=== PATIENT | female | born 1975 | race American Indian/Alaskan Native ===

== ENCOUNTER 2017-10-02 16:58 | Inpatient (IN) | payer MEDICAID ==
[2017-10-02] MEDS ORDERED: Albuterol-Ipratrop 3 mg / 0.5 (3 ml) UD IH STA (17:18)
--- NOTE | 2017-10-02 17:22 | ED PDOC ---
Arrival/HPI - General Chief Complaint: Shortness Of Breath Time Seen by Provider: 10/02/17 17:00 Historian: Patient, Family, EMS - History of Present Illness Time/Duration: Prior to Arrival Symptom Onset: Gradual Symptom Course: Unchanged Severity Level: Severe Activities at Onset: Rest Associated Symptoms (Text): 10/02/17 17:20 Morbidly obese woman. Complains of chronic shortness of breath worse over the last several days. Patient is usually seen and admitted at another hospital. Discharged last week. History of multiple pulmonary emboli. Patient does not take hers xarelto as prescribed. 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 She is on home oxygen 4 L and her pulse oximetry is normally 90. Reports she quit smoking approximately 6 months ago. Drinks alcohol daily. Past Medical History - Infectious Disease Hx of Infectious Diseases: None - Pulmonary Hx Chronic Obstructive Pulmonary Disease (COPD): Yes (O2 dependent 4-5LPM) - Gastrointestinal Hx Gastroesophageal Reflux: Yes - Psychiatric Hx Substance Use: No Family/Social History - Physician Review Nursing Documentation Reviewed: Yes Family/Social History: Unknown Family HX Smoking Status: Former Smoker (quit 6 months ago) Hx Alcohol Use: Yes Frequency of alcohol use: Daily Hx Substance Use: No Allergies/Home Meds Allergies/Adverse Reactions: Allergies No Known Allergies Allergy (Verified 10/02/17 17:02) Home Medications: Home Meds Medication Instructions Recorded Confirmed Albuterol/Ipratropium [Duoneb 3 1 vial IH QID PRN 10/02/17 10/02/17 mg/0.5 mg (3 ml) UD] Furosemide [Lasix] 1 tab PO DAILY 10/02/17 10/02/17 Pantoprazole [Protonix EC Tab] 1 tab PO DAILY 10/02/17 10/02/17 Rivaroxaban [Xarelto] 1 tab PO DAILY 10/02/17 10/02/17 Sildenafil [Revatio] 1 tab PO DAILY 10/02/17 10/02/17 predniSONE [predniSONE Tab] 1 tab PO DAILY 10/02/17 10/02/17 Review of Systems - Physician Review All systems were reviewed & negative as marked: Yes - Review of Systems Constitutional: Fatigue. absent: Fevers Respiratory: SOB, Cough, Wheezing. absent: Sputum Cardiovascular: absent: Chest Pain, Palpitations, Syncope Gastrointestinal: absent: Abdominal Pain, Diarrhea, Vomiting Neurological: absent: Headache, Dizziness, Focal Weakness Physical Exam Vital Signs Temp Pulse Resp BP Pulse Ox 10/02/17 19:20 93 H 18 113/81 89 L 10/02/17 18:42 22 88 L 10/02/17 17:06 97.8 F 99 H 18 110/66 88 L Temperature: Afebrile Blood Pressure: Normal Pulse: Regular Respiratory Rate: Tachypneic Appearance: Positive for: Non-Toxic, Uncomfortable, Other (morbidly obese) Pain Distress: None Mental Status: Positive for: Alert and Oriented X 3 - Systems Exam Head: Present: Atraumatic, Normocephalic Pupils: Present: PERRL Extroacular Muscles: Present: EOMI Conjunctiva: Present: Normal Mouth: Present: Moist Mucous Membranes Pharnyx: No: ERYTHEMA, EXUDATE, TONSILS ENLARGED Neck: Present: Normal Range of Motion Respiratory/Chest: Present: Respiratory Distress, Accessory Muscle Use, Wheezes , Decreased Breath Sounds, Rhonchi, Tachypneic. No: Rales Cardiovascular: Present: Regular Rate and Rhythm, Normal S1, S2. No: Murmurs Abdomen: No: Tenderness, Distention, Peritoneal Signs, Rebound, Guarding Back: Present: Normal Inspection Upper Extremity: Present: Normal Inspection. No: Cyanosis, Edema Lower Extremity: Present: Edema (race right lower extremity edema), Other (left BKA) Neurological: Present: GCS=15, CN II-XII Intact, Speech Normal, Motor Func Grossly Intact Skin: Present: Warm, Dry, Normal Color. No: Rashes Psychiatric: Present: Alert, Oriented x 3, Depressed Mood. No: Suicidal Ideation Medical Decision Making ED Course and Treatment: 10/02/17 18:21 CTA ordered on arrival as patient has a history of pulmonary embolus with increasing shortness of breath and not taking her anticoagulation as prescribed. 10/02/17 18:44 EKG shows normal sinus rhythm rate approximately 95 with a right bundle branch block Q waves inferiorly, poor R-wave progression and nonspecific ST and T- wave changes 10/02/17 19:10 CXR reviewed, shows: LUNGS: Prominence of pulmonary vasculature may be secondary to AP technique and/or pulmonary vascular congestion. No focal consolidation. PLEURA: No significant pleural effusion identified, no pneumothorax apparent. CARDIOVASCULAR: Cardiomediastinal silhouette appears prominent ; however, this cannot be accurately assessed on an AP projection. OSSEOUS STRUCTURES: No significant abnormalities. VISUALIZED UPPER ABDOMEN: Normal. OTHER FINDINGS: None. IMPRESSION: Prominence of the pulmonary vasculature and cardiomediastinal silhouette may be secondary to AP technique and/or pulmonary vascular congestion. No focal consolidation or pleural effusion. 10/02/17 19:54 CT Angio reviewed, shows: Pulmonary arteries: There is significant suboptimal opacification of the pulmonary arteries. Nondiagnostic exam. If a clinical concern for PE , further evaluation is recommended. Question of hypodensity noted in the right pulmonary artery , ? artifactual. Extremely Limited examination to evaluate for pulmonary embolism. Aorta: No acute findings. No thoracic aortic aneurysm. Lungs: There is patchy ill-defined density at the lung bases, question related to atelectatic changes. Pleural space: Tiny effusion right greater than left. No pneumothorax. Heart: There is moderate focal pericardial effusion measuring 1.8 cm. Further evaluation with echocardiogram is advised. The pericardial effusion is focal. There is calcification noted in the right ventricle. Bones/joints: See above. Soft tissues: Unremarkable. Lymph nodes: Unremarkable. No enlarged lymph nodes. IMPRESSION: 1. There is significant suboptimal opacification of the pulmonary arteries. Nondiagnostic exam. If a clinical concern for PE , further evaluation is recommended. Question of hypodensity noted in the right pulmonary artery , ? artifactual. Extremely Limited examination to evaluate for pulmonary embolism. 2. There is moderate focal pericardial effusion measuring 1.8 cm. Further evaluation with echocardiogram is advised. The pericardial effusion is focal. There is calcification noted in the right ventricle 10/02/17 20:09 Discussed with the medical aide and Dr. Julio will admit for the hospitalist. - Lab Interpretations Lab Results: 10/02/17 17:40 10/02/17 17:40 Lab Results 10/02/17 19:55: Urine Color Dark yellow, Urine Appearance Clear, Urine pH 6.0, Ur Specific [place] 1.010, Urine Protein 30 H, Urine Glucose (UA) Negative, Urine Ketones Negative, Urine Blood Negative, Urine Nitrate Negative, Urine Bilirubin Small H, Urine Urobilinogen 1.0 H, Ur Leukocyte Esterase Negative, Urine RBC Pending, Urine WBC Pending 10/02/17 18:30: pCO2 31 L, pO2 44.0 L*, HCO3 20.6 L, ABG pH 7.43, ABG Total CO2 21.6 L, ABG O2 Saturation 84.6 L, ABG O2 Content 13.3 L, ABG Base Excess -2.9 L , ABG Hemoglobin 11.6 L, ABG Carboxyhemoglobin 2.3 H, POC ABG HHb (Measured) 14.9 H, ABG Methemoglobin 1.1, ABG O2 Capacity 15.7 L, Hgb O2 Saturation 81.7 L , FiO2 40.0 10/02/17 17:40: Alcohol, Quantitative < 10 10/02/17 17:40: Sodium 140, Potassium 4.1, Chloride 105, Carbon Dioxide 20 L, Anion Gap 19, BUN 9, Creatinine 0.7, Est GFR ( Amer) > 60, Est GFR (Non- Af Amer) > 60, Random Glucose 102, Calcium 10.5, Magnesium 1.8, Total Bilirubin 2.6 H, AST 37 H, ALT 14, Alkaline Phosphatase 139 H, Lactate Dehydrogenase 800 H , Total Creatine Kinase 29 L, Troponin I 0.07, NT-Pro-B Natriuret Pep 1910 H, Total Protein 7.2, Albumin 4.2, Globulin 3.0, Albumin/Globulin Ratio 1.4 10/02/17 17:40: PT 21.8 H, INR 1.89 H, APTT 28.4, D-Dimer, Quantitative 220 10/02/17 17:40: WBC 9.1, RBC 4.85, Hgb 11.9 L, Hct 39.0, MCV 80.4, MCH 24.5 L, MCHC 30.5 L, RDW 17.7 H, Plt Count 614 H, MPV 10.2, Gran % 74.2 H, Lymph % (Auto ) 8.6 L, [place] % (Auto) 14.7 H, Eos % (Auto) 2.2, Baso % (Auto) 0.3, Gran # 6.72 H, Lymph # (Auto) 0.8 L, [place] # (Auto) 1.3 H, Eos # (Auto) 0.2, Baso # (Auto) 0.03 - RAD Interpretation Radiology Orders: 10/02/17 17:18 ANGIO CHEST PE PROTOCOL [CT] Stat CHEST PORTABLE [RAD] Stat Chest one view as read by the radiologist shows no acute findings. Cracking Still Operator: Radiologist - Medication Orders Current Medication Orders: Discontinued Medications Albuterol/Ipratropium (Duoneb 3 Mg/0.5 Mg (3 Ml) Ud) 3 ml IH STAT STA Stop: 10/02/17 17:19 Last Admin: 10/02/17 17:56 Dose: 3 ml Methylprednisolone (Solu-Medrol) 125 mg IVP STAT STA Stop: 10/02/17 17:19 Last Admin: 10/02/17 17:56 Dose: 125 mg IVP Administration Document 10/02/17 17:56 GMD (Rec: 10/02/17 17:56 GMD [id number]) Charges for Administration # of IVP Administrations 1 Disposition/Present on Arrival - Present on Arrival Any Indicators Present on Arrival: No History of DVT/PE: No History of Uncontrolled Diabetes: No Urinary Catheter: No History of Decub. Ulcer: No History Surgical Site Infection Following: None - Disposition Have Diagnosis and Disposition been Completed?: Yes Diagnosis: Hypoxia, Dyspnea, Congestive heart failure, Chronic obstructive pulmonary disease Disposition: HOSPITALIZED Disposition Time: 20:11 Patient Plan: Observation, Telemetry Condition: FAIR Discharge Instructions (ExitCare): Heart Failure (ED) Referrals: Debora Little [Primary Care Provider] - Follow up with primary Forms: DOOMORO (Czech)
[2017-10-02 17:57] LABS: BASO # 0.03 K/mm3 (0.0-2.0); BASO % 0.3 % (0.0-3.0); EOS # 0.2 (0.0-0.7); EOS % 2.2 % (1.5-5.0); GRAN # 6.72 (1.4-6.5); GRAN % 74.2 % (50.0-68.0); HEMOGLOBIN 11.9 g/dL (12.0-16.0); LYMPH # 0.8 (1.2-3.4); LYMPH % 8.6 % (22.0-35.0); MEAN CELL VOLUME 80.4 fl (80.0-105.0); MEAN CORPUSCULAR HEMOGLOBIN 24.5 pg (25.0-35.0); MEAN CORPUSCULAR HGB CONC 30.5 g/dl (31.0-37.0); MEAN PLATELET VOLUME 10.2 fl (7.0-11.0); MONO # 1.3 (0.1-0.6); MONO % 14.7 % (1.0-6.0); RBC 4.85 10^6/uL (3.5-6.1); RED CELL DISTRIBUTION WIDTH 17.7 % (11.5-14.5); WHITE BLOOD COUNT 9.1 10^3/ul (4.5-11.0)
[2017-10-02] MEDS ORDERED: Iohexol 350 MG/100 ML VIAL ONE (18:09)
[2017-10-02 18:13] LABS: ALB/GLOB RATIO 1.4 (1.1-1.8); ALBUMIN 4.2 g/dL (3.0-4.8); ALT/SGPT 14 U/L (7-56); AST/SGOT 37 U/L (14-36); BLOOD UREA NITROGEN 9 mg/dL (7-21); CALCIUM 10.5 mg/dL (8.4-10.5); GFR AFRICAN-AMERICAN > 60; GFR NON-AFRICAN AMERICAN > 60
[2017-10-02 18:18] LABS: PROTHROMBIN TIME 21.8 SECONDS (9.4-12.5)
[2017-10-02 18:19] LABS: INR 1.89 (0.93-1.08); PARTIAL THROMBOPLASTIN TIME 28.4 Seconds (25.1-36.5)
[2017-10-02 18:23] LABS: B-TYPE NATRIURETIC PEPTIDE 1910 pg/mL (0-450)
[2017-10-02 18:36] LABS: ARTERIAL BLOOD GAS HCO3 20.6 mmol/L (21-28); ARTERIAL BLOOD GAS HEMOGLOBIN 11.6 g/dL (11.7-17.4); ARTERIAL BLOOD GAS O2 CAPACITY 15.7 mL/dl (16-24); ARTERIAL BLOOD GAS O2 CONTENT 13.3 ML/dl (15-23); ARTERIAL BLOOD GAS O2 SAT 84.6 % (95-98); ARTERIAL BLOOD GAS PCO2 31 mm/Hg (35-45); ARTERIAL BLOOD GAS PH 7.43 (7.35-7.45); ARTERIAL BLOOD GAS TCO2 21.6 mmol.L (22-28)
--- NOTE | 2017-10-02 18:38 | RAD ---
HISTORY: sob COMPARISON: No prior FINDINGS: LUNGS: Prominence of pulmonary vasculature may be secondary to AP technique and/or pulmonary vascular congestion. No focal consolidation. PLEURA: No significant pleural effusion identified, no pneumothorax apparent. CARDIOVASCULAR: Cardiomediastinal silhouette appears prominent ; however, this cannot be accurately assessed on an AP projection. OSSEOUS STRUCTURES: No significant abnormalities. VISUALIZED UPPER ABDOMEN: Normal. OTHER FINDINGS: None. IMPRESSION: Prominence of the pulmonary vasculature and cardiomediastinal silhouette may be secondary to AP technique and/or pulmonary vascular congestion. No focal consolidation or pleural effusion.
[2017-10-02 18:49] LABS: TROPONIN I 0.07 ng/mL
[2017-10-02 20:06] LABS: URINE BILIRUBIN SMALL (NEGATIVE); URINE BLOOD NEGATIVE (NEGATIVE); URINE GLUCOSE (UA) NEGATIVE (NEGATIVE); URINE LEUKOCYTE ESTERASE NEGATIVE Leu/uL (NEGATIVE); URINE PROTEIN 30 mg/dL (<30 mg/dL)
[2017-10-02 20:07] LABS: URINE APPEARANCE CLEAR (CLEAR); URINE COLOR DARK YELLOW (YELLOW)
[2017-10-02 20:16] LABS: URINE RBC 0 - 2 /hpf (0-2)
[2017-10-02 20:17] LABS: URINE BACTERIA LARGE (NEG)
[2017-10-02 20:18] LABS: URINE COARSE GRANULAR CAST TRACE /hpf (0-2)
[2017-10-02 20:22] LABS: BARBITURATES, UR NEGATIVE (NEGATIVE); BENZODIAZEPINES, UR NEGATIVE (NEGATIVE); OPIATES, UR NEGATIVE (NEGATIVE); PHENCYCLIDINE, UR NEGATIVE (NEGATIVE)
[2017-10-02] MEDS ORDERED: Albuterol-Ipratrop 3 mg / 0.5 (3 ml) UD IH PRN (21:39)
[2017-10-02] MEDS ORDERED: MethylPREDNISolone 40 mg Vial IVP SCH (22:00)
--- NOTE | 2017-10-02 22:07 | CP.PCM.HP ---
<Jose Crespo - Last Filed: 10/03/17 00:39> History of Present Illness - History of Present Illness History of Present Illness: PGY-1 Hospitalist Admission Note for Dr. Kalee Valero Ms. 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 She states that she called EMS earlier today when she couldn't breathe. They measured her SpO2 at 77%. She' s been hospitalized for this multiple times in the past at [facility]. She states that she has been told that she has "fluid in her lungs." When she's hospitalized she typically receives lasix and steroids with some improvement. She states that she has not been taking xarelto or lasix for at least the past week because "I don't want to take them." Patient admits to using CPAP at home. Patient currently admits to shortness of breath, productive cough. She denies wheezing, chest pain, nausea/vomiting, abdominal pain. PMH: CHF, COPD, hx DVT/PE, pulmonary HTN PSH: c/s x2 Allergies: NKDA Meds: as per EMR, RN reviewed with pharmacy to verify Fam Hx: mother has HTN, father had DM2 and a clotting disorder Soc Hx: former smoker of at least 20 years, drinks heavily, denies illicit drug use. She states she moves around very little and stays in her bed all day. Present on Admission - Present on Admission Any Indicators Present on Admission: Yes History of DVT/PE: Yes History of Uncontrolled Diabetes: No Urinary Catheter: No Decubitus Ulcer Present: No Review of Systems - Review of Systems Review of Systems: A 12 point ROS was reviewed with patient and negative except as stated in HPI Past Patient History - Infectious Disease Hx of Infectious Diseases: None - Past Social History Smoking Status: Former Smoker (quit 6 months ago) - PULMONARY Hx Chronic Obstructive Pulmonary Disease (COPD): Yes (O2 dependent 4-5LPM) - HEMATOLOGICAL/ONCOLOGICAL Other/Comment: DVT - MUSCULOSKELETAL/RHEUMATOLOGICAL Other/Comment: L BKA - s/p DVT - GASTROINTESTINAL Hx Gastroesophageal Reflux: Yes - PSYCHIATRIC Hx Substance Use: No - SURGICAL HISTORY Hx Section: Yes (x2) Other/Comment: L BKA - 2016 Meds Home Medications: Home Medication List Medication Instructions Recorded Confirmed Type Gabapentin [Neurontin] 300 mg PO TID #30 cap 10/05/17 Rx predniSONE [predniSONE Tab] See Taper PO DAILY #30 tab 10/07/17 Rx Allergies/Adverse Reactions: Allergies Allergy/AdvReac Type Severity Reaction Status Date / Time No Known Allergies Allergy Verified 10/02/17 17:02 Physical Exam - Constitutional Appears: Chronically Ill Additional comments: obese, chronically ill appearing - Head Exam Head Exam: ATRAUMATIC, NORMAL INSPECTION, NORMOCEPHALIC - Eye Exam Eye Exam: Normal appearance, PERRL - ENT Exam ENT Exam: Mucous Membranes Moist - Neck Exam Additional comments: wide, thick neck, no thyromegaly - Respiratory Exam Respiratory Exam: absent: Accessory Muscle Use, Respiratory Distress, Stridor Additional comments: distant breath sounds with mild crackles at the left lower base, no wheezes - Cardiovascular Exam Cardiovascular Exam: REGULAR RHYTHM, +S1, +S2. absent: Diastolic murmur, Gallop , Rubs, +S4, Systolic Murmur - GI/Abdominal Exam GI & Abdominal Exam: Soft. absent: Guarding, Rebound, Tenderness - Extremities Exam Extremities exam: Negative for: calf tenderness, pedal edema Additional comments: L leg below the knee amputation - Neurological Exam Neurological exam: Alert, Oriented x3 - Psychiatric Exam Psychiatric exam: Anxious - Skin Additional comments: a few ecchymoses on back of right arm, multiple acneiform papules and pustules on the face bilaterally Results - Vital Signs Recent Vital Signs: Last Vital Signs Temp 97.8 F 10/02/17 17:06 Pulse 78 10/02/17 21:42 Resp 20 10/02/17 21:42 BP 118/84 10/02/17 21:42 Pulse Ox 98 10/02/17 21:42 - Labs Result Diagrams: 10/02/17 17:40 10/02/17 17:40 Assessment & Plan - Assessment and Plan (Free Text) Assessment: Ms. Oakes is a 42 year old female with PMH of CHF (unknown EF), COPD (on home O2 2 liters, on home prednisone), hx of DVT/PE (on xarelto) s/p R leg amputation , reported pulmonary HTN, and LAYO presents with SOB and cough for 3 days. 1. SOB -Possibly due to CHF vs. COPD exacerbation vs hx of reported pulmonary HTN -Lasix 40 mg IVP x1, and daily -CXR -Levaquin 750 mg started daily -CT PE protocol suboptimal for PE and moderate pericardial effusion. On xarelto -Solumedrol 125 mg x 1 in ED -Duo neb scheduled and PRN -Septic w/u ordered -Repeat ABG in AM -AM labs 2. Hx of CHF exacerbation -F/u Echo -BNP elevated -Lasix 40 mg daily -Will consider cardiology consult 3. Hx of COPD exacerbation -Continue solumedrol 40 mg BID -Duo neb as needed -Will consider pulm consult 4. Hx of Pulm HTN -Continue home sildenafil -F/u echo 5. GI/DVT prophylaxis continue xarelto and protonix Case and plan discussed with Dr. Kalee Valero attending Jose Crespo DO IM Resident PGY-1 <Brenda Valero - Last Filed: 10/07/17 22:33> Results - Vital Signs Recent Vital Signs: Last Vital Signs Temp 97.4 F L 10/07/17 22:22 Pulse 90 10/07/17 22:22 Resp 18 10/07/17 22:22 BP 102/71 10/07/17 22:22 Pulse Ox 90 L 10/07/17 22:22 - Labs Result Diagrams: 10/07/17 07:00 10/07/17 07:00 Labs: Laboratory Results - last 24 hr 10/05/17 10/07/17 10/07/17 05:30 07:00 07:00 WBC 11.5 H RBC 5.21 Hgb 12.7 Hct 41.7 MCV 80.0 MCH 24.4 L MCHC 30.5 L RDW 17.1 H Plt Count 628 H MPV 9.6 Gran % 76.8 H Lymph % (Auto) 18.0 L [place] % (Auto) 5.1 Eos % (Auto) 0.1 L Baso % (Auto) 0.0 Gran # 8.85 H Lymph # (Auto) 2.1 [place] # (Auto) 0.6 Eos # (Auto) 0.0 Baso # (Auto) 0.00 Sodium 138 Potassium 4.2 Chloride 99 Carbon Dioxide 28 Anion Gap 15 BUN 21 Creatinine 0.8 Est GFR ( Amer) > 60 Est GFR (Non-Af Amer) > 60 Random Glucose 116 H Calcium 9.2 Total Bilirubin 1.3 AST 27 ALT 29 Alkaline Phosphatase 115 Total Protein 6.8 Albumin 4.1 Globulin 2.7 Albumin/Globulin Ratio 1.5 Thyroid Stim Immunoglob 106
[2017-10-02] MEDS: guaiFENesin 200 mg/10 ml Syrup UD PO PRN (23:20)
--- NOTE | 2017-10-03 00:07 | PCM.RRT ---
<Fran Verduzco - Last Filed: 10/02/17 23:47> DENIAL RESOLUTION SPECIALIST Nurse Assessment - Situation Date: 10/02/17 Time DENIAL RESOLUTION SPECIALIST was called: 22:56 DENIAL RESOLUTION SPECIALIST Responder Arrival Time: 22:59 DENIAL RESOLUTION SPECIALIST Location:: [address] [place] [address] Room Number: 264-2 DENIAL RESOLUTION SPECIALIST Reason for Call: Respiratory Distress, O2 Saturation below 90% DENIAL RESOLUTION SPECIALIST Called By: RN - IV IV Inserted during DENIAL RESOLUTION SPECIALIST?: No - Respiratory Oxygen Delivery Method: Nasal Cannula @L/min Oxygen Flow Rate: 6 Received Nebulizer Treatments:: No Was the Patient Ventilated with Bag/Mask 100% O2?: No Secretions Suctioned?: No Was the Patient Intubated?: No Was the Patient Placed on a Ventilator?: No - Medication Medications Administered During DENIAL RESOLUTION SPECIALIST: Solumedrol 60 mg. Lasix 20 mg. Robitussin 200 mg - Diagnostic Test Ordered EKG: No Chest X-Ray: Yes (Portable) CT Scan: No - Stat Labs Ordered DENIAL RESOLUTION SPECIALIST Stat Labs Ordered: ABG CPR started during DENIAL RESOLUTION SPECIALIST?: No - Vital Signs Vital Sign: Rapid Response Vital Sign Blood Pressure 135/80 Pulse Rate 97 Respiratory Rate 32 Oxygen Saturation 76 - Finger Stick Blood Glucose Finger Stick Blood Glucose: 144 - Time DENIAL RESOLUTION SPECIALIST Ended Time DENIAL RESOLUTION SPECIALIST Ended: 23:38 - Vital Signs at end of DENIAL RESOLUTION SPECIALIST Vital Signs at end of DENIAL RESOLUTION SPECIALIST: Rapid Response End Vital Sign Blood Pressure 135/80 Pulse Rate 97 Respiratory Rate 28 O2 Sat by Pulse Oximetry 85 - Recommendations Notifications: Consultations I.Reason for DENIAL RESOLUTION SPECIALIST - A) Acute Change in Patient: (Select all that apply): Acute change in SpO2 less (spo2 76%) - Neurological Status (Select all that apply): Alert, Responsive, Oriented, Verbal - Respiratory Oxygen Delivery Method: Nasal Cannula @L/min Oxygen Flow Rate: 6 - Constitutional Appears: No Acute Distress - Head Head Exam: ATRAUMATIC - Eyes Eye Exam: EOMI, PERRL - Respiratory Exam Respiratory Exam: Decreased Breath Sounds, Clear to Ausculation Bilateral, Rales. absent: Wheezes - Cardiovascular Exam Cardiovascular Exam: REGULAR RHYTHM, +S1, +S2 - GI/Abdominal Exam GI & Abdominal Exam: Soft. absent: Tenderness - Neurological Exam Neurological Exam: Alert, Awake, CN II-XII Intact, Oriented x3 - Extremities Exam Extremities Exam: Pedal Edema (3+). absent: Calf Tenderness Plan - Assessment of Findings&Treatment Plan DENIAL RESOLUTION SPECIALIST: Called at 10:56 PM DENIAL RESOLUTION SPECIALIST called by nursing staff. Patient was short of breath and hypoxic, SPO2 76% , and was coughing. Patient was just recently brought up from the ED. She denied any chest pain or any other complaints. Patient with extensive history of CHF (unknown EF), COPD, LAYO, and pulmonary hypertension. Patient also with a history of PE/DVT on Xarelto at home. CT chest PE protocol in the ED shows sub- optimal exam for PE, and moderate pericardial effusion of 1.8 cm. Patient states that at baseline she is on 4 L of oxygen, and on prednisone at home for her COPD. Vitals: Refer to the chart. Physical exam: Lung: Diminished breath sounds, rales on the bases bilaterally Plan: - Patient is currently hemodynamically stable saturating in the high 80s. - BiPAP ordered - Chest x-ray ordered stat, awaiting official read, but shows some possible infiltrate, pulmonary vascular congestion and cardiomegally - ABG stat, PH 7.41, Pco2 30, PO2 47, - Lasix 20 mg stat, already received 40 mg with in 1 hour prior to DENIAL RESOLUTION SPECIALIST - Solu-Medrol 60 mg stat, already received 125 mg in the ED - Robitussin as needed - ICU consulted for recommendations Patient was seen and examined during this DENIAL RESOLUTION SPECIALIST with Dr. Mcintyre <Marilyn Mcintyre - Last Filed: 10/03/17 01:25> DENIAL RESOLUTION SPECIALIST Nurse Assessment - Vital Signs Vital Sign: Rapid Response Vital Sign Blood Pressure 135/80 Pulse Rate 97 Respiratory Rate 32 Oxygen Saturation 76 - Vital Signs at end of DENIAL RESOLUTION SPECIALIST Vital Signs at end of DENIAL RESOLUTION SPECIALIST: Rapid Response End Vital Sign Blood Pressure 135/80 Pulse Rate 97 Respiratory Rate 28 O2 Sat by Pulse Oximetry 85 Attending/Attestation - Attestation I have personally seen and examined this patient.: Yes I have fully participated in the care of the patient.: Yes I have reviewed all pertinent clinical information, including history, physical exam and plan: Yes Notes (Text): 10/03/17 01:20 Addendum:Pt seen and examined with resident by bedside. On auscultation of lungs,breath sounds are diminished in the lower lung reyes.
[2017-10-03] MEDS ORDERED: levoFLOXacin 750 mg in D5W 150 ML BAG IVPB STA (00:09)
--- NOTE | 2017-10-03 00:37 | CP.PCM.CON ---
History of Present Illness - History of Present Illness History of Present Illness: ICU Consult Note Ms. 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 Patient was brought in by EMS and found to have an SpO2 of 77%. In the ED, patient was given given O2 via NC, and solumedrol and was able to maintain O2 between 88-92%. Patient was admitted to telemetry for shortness of breath 2/2 CHF exacerbation vs. COPD exacerbation. ICU was consulted due to rapid response due to increasing shortness of breath and O2 saturation of 76%. At that time, patient was complaining of dyspnea and dry cough. Patient denies CP, n/v/d, abdominal pain, fever, chills, LAY, or dizziness PMH: CHF, COPD, DVT/PE, pulmonary HTN PSH: x2 Allergies: NKDA Meds: as per EMR Fam Hx: mother has HTN, father had DM2 and a clotting disorder Soc Hx: former smoker of at least 20 years, drinks heavily, denies illicit drug use. Review of Systems - Review of Systems All systems: reviewed and no additional remarkable complaints except (12 point ROS reviewed and is negative other than what is stated in HPI.) Past Patient History - Infectious Disease Hx of Infectious Diseases: None - Past Social History Smoking Status: Former Smoker (quit 6 months ago) - PULMONARY Hx Chronic Obstructive Pulmonary Disease (COPD): Yes (O2 dependent 4-5LPM) - HEMATOLOGICAL/ONCOLOGICAL Other/Comment: DVT - MUSCULOSKELETAL/RHEUMATOLOGICAL Other/Comment: [facility] - s/p DVT - GASTROINTESTINAL Hx Gastroesophageal Reflux: Yes - PSYCHIATRIC Hx Substance Use: No - SURGICAL HISTORY Hx Section: Yes (x2) Other/Comment: Andrew WHEAT - 2016 Meds Allergies/Adverse Reactions: Allergies Allergy/AdvReac Type Severity Reaction Status Date / Time No Known Allergies Allergy Verified 10/02/17 17:02 - Medications Medications: Current Medications Albuterol/Ipratropium (Duoneb 3 Mg/0.5 Mg (3 Ml) Ud) 3 ml IH Q2H PRN PRN Reason: Shortness of Breath Last Admin: 10/02/17 22:29 Dose: 3 ml Albuterol/Ipratropium (Duoneb 3 Mg/0.5 Mg (3 Ml) Ud) 3 ml IH [id number] [facility] Furosemide (Lasix) 40 mg IVP DAILY [facility] Guaifenesin (Robitussin) 200 mg PO Q4H PRN PRN Reason: Cough and congestion Last Admin: 10/02/17 23:20 Dose: 200 mg Levofloxacin/Dextrose (Levaquin 750mg) 750 mg IVPB DAILY [facility] PRN Reason: Protocol Methylprednisolone (Solu-Medrol) 40 mg IVP Q12 [facility] Pantoprazole Sodium (Protonix Ec Tab) 40 mg PO DAILY [facility] Rivaroxaban (Xarelto) 20 mg PO DAILY [facility] PRN Reason: Protocol Sildenafil Citrate (Revatio) 10 mg PO DAILY [facility] Physical Exam - Constitutional Appears: In Acute Distress - Head Exam Head Exam: ATRAUMATIC, NORMAL INSPECTION, NORMOCEPHALIC - Eye Exam Eye Exam: EOMI, Normal appearance, PERRL - ENT Exam ENT Exam: Mucous Membranes Dry - Neck Exam Neck exam: Positive for: Normal Inspection - Respiratory Exam Respiratory Exam: Accessory Muscle Use, Decreased Breath Sounds, Clear to Auscultation Bilateral, Respiratory Distress. absent: Rales, Rhonchi, Wheezes - Cardiovascular Exam Cardiovascular Exam: RRR, +S1, +S2. absent: Diastolic murmur, Gallop, Rubs, Systolic Murmur - GI/Abdominal Exam GI & Abdominal Exam: Soft. absent: Distended, Guarding, Rebound, Tenderness - Extremities Exam Extremities exam: Positive for: normal capillary refill, pedal edema (3+/4), pedal pulses present. Negative for: calf tenderness, full ROM, joint swelling, tenderness - Neurological Exam Neurological exam: Alert, CN II-XII Intact, Oriented x3 - Psychiatric Exam Psychiatric exam: Normal Affect, Normal Mood - Skin Skin Exam: Dry, Intact, Normal Color, Warm Results - Vital Signs Recent Vital Signs: Last Vital Signs Temp 97.8 F 10/02/17 17:06 Pulse 94 H 10/02/17 23:50 Resp 20 10/02/17 21:42 BP 135/80 10/02/17 23:22 Pulse Ox 98 10/02/17 21:42 - Labs Result Diagrams: 10/02/17 17:40 10/02/17 17:40 Labs: Laboratory Results - last 24 hr 07/06/18 23:00 POC Glucose (mg/dL) 144 H Assessment & Plan - Assessment and Plan (Free Text) Assessment: 42 yo F with PMH of CHF, COPD, DVT/PE, pulmonary HTN admitted for evaluation and treatment for shortness of breath 2/2 CHF vs. COPD exacerbation. ICU consulted due to acute hypoxia and worsening dyspnea. Plan: Neuro: - AOx3 - Maintain normothermia Cardio: - EKG showed NSR at rate of 95, incomplete RBBB, age-undetermined infarcts - CTA showed pericardial effusion - Maintain MAP>95% - Lasix - Echo ordered Pulm: - CTA indeterminate for PE - ABG showed normal pH with hypoxia (pO2 47) - BIPAP - Maintain O2 sat between 88-92% - AM ABG ordered - Sildenifil for pulm HTN - Solumedrol - Duoneb silvia and prn - Robitussin for cough GI: - Protonix for GI PPx - Heart healthy diet Nephro: - Maintain euvolemia - Monitor electrolytes, replete as needed Endocrine: - Maintain euglycemia Heme: - Xarelto due to h/o DVT ID: - Blood cultures ordered - Levaquin Dispo: At this time, continue monitoring on telemetry. BIPAP is ordered with ABG follow up. Please reconsult ICU as needed. Patient seen and discussed in detail with Dr. Valero. Antonio Hillman, PGY2
[2017-10-03] MEDS: Albuterol-Ipratrop 3 mg / 0.5 (3 ml) UD IH SCH ×4 (01:49→20:30)
[2017-10-03 02:24] LABS: ARTERIAL BLOOD GAS HEMOGLOBIN 12.8 g/dL (11.7-17.4); ARTERIAL BLOOD GAS O2 CAPACITY 17.3 mL/dl (16-24); ARTERIAL BLOOD GAS O2 SAT 86.6 % (95-98); ARTERIAL BLOOD GAS PCO2 30 mm/Hg (35-45); ARTERIAL BLOOD GAS PH 7.41 (7.35-7.45); ARTERIAL BLOOD GAS TCO2 19.9 mmol.L (22-28)
[2017-10-03 05:33] VITALS: BMI 23.8
[2017-10-03] MEDS ORDERED: levoFLOXacin 750 mg in D5W 750 MG/150 ML BAG IVPB STA (05:55)
[2017-10-03 07:07] LABS: EOS % 0.1 % (1.5-5.0); GRAN # 6.62 (1.4-6.5); GRAN % 94.1 % (50.0-68.0); LYMPH # 0.3 (1.2-3.4); LYMPH % 4.8 % (22.0-35.0); MEAN CELL VOLUME 80.6 fl (80.0-105.0); MEAN CORPUSCULAR HEMOGLOBIN 24.2 pg (25.0-35.0); MEAN PLATELET VOLUME 10.3 fl (7.0-11.0); MONO # 0.1 (0.1-0.6); PLATELET COUNT 609 10^3/uL (120.0-450.0); RBC 4.96 10^6/uL (3.5-6.1); RED CELL DISTRIBUTION WIDTH 17.7 % (11.5-14.5)
[2017-10-03 07:24] LABS: LDL CHOLESTEROL 44 mg/dL (0-129); TROPONIN I 0.08 ng/mL
[2017-10-03 07:33] LABS: ALB/GLOB RATIO 1.3 (1.1-1.8); ALBUMIN 4.2 g/dL (3.0-4.8); ALT/SGPT 22 U/L (7-56); AST/SGOT 21 U/L (14-36); BLOOD UREA NITROGEN 10 mg/dL (7-21); CALCIUM 9.3 mg/dL (8.4-10.5); GFR AFRICAN-AMERICAN > 60; GFR NON-AFRICAN AMERICAN > 60; HDL CHOLESTEROL 46 mg/dL (29-60)
[2017-10-03 07:43] LABS: LYMPHOCYTE 7 % (22.0-35.0); MONOCYTE 3 % (1.0-6.0); NEUTROPHIL 90 % (50.0-70.0)
[2017-10-03 07:44] LABS: ANISOCYTOSIS SLIGHT; GIANT PLATELETS PRESENT; LARGE PLATELETS PRESENT; PLATELET ESTIMATE HIGH (NORMAL); POIKILOCYTOSIS SLIGHT
[2017-10-03 07:45] LABS: TEAR DROP CELLS SLIGHT
--- NOTE | 2017-10-03 08:15 | CT ---
PROCEDURE: CT Chest with contrast (Pulmonary Angiogram) HISTORY: sob COMPARISON: None available. TECHNIQUE: Axial computed tomography images were obtained of the chest in the pulmonary arterial phase of enhancement. Coronal and sagittal reformatted images were created and reviewed. Intravenous contrast dose: 100 cc Omnipaque 350 Mean Hounsfield unit values in the main pulmonary artery: 117.15 Radiation dose: Total exam DLP = 537.96 mGy-cm. This CT exam was performed using one or more of the following dose reduction techniques: Automated exposure control, adjustment of the mA and/or kV according to patient size, and/or use of iterative reconstruction technique. FINDINGS: PULMONARY ARTERIES: No large central pulmonary emboli. Nondiagnostic study beyond the right and left main pulmonary artery. This is based on both qualitative assessment and quantitative analysis of density of the pulmonary artery using Hounsfield units. AORTA: No acute findings. No thoracic aortic aneurysm. LUNGS: Atelectatic changes at the lung bases. PLEURAL SPACES: Unremarkable. No effusion or pneuomothorax. HEART: Unremarkable. No cardiomegaly. No significant pericardial effusion. LYMPH NODES: No lymphadenopathy. BONES, CHEST WALL: Unremarkable. No fracture or destructive lesion OTHER FINDINGS: Unremarkable. IMPRESSION: Nondiagnostic study beyond the main pulmonary artery for pulmonary embolism. Additional benign and/or incidental findings described above. Concordant results (preliminary interpretation) provided by [employer]. Procedure Completed: 19:02 Preliminary ([facility]) Report: Dictated and Authenticated: 19:52 Final Interpretation: [id number]
--- NOTE | 2017-10-03 09:18 | CARD ---
APPROVED REPORT EKG Measurement Heart [id number] CO 142P13 [id number] <Conclusion> Normal sinus rhythm Indeterminate axis Low voltage QRS Incomplete right bundle branch block Possible Inferior infarct, age undetermined NSSTW changes
[2017-10-03] MEDS: Pantoprazole 40 mg EC Tab PO SCH (09:45)
[2017-10-03] MEDS: Sildenafil 20 MG TAB PO SCH (09:46)
[2017-10-03] MEDS: MethylPREDNISolone 40 mg Vial IVP SCH ×2 (09:48→21:01)
[2017-10-03] MEDS ORDERED: levoFLOXacin 500 mg in D5W 500 MG/100 ML BAG IVPB SCH (10:00)
--- NOTE | 2017-10-03 10:09 | RAD ---
HISTORY: Respiratory Distress COMPARISON: No prior. FINDINGS: LUNGS: No active pulmonary disease. PLEURA: No significant pleural effusion identified, no pneumothorax apparent. CARDIOVASCULAR: Normal. OSSEOUS STRUCTURES: No significant abnormalities. VISUALIZED UPPER ABDOMEN: Normal. OTHER FINDINGS: None. IMPRESSION: No active disease.
--- NOTE | 2017-10-03 14:30 | CON ---
DATE: 10/03/2017 CARDIOLOGY CONSULT REASON FOR CONSULTATION: Shortness of breath. HISTORY OF PRESENT ILLNESS: The patient is a 42-year-old morbidly obese female, who has chronic obstructive lung disease, history of DVT and history of left below-knee amputation. The patient was recently discharged from [facility] after the patient was admitted with shortness of breath. The patient has diagnosis of pulmonary embolus and was not taking her Xarelto as being prescribed. The patient denies any retrosternal chest pain at this time. MEDICATIONS: Albuterol inhaler every 2 hours p.r.n., Lasix 40 mg intravenously once a day, Levaquin 750 mg intravenously daily, Neurontin 300 mg t.i.d., Protonix 40 mg p.o. once a day, Robitussin 200 mg p.o. every 4 hours p.r.n., Solu-Medrol 40 mg intravenously every 12 hours, Xarelto 20 mg once a day. PAST MEDICAL HISTORY: 1. DVT and pulmonary embolus. 2. Left below knee amputation 2 years ago. 3. Chronic obstructive lung disease. PHYSICAL EXAMINATION: GENERAL: The patient is a middle-aged female, who is currently on BiPAP. VITAL SIGNS: Blood pressure 123/91, heart rate 100, temperature 99.1, respirations 20. HEENT: Facial edema. CHEST: Absent breath sounds over the bases. HEART: S1 and S2 regular and distant. ABDOMEN: Soft. EXTREMITIES: 1+ right leg edema and left below-knee amputation. LABORATORY DATA: Hemoglobin and hematocrit today 12 and 40, white count 7.4, platelet count 609,000. Today's SMA-7 is within normal limits except for glucose of 137, troponin 0.07 and 0.08. TSH level is 0.33. EKG revealed sinus rhythm at rate of 95, low-voltage QRS complex. Incomplete right bundle-branch block. Nonspecific ST-T wave changes. Chest CT angio with PE protocol. Nondiagnostic study beyond the main pulmonary artery for pulmonary embolism. Chest-ray revealed mild cardiomegaly, moderate CHF. ASSESSMENT: 1. Exacerbation of chronic obstructive lung disease. 2. History of deep venous thrombosis and pulmonary emboli in the past. 3. Morbid obesity. 4. History of left below-knee amputation 2 years ago. 5. Consider congestive heart failure. RECOMMENDATIONS: Continue IV Lasix 40 mg daily. Continue Levaquin 750 mg daily. Solu-Medrol 40 mg intravenously twice a day, Xarelto 20 mg once a day. Obtain an echocardiogram. Eduard Cannon MD
[2017-10-03] MEDS: guaiFENesin 200 mg/10 ml Syrup UD PO PRN (18:34)
--- NOTE | 2017-10-03 18:56 | CP.PCM.PN ---
<Deni Velez - Last Filed: 10/04/17 07:31> Subjective - Date & Time of Evaluation Date of Evaluation: 10/03/17 Time of Evaluation: 07:00 - Subjective Subjective: Progress note for Hospitalist Dr. Carrington Patient seen and examined at bedside in no acute distress. Patient was seen on [place] and able to communicate with ease. Denies chest pain, abdominal pain, nausea , vomiting, diarrhea, constipation, fevers, chills. Objective - Vital Signs/Intake and Output Vital Signs (last 24 hours): Temp Pulse Resp BP Pulse Ox 98.4 F 101 H 20 108/72 89 L 10/03/17 18:00 10/03/17 18:00 10/03/17 18:00 10/03/17 18:00 10/03/17 06:00 Intake and Output: 10/03/17 10/03/17 06:59 18:59 Intake Total 240 Output Total 1100 Balance -860 - Medications Medications: Current Medications Albuterol/Ipratropium (Duoneb 3 Mg/0.5 Mg (3 Ml) Ud) 3 ml IH Q2H PRN PRN Reason: Shortness of Breath Last Admin: 10/02/17 22:29 Dose: 3 ml Albuterol/Ipratropium (Duoneb 3 Mg/0.5 Mg (3 Ml) Ud) 3 ml IH [id number] [facility] Last Admin: 10/03/17 13:40 Dose: 3 ml Furosemide (Lasix) 40 mg IVP DAILY [facility] Last Admin: 10/03/17 09:48 Dose: 40 mg Gabapentin (Neurontin) 300 mg PO TID [facility] PRN Reason: Protocol Last Admin: 10/03/17 18:28 Dose: Not Given Guaifenesin (Robitussin) 200 mg PO Q4H PRN PRN Reason: Cough and congestion Last Admin: 10/03/17 18:34 Dose: 200 mg Levofloxacin/Dextrose (Levaquin 750mg) 750 mg IVPB DAILY [facility] PRN Reason: Protocol Methylprednisolone (Solu-Medrol) 40 mg IVP Q12 [facility] Last Admin: 10/03/17 09:48 Dose: 40 mg Pantoprazole Sodium (Protonix Ec Tab) 40 mg PO DAILY [facility] Last Admin: 10/03/17 09:45 Dose: 40 mg Rivaroxaban (Xarelto) 20 mg PO DAILY [facility] PRN Reason: Protocol Last Admin: 10/03/17 09:47 Dose: 20 mg Sildenafil Citrate (Revatio) 10 mg PO DAILY [facility] Last Admin: 10/03/17 09:46 Dose: 10 mg - Labs Labs: PT 21.8 SECONDS (9.4-12.5) H 10/02/17 17:40 INR 1.89 (0.93-1.08) H 10/02/17 17:40 APTT 28.4 Seconds (25.1-36.5) 10/02/17 17:40 - Head Exam Head Exam: ATRAUMATIC, NORMAL INSPECTION, NORMOCEPHALIC - Eye Exam Eye Exam: EOMI - Neck Exam Neck Exam: Full ROM - Respiratory Exam Respiratory Exam: Decreased Breath Sounds, NORMAL BREATHING PATTERN - Cardiovascular Exam Cardiovascular Exam: REGULAR RHYTHM, +S1, +S2 - Extremities Exam Extremities Exam: Pedal Edema (right leg). absent: Normal Inspection (left below knee amputation) - Back Exam Back Exam: NORMAL INSPECTION - Neurological Exam Neurological Exam: Alert, Awake, Oriented x3 - Psychiatric Exam Psychiatric exam: Depressed Assessment and Plan - Assessment and Plan (Free Text) Assessment: Ms. Oakes is a 42 year old female with PMH of CHF (unknown EF), COPD (on home O2 2 liters, on home prednisone), hx of DVT/PE (on xarelto) s/p R leg amputation , reported pulmonary HTN, and LAYO presents with SOB and cough for 3 days. 1. Dyspnea -Possibly due to CHF vs. COPD exacerbation vs hx of reported pulmonary HTN -Cardiology consulted -BNP elevated -Daily Lasix 40 mg -F/U echo -Pulmonary consult -Daily Levaquin 750 mg -Duonebs scheduled and PRN 2. Hx of Pulm HTN -Continue home sildenafil -F/u echo 3.History of DVT/PE -CT PE protocol suboptimal for PE and moderate pericardial effusion. -Patient restarted on xarelto 4. Depression -Patient states she is depressed at times because of left leg amputation; states she does not want to be seen by psych GI/DVT prophylaxis continue xarelto and protonix Case discussed and reviewed with Dr. Zeb Velez PGY2 <Jenn Carrington - Last Filed: 10/04/17 07:55> Objective - Vital Signs/Intake and Output Vital Signs (last 24 hours): Temp Pulse Resp BP Pulse Ox 97.8 F 95 H 20 107/77 93 L 10/04/17 06:00 10/04/17 06:00 10/04/17 06:00 10/04/17 06:00 10/04/17 06:00 Intake and Output: 10/04/17 10/04/17 06:59 18:59 Intake Total 1920 Output Total 1500 Balance 420 - Medications Medications: Current Medications Albuterol/Ipratropium (Duoneb 3 Mg/0.5 Mg (3 Ml) Ud) 3 ml IH Q2H PRN PRN Reason: Shortness of Breath Last Admin: 10/02/17 22:29 Dose: 3 ml Albuterol/Ipratropium (Duoneb 3 Mg/0.5 Mg (3 Ml) Ud) 3 ml IH [id number] [facility] Last Admin: 10/04/17 01:25 Dose: 3 ml Furosemide (Lasix) 40 mg IVP DAILY [facility] Last Admin: 10/03/17 09:48 Dose: 40 mg Gabapentin (Neurontin) 300 mg PO TID [facility] PRN Reason: Protocol Last Admin: 10/03/17 18:28 Dose: Not Given Guaifenesin (Robitussin) 200 mg PO Q4H PRN PRN Reason: Cough and congestion Last Admin: 10/03/17 18:34 Dose: 200 mg Levofloxacin/Dextrose (Levaquin 750mg) 750 mg IVPB DAILY [facility] PRN Reason: Protocol Methylprednisolone (Solu-Medrol) 40 mg IVP Q12 [facility] Last Admin: 10/03/17 21:01 Dose: 40 mg Oxycodone/Acetaminophen (Percocet 5/325 Mg Tab) 1 tab PO Q6H PRN PRN Reason: Pain, severe (8-10) Stop: 10/06/17 19:02 Last Admin: 10/03/17 20:56 Dose: 1 tab Pantoprazole Sodium (Protonix Ec Tab) 40 mg PO DAILY [facility] Last Admin: 10/03/17 09:45 Dose: 40 mg Rivaroxaban (Xarelto) 20 mg PO DAILY [facility] PRN Reason: Protocol Last Admin: 10/03/17 09:47 Dose: 20 mg Sildenafil Citrate (Revatio) 10 mg PO DAILY [facility] Last Admin: 07/07/18 09:46 Dose: 10 mg - Labs Labs: 10/04/17 06:00 10/04/17 06:00 PT 21.8 SECONDS (9.4-12.5) H 10/02/17 17:40 INR 1.89 (0.93-1.08) H 10/02/17 17:40 APTT 28.4 Seconds (25.1-36.5) 10/02/17 17:40 Attending/Attestation - Attestation I have personally seen and examined this patient.: Yes I have fully participated in the care of the patient.: Yes I have reviewed all pertinent clinical information, including history, physical exam and plan: Yes Notes (Text): 10/03/17 42 year old female with past medical history of CHF, COPD, DVT/PE on xarelto, s/ p right BKA, pulmonary hypertension and LAYO who presented with shortness of breath secondary to CHF/COPD exacerbation. Continue with iv lasix and iv steroids. Echocardiogram is pending. Cardiology and pulmonary evaluation were appreciated. CT angio was suboptimal study for PE. Patient is on xarelto. She was counselled on medication compliance. Jenn Carrington MD Hospitalist.
[2017-10-03] MEDS: Oxycodone/Acetaminophen 5/325 mg Tab PO PRN (20:56)
--- NOTE | 2017-10-03 21:09 | CON ---
DATE: 10/03/2017 PULMONARY CONSULTATION REQUESTING PHYSICIAN: Dr. Carrington. CHIEF COMPLAINT: The patient presented with shortness of breath. HISTORY OF PRESENT ILLNESS: Ms. Oakes, she is a 42-year-old morbidly obese female with a history of COPD, obstructive sleep apnea, pulmonary embolus and DVT. Note that the patient has been noncompliant with her Xarelto. She does have left lower extremity BKA and history of obstructive sleep apnea. The patient is awake and alert, on BiPAP at this time, very comfortable. She has no chest pain. No fever or chills. No nausea or vomiting. No abdominal pain. No diarrhea. PAST MEDICAL HISTORY: As above. ALLERGIES: SHE HAS NO KNOWN ALLERGIES. CURRENT MEDICATIONS: Can be evaluated as per the nurse's intake form. SOCIAL HISTORY: No history of drug abuse, but former smoker. No EtOH abuse. FAMILY HISTORY: Noncontributory. REVIEW OF SYSTEMS: CONSTITUTIONAL: All negative. HEENT: All negative. RESPIRATORY: The patient presented with shortness of breath. CARDIOVASCULAR: All negative. GASTROINTESTINAL: All negative. : All negative. MUSCULOSKELETAL: All negative. NEUROPSYCHIATRIC: All negative. ENDOCRINE: All negative. HEMATOLOGIC: All negative. IMMUNOLOGIC: All negative. PHYSICAL EXAMINATION: VITAL SIGNS: Note that her temperature is 99.1, her pulse is 100, respirations of 20 and BP is 123/91. SKIN: Warm and dry. HEENT: Head: Atraumatic, normocephalic. Eyes: Reactive to light. Ear, nose and throat: Seemed to be within normal limits. NECK: Supple. No JVD. No thyroid enlargement or lymph nodes. HEART: Regular rate and rhythm. Normal S1, S2. LUNGS: Reveal decreased breath sounds at the bases with mild rhonchi bilaterally. ABDOMEN: Soft. Decreased bowel sounds, but obese. GENITALIA: Deferred. RECTAL: Deferred. MUSCULOSKELETAL: No joint deformities. EXTREMITIES: Reveal left-sided BKA. Right extremity reveals trace edema in the lower extremity. NEUROLOGICAL: She seemed to be grossly intact. LABORATORY DATA: Her white count is 7, hemoglobin is 12, hematocrit 40 and platelets of 609,000. Sodium is 141, potassium 3.9, chloride 103, CO2 of 23 with a BUN of 10, creatinine of 0.7 and glucose of 137. The patient's arterial blood gas that was drawn on 10/02/2017 reveals a pH of 7.41, pCO2 of 30, pO2 of 47. Chest x-ray reveals no infiltrates. IMPRESSION: This patient has acute exacerbation of her chronic obstructive pulmonary disease. She does have obstructive sleep apnea and seems to have obesity hypoventilation syndrome. The patient has a pulmonary embolus and is noted was noncompliant with her anticoagulant medication. She has a history of deep vein thrombosis. Has a left below-knee amputation and is morbidly obese. PLAN: We will continue with BiPAP and O2 support and follow her chest x-ray and arterial blood gas closely. We will continue with DuoNeb as far as her bronchodilator. She is on Lasix for diuresis and the patient is getting Levaquin as well as sildenafil and cough medicine as well as Solu-Medrol. She is on Xarelto as well. Further plan is to continue to treat aggressively and continue the medications that are presently on and taper as the patient tolerates. Pierre Moore MD
[2017-10-04] MEDS: Albuterol-Ipratrop 3 mg / 0.5 (3 ml) UD IH SCH ×2 (01:25→07:51)
[2017-10-04 06:08] LABS: GRAN # 11.24 (1.4-6.5); GRAN % 90.5 % (50.0-68.0); HEMOGLOBIN 11.8 g/dL (12.0-16.0); LYMPH # 0.6 (1.2-3.4); LYMPH % 4.7 % (22.0-35.0); MEAN CELL VOLUME 80.3 fl (80.0-105.0); MEAN CORPUSCULAR HEMOGLOBIN 23.9 pg (25.0-35.0); MEAN CORPUSCULAR HGB CONC 29.8 g/dl (31.0-37.0); MONO # 0.6 (0.1-0.6); MONO % 4.8 % (1.0-6.0); RBC 4.93 10^6/uL (3.5-6.1); RED CELL DISTRIBUTION WIDTH 17.6 % (11.5-14.5); WHITE BLOOD COUNT 12.4 10^3/ul (4.5-11.0)
[2017-10-04 06:37] LABS: FREE T4 2.91 ng/dL (0.78-2.19)
[2017-10-04 07:15] LABS: ALB/GLOB RATIO 1.3 (1.1-1.8); ALT/SGPT 22 U/L (7-56); AST/SGOT 29 U/L (14-36); BLOOD UREA NITROGEN 16 mg/dL (7-21); GFR AFRICAN-AMERICAN > 60; GFR NON-AFRICAN AMERICAN > 60
--- NOTE | 2017-10-04 08:06 | CARD ---
APPROVED REPORT EXAM: Two-dimensional and M-mode echocardiogram with Doppler and color Doppler. Other Information Quality : PoorRhythm : INDICATION Congestive Heart Failure 2D DIMENSIONS Left Atrium (2D)2.4 (1.6-4.0cm)IVSd0.8 (0.7-1.1cm) LVDd3.6 (3.9-5.9cm)PWd0.8 (0.7-1.1cm) LVDs2.0 (2.5-4.0cm)FS (%) 44.4 % LVEF (%)76.0 (>50%) M-Mode DIMENSIONS Aortic Root3.50 (2.2-3.7cm)Aortic Cusp Exc.2.10 (1.5-2.0cm) Aortic Valve AoV Peak Yccwkcue658.0cm/s Mitral Valve MV E Razvbbcw04.6cm/sMV A Ttxtukcb83.9cm/sE/A ratio0.9 TDI Lateral E' Peak V12.10cm/sMedial E' Peak V9.94cm/sE/Lateral E'6.0 E/Medial E'7.3 Tricuspid Valve TR Peak [id number]/sRAP [id number] Peak Gr.68mmHg [id number] LEFT VENTRICLE The left ventricle is normal size. There is normal left ventricular wall thickness. The left ventricular function is normal. The left ventricular ejection fraction is within the normal range. Abnormal septal motion and flatteneing c/w RV volume/pressure overload. RIGHT VENTRICLE The right ventricle is moderately to severely dilated. ATRIA The left atrium size is normal. The right atrium is severely dilated. AORTIC VALVE The aortic valve is normal in structure. MITRAL VALVE The mitral valve is normal in structure. TRICUSPID VALVE The tricuspid valve is normal in structure. There is severe tricuspid regurgitation. There is severe pulmonary hypertension. GREAT VESSELS The aortic root is normal in size. PERICARDIAL EFFUSION There is no pericardial effusion. <Conclusion> This is a very limited study done in ICU. The left ventricle is normal size. There is normal left ventricular wall thickness. The left ventricular function is normal. Abnormal septal motion and flatteneing c/w RV volume/pressure overload. The right ventricle is moderately to severely dilated. The right atrium is severely dilated. There is severe tricuspid regurgitation. There is severe pulmonary hypertension.
[2017-10-04] MEDS ORDERED: Levalbuterol 0.63 MG/3 ML Inhal Soln UD IH PRN (09:28)
[2017-10-04] MEDS: guaiFENesin 200 mg/10 ml Syrup UD PO PRN (09:30)
[2017-10-04] MEDS: MethylPREDNISolone 40 mg Vial IVP SCH ×2 (09:30→21:17)
[2017-10-04] MEDS: Oxycodone/Acetaminophen 5/325 mg Tab PO PRN ×3 (09:31→21:17)
[2017-10-04] MEDS: Pantoprazole 40 mg EC Tab PO SCH (09:32)
[2017-10-04] MEDS: levoFLOXacin 750 mg in D5W 150 ML BAG IVPB SCH (09:38)
[2017-10-04] MEDS: Sildenafil 20 MG TAB PO SCH (09:39)
--- NOTE | 2017-10-04 13:00 | CP.PCM.PN ---
<Jacek Chilel - Last Filed: 10/04/17 12:54> Subjective - Date & Time of Evaluation Date of Evaluation: 10/04/17 Time of Evaluation: 09:30 - Subjective Subjective: Pt seen and examined at bedside. Denies any acute complaints this am, states her breathing is improving. Pt on BiPap during night, no acute events reported. Objective - Vital Signs/Intake and Output Vital Signs (last 24 hours): Temp Pulse Resp BP Pulse Ox 97.8 F 95 H 20 130/70 93 L 10/04/17 06:00 10/04/17 06:00 10/04/17 06:00 10/04/17 09:31 10/04/17 06:00 Intake and Output: 10/04/17 10/04/17 06:59 18:59 Intake Total 1920 Output Total 1500 Balance 420 - Medications Medications: Current Medications Furosemide (Lasix) 40 mg IVP DAILY [facility] Last Admin: 10/04/17 09:31 Dose: 40 mg Gabapentin (Neurontin) 300 mg PO TID [facility] PRN Reason: Protocol Last Admin: 10/04/17 09:38 Dose: Not Given Guaifenesin (Robitussin) 200 mg PO Q4H PRN PRN Reason: Cough and congestion Last Admin: 10/04/17 09:30 Dose: 200 mg Ipratropium [place] (Atrovent) 0.5 mg IH [id number] DUNIA Levalbuterol HCl (Xopenex) 0.63 mg IH [id number] DUNIA Levalbuterol HCl (Xopenex) 0.63 mg IH [id number] PRN PRN Reason: Shortness of Breath Levofloxacin/Dextrose (Levaquin 750mg) 750 mg IVPB DAILY [facility] PRN Reason: Protocol Last Admin: 10/04/17 09:38 Dose: 750 mg Methylprednisolone (Solu-Medrol) 40 mg IVP Q12 [facility] Last Admin: 10/04/17 09:30 Dose: 40 mg Oxycodone/Acetaminophen (Percocet 5/325 Mg Tab) 1 tab PO Q6H PRN PRN Reason: Pain, severe (8-10) Stop: 10/06/17 19:02 Last Admin: 10/04/17 09:31 Dose: 1 tab Pantoprazole Sodium (Protonix Ec Tab) 40 mg PO DAILY [facility] Last Admin: 10/04/17 09:32 Dose: 40 mg Rivaroxaban (Xarelto) 20 mg PO DAILY [facility] PRN Reason: Protocol Last Admin: 10/04/17 09:31 Dose: 20 mg Sildenafil Citrate (Revatio) 10 mg PO DAILY [facility] Last Admin: 10/04/17 09:39 Dose: 10 mg - Labs Labs: 10/04/17 06:00 10/04/17 06:00 PT 21.8 SECONDS (9.4-12.5) H 10/02/17 17:40 INR 1.89 (0.93-1.08) H 10/02/17 17:40 APTT 28.4 Seconds (25.1-36.5) 10/02/17 17:40 - Constitutional Appears: Non-toxic, No Acute Distress, Chronically Ill - Head Exam Head Exam: ATRAUMATIC, NORMAL INSPECTION - Eye Exam Eye Exam: EOMI, Normal appearance - ENT Exam ENT Exam: Mucous Membranes Moist, Normal Oropharynx - Neck Exam Neck Exam: Full ROM, Normal Inspection - Respiratory Exam Additional comments: Crackles heard b/l in lower lung bases, good airway entry in upper lung reyes b /l - Cardiovascular Exam Cardiovascular Exam: REGULAR RHYTHM, +S1, +S2 - GI/Abdominal Exam GI & Abdominal Exam: Soft, Normal Bowel Sounds - Extremities Exam Extremities Exam: Normal Capillary Refill Additional comments: L below-knee amputation, sensation intact, decreased LE swelling in RLE - Neurological Exam Neurological Exam: Alert, Awake, Oriented x3 - Skin Skin Exam: Dry, Intact, Normal Color, Warm Assessment and Plan - Assessment and Plan (Free Text) Assessment: 42 year old female with PMH of CHF (unknown EF), COPD (on home O2 2 liters, on home prednisone), 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 Pt being treated for CHF exacerbation. Plan: 1. Dyspnea -Possibly due to CHF vs. COPD exacerbation vs hx of reported pulmonary HTN -BNP elevated -Daily Lasix 40 mg -C/w BiPap, trend O2 sat and vitals -Echo demonstrated: LVEF 76%, abnormal septal motion and flattening c/w R ventricle volume/pressure overload, R atrium severely dilated, R ventricle moderate to severely dilated, severe tricuspid regurgitation, severe pulm HTN. No pericardial effusion. -Cardio consulted, f/u recs -Pulm consulted, f/u recs -Daily Levaquin 750 mg -Duonebs scheduled and PRN -Solumedrol 40 mg q 12 h -Strict I's and O's -Pt improving, continue to monitor clinical status 2. Hx of Pulm HTN -Continue home sildenafil -Echo results as described above 3. History of DVT/PE -CT PE protocol suboptimal for PE and moderate pericardial effusion. -Patient restarted on Xarelto 4. Depression -Patient states she is depressed at times because of left leg amputation; states she does not want to be seen by psych GI/DVT prophylaxis: c/w xarelto and protonix. Pt seen, examined with, and plan discussed w/ Dr. Carrington, attending. Jacek Chilel DO PGY-1, [employer] Pager #[phone] <Jenn Carrington - Last Filed: 10/04/17 14:49> Objective - Vital Signs/Intake and Output Vital Signs (last 24 hours): Temp Pulse Resp BP Pulse Ox 98.4 F 103 H 20 103/59 L 93 L 10/04/17 12:00 10/04/17 12:00 10/04/17 12:00 10/04/17 12:00 10/04/17 06:00 Intake and Output: 10/04/17 10/04/17 06:59 18:59 Intake Total 1920 Output Total 1500 Balance 420 - Medications Medications: Current Medications Furosemide (Lasix) 40 mg IVP DAILY [facility] Last Admin: 10/04/17 09:31 Dose: 40 mg Gabapentin (Neurontin) 300 mg PO TID [facility] PRN Reason: Protocol Last Admin: 10/04/17 13:59 Dose: Not Given Guaifenesin (Robitussin) 200 mg PO Q4H PRN PRN Reason: Cough and congestion Last Admin: 10/04/17 09:30 Dose: 200 mg Ipratropium [place] (Atrovent) 0.5 mg IH [id number] [facility] Last Admin: 10/04/17 13:52 Dose: 0.5 mg Levalbuterol HCl (Xopenex) 0.63 mg IH [id number] [facility] Last Admin: 10/04/17 13:52 Dose: 0.63 mg Levalbuterol HCl (Xopenex) 0.63 mg IH [id number] PRN PRN Reason: Shortness of Breath Levofloxacin/Dextrose (Levaquin 750mg) 750 mg IVPB DAILY [facility] PRN Reason: Protocol Last Admin: 10/04/17 09:38 Dose: 750 mg Methylprednisolone (Solu-Medrol) 40 mg IVP Q12 [facility] Last Admin: 10/04/17 09:30 Dose: 40 mg Oxycodone/Acetaminophen (Percocet 5/325 Mg Tab) 1 tab PO Q6H PRN PRN Reason: Pain, severe (8-10) Stop: 10/06/17 19:02 Last Admin: 10/04/17 09:31 Dose: 1 tab Pantoprazole Sodium (Protonix Ec Tab) 40 mg PO DAILY [facility] Last Admin: 10/04/17 09:32 Dose: 40 mg Rivaroxaban (Xarelto) 20 mg PO DAILY [facility] PRN Reason: Protocol Last Admin: 10/04/17 09:31 Dose: 20 mg Sildenafil Citrate (Revatio) 10 mg PO DAILY [facility] Last Admin: 10/04/17 09:39 Dose: 10 mg - Labs Labs: 10/04/17 06:00 10/04/17 06:00 PT 21.8 SECONDS (9.4-12.5) H 10/02/17 17:40 INR 1.89 (0.93-1.08) H 10/02/17 17:40 APTT 28.4 Seconds (25.1-36.5) 10/02/17 17:40 Attending/Attestation - Attestation I have personally seen and examined this patient.: Yes I have fully participated in the care of the patient.: Yes I have reviewed all pertinent clinical information, including history, physical exam and plan: Yes Notes (Text): 10/04/17 14:47 42 year old female with past medical history of CHF, COPD, DVT/PE on xarelto, s/ p left BKA, pulmonary hypertension and LAYO who presented with shortness of breath secondary to CHF/COPD exacerbation. Continue with iv lasix and iv steroids. Echocardiogram was reviewed as above. Cardiology and pulmonary are following. CT angio was suboptimal study for PE. Patient is on xarelto. She was counselled on medication compliance. TSH is low with elevated free T4. Endocrinology evaluation is requested. Leukocytosis noted; likely secondary to iv steroids. Will continue to monitor. Jenn Carrington MD Hospitalist.
[2017-10-04] MEDS: Levalbuterol 0.63 MG/3 ML Inhal Soln UD IH SCH ×2 (13:52→20:35)
[2017-10-04] MEDS: Ipratropium 0.02% Inhal Soln (0.5 mg/2.5 ml) UD IH SCH ×2 (13:52→20:35)
--- NOTE | 2017-10-04 15:30 | PN ---
DATE: 10/04/2017 FOLLOWUP SUBJECTIVE: The patient is mildly short of breath on nasal O2. She did have sinus tachycardia during nebulizer therapy. She denies retrosternal chest pain. PHYSICAL EXAMINATION: VITAL SIGNS: Blood pressure 103/59, heart rate 103, temperature 98.4, respirations 20. HEENT: Normocephalic. CHEST: Bilateral rhonchi. HEART: S1 and S2 regular. EXTREMITIES: 1+ right leg edema and left below-knee amputation. LABORATORY DATA: Today's hemoglobin and hematocrit 11.8 and 39.6, white count 12.4, platelet count 682,000. The SMA-7 is within normal limit except for glucose of 159, total bilirubin is slightly elevated at 1.9. ASSESSMENT: 1. Exacerbation of chronic obstructive lung disease. 2. History of deep venous thrombosis and pulmonary embolism in the past. 3. Status post left below-knee amputation 2 years ago. 4. Morbid obesity. RECOMMENDATIONS: Continue current Atrovent inhaler, IV Lasix 20 mg once a day, Levaquin 750 mg intravenously daily, Robitussin 200 mg p.o. every 4 hours p.r.n., Solu-Medrol 40 mg intravenously twice a day and Lovenox inhaler. The echocardiography study, which was performed yesterday revealed severe pulmonary hypertension, ejection fraction within normal limit at . Eduard Cannon MD
[2017-10-05] MEDS: Ipratropium 0.02% Inhal Soln (0.5 mg/2.5 ml) UD IH SCH ×4 (02:09→19:52)
[2017-10-05] MEDS: Levalbuterol 0.63 MG/3 ML Inhal Soln UD IH SCH ×4 (02:10→19:52)
[2017-10-05 06:19] LABS: GRAN # 10.08 (1.4-6.5); GRAN % 90.8 % (50.0-68.0); HEMOGLOBIN 11.9 g/dL (12.0-16.0); LYMPH # 0.7 (1.2-3.4); LYMPH % 5.9 % (22.0-35.0); MEAN CELL VOLUME 80.2 fl (80.0-105.0); MEAN CORPUSCULAR HEMOGLOBIN 24.7 pg (25.0-35.0); MEAN CORPUSCULAR HGB CONC 30.8 g/dl (31.0-37.0); MONO # 0.4 (0.1-0.6); MONO % 3.3 % (1.0-6.0); RBC 4.81 10^6/uL (3.5-6.1); RED CELL DISTRIBUTION WIDTH 17.4 % (11.5-14.5); WHITE BLOOD COUNT 11.1 10^3/ul (4.5-11.0)
--- NOTE | 2017-10-05 06:56 | CON ---
ENDOCRINOLOGY CONSULTATION LOCATION: She is in room 264. HISTORY OF PRESENT ILLNESS: This is a 42-year-old female admitted with congestive heart failure and also concomitant exacerbation of COPD, currently on IV steroid therapy and is now being referred for evaluation of abnormal thyroid function studies. PAST MEDICAL HISTORY: As mentioned above, history of chronic obstructive lung disease, currently is steroid dependent with also home oxygen therapy with underlying obstructive sleep apnea, also using a CPAP every so often at night. History of multiple admissions for congestive heart failure and acute exacerbation of COPD. She also has known history of underlying pulmonary hypertension. She had a previous deep vein thrombosis with pulmonary embolism, currently on oral anticoagulation therapy, using Xarelto, history of a previous right leg amputation with underlying peripheral arterial disease and vasculopathy. FAMILY HISTORY: Positive for diabetes and hypertension. SOCIAL HISTORY: The patient has supportive family. Admits to previous history of smoking for at least 20 years, but quit a few years ago. Admits also chronic alcoholism with recent alcoholic intoxication. No other illicit drug use. REVIEW OF SYSTEMS: As mentioned above. Admits to generalized body weakness with progressive bouts of dizziness and lightheadedness worse on the day of admission. No chest pains or palpitations, but admits to progressive shortness of breath, initially on exertion and then at rest with paroxysmal nocturnal dyspnea. Also, admits to variable oral intake with nausea, dyspepsia and vague upper abdominal pains. Admits to lower extremity paresthesias especially nocturnally as noted. The stump on the right leg is healed with no active dermatosis noted. LABORATORY DATA: Her chemistry showed a BUN of 16, sodium 138, potassium 4, chloride 100, CO2 of 25, glucose 159 and creatinine 0.8. Her free T4 was 2.91 with a TSH of 0.23 and the initial TSH was 0.33. ASSESSMENT: This is a 42-year-old female with acute exacerbation of chronic obstructive lung disease with supervening congestive heart failure and underlying pulmonary hypertension and remains clinically euthyroid at this time. Biochemically, the most likely etiology for the suppressed TSH and slightly elevated free T4 levels would be the intercurrent IV steroid therapy as given which would cause TSH suppression thereof. However, because of the chronicity of her constitutional symptoms, we have to exclude any underlying early subclinical hyperthyroidism as noted thereof. We will obtain serial chemistries and supplement accordingly as needed. We will also obtain a thyroid stimulating immunoglobulin and a thyroid peroxidase antibody, which will confirm and/or indicate the presence of underlying thyroid autoimmunity. We will obtain serial chemistries and supplement accordingly as needed. We will follow with you. Ann Lugo MD
[2017-10-05 07:02] LABS: ALB/GLOB RATIO 1.3 (1.1-1.8); ALT/SGPT 26 U/L (7-56); AST/SGOT 31 U/L (14-36); BLOOD UREA NITROGEN 20 mg/dL (7-21); GFR AFRICAN-AMERICAN > 60; GFR NON-AFRICAN AMERICAN > 60
[2017-10-05 07:04] LABS: FREE T4 2.62 ng/dL (0.78-2.19); T4 10.6 ug/dL (5.5-11.0)
[2017-10-05] MEDS: Sildenafil 20 MG TAB PO SCH (10:57)
[2017-10-05] MEDS: Pantoprazole 40 mg EC Tab PO SCH (10:57)
[2017-10-05] MEDS: MethylPREDNISolone 40 mg Vial IVP SCH (10:59)
[2017-10-05] MEDS: levoFLOXacin 750 mg in D5W 150 ML BAG IVPB SCH (11:01)
[2017-10-05] MEDS: Oxycodone/Acetaminophen 5/325 mg Tab PO PRN ×2 (11:05→21:16)
--- NOTE | 2017-10-05 12:03 | PN ---
DATE: 10/05/2017 ENDO FOLLOWUP NOTE LOCATION: In room 264. SUBJECTIVE: This is a 42-year-old female admitted with acute exacerbation of COPD and concomitant congestive heart failure, currently on IV steroid therapy and is now being followed closely for metabolic management. She remains clinically euthyroid at this time with no evidence of any tachycardia and has remained hemodynamically stable as noted. Her repeat chemistries showed a BUN of 20, sodium 136, potassium 4, chloride 99, CO2 of 25, glucose 152 and creatinine 0.7. Her repeat thyroid studies showed a total T4 or thyroxine level of 10.6 with a free T4 of 2.62 and a TSH of 0.13, which is more suppressed at this time as noted. ASSESSMENT: This is a 42-year-old female with congestive heart failure and supervening exacerbation of chronic obstructive pulmonary disease, currently on IV steroid therapy and remains clinically euthyroid at this time. Biochemically, she has the so-called euthyroid hyperthyroxinemia, fairly common in patients with intercurrent steroid therapy as noted, which can cause transient suppression of the TSH and false elevations of the thyroid studies of the thyroxine levels accordingly. With a normal total T4, it would be quite unlikely that she really is truly hyperthyroid, although again we cannot exclude the possibility of subclinical hyperthyroidism in the light of the patient having intercurrent IV steroid therapy. PLAN OF MANAGEMENT: We will hold off on any kind of thyroid pharmacotherapy at this time because of the intercurrent IV steroid therapy and follow serial thyroid studies accordingly as the steroids are tapered down and discontinued. Because of the long-term commitments for management of hyperthyroidism, we have to be very careful and cautious in initiating medical therapy for hyperthyroidism unless we are truly accurately sure that she truly is hyperthyroid off the IV steroids as noted. We will observe her biochemical and clinical response thereof, but hold off on any kind of thyroid pharmacotherapy for now. We will obtain thyroid antibodies, thyroid stimulating immunoglobulin and a thyroid peroxidase antibody, which will confirm and/or indicate the presence of underlying thyroid autoimmunity. If the thyroid antibodies are positive, then we may be dealing with an underlying autoimmune thyroid endocrinopathy, and may eventually need medical therapy thereof. We will follow. Ann Lugo MD [facility] # [id number]
--- NOTE | 2017-10-05 14:28 | CP.PCM.PN ---
Subjective - Date & Time of Evaluation Date of Evaluation: 10/05/17 Time of Evaluation: 14:23 - Subjective Subjective: Patient seen and examined, reports to be feeling significantly better. Denies fever, chills, cough. SOB is much improved Using BIPAP at night. Started on prednisone taper Objective - Vital Signs/Intake and Output Vital Signs (last 24 hours): Temp Pulse Resp BP Pulse Ox 97.4 F L 94 H 20 106/73 95 10/05/17 11:38 10/05/17 11:38 10/05/17 11:38 10/05/17 11:38 10/05/17 06:00 Intake and Output: 10/05/17 10/05/17 06:59 18:59 Intake Total 840 Output Total 2000 Balance -1160 - Medications Medications: Current Medications Furosemide (Lasix) 40 mg IVP DAILY [facility] Last Admin: 10/05/17 10:58 Dose: 40 mg Gabapentin (Neurontin) 300 mg PO TID [facility] PRN Reason: Protocol Last Admin: 10/05/17 13:44 Dose: Not Given Guaifenesin (Robitussin) 200 mg PO Q4H PRN PRN Reason: Cough and congestion Last Admin: 10/04/17 09:30 Dose: 200 mg Ipratropium [place] (Atrovent) 0.5 mg IH [id number] [facility] Last Admin: 10/05/17 13:29 Dose: 0.5 mg Levalbuterol HCl (Xopenex) 0.63 mg IH [id number] [facility] Last Admin: 10/05/17 13:29 Dose: 0.63 mg Levalbuterol HCl (Xopenex) 0.63 mg IH [id number] PRN PRN Reason: Shortness of Breath Levofloxacin/Dextrose (Levaquin 750mg) 750 mg IVPB DAILY [facility] PRN Reason: Protocol Last Admin: 10/05/17 11:01 Dose: 750 mg Oxycodone/Acetaminophen (Percocet 5/325 Mg Tab) 1 tab PO Q6H PRN PRN Reason: Pain, severe (8-10) Stop: 10/06/17 19:02 Last Admin: 10/05/17 11:05 Dose: 1 tab Pantoprazole Sodium (Protonix Ec Tab) 40 mg PO DAILY [facility] Last Admin: 10/05/17 10:57 Dose: 40 mg Prednisone (Prednisone Tab) 40 mg PO DAILY [facility] Rivaroxaban (Xarelto) 20 mg PO DAILY [facility] PRN Reason: Protocol Last Admin: 10/05/17 10:58 Dose: 20 mg Sildenafil Citrate (Revatio) 10 mg PO DAILY [facility] Last Admin: 10/05/17 10:57 Dose: 10 mg - Labs Labs: 10/05/17 05:30 10/05/17 05:30 PT 21.8 SECONDS (9.4-12.5) H 10/02/17 17:40 INR 1.89 (0.93-1.08) H 10/02/17 17:40 APTT 28.4 Seconds (25.1-36.5) 10/02/17 17:40 - Constitutional Appears: Non-toxic, No Acute Distress - Head Exam Head Exam: NORMAL INSPECTION - Eye Exam Eye Exam: Normal appearance - ENT Exam ENT Exam: Mucous Membranes Moist - Neck Exam Neck Exam: Full ROM - Respiratory Exam Respiratory Exam: Clear to Ausculation Bilateral, NORMAL BREATHING PATTERN - Cardiovascular Exam Cardiovascular Exam: REGULAR RHYTHM, +S1, +S2 - GI/Abdominal Exam GI & Abdominal Exam: Soft, Normal Bowel Sounds - Neurological Exam Neurological Exam: Alert, Awake, Oriented x3 Assessment and Plan - Assessment and Plan (Free Text) Assessment: Pt is 42 year old female with PMH of CHF, COPD (on home O2 2 liters, on home prednisone), 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 pulmonary HTN, and LAYO presents with SOB and cough - currently afebrile, BP stable - cont with Prednisone taper 40mg daily - CXR without infiltrate - would DC abx - duonebs PRN - cont with Xarelto - will need to be on LABA/ICS, CASSIDY PRN, and Spiriva upon discharge
--- NOTE | 2017-10-05 14:45 | PN ---
DATE: 10/05/2017 REASON FOR CONSULTATION AND FOLLOWUP: Cardiac evaluation, status post rapid response, morbid obesity, history of DVT, history of PE. SUBJECTIVE: Patient denies any chest pain, shortness of breath, or any palpitation. OBJECTIVE: GENERAL: Not in apparent distress, mild tenderness in the left and right side of the chest on palpation. VITAL SIGNS: Temperature afebrile, heart rate 94, blood pressure 106/73. HEENT: PERRLA. Extraocular muscles intact. NECK: Supple. No carotid bruit. No thyromegaly. CHEST: Clear to auscultation. HEART: S1 and S2 regular. ABDOMEN: Soft. EXTREMITIES: Clubbing and cyanosis negative. LABORATORY DATA: Blood workup as follows: WBC 11.1, hemoglobin 11.9, hematocrit 38.6, platelet count 651. Chemistry shows sodium 132, potassium 4, chloride 99, carbon dioxide 25, anion gap of 16, BUN 20, creatinine 0.7. Total protein 6.9, albumin 4, albumin globulin ratio 1.3, TSH 0.13. IMPRESSION: This is a 42-year-old morbidly obese female with past medical history of congestive heart failure, history of chronic obstructive pulmonary disease, history of deep vein thrombosis, and history of left [id number] amputation, recently discharged from [facility], admitted with shortness of breath. Has diagnoses of deep vein thrombosis, pulmonary embolism, on Xarelto with shortness of breath. Currently patient is stable, on oxygen. Patient had repeat echo done here dated 10/03/2017 that showed ventricle function is normal, abnormal septal motion consistent with right ventricular pressure/volume overload. Right ventricle is moderate to severely dilated. Right atrium is severely dilated. Severe tricuspid regurgitation, severe pulmonary hypertension, right ventricular systolic pressure 78. RECOMMENDATIONS: Continue gentle diuretics as blood pressure is tolerated. Continue Revatio, continue Xarelto, monitor electrolytes, monitor kidney function. We will discontinue Telemetry. Repeat chest x-ray yesterday shows no active disease. Patient had a CAT scan of the chest on arrival with protocol for PE. No diagnosis on the pulmonary artery for pulmonary embolism. No large central PE located and it was a nondiagnostic study for other than PE. Repeat the blood workup in the morning. Thank you, Dr. Carrington, for providing us the opportunity in taking care of Rachel Oakes. Placido Ying MD [facility] # [id number]
--- NOTE | 2017-10-05 15:42 | CARD ---
APPROVED REPORT EKG Measurement Heart [id number] <Conclusion> Normal sinus rhythm Indeterminate axis Low voltage QRS Right bundle branch block Inferior infarct, age undetermined Abnormal ECG
--- NOTE | 2017-10-05 16:09 | CP.PCM.PN ---
<Jacek Chilel - Last Filed: 10/05/17 15:56> Subjective - Date & Time of Evaluation Date of Evaluation: 10/05/17 Time of Evaluation: 11:15 - Subjective Subjective: Jacek Chilel DO PGY-1, [employer] Packing Operator Hospitalist Progress Note Pt seen and examined at bedside. Was on BiPap saturating well. States she had episode of chest pain overnight but did not notify nurse about episode. States her breathing is improving. Tolerating PO diet. Otherwise denies any acute concerns. No acute events reported overnight. Objective - Vital Signs/Intake and Output Vital Signs (last 24 hours): Temp Pulse Resp BP Pulse Ox 97.4 F L 94 H 20 106/73 95 10/05/17 11:38 10/05/17 11:38 10/05/17 11:38 10/05/17 11:38 10/05/17 06:00 Intake and Output: 10/05/17 10/05/17 06:59 18:59 Intake Total 840 1200 Output Total 2000 1050 Balance -1160 150 - Medications Medications: Current Medications Furosemide (Lasix) 40 mg IVP DAILY [facility] Last Admin: 10/05/17 10:58 Dose: 40 mg Gabapentin (Neurontin) 300 mg PO TID [facility] PRN Reason: Protocol Last Admin: 10/05/17 13:44 Dose: Not Given Guaifenesin (Robitussin) 200 mg PO Q4H PRN PRN Reason: Cough and congestion Last Admin: 10/04/17 09:30 Dose: 200 mg Ipratropium [place] (Atrovent) 0.5 mg IH [id number] [facility] Last Admin: 10/05/17 13:29 Dose: 0.5 mg Levalbuterol HCl (Xopenex) 0.63 mg IH [id number] [facility] Last Admin: 10/05/17 13:29 Dose: 0.63 mg Levalbuterol HCl (Xopenex) 0.63 mg IH [id number] PRN PRN Reason: Shortness of Breath Levofloxacin/Dextrose (Levaquin 750mg) 750 mg IVPB DAILY [facility] PRN Reason: Protocol Last Admin: 10/05/17 11:01 Dose: 750 mg Oxycodone/Acetaminophen (Percocet 5/325 Mg Tab) 1 tab PO Q6H PRN PRN Reason: Pain, severe (8-10) Stop: 10/06/17 19:02 Last Admin: 10/05/17 11:05 Dose: 1 tab Pantoprazole Sodium (Protonix Ec Tab) 40 mg PO DAILY [facility] Last Admin: 10/05/17 10:57 Dose: 40 mg Prednisone (Prednisone Tab) 40 mg PO DAILY [facility] Rivaroxaban (Xarelto) 20 mg PO DAILY [facility] PRN Reason: Protocol Last Admin: 10/05/17 10:58 Dose: 20 mg Sildenafil Citrate (Revatio) 10 mg PO DAILY [facility] Last Admin: 10/05/17 10:57 Dose: 10 mg - Labs Labs: 10/05/17 05:30 10/05/17 05:30 PT 21.8 SECONDS (9.4-12.5) H 10/02/17 17:40 INR 1.89 (0.93-1.08) H 10/02/17 17:40 APTT 28.4 Seconds (25.1-36.5) 10/02/17 17:40 - Constitutional Appears: No Acute Distress, Older Than Stated Age, Chronically Ill - Head Exam Head Exam: ATRAUMATIC, NORMAL INSPECTION, NORMOCEPHALIC - Eye Exam Eye Exam: EOMI, Normal appearance, PERRL - ENT Exam ENT Exam: Mucous Membranes Moist, Normal Oropharynx - Neck Exam Neck Exam: Full ROM, Normal Inspection - Respiratory Exam Additional comments: Clear air entry b/l, trace crackles heard in lung bases b/l. No wheezes auscultated. - Cardiovascular Exam Cardiovascular Exam: Tachycardia, +S1, +S2 - GI/Abdominal Exam GI & Abdominal Exam: Soft, Normal Bowel Sounds - Extremities Exam Extremities Exam: Full ROM, Normal Capillary Refill Additional comments: LE edema improving in RLE, pt s/p L BKA - Neurological Exam Neurological Exam: Alert, Awake, CN II-XII Intact, Oriented x3 - Psychiatric Exam Psychiatric exam: Flat Affect - Skin Skin Exam: Dry, Intact, Normal Color, Warm Assessment and Plan - Assessment and Plan (Free Text) Assessment: 42 year old female with PMH of CHF (unknown EF), COPD (on home O2 2 liters, on home prednisone), hx of DVT/PE (on xarelto) s/p L below-knee amputation, reported pulmonary HTN, and LAYO presents with SOB and cough for 3 days. Pt being treated for CHF/COPD exacerbation. Plan: 1. Dyspnea -Possibly due to CHF vs. COPD exacerbation vs hx of reported pulmonary HTN -BNP elevated -Daily Lasix 40 mg IVP daily -C/w BiPap, trend O2 sat and vitals -Echo demonstrated: LVEF 76%, abnormal septal motion and flattening c/w R ventricle volume/pressure overload, R atrium severely dilated, R ventricle moderate to severely dilated, severe tricuspid regurgitation, severe pulm HTN. No pericardial effusion. -Cardio consulted -Pulm consulted -D/c levaquin as per pulm -Dumargarita scheduled and PRN -Prednisone 40 mg PO daily -Strict I's and O's -Pt improving, continue to monitor clinical status 2. Hx of Pulm HTN -Continue home sildenafil -Echo results as described above 3. History of DVT/PE -CT PE protocol suboptimal for PE and moderate pericardial effusion. -Patient restarted on Xarelto 4. Depression -Patient states she is depressed at times because of left leg amputation; states she does not want to be seen by psych 5. Low TSH -Endo consulted (Dr. Lugo): likely subclinical hyperthyroidism, f/u thyroid Ig and thyroid peroxidase -Pt tachycardic, otherwise asymptomatic 6. Chest pain -Pt c/o chest pain in am -EKG done, demonstrated incomplete RBBB, no acute ST-T changes or change from prior study 7. Increased R breast size -On exam, R breast was enlarged compared to L, no induration or fluctuance noted , no discharge from nipple. Chronic fibrotic changes and firmness noted on R lateral breast from 6 to 12 o'clock positions.Pt states that she had breast u/s 2 mos ago that didn't show any abnormalities. Was not able to have mammogram due to morbid obesity. Pt instructed to f/u outpatient with PCP for possible MRI. 8. Phantom limb pain -2/2 L BKA -C/w neurontin GI/DVT prophylaxis: c/w xarelto and protonix. Pt seen, examined with, and plan d/w Dr. Gross, attending Jacek Chilel DO PGY-1 Pager #[phone] <Placido Gross - Last Filed: 10/07/17 15:48> Objective - Vital Signs/Intake and Output Vital Signs (last 24 hours): Temp Pulse Resp BP Pulse Ox 97.4 F L 91 H 20 103/67 98 10/07/17 14:00 10/07/17 14:00 10/07/17 14:00 10/07/17 14:00 10/07/17 14:00 Intake and Output: 10/07/17 10/07/17 06:59 18:59 Intake Total 360 640 Output Total 600 400 Balance -240 240 - Medications Medications: Current Medications Furosemide (Lasix) 40 mg PO DAILY [facility] Last Admin: 10/07/17 10:23 Dose: 40 mg Gabapentin (Neurontin) 300 mg PO TID [facility] PRN Reason: Protocol Last Admin: 10/07/17 13:09 Dose: 300 mg Guaifenesin (Robitussin) 200 mg PO Q4H PRN PRN Reason: Cough and congestion Last Admin: 10/04/17 09:30 Dose: 200 mg Ipratropium [place] (Atrovent) 0.5 mg IH [id number] [facility] Last Admin: 10/07/17 14:24 Dose: 0.5 mg Levalbuterol HCl (Xopenex) 0.63 mg IH [id number] [facility] Last Admin: 10/07/17 14:24 Dose: 0.63 mg Levalbuterol HCl (Xopenex) 0.63 mg IH [id number] PRN PRN Reason: Shortness of Breath Pantoprazole Sodium (Protonix Ec Tab) 40 mg PO DAILY [facility] Last Admin: 10/07/17 10:24 Dose: 40 mg Prednisone (Prednisone Tab) 40 mg PO DAILY [facility] Last Admin: 10/07/17 10:23 Dose: 40 mg Rivaroxaban (Xarelto) 20 mg PO DAILY [facility] PRN Reason: Protocol Last Admin: 10/07/17 10:23 Dose: 20 mg Sildenafil Citrate (Revatio) 10 mg PO DAILY [facility] Last Admin: 10/07/17 10:23 Dose: 10 mg - Labs Labs: 10/07/17 07:00 10/07/17 07:00 PT 21.8 SECONDS (9.4-12.5) H 10/02/17 17:40 INR 1.89 (0.93-1.08) H 10/02/17 17:40 APTT 28.4 Seconds (25.1-36.5) 10/02/17 17:40 Attending/Attestation - Attestation I have personally seen and examined this patient.: Yes I have fully participated in the care of the patient.: Yes I have reviewed all pertinent clinical information, including history, physical exam and plan: Yes Notes (Text): 10/07/17 15:41 Medical record note made by the resident after discussion with my direction and input after the patient was personally seen and examined by me. I have reviewed the chart and agree that the record accurately reflects by personal performance of the history, physical exam, data review, and medical decision-making, in the course for the patient. I have also personally directed the plan of care. 42 year old female with PMH of chronic hypoxic Resp Failure on home oxygen, CHF with diastolic dysfunction, COPD, DVT/PE on xarelto, s/p left BKA, , LAYO on CPAP, pulmonary hypertension and non compliance with medication was presented with shortness of breath secondary to CHF/COPD exacerbation. Patient has responded well to therapy, she is not wheezing, lung sound are clear , steroid will be changed to oral Prednisone. Lasix can be changed to oral. CT angio was suboptimal study for PE. Patient is on xarelto. She is on base line hypoxia. She was counselled on medication compliance. Subclinical Hyperthyroidism, TSH is low with elevated free T4.will need repeat Thyroid function in 6-8 weeks.Endocrine evaluation is appreciated. We will get Physical therapy evaluation. Management plan was discussed in detail with patient Education was provided.
[2017-10-06] MEDS: Ipratropium 0.02% Inhal Soln (0.5 mg/2.5 ml) UD IH SCH ×4 (02:20→19:59)
[2017-10-06] MEDS: Levalbuterol 0.63 MG/3 ML Inhal Soln UD IH SCH ×4 (02:20→19:59)
[2017-10-06 06:39] LABS: GRAN # 9.7 (1.4-6.5); GRAN % 81.4 % (50.0-68.0); HEMOGLOBIN 12.7 g/dL (12.0-16.0); LYMPH # 1.5 (1.2-3.4); LYMPH % 12.6 % (22.0-35.0); MEAN CELL VOLUME 79.7 fl (80.0-105.0); MEAN CORPUSCULAR HEMOGLOBIN 24.6 pg (25.0-35.0); MEAN CORPUSCULAR HGB CONC 30.8 g/dl (31.0-37.0); MEAN PLATELET VOLUME 9.9 fl (7.0-11.0); MONO # 0.7 (0.1-0.6); RBC 5.17 10^6/uL (3.5-6.1); RED CELL DISTRIBUTION WIDTH 17.4 % (11.5-14.5); WHITE BLOOD COUNT 11.9 10^3/ul (4.5-11.0)
[2017-10-06 06:56] LABS: BLOOD UREA NITROGEN 21 mg/dL (7-21); CALCIUM 9.2 mg/dL (8.4-10.5); GFR AFRICAN-AMERICAN > 60; GFR NON-AFRICAN AMERICAN > 60
[2017-10-06] MEDS: Oxycodone/Acetaminophen 5/325 mg Tab PO PRN ×2 (09:27→18:14)
[2017-10-06] MEDS: Pantoprazole 40 mg EC Tab PO SCH (09:28)
[2017-10-06] MEDS: Sildenafil 20 MG TAB PO SCH (09:29)
[2017-10-06] MEDS ORDERED: Potassium Chloride 20 mEq ER Tab PO ONE (10:03)
[2017-10-06] MEDS ORDERED: Potassium Chloride 40 mEq/30 ml LIQ UD PO STA (11:09)
--- NOTE | 2017-10-06 11:28 | PN ---
DATE: 10/06/2017 REASON FOR THE CONSULTATION AND FOLLOWUP: Cardiac evaluation, status post rapid response, morbid obesity, history of DVT, history of PE, respiratory insufficiency. SUBJECTIVE: The patient denies any chest pain today. Yesterday, the chest pain with tenderness on palpation. OBJECTIVE: GENERAL: Not in apparent distress, general lying flat on the bed, having Ventimask oxygen. VITAL SIGNS: Temperature afebrile. Heart rate 91, blood pressure 110/64. HEENT: PERRLA. Extraocular muscles intact. NECK: Supple. No carotid bruit or thyromegaly. CHEST: Clear to auscultation. HEART: S1, S2 regular. ABDOMEN: Soft. EXTREMITIES: Clubbing and cyanosis negative. LABORATORY DATA: Blood workup as follows: WBC 11.9, hemoglobin 12.7, hematocrit 41.2, platelet count 643. Chemistry shows sodium 137, potassium 3.7, chloride 97, carbon dioxide 27, anion gap of 17, BUN 21, creatinine 0.8. IMPRESSION: A 42-year-old female with past medical history of chronic obstructive pulmonary disease, on home oxygen; morbid obesity, on steroids as well; history of deep venous thrombosis and pulmonary embolism, on Xarelto, status post left leg amputation, obstructive sleep apnea, morbid obesity, admitted with respiratory insufficiency, history of left below knee amputation, recently was discharged from [facility], admitted with shortness of breath, as mentioned had the diagnosis of deep venous thrombosis and pulmonary embolism, on Xarelto. The patient had a repeat echo done here on 10/03/2017 that showed ventricular function was normal, abnormal septal wall motion consistent with right ventricular pressure, volume overload, right ventricle was moderately to severely dilated, right atrium severely dilated, severe tricuspid regurgitation, severe pulmonary hypertension, right ventricular systolic pressure of 48. RECOMMENDATIONS: Continue gentle diuretics, continue oxygen, continue Revatio as blood pressure is tolerated, continue Xarelto, monitor electrolytes, monitor kidney function. Repeat CAT scan done on arrival with the PE protocol and no evidence of PE. Described as no central large PE located, it was a nondiagnostic for other than PE. Supplement electrolytes as needed, supplement potassium today. Continue Lasix, continue sildenafil, continue Xarelto. Keep negative fluid balance. Thank you Dr. Carrington for providing us the opportunity in taking care of the patient, Rachel Oakes. Placido Ying MD [facility] # [id number]
--- NOTE | 2017-10-06 15:16 | CP.PCM.PN ---
<RanjanaJacek - Last Filed: 10/06/17 15:13> Subjective - Date & Time of Evaluation Date of Evaluation: 10/06/17 Time of Evaluation: 11:15 - Subjective Subjective: Jacek Chilel DO PGY-1, Data [employer] Manager Medicine Progress Notes Pt seen and examined at bedside. Pt states that she had chest pain overnight, but did not report it to the nurse, rated it at time 6/10. States that she does not have pain currently. Pt refused neurontin dose overnight, and requested Percocet for her phantom limb pain. Otherwise denies any acute complaints. Objective - Vital Signs/Intake and Output Vital Signs (last 24 hours): Temp Pulse Resp BP Pulse Ox 97.5 F L 98 H 20 109/69 93 L 10/06/17 11:25 10/06/17 11:25 10/06/17 11:25 10/06/17 11:25 10/06/17 06:00 Intake and Output: 10/06/17 10/06/17 06:59 18:59 Intake Total 800 Output Total 800 Balance 0 - Medications Medications: Current Medications Furosemide (Lasix) 40 mg PO DAILY [facility] Gabapentin (Neurontin) 300 mg PO TID [facility] PRN Reason: Protocol Last Admin: 10/06/17 14:23 Dose: Not Given Guaifenesin (Robitussin) 200 mg PO Q4H PRN PRN Reason: Cough and congestion Last Admin: 10/04/17 09:30 Dose: 200 mg Ipratropium [place] (Atrovent) 0.5 mg IH [id number] [facility] Last Admin: 10/06/17 13:59 Dose: 0.5 mg Levalbuterol HCl (Xopenex) 0.63 mg IH [id number] [facility] Last Admin: 10/06/17 13:59 Dose: 0.63 mg Levalbuterol HCl (Xopenex) 0.63 mg IH [id number] PRN PRN Reason: Shortness of Breath Oxycodone/Acetaminophen (Percocet 5/325 Mg Tab) 1 tab PO Q6H PRN PRN Reason: Pain, severe (8-10) Stop: 10/06/17 19:02 Last Admin: 10/06/17 09:27 Dose: 1 tab Pantoprazole Sodium (Protonix Ec Tab) 40 mg PO DAILY [facility] Last Admin: 10/06/17 09:28 Dose: 40 mg Prednisone (Prednisone Tab) 40 mg PO DAILY [facility] Last Admin: 10/06/17 09:28 Dose: 40 mg Rivaroxaban (Xarelto) 20 mg PO DAILY [facility] PRN Reason: Protocol Last Admin: 10/06/17 09:28 Dose: 20 mg Sildenafil Citrate (Revatio) 10 mg PO DAILY [facility] Last Admin: 10/06/17 09:29 Dose: 10 mg - Labs Labs: 10/06/17 06:00 10/06/17 06:00 PT 21.8 SECONDS (9.4-12.5) H 10/02/17 17:40 INR 1.89 (0.93-1.08) H 10/02/17 17:40 APTT 28.4 Seconds (25.1-36.5) 10/02/17 17:40 - Constitutional Appears: No Acute Distress, Older Than Stated Age, Chronically Ill - Eye Exam Eye Exam: EOMI, Normal appearance, PERRL - ENT Exam ENT Exam: Mucous Membranes Moist, Normal Oropharynx - Respiratory Exam Respiratory Exam: Clear to Ausculation Bilateral, NORMAL BREATHING PATTERN - Cardiovascular Exam Cardiovascular Exam: REGULAR RHYTHM, +S1, +S2 - GI/Abdominal Exam GI & Abdominal Exam: Soft, Normal Bowel Sounds - Extremities Exam Extremities Exam: Full ROM, Normal Capillary Refill, Normal Inspection - Neurological Exam Neurological Exam: Alert, Awake, Oriented x3 - Psychiatric Exam Psychiatric exam: Flat Affect - Skin Skin Exam: Dry, Intact, Normal Color, Warm Assessment and Plan - Assessment and Plan (Free Text) Assessment: 42 year old female with PMH of CHF (unknown EF), COPD (on home O2 2 liters, on home prednisone), hx of DVT/PE (on xarelto) s/p L below-knee amputation, reported pulmonary HTN, and LAYO presents with SOB and cough for 3 days. Pt being treated for CHF/COPD exacerbation. Plan: 1. Dyspnea -Due to chronic CHF with preserved ejection fraction vs. COPD exacerbation vs hx of reported pulmonary HTN -BNP elevated -Daily Lasix 40 mg IVP daily -C/w BiPap at night, trend O2 sat and vitals -Echo demonstrated: LVEF 76%, abnormal septal motion and flattening c/w R ventricle volume/pressure overload, R atrium severely dilated, R ventricle moderate to severely dilated, severe tricuspid regurgitation, severe pulm HTN. No pericardial effusion. -Cardio consulted -Pulm consulted -D/c levaquin as per pulm -Tye scheduled and PRN -Prednisone 40 mg PO daily -Strict I's and O's -Pt improving, medically stable for discharge 2. Hx of Pulm HTN -Continue home sildenafil -Echo results as described above 3. History of DVT/PE -CT PE protocol suboptimal for PE and moderate pericardial effusion. -Patient restarted on Xarelto 4. Depression -Patient states she is depressed at times because of left leg amputation; states she does not want to be seen by psych 5. Low TSH -Endo consulted (Dr. Lugo): likely subclinical hyperthyroidism, f/u thyroid Ig and thyroid peroxidase -Pt's VSS, asymptomatic 6. Phantom limb pain -2/2 L BKA -C/w neurontin GI/DVT prophylaxis: c/w xarelto and protonix. Dispo: Pt medically stable for discharge. Spoke with case management, pending insurance approval for [facility]. F/u PT and OT recs. Pt seen, examined with, and plan d/w Dr. Gross, attending Jacek Chilel DO PGY-1 Pager #[phone] <Placido Gross - Last Filed: 10/07/17 15:51> Objective - Vital Signs/Intake and Output Vital Signs (last 24 hours): Temp Pulse Resp BP Pulse Ox 97.4 F L 91 H 20 103/67 98 10/07/17 14:00 10/07/17 14:00 10/07/17 14:00 10/07/17 14:00 10/07/17 14:00 Intake and Output: 10/07/17 10/07/17 06:59 18:59 Intake Total 360 640 Output Total 600 400 Balance -240 240 - Medications Medications: Current Medications Furosemide (Lasix) 40 mg PO DAILY [facility] Last Admin: 10/07/17 10:23 Dose: 40 mg Gabapentin (Neurontin) 300 mg PO TID [facility] PRN Reason: Protocol Last Admin: 10/07/17 13:09 Dose: 300 mg Guaifenesin (Robitussin) 200 mg PO Q4H PRN PRN Reason: Cough and congestion Last Admin: 10/04/17 09:30 Dose: 200 mg Ipratropium [place] (Atrovent) 0.5 mg IH [id number] [facility] Last Admin: 10/07/17 14:24 Dose: 0.5 mg Levalbuterol HCl (Xopenex) 0.63 mg IH [id number] [facility] Last Admin: 10/07/17 14:24 Dose: 0.63 mg Levalbuterol HCl (Xopenex) 0.63 mg IH [id number] PRN PRN Reason: Shortness of Breath Pantoprazole Sodium (Protonix Ec Tab) 40 mg PO DAILY [facility] Last Admin: 10/07/17 10:24 Dose: 40 mg Prednisone (Prednisone Tab) 40 mg PO DAILY [facility] Last Admin: 10/07/17 10:23 Dose: 40 mg Rivaroxaban (Xarelto) 20 mg PO DAILY [facility] PRN Reason: Protocol Last Admin: 10/07/17 10:23 Dose: 20 mg Sildenafil Citrate (Revatio) 10 mg PO DAILY [facility] Last Admin: 10/07/17 10:23 Dose: 10 mg - Labs Labs: 10/07/17 07:00 10/07/17 07:00 PT 21.8 SECONDS (9.4-12.5) H 10/02/17 17:40 INR 1.89 (0.93-1.08) H 10/02/17 17:40 APTT 28.4 Seconds (25.1-36.5) 10/02/17 17:40 Attending/Attestation - Attestation I have personally seen and examined this patient.: Yes I have fully participated in the care of the patient.: Yes I have reviewed all pertinent clinical information, including history, physical exam and plan: Yes Notes (Text): 10/07/17 15:50 Medical record note made by the resident after discussion with my direction and input after the patient was personally seen and examined by me. I have reviewed the chart and agree that the record accurately reflects by personal performance of the history, physical exam, data review, and medical decision-making, in the course for the patient. I have also personally directed the plan of care. 42 year old female with PMH of chronic hypoxic Resp Failure on home oxygen, CHF with diastolic dysfunction, COPD, DVT/PE on xarelto, s/p left BKA, , LAYO on CPAP, pulmonary hypertension and non compliance with medication was presented with shortness of breath secondary to CHF/COPD exacerbation. Patient has responded well to therapy, she is not wheezing, lung sound are clear, patient is on tapering dose of prednisone and oral lasix Lasix can be changed to oral. CT angio was suboptimal study for PE. Patient is on xarelto. She is on base line hypoxia. She was counselled on medication compliance. Subclinical Hyperthyroidism, TSH is low with elevated free T4.will need repeat Thyroid function in 6-8 weeks.Endocrine evaluation is appreciated. Physical therapy evaluation is pending, will likely need to go to [facility]. Management plan was discussed in detail with patient Education was provided.
--- NOTE | 2017-10-06 16:12 | PN ---
DATE: 10/06/2017 ENDOCRINOLOGY FOLLOWUP NOTE LOCATION: Room 264. SUBJECTIVE: This is a 42-year-old female admitted with acute exacerbation of COPD and started on IV steroid therapy and has since then been switched over to oral steroids as given. Her glycemic levels are fluctuating, but improved at this time and the glucose values have ranged from 115-152 mg/dL. She remains clinically euthyroid, but biochemically she has abnormal thyroid studies with the latest thyroid levels showing a total T4 of 10.6 and a free T4 of 2.62 and a TSH of 0.13. This is indicative of the so-called acute sick euthyroid syndrome with superimposed TSH suppression from the intercurrent steroid therapy as given. This is a transient phenomenon with a TSH suppression from the intercurrent steroid therapy and should improve accordingly as the IV steroids are switched over to oral steroids thereof. We will obtain serial chemistries and supplement accordingly as needed. We will also obtain serial thyroid testing and expect improvement of her biochemical indices thereof. No indication at this time for any kind of thyroid pharmacotherapy. There was always the remote possibility of the so-called subclinical hyperthyroidism, which can only be detected once the patient is clearly off steroid for over 4 to 6 weeks thereof. We will follow. Ann Lugo MD
[2017-10-06] MEDS ORDERED: Oxycodone/Acetaminophen 5/325 mg Tab PO STA (23:23)
[2017-10-07] MEDS: Ipratropium 0.02% Inhal Soln (0.5 mg/2.5 ml) UD IH SCH ×4 (01:06→19:08)
[2017-10-07] MEDS: Levalbuterol 0.63 MG/3 ML Inhal Soln UD IH SCH ×4 (01:07→19:08)
[2017-10-07 07:16] LABS: EOS % 0.1 % (1.5-5.0); GRAN # 8.85 (1.4-6.5); GRAN % 76.8 % (50.0-68.0); HEMOGLOBIN 12.7 g/dL (12.0-16.0); LYMPH # 2.1 (1.2-3.4); MEAN CORPUSCULAR HEMOGLOBIN 24.4 pg (25.0-35.0); MEAN CORPUSCULAR HGB CONC 30.5 g/dl (31.0-37.0); MEAN PLATELET VOLUME 9.6 fl (7.0-11.0); MONO # 0.6 (0.1-0.6); MONO % 5.1 % (1.0-6.0); RBC 5.21 10^6/uL (3.5-6.1); RED CELL DISTRIBUTION WIDTH 17.1 % (11.5-14.5); WHITE BLOOD COUNT 11.5 10^3/ul (4.5-11.0)
[2017-10-07 07:24] LABS: ALB/GLOB RATIO 1.5 (1.1-1.8); ALBUMIN 4.1 g/dL (3.0-4.8); ALT/SGPT 29 U/L (7-56); AST/SGOT 27 U/L (14-36); BLOOD UREA NITROGEN 21 mg/dL (7-21); CALCIUM 9.2 mg/dL (8.4-10.5); GFR AFRICAN-AMERICAN > 60; GFR NON-AFRICAN AMERICAN > 60
[2017-10-07] MEDS: Sildenafil 20 MG TAB PO SCH (10:23)
[2017-10-07] MEDS: Pantoprazole 40 mg EC Tab PO SCH (10:24)
--- NOTE | 2017-10-07 11:31 | CP.PCM.DIS ---
Provider - Provider Date of Admission: 10/03/17 07:12 Attending physician: Placido Gross MD Primary care physician: [facility] Course - Lab Results Lab Results: Most Recent Lab Values WBC 11.5 10^3/ul (4.5-11.0) H 10/07/17 07:00 RBC 5.21 10^6/uL (3.5-6.1) 10/07/17 07:00 Hgb 12.7 g/dL (12.0-16.0) 10/07/17 07:00 Hct 41.7 % (36.0-48.0) 10/07/17 07:00 MCV 80.0 fl (80.0-105.0) 10/07/17 07:00 MCH 24.4 pg (25.0-35.0) L 10/07/17 07:00 MCHC 30.5 g/dl (31.0-37.0) L 10/07/17 07:00 RDW 17.1 % (11.5-14.5) H 10/07/17 07:00 Plt Count 628 10^3/uL (120.0-450.0) H 10/07/17 07:00 MPV 9.6 fl (7.0-11.0) 10/07/17 07:00 Gran % 76.8 % (50.0-68.0) H 10/07/17 07:00 Lymph % (Auto) 18.0 % (22.0-35.0) L 10/07/17 07:00 [place] % (Auto) 5.1 % (1.0-6.0) 10/07/17 07:00 Eos % (Auto) 0.1 % (1.5-5.0) L 10/07/17 07:00 Baso % (Auto) 0.0 % (0.0-3.0) 10/07/17 07:00 Gran # 8.85 (1.4-6.5) H 10/07/17 07:00 Lymph # (Auto) 2.1 (1.2-3.4) 10/07/17 07:00 [place] # (Auto) 0.6 (0.1-0.6) 10/07/17 07:00 Eos # (Auto) 0.0 (0.0-0.7) 10/07/17 07:00 Baso # (Auto) 0.00 K/mm3 (0.0-2.0) 10/07/17 07:00 Neutrophils % (Manual) 90 % (50.0-70.0) H 10/03/17 06:00 Lymphocytes % (Manual) 7 % (22.0-35.0) L 10/03/17 06:00 Monocytes % (Manual) 3 % (1.0-6.0) 10/03/17 06:00 Platelet Evaluation High (NORMAL) 10/03/17 06:00 Large Platelets Present 10/03/17 06:00 Giant Platelets Present 10/03/17 06:00 Poikilocytosis (manual Slight 10/03/17 06:00 Anisocytosis (manual) Slight 10/03/17 06:00 Tear Drop Cells Slight 10/03/17 06:00 PT 21.8 SECONDS (9.4-12.5) H 10/02/17 17:40 INR 1.89 (0.93-1.08) H 10/02/17 17:40 APTT 28.4 Seconds (25.1-36.5) 10/02/17 17:40 D-Dimer, Quantitative 220 ng/mL (0-243) 10/02/17 17:40 pCO2 30 mm/Hg (35-45) L 10/02/17 23:00 pO2 47.0 mm/Hg (80-100) L 10/02/17 23:00 HCO3 19.0 mmol/L (21-28) L 10/02/17 23:00 ABG pH 7.41 (7.35-7.45) 10/02/17 23:00 ABG Total CO2 19.9 mmol.L (22-28) L 10/02/17 23:00 ABG O2 Saturation 86.6 % (95-98) L 10/02/17 23:00 ABG O2 Content 15.0 ML/dl (15-23) 10/02/17 23:00 ABG Base Excess -4.5 mmol/L (-2.0-3.0) L 10/02/17 23:00 ABG Hemoglobin 12.8 g/dL (11.7-17.4) 10/02/17 23:00 ABG Carboxyhemoglobin 2.4 % (0.5-1.5) H 10/02/17 23:00 POC ABG HHb (Measured) 13.0 % (0-5) H 10/02/17 23:00 ABG Methemoglobin 0.9 % (0.0-3.0) 10/02/17 23:00 ABG O2 Capacity 17.3 mL/dl (16-24) 10/02/17 23:00 Hgb O2 Saturation 83.7 % (95.0-98.0) L 10/02/17 23:00 FiO2 44.0 % 10/02/17 23:00 Sodium 138 mmol/L (132-148) 10/07/17 07:00 Potassium 4.2 mmol/L (3.6-5.0) 10/07/17 07:00 Chloride 99 mmol/L (98-107) 10/07/17 07:00 Carbon Dioxide 28 mmol/L (21-33) 10/07/17 07:00 Anion Gap 15 (10-20) 10/07/17 07:00 BUN 21 mg/dL (7-21) 10/07/17 07:00 Creatinine 0.8 mg/dl (0.7-1.2) 10/07/17 07:00 Est GFR ( Amer) > 60 10/07/17 07:00 Est GFR (Non-Af Amer) > 60 10/07/17 07:00 POC Glucose (mg/dL) 144 mg/dL (65-110) H 10/02/17 23:00 Random Glucose 116 mg/dL (70-110) H 10/07/17 07:00 Hemoglobin A1c 6.0 % (4.2-6.5) 10/05/17 05:30 Calcium 9.2 mg/dL (8.4-10.5) 10/07/17 07:00 Phosphorus 3.6 mg/dL (2.5-4.5) 10/06/17 06:00 Magnesium 1.9 mg/dL (1.7-2.2) 10/06/17 06:00 Total Bilirubin 1.3 mg/dL (0.2-1.3) 10/07/17 07:00 AST 27 U/L (14-36) 10/07/17 07:00 ALT 29 U/L (7-56) 10/07/17 07:00 Alkaline Phosphatase 115 U/L (38-126) 10/07/17 07:00 Lactate Dehydrogenase 800 U/L (333-699) H 10/02/17 17:40 Total Creatine Kinase 29 U/L (35-230) L 10/02/17 17:40 Troponin I 0.08 ng/mL 10/03/17 06:00 NT-Pro-B Natriuret Pep 1910 pg/mL (0-450) H 10/02/17 17:40 Total Protein 6.8 g/dL (5.8-8.3) 10/07/17 07:00 Albumin 4.1 g/dL (3.0-4.8) 10/07/17 07:00 Globulin 2.7 gm/dL 10/07/17 07:00 Albumin/Globulin Ratio 1.5 (1.1-1.8) 10/07/17 07:00 Triglycerides 62 mg/dL (35-160) 10/03/17 06:00 Cholesterol 104 mg/dL (130-200) L 10/03/17 06:00 LDL Cholesterol Direct 44 mg/dL (0-129) 10/03/17 06:00 HDL Cholesterol 46 mg/dL (29-60) 10/03/17 06:00 Free T4 2.62 ng/dL (0.78-2.19) H 10/05/17 05:30 Thyroxine (T4) 10.6 ug/dL (5.5-11.0) 10/05/17 05:30 TSH 3rd Generation 0.13 mIU/mL (0.46-4.68) L 10/05/17 05:30 Urine Color Dark yellow (YELLOW) 10/02/17 19:55 Urine Appearance Clear (CLEAR) 10/02/17 19:55 Urine pH 6.0 (4.7-8.0) 10/02/17 19:55 Ur Specific [place] 1.010 (1.005-1.035) 10/02/17 19:55 Urine Protein 30 mg/dL (<30 mg/dL) H 10/02/17 19:55 Urine Glucose (UA) Negative mg/dL (NEGATIVE) 10/02/17 19:55 Urine Ketones Negative mg/dL (NEGATIVE) 10/02/17 19:55 Urine Blood Negative (NEGATIVE) 10/02/17 19:55 Urine Nitrate Negative (NEGATIVE) 10/02/17 19:55 Urine Bilirubin Small (NEGATIVE) H 10/02/17 19:55 Urine Urobilinogen 1.0 E.U./dL (<1 E.U./dL) H 10/02/17 19:55 Ur Leukocyte Esterase Negative Thelma/uL (NEGATIVE) 10/02/17 19:55 Urine RBC 0 - 2 /hpf (0-2) 10/02/17 19:55 Urine WBC 1 - 3 /hpf (0-6) 10/02/17 19:55 Ur Epithelial Cells 4 - 5 /hpf (0-5) 10/02/17 19:55 Urine Bacteria Large (NEG) 10/02/17 19:55 Coarse Granular Casts Trace /hpf (0-2) H 10/02/17 19:55 Urine Other Uyeast 10/02/17 19:55 Urine HCG, Qual Negative (NEGATIVE) 10/05/17 09:25 Urine Opiates Screen Negative (NEGATIVE) 10/02/17 19:55 Urine Methadone Screen Negative (NEGATIVE) 10/02/17 19:55 Ur Barbiturates Screen Negative (NEGATIVE) 10/02/17 19:55 Ur Phencyclidine Scrn Negative (NEGATIVE) 10/02/17 19:55 Ur Amphetamines Screen Negative (NEGATIVE) 10/02/17 19:55 U Benzodiazepines Scrn Negative (NEGATIVE) 10/02/17 19:55 U Oth Cocaine Metabols Negative (NEGATIVE) 10/02/17 19:55 U Cannabinoids Screen Negative (NEGATIVE) 10/02/17 19:55 Alcohol, Quantitative < 10 mg/dL (0-10) 10/02/17 17:40 Thyroperoxidase Ab <1 IU/mL (<9) 10/05/17 05:30 Discharge Exam - Head Exam Head Exam: ATRAUMATIC, NORMAL INSPECTION, NORMOCEPHALIC Discharge Plan - Discharge Medications Prescriptions: Gabapentin [Neurontin] 300 mg PO TID #30 cap levoFLOXacin [Levaquin] 750 mg PO DAILY #4 tab - Follow Up Plan Condition: FAIR Disposition: HOME/ ROUTINE Instructions: Heart Failure (DC), Heart Failure (GEN), Pacemaker (DC), Pacemaker (GEN), Pulmonary Edema (DC), Pulmonary Edema (GEN), Ascites (DC), Ascites (GEN) Additional Instructions: Please follow up with your primary care doctor if your symptoms persist please return to ED Referrals: Debora Little [Primary Care Provider] -
--- NOTE | 2017-10-07 13:18 | PN ---
DATE: 10/07/2017 REASON FOR THE CONSULTATION AND FOLLOWUP: Cardiac evaluation, status post rapid response, morbid obesity, history of DVT, history of PE, respiratory insufficiency. SUBJECTIVE: The patient denies any chest pain, shortness of breath, any palpitation. Tenderness in the left side on palpation. OBJECTIVE: GENERAL: Not in any apparent distress, sitting on the bedside, having the breakfast. Mild tenderness on the chest noted. VITAL SIGNS: Temperature afebrile, heart rate 77, blood pressure 121/84. HEENT: PERRLA. Extraocular muscles intact. NECK: Supple. No carotid bruit. No thyromegaly. CHEST: Clear to auscultation. HEART: S1 and S2 regular. ABDOMEN: Soft. EXTREMITIES: Clubbing and cyanosis negative. LABORATORY DATA: Blood workup as follows; WBC 11.5, hemoglobin 12.7, hematocrit 41.7, platelet count 628. Chemistry shows sodium 130, potassium 4.2, chloride 99, carbon dioxide 28, anion gap of 15, BUN 21, creatinine 0.8. IMPRESSION: Morbid obesity, status post rapid response, respiratory insufficiency, history of deep venous thrombosis, history of pulmonary embolism, history of amputation of left lower extremity below knee, history of sleep apnea mentioned, who was recently discharged from [facility] [place], admitted with shortness of breath. Last echo dated 10/03/2017 shows ventricular function normal. Abnormal septal wall consistent with right ventricular pressure volume overload, right ventricle is moderate to severely dilated, right atrium is severely dilated, severe tricuspid regurgitation, pulmonary hypertension. Severe pulmonary hypertension, RV systolic pressure 78 consistent with severe pulmonary hypertension. RECOMMENDATIONS: Continue gentle diuretics. Continue oxygen. Continue Revatio for blood pressure. Continue Xarelto. Monitor electrolytes. Repeat CAT scan on arrival to rule out PE. No evidence of PE described. Continue supportive care. Start rehab. We will follow with you. We will discontinue Telemetry. Thank you, Dr. Gross, for providing us the opportunity in taking care of the patient, Rachel Oakes. Placido Ying MD
--- NOTE | 2017-10-07 14:48 | PN ---
DATE: 10/07/2017 ENDOCRINOLOGY FOLLOWUP NOTE LOCATION: Room 560. SUBJECTIVE: This is a 42-year-old female admitted with acute exacerbation of COPD, started initially on IV steroid therapy and has now been switched over to oral steroids with prednisone given as 40 mg once daily as noted. She was initially followed for evaluation of abnormal thyroid studies which has improved remarkably as noted thereof. Her latest chemistries showed a BUN of 21, sodium 138, potassium 4.2, chloride 99, CO2 of 28, glucose 116, and creatinine 0.8. Her latest thyroid studies showed a T4 of 10.6 with a free T4 of 2.62 and a TSH of 0.13. ASSESSMENT: This is a 42-year-old female with acute exacerbation of chronic obstructive pulmonary disease, currently on oral steroid therapy with abnormal thyroid studies indicative of the so-called acute sick euthyroid syndrome with superimposed TSH suppression from the intercurrent IV steroid therapy as previously given and has been switched over to oral steroid therapy as noted. She remains clinically euthyroid at this time as noted. PLAN OF MANAGEMENT: We will obtain serial thyroid studies and should expect improvement biochemically of her thyroid indices as the IV steroids have been tapered down to oral steroids as noted. There is no indication at this time for any kind of thyroid pharmacotherapy. If we are dealing with the so-called subclinical hyperthyroidism, which is quite remote, then we will expect persistent TSH suppression and elevated total thyroxine levels accordingly. We will follow serial chemistries and supplement accordingly as needed. Ann Lugo MD
--- NOTE | 2017-10-07 14:49 | CP.PCM.PN ---
<Jacek Chilel - Last Filed: 10/07/17 14:46> Subjective - Date & Time of Evaluation Date of Evaluation: 10/07/17 Time of Evaluation: 09:25 - Subjective Subjective: Pt seen and examined at bedside. Denies any acute complaints, saturating well on Bipap overnight. Reports shortness of breath improved. Objective - Vital Signs/Intake and Output Vital Signs (last 24 hours): Temp Pulse Resp BP Pulse Ox 98.0 F 85 18 108/70 90 L 10/07/17 05:58 10/07/17 09:00 10/07/17 09:00 10/07/17 10:23 10/07/17 09:00 Intake and Output: 10/07/17 10/07/17 06:59 18:59 Intake Total 360 Output Total 600 Balance -240 - Medications Medications: Current Medications Furosemide (Lasix) 40 mg PO DAILY [facility] Last Admin: 10/07/17 10:23 Dose: 40 mg Gabapentin (Neurontin) 300 mg PO TID [facility] PRN Reason: Protocol Last Admin: 10/07/17 13:09 Dose: 300 mg Guaifenesin (Robitussin) 200 mg PO Q4H PRN PRN Reason: Cough and congestion Last Admin: 10/04/17 09:30 Dose: 200 mg Ipratropium [place] (Atrovent) 0.5 mg IH [id number] [facility] Last Admin: 10/07/17 14:24 Dose: 0.5 mg Levalbuterol HCl (Xopenex) 0.63 mg IH [id number] [facility] Last Admin: 10/07/17 14:24 Dose: 0.63 mg Levalbuterol HCl (Xopenex) 0.63 mg IH [id number] PRN PRN Reason: Shortness of Breath Pantoprazole Sodium (Protonix Ec Tab) 40 mg PO DAILY [facility] Last Admin: 10/07/17 10:24 Dose: 40 mg Prednisone (Prednisone Tab) 40 mg PO DAILY [facility] Last Admin: 10/07/17 10:23 Dose: 40 mg Rivaroxaban (Xarelto) 20 mg PO DAILY [facility] PRN Reason: Protocol Last Admin: 10/07/17 10:23 Dose: 20 mg Sildenafil Citrate (Revatio) 10 mg PO DAILY [facility] Last Admin: 10/07/17 10:23 Dose: 10 mg - Labs Labs: 10/07/17 07:00 10/07/17 07:00 PT 21.8 SECONDS (9.4-12.5) H 10/02/17 17:40 INR 1.89 (0.93-1.08) H 10/02/17 17:40 APTT 28.4 Seconds (25.1-36.5) 10/02/17 17:40 - Constitutional Appears: Non-toxic, No Acute Distress, Older Than Stated Age, Chronically Ill - Head Exam Head Exam: ATRAUMATIC, NORMAL INSPECTION, NORMOCEPHALIC - Eye Exam Eye Exam: EOMI, Normal appearance, PERRL - ENT Exam ENT Exam: Mucous Membranes Moist, Normal Oropharynx - Neck Exam Neck Exam: Full ROM, Normal Inspection - Respiratory Exam Respiratory Exam: Clear to Ausculation Bilateral, NORMAL BREATHING PATTERN - Cardiovascular Exam Cardiovascular Exam: REGULAR RHYTHM, +S1, +S2 - GI/Abdominal Exam GI & Abdominal Exam: Soft, Normal Bowel Sounds - Extremities Exam Additional comments: S/p L BKA - Neurological Exam Neurological Exam: Alert, Awake, CN II-XII Intact, Oriented x3 - Psychiatric Exam Psychiatric exam: Normal Affect, Normal Mood - Skin Skin Exam: Dry, Intact, Normal Color, Warm Assessment and Plan - Assessment and Plan (Free Text) Assessment: 42 year old female with PMH of CHF (unknown EF), COPD (on home O2 2 liters, on home prednisone), hx of DVT/PE (on xarelto) s/p L below-knee amputation, reported pulmonary HTN, and LAYO presents with SOB and cough for 3 days. Pt being treated for CHF/COPD exacerbation. Plan: 1. Dyspnea -Due to chronic CHF with preserved ejection fraction vs. COPD exacerbation vs hx of reported pulmonary HTN -BNP elevated -Daily Lasix 40 mg IVP daily -C/w BiPap at night, trend O2 sat and vitals -Echo demonstrated: LVEF 76%, abnormal septal motion and flattening c/w R ventricle volume/pressure overload, R atrium severely dilated, R ventricle moderate to severely dilated, severe tricuspid regurgitation, severe pulm HTN. No pericardial effusion. -Cardio consulted -Pulm consulted -D/c levaquin as per pulm -Tye scheduled and PRN -Prednisone 40 mg PO daily -Strict I's and O's -Pt improving, medically stable for discharge 2. Hx of Pulm HTN -Continue home sildenafil -Echo results as described above 3. History of DVT/PE -CT PE protocol suboptimal for PE and moderate pericardial effusion. -Patient restarted on Xarelto 4. Depression -Patient states she is depressed at times because of left leg amputation; states she does not want to be seen by psych 5. Low TSH -Endo consulted (Dr. Lugo): likely subclinical hyperthyroidism, f/u thyroid Ig and thyroid peroxidase -Pt's VSS, asymptomatic 6. Phantom limb pain -2/2 L BKA -C/w neurontin GI/DVT prophylaxis: c/w xarelto and protonix. Dispo: Pt medically stable for discharge. Spoke with case management, pending insurance approval for [facility]. Pt seen, examined with, and plan d/w Dr. Gross, attending Jacek Chilel DO PGY-1 Pager #[phone] <Placido Gross - Last Filed: 10/07/17 15:52> Objective - Vital Signs/Intake and Output Vital Signs (last 24 hours): Temp Pulse Resp BP Pulse Ox 97.4 F L 91 H 20 103/67 98 10/07/17 14:00 10/07/17 14:00 10/07/17 14:00 10/07/17 14:00 10/07/17 14:00 Intake and Output: 10/07/17 10/07/17 06:59 18:59 Intake Total 360 640 Output Total 600 400 Balance -240 240 - Medications Medications: Current Medications Furosemide (Lasix) 40 mg PO DAILY [facility] Last Admin: 10/07/17 10:23 Dose: 40 mg Gabapentin (Neurontin) 300 mg PO TID [facility]UNIA PRN Reason: Protocol Last Admin: 10/07/17 13:09 Dose: 300 mg Guaifenesin (Robitussin) 200 mg PO Q4H PRN PRN Reason: Cough and congestion Last Admin: 10/04/17 09:30 Dose: 200 mg Ipratropium [place] (Atrovent) 0.5 mg IH [id number] [facility] Last Admin: 10/07/17 14:24 Dose: 0.5 mg Levalbuterol HCl (Xopenex) 0.63 mg IH [id number] [facility] Last Admin: 10/07/17 14:24 Dose: 0.63 mg Levalbuterol HCl (Xopenex) 0.63 mg IH [id number] PRN PRN Reason: Shortness of Breath Pantoprazole Sodium (Protonix Ec Tab) 40 mg PO DAILY [facility] Last Admin: 10/07/17 10:24 Dose: 40 mg Prednisone (Prednisone Tab) 40 mg PO DAILY [facility] Last Admin: 10/07/17 10:23 Dose: 40 mg Rivaroxaban (Xarelto) 20 mg PO DAILY [facility] PRN Reason: Protocol Last Admin: 10/07/17 10:23 Dose: 20 mg Sildenafil Citrate (Revatio) 10 mg PO DAILY [facility] Last Admin: 10/07/17 10:23 Dose: 10 mg - Labs Labs: 10/07/17 07:00 10/07/17 07:00 PT 21.8 SECONDS (9.4-12.5) H 10/02/17 17:40 INR 1.89 (0.93-1.08) H 10/02/17 17:40 APTT 28.4 Seconds (25.1-36.5) 10/02/17 17:40 Attending/Attestation - Attestation I have personally seen and examined this patient.: Yes I have fully participated in the care of the patient.: Yes I have reviewed all pertinent clinical information, including history, physical exam and plan: Yes Notes (Text): 10/07/17 15:52 Medical record note made by the resident after discussion with my direction and input after the patient was personally seen and examined by me. I have reviewed the chart and agree that the record accurately reflects by personal performance of the history, physical exam, data review, and medical decision-making, in the course for the patient. I have also personally directed the plan of care.
[2017-10-07 19:22] LABS: TSI 106 % baseline (<140)
[2017-10-08] MEDS: Ipratropium 0.02% Inhal Soln (0.5 mg/2.5 ml) UD IH SCH ×3 (01:06→13:23)
[2017-10-08] MEDS: Levalbuterol 0.63 MG/3 ML Inhal Soln UD IH SCH ×3 (01:06→13:23)
--- NOTE | 2017-10-08 07:11 | CP.PCM.PN ---
Subjective - Date & Time of Evaluation Date of Evaluation: 10/08/17 Time of Evaluation: 06:10 - Subjective Subjective: Sleeping but easily awaken, BIPAP in use, no distress,denies shortness of breath Reason for consultation and follow up: Cardiac evaluation for shortness of breath, status post rapid response,morbid obesity,history of DVT, history of pulmonary embolism, history of left leg below knee amputation,pulmonary hypertension, sleep apnea, COPD,CHF Seen and examined by me and Dr. Ying Objective - Vital Signs/Intake and Output Vital Signs (last 24 hours): Temp Pulse Resp BP Pulse Ox 97.4 F L 90 18 102/71 90 L 10/07/17 22:22 10/08/17 01:25 10/07/17 22:22 10/07/17 22:22 10/07/17 22:22 Intake and Output: 10/08/17 10/08/17 06:59 18:59 Intake Total 180 Output Total 2900 Balance -2720 - Medications Medications: Current Medications Furosemide (Lasix) 40 mg PO DAILY [facility] Last Admin: 10/07/17 10:23 Dose: 40 mg Gabapentin (Neurontin) 300 mg PO TID [facility] PRN Reason: Protocol Last Admin: 10/07/17 17:31 Dose: Not Given Guaifenesin (Robitussin) 200 mg PO Q4H PRN PRN Reason: Cough and congestion Last Admin: 10/04/17 09:30 Dose: 200 mg Ipratropium [place] (Atrovent) 0.5 mg IH [id number] [facility] Last Admin: 10/08/17 01:06 Dose: 0.5 mg Levalbuterol HCl (Xopenex) 0.63 mg IH [id number] [facility] Last Admin: 10/08/17 01:06 Dose: 0.63 mg Levalbuterol HCl (Xopenex) 0.63 mg IH [id number] PRN PRN Reason: Shortness of Breath Pantoprazole Sodium (Protonix Ec Tab) 40 mg PO DAILY [facility] Last Admin: 10/07/17 10:24 Dose: 40 mg Prednisone (Prednisone Tab) 40 mg PO DAILY [facility] Last Admin: 10/07/17 10:23 Dose: 40 mg Rivaroxaban (Xarelto) 20 mg PO DAILY [facility] PRN Reason: Protocol Last Admin: 10/07/17 10:23 Dose: 20 mg Sildenafil Citrate (Revatio) 10 mg PO DAILY [facility] Last Admin: 10/07/17 10:23 Dose: 10 mg - Labs Labs: 10/07/17 07:00 10/07/17 07:00 PT 21.8 SECONDS (9.4-12.5) H 10/02/17 17:40 INR 1.89 (0.93-1.08) H 10/02/17 17:40 APTT 28.4 Seconds (25.1-36.5) 10/02/17 17:40 - Constitutional Appears: No Acute Distress - Head Exam Head Exam: NORMOCEPHALIC - ENT Exam ENT Exam: Mucous Membranes Moist - Respiratory Exam Respiratory Exam: Decreased Breath Sounds, Clear to Ausculation Bilateral, NORMAL BREATHING PATTERN Additional comments: BIPAP/CPAP in use - Cardiovascular Exam Cardiovascular Exam: +S1, +S2 - GI/Abdominal Exam GI & Abdominal Exam: Soft, Normal Bowel Sounds - Exam Additional comments: continent - Extremities Exam Additional comments: left below knee amputation - Neurological Exam Neurological Exam: Alert, Awake, Oriented x3 - Psychiatric Exam Psychiatric exam: Normal Affect - Skin Skin Exam: Dry, Normal Color, Warm Assessment and Plan - Assessment and Plan (Free Text) Assessment: A 42 year old female who came in to the ER due to shortness of breath.Exacerbation of COPD, History of CHF,COPD,pulmonary hypertension, DVT, pulmary embolism ( on Xarelto) s/p left leg below knee amputation, LAYO, CPAP/ BIPAP at home.morbidly obese. [place] [facility] [place] ECHO on 10/03/17 showed nornal LV function, Abnormal septal wall, RV is moderate to severely dilated, right atrium severely dilated, severe TR, severe pulmonary hypertension. Plan: Off monitor and storage bin tender Comfortable, shortness of breath improved, BIPAP/CPAP at night Cardiac status stable Heart rate and blood pressure controlled On Lasix 40 mg daily,Xarelto 20 mg daily,Revatio 10 mg daily Prednisone 40 mg daily Continue current treatment Continue current medications Discharge planning, possible [facility] Will follow up Plan and treatment discussed with Dr. Ying
[2017-10-08 07:49] VITALS: PULSE 80; RESP 22; TEMP 98.2; O2SAT 94
[2017-10-08 08:00] LABS: FREE T4 1.77 ng/dL (0.78-2.19); T4 8.4 ug/dL (5.5-11.0)
[2017-10-08 08:40] LABS: ALB/GLOB RATIO 1.3 (1.1-1.8); ALBUMIN 3.6 g/dL (3.0-4.8); ALT/SGPT 32 U/L (7-56); AST/SGOT 25 U/L (14-36); BLOOD UREA NITROGEN 21 mg/dL (7-21); CALCIUM 9.5 mg/dL (8.4-10.5); GFR AFRICAN-AMERICAN > 60; GFR NON-AFRICAN AMERICAN > 60
[2017-10-08 09:44] LABS: EOS % 0.2 % (1.5-5.0); GRAN # 8.57 (1.4-6.5); GRAN % 76.8 % (50.0-68.0); HEMOGLOBIN 12.6 g/dL (12.0-16.0); LYMPH # 1.1 (1.2-3.4); LYMPH % 9.5 % (22.0-35.0); MEAN CELL VOLUME 80.4 fl (80.0-105.0); MEAN CORPUSCULAR HEMOGLOBIN 24.7 pg (25.0-35.0); MEAN CORPUSCULAR HGB CONC 30.7 g/dl (31.0-37.0); MEAN PLATELET VOLUME 10.2 fl (7.0-11.0); MONO # 1.5 (0.1-0.6); MONO % 13.5 % (1.0-6.0); RBC 5.11 10^6/uL (3.5-6.1); RED CELL DISTRIBUTION WIDTH 17.1 % (11.5-14.5); WHITE BLOOD COUNT 11.2 10^3/ul (4.5-11.0)
[2017-10-08] MEDS: Pantoprazole 40 mg EC Tab PO SCH (09:53)
[2017-10-08] MEDS: Sildenafil 20 MG TAB PO SCH (09:54)
[2017-10-08 10:01] VITALS: BP 95/55
--- NOTE | 2017-10-08 14:48 | PN ---
DATE: 10/08/2017 ENDOCRINOLOGY FOLLOWUP LOCATION: In room 560. This is a 42-year-old female with recent admission for acute exacerbation of COPD and started on IV steroid therapy and currently on oral steroids with prednisone given as 40 mg once daily as noted. She remains clinically euthyroid and biochemically, the latest thyroid study showed a T4 of 8.4 with a TSH of 0.13 and a free T4 of 1.77. Her chemistry showed a BUN of 21, sodium 137, potassium 4.8, chloride 101, CO2 27, glucose 102 and creatinine of 0.7 . At this time, the patient remains clinically euthyroid and biochemically, has evidence of the so-called acute sick euthyroid syndrome superimposed, TSH suppression from the intercurrent oral steroids as given and previously was on IV steroids accordingly. Plan of management was discussed with the patient and staff. We will continue the serial chemistries to be obtained and we will supplement accordingly needed. We will also continue the serial thyroid studies to be obtained and we will hold off any kind of thyroid pharmacotherapy. We will expect improvement of her TSH suppression, which is a temporary phenomenon in patients on IV steroid therapy and should expect improvement accordingly over the next few weeks as noted. We will follow with you. Ann Lugo MD
--- NOTE | 2017-10-08 15:11 | CP.PCM.DIS ---
<Jacek Chilel - Last Filed: 10/08/17 14:47> Provider - Provider Date of Admission: 10/03/17 07:12 Attending physician: Placido Gross MD Primary care physician: Debora Little Consults: Pulm - Dr. Moore, Cardio - Dr. Kidd, Endocrinology - Dr. Lugo Time Spent in preparation of Discharge (in minutes): 45 Hospital Course - Lab Results Lab Results: Most Recent Lab Values WBC 11.2 10^3/ul (4.5-11.0) H 10/08/17 09:30 RBC 5.11 10^6/uL (3.5-6.1) 10/08/17 09:30 Hgb 12.6 g/dL (12.0-16.0) 10/08/17 09:30 Hct 41.1 % (36.0-48.0) 10/08/17 09:30 MCV 80.4 fl (80.0-105.0) 10/08/17 09:30 MCH 24.7 pg (25.0-35.0) L 10/08/17 09:30 MCHC 30.7 g/dl (31.0-37.0) L 10/08/17 09:30 RDW 17.1 % (11.5-14.5) H 10/08/17 09:30 Plt Count 646 10^3/uL (120.0-450.0) H 10/08/17 09:30 MPV 10.2 fl (7.0-11.0) 10/08/17 09:30 Gran % 76.8 % (50.0-68.0) H 10/08/17 09:30 Lymph % (Auto) 9.5 % (22.0-35.0) L 10/08/17 09:30 [place] % (Auto) 13.5 % (1.0-6.0) H 10/08/17 09:30 Eos % (Auto) 0.2 % (1.5-5.0) L 10/08/17 09:30 Baso % (Auto) 0.0 % (0.0-3.0) 10/08/17 09:30 Gran # 8.57 (1.4-6.5) H 10/08/17 09:30 Lymph # (Auto) 1.1 (1.2-3.4) L 10/08/17 09:30 [place] # (Auto) 1.5 (0.1-0.6) H 10/08/17 09:30 Eos # (Auto) 0.0 (0.0-0.7) 10/08/17 09:30 Baso # (Auto) 0.00 K/mm3 (0.0-2.0) 10/08/17 09:30 Neutrophils % (Manual) 90 % (50.0-70.0) H 10/03/17 06:00 Lymphocytes % (Manual) 7 % (22.0-35.0) L 10/03/17 06:00 Monocytes % (Manual) 3 % (1.0-6.0) 10/03/17 06:00 Platelet Evaluation High (NORMAL) 10/03/17 06:00 Large Platelets Present 10/03/17 06:00 Giant Platelets Present 10/03/17 06:00 Poikilocytosis (manual Slight 10/03/17 06:00 Anisocytosis (manual) Slight 10/03/17 06:00 Tear Drop Cells Slight 10/03/17 06:00 PT 21.8 SECONDS (9.4-12.5) H 10/02/17 17:40 INR 1.89 (0.93-1.08) H 10/02/17 17:40 APTT 28.4 Seconds (25.1-36.5) 10/02/17 17:40 D-Dimer, Quantitative 220 ng/mL (0-243) 10/02/17 17:40 pCO2 30 mm/Hg (35-45) L 10/02/17 23:00 pO2 47.0 mm/Hg (80-100) L 10/02/17 23:00 HCO3 19.0 mmol/L (21-28) L 10/02/17 23:00 ABG pH 7.41 (7.35-7.45) 10/02/17 23:00 ABG Total CO2 19.9 mmol.L (22-28) L 10/02/17 23:00 ABG O2 Saturation 86.6 % (95-98) L 10/02/17 23:00 ABG O2 Content 15.0 ML/dl (15-23) 10/02/17 23:00 ABG Base Excess -4.5 mmol/L (-2.0-3.0) L 10/02/17 23:00 ABG Hemoglobin 12.8 g/dL (11.7-17.4) 10/02/17 23:00 ABG Carboxyhemoglobin 2.4 % (0.5-1.5) H 10/02/17 23:00 POC ABG HHb (Measured) 13.0 % (0-5) H 10/02/17 23:00 ABG Methemoglobin 0.9 % (0.0-3.0) 10/02/17 23:00 ABG O2 Capacity 17.3 mL/dl (16-24) 10/02/17 23:00 Hgb O2 Saturation 83.7 % (95.0-98.0) L 10/02/17 23:00 FiO2 44.0 % 10/02/17 23:00 Sodium 137 mmol/L (132-148) 10/08/17 06:45 Potassium 4.8 mmol/L (3.6-5.0) 10/08/17 06:45 Chloride 101 mmol/L (98-107) 10/08/17 06:45 Carbon Dioxide 27 mmol/L (21-33) 10/08/17 06:45 Anion Gap 15 (10-20) 10/08/17 06:45 BUN 21 mg/dL (7-21) 10/08/17 06:45 Creatinine 0.7 mg/dl (0.7-1.2) 10/08/17 06:45 Est GFR ( Amer) > 60 10/08/17 06:45 Est GFR (Non-Af Amer) > 60 10/08/17 06:45 POC Glucose (mg/dL) 144 mg/dL (65-110) H 10/02/17 23:00 Random Glucose 102 mg/dL (70-110) 10/08/17 06:45 Hemoglobin A1c 6.0 % (4.2-6.5) 10/05/17 05:30 Calcium 9.5 mg/dL (8.4-10.5) 10/08/17 06:45 Phosphorus 3.6 mg/dL (2.5-4.5) 10/06/17 06:00 Magnesium 1.9 mg/dL (1.7-2.2) 10/06/17 06:00 Total Bilirubin 1.3 mg/dL (0.2-1.3) 10/08/17 06:45 AST 25 U/L (14-36) 10/08/17 06:45 ALT 32 U/L (7-56) 10/08/17 06:45 Alkaline Phosphatase 117 U/L (38-126) 10/08/17 06:45 Lactate Dehydrogenase 800 U/L (333-699) H 10/02/17 17:40 Total Creatine Kinase 29 U/L (35-230) L 10/02/17 17:40 Troponin I 0.08 ng/mL 10/03/17 06:00 NT-Pro-B Natriuret Pep 1910 pg/mL (0-450) H 10/02/17 17:40 Total Protein 6.4 g/dL (5.8-8.3) 10/08/17 06:45 Albumin 3.6 g/dL (3.0-4.8) 10/08/17 06:45 Globulin 2.8 gm/dL 10/08/17 06:45 Albumin/Globulin Ratio 1.3 (1.1-1.8) 10/08/17 06:45 Triglycerides 62 mg/dL (35-160) 10/03/17 06:00 Cholesterol 104 mg/dL (130-200) L 10/03/17 06:00 LDL Cholesterol Direct 44 mg/dL (0-129) 10/03/17 06:00 HDL Cholesterol 46 mg/dL (29-60) 10/03/17 06:00 Free T4 1.77 ng/dL (0.78-2.19) 10/08/17 06:45 Thyroxine (T4) 8.4 ug/dL (5.5-11.0) 10/08/17 06:45 TSH 3rd Generation 0.13 mIU/mL (0.46-4.68) L 10/08/17 06:45 Thyroid Stim Immunoglob 106 % baseline (<140) 10/05/17 05:30 Urine Color Dark yellow (YELLOW) 10/02/17 19:55 Urine Appearance Clear (CLEAR) 10/02/17 19:55 Urine pH 6.0 (4.7-8.0) 10/02/17 19:55 Ur Specific [place] 1.010 (1.005-1.035) 10/02/17 19:55 Urine Protein 30 mg/dL (<30 mg/dL) H 10/02/17 19:55 Urine Glucose (UA) Negative mg/dL (NEGATIVE) 10/02/17 19:55 Urine Ketones Negative mg/dL (NEGATIVE) 10/02/17 19:55 Urine Blood Negative (NEGATIVE) 10/02/17 19:55 Urine Nitrate Negative (NEGATIVE) 10/02/17 19:55 Urine Bilirubin Small (NEGATIVE) H 10/02/17 19:55 Urine Urobilinogen 1.0 E.U./dL (<1 E.U./dL) H 10/02/17 19:55 Ur Leukocyte Esterase Negative [place]lma/uL (NEGATIVE) 10/02/17 19:55 Urine RBC 0 - 2 /hpf (0-2) 10/02/17 19:55 Urine WBC 1 - 3 /hpf (0-6) 10/02/17 19:55 Ur Epithelial Cells 4 - 5 /hpf (0-5) 10/02/17 19:55 Urine Bacteria Large (NEG) 10/02/17 19:55 Coarse Granular Casts Trace /hpf (0-2) H 10/02/17 19:55 Urine Other [place] 10/02/17 19:55 Urine HCG, Qual Negative (NEGATIVE) 10/05/17 09:25 Urine Opiates Screen Negative (NEGATIVE) 10/02/17 19:55 Urine Methadone Screen Negative (NEGATIVE) 10/02/17 19:55 Ur Barbiturates Screen Negative (NEGATIVE) 10/02/17 19:55 Ur Phencyclidine Scrn Negative (NEGATIVE) 10/02/17 19:55 Ur Amphetamines Screen Negative (NEGATIVE) 10/02/17 19:55 U Benzodiazepines Scrn Negative (NEGATIVE) 10/02/17 19:55 U Oth Cocaine Metabols Negative (NEGATIVE) 10/02/17 19:55 U Cannabinoids Screen Negative (NEGATIVE) 10/02/17 19:55 Alcohol, Quantitative < 10 mg/dL (0-10) 10/02/17 17:40 Thyroperoxidase Ab <1 IU/mL (<9) 10/05/17 05:30 - Hospital Course Hospital Course: Jacek Chilel DO PGY-1, [employer] Discharge Summary 42 year old female with a PMH of CHF, COPD, DVT, L leg below the knee amputation who presented to the ED on 10/04/17 with Shortness of Breath and cough that was worsening over the past week. Patient has been hospitalized for this multiple times. She was found to be in acute exacerbation of Chronic HFpEF and was treated with Lasix IVP 40mg. Patient also had an echocardiogram done which showed severe Tricuspid Regurgitation and R sided dilation, possibly due to the Chronic COPD and Pulmonary HTN. [employer] Dr. Cannon was consulted, and agreed with management. Patient also had COPD likely secondary to tobacco use which was stable with Atrovent + Xopenex. Pulmonolgy Dr. Moore was consulted and agreed with current management, and also recommended no antibiotic treatment. Patient reported chest pain during admission, EKG demonstrated incomplete RBBB unchanged from prior study in ED. Patient also had chest xray done, which showed pulmonary vascular congestion. Chest CT was done but was read as non-diagnostic. Patient also had low TSH on lab work-up. Mail List Librarian Dr. Lugo was consulted, and stated that pt's low TSH was likely secondary to steroid administration during admission, and recommended repeat TSH 6 weeks after discharge. Thyroid peroxidase antibody came back negative. Thyroid immunoglobulin came back normal. Patient was showing no signs or symptoms of thyroid problem. Patient had hx of chronic phantom limb pain, and Neurontin was initiated for therapy. Overall, patient improved and was seen and examined at bedside. Patient had no complaints and was using her BIPAP overnight. After discussion with CM and evaluation by PT and OT, pt was discharged to home with visiting nurse service contacted. Patient was discharged on prednisone taper, instructed to resume her home medications, and instructed about medication compliance and how it related to her prognosis. She was discharged to home in stable condition on 10/08/17 with instructions to follow up with her PCP within 1 week of discharge. Discharge Exam - Head Exam Head Exam: ATRAUMATIC, NORMAL INSPECTION, NORMOCEPHALIC - Eye Exam Eye Exam: EOMI, Normal appearance, PERRL - ENT Exam ENT Exam: Mucous Membranes Moist, Normal Oropharynx - Respiratory Exam Respiratory Exam: Clear to PA & Lateral, NORMAL BREATHING PATTERN - Cardiovascular Exam Cardiovascular Exam: REGULAR RHYTHM, +S1, +S2 - GI/Abdominal Exam GI & Abdominal Exam: Normal Bowel Sounds, Soft - Extremities Exam Extremities exam: normal capillary refill, pedal pulses present Additional comments: S/p L BKA - Neurological Exam Neurological exam: Alert, CN II-XII Intact, Oriented x3 - Psychiatric Exam Psychiatric exam: Normal Affect, Normal Mood - Skin Skin Exam: Dry, Intact, Normal Color, Warm Discharge Plan - Discharge Medications Prescriptions: Gabapentin [Neurontin] 300 mg PO TID #30 cap Prednisone See Taper PO DAILY #20 tab.ds.pk - Follow Up Plan Condition: FAIR Disposition: HOME/ ROUTINE Instructions: Chronic Obstructive Pulmonary Disease (COPD), Including Emphysema , Heart Failure (DC), Heart Failure (GEN), Pacemaker (DC), Pacemaker (GEN), Pulmonary Edema (DC), Pulmonary Edema (GEN), Ascites (DC), Ascites (GEN) Additional Instructions: Please follow up with your primary care doctor if your symptoms persist please return to ED Referrals: Debora Little [Primary Care Provider] - <Placido Gross - Last Filed: 10/08/17 16:38> Provider - Provider Date of Admission: 10/03/17 07:12 Attending physician: Placido Gross MD Primary care physician: Debora Serrano [facility] Course - Lab Results Lab Results: Most Recent Lab Values WBC 11.2 10^3/ul (4.5-11.0) H 10/08/17 09:30 RBC 5.11 10^6/uL (3.5-6.1) 10/08/17 09:30 Hgb 12.6 g/dL (12.0-16.0) 10/08/17 09:30 Hct 41.1 % (36.0-48.0) 10/08/17 09:30 MCV 80.4 fl (80.0-105.0) 10/08/17 09:30 MCH 24.7 pg (25.0-35.0) L 10/08/17 09:30 MCHC 30.7 g/dl (31.0-37.0) L 10/08/17 09:30 RDW 17.1 % (11.5-14.5) H 10/08/17 09:30 Plt Count 646 10^3/uL (120.0-450.0) H 10/08/17 09:30 MPV 10.2 fl (7.0-11.0) 10/08/17 09:30 Gran % 76.8 % (50.0-68.0) H 10/08/17 09:30 Lymph % (Auto) 9.5 % (22.0-35.0) L 10/08/17 09:30 [place] % (Auto) 13.5 % (1.0-6.0) H 10/08/17 09:30 Eos % (Auto) 0.2 % (1.5-5.0) L 10/08/17 09:30 Baso % (Auto) 0.0 % (0.0-3.0) 10/08/17 09:30 Gran # 8.57 (1.4-6.5) H 10/08/17 09:30 Lymph # (Auto) 1.1 (1.2-3.4) L 10/08/17 09:30 [place] # (Auto) 1.5 (0.1-0.6) H 10/08/17 09:30 Eos # (Auto) 0.0 (0.0-0.7) 10/08/17 09:30 Baso # (Auto) 0.00 K/mm3 (0.0-2.0) 10/08/17 09:30 Neutrophils % (Manual) 90 % (50.0-70.0) H 10/03/17 06:00 Lymphocytes % (Manual) 7 % (22.0-35.0) L 10/03/17 06:00 Monocytes % (Manual) 3 % (1.0-6.0) 10/03/17 06:00 Platelet Evaluation High (NORMAL) 10/03/17 06:00 Large Platelets Present 10/03/17 06:00 Giant Platelets Present 10/03/17 06:00 Poikilocytosis (manual Slight 10/03/17 06:00 Anisocytosis (manual) Slight 10/03/17 06:00 Tear Drop Cells Slight 10/03/17 06:00 PT 21.8 SECONDS (9.4-12.5) H 10/02/17 17:40 INR 1.89 (0.93-1.08) H 10/02/17 17:40 APTT 28.4 Seconds (25.1-36.5) 10/02/17 17:40 D-Dimer, Quantitative 220 ng/mL (0-243) 10/02/17 17:40 pCO2 30 mm/Hg (35-45) L 10/02/17 23:00 pO2 47.0 mm/Hg (80-100) L 10/02/17 23:00 HCO3 19.0 mmol/L (21-28) L 10/02/17 23:00 ABG pH 7.41 (7.35-7.45) 10/02/17 23:00 ABG Total CO2 19.9 mmol.L (22-28) L 10/02/17 23:00 ABG O2 Saturation 86.6 % (95-98) L 10/02/17 23:00 ABG O2 Content 15.0 ML/dl (15-23) 10/02/17 23:00 ABG Base Excess -4.5 mmol/L (-2.0-3.0) L 10/02/17 23:00 ABG Hemoglobin 12.8 g/dL (11.7-17.4) 10/02/17 23:00 ABG Carboxyhemoglobin 2.4 % (0.5-1.5) H 10/02/17 23:00 POC ABG HHb (Measured) 13.0 % (0-5) H 10/02/17 23:00 ABG Methemoglobin 0.9 % (0.0-3.0) 10/02/17 23:00 ABG O2 Capacity 17.3 mL/dl (16-24) 10/02/17 23:00 Hgb O2 Saturation 83.7 % (95.0-98.0) L 10/02/17 23:00 FiO2 44.0 % 10/02/17 23:00 Sodium 137 mmol/L (132-148) 10/08/17 06:45 Potassium 4.8 mmol/L (3.6-5.0) 10/08/17 06:45 Chloride 101 mmol/L (98-107) 10/08/17 06:45 Carbon Dioxide 27 mmol/L (21-33) 10/08/17 06:45 Anion Gap 15 (10-20) 10/08/17 06:45 BUN 21 mg/dL (7-21) 10/08/17 06:45 Creatinine 0.7 mg/dl (0.7-1.2) 10/08/17 06:45 Est GFR ( Amer) > 60 07/12/18 06:45 Est GFR (Non-Af Amer) > 60 10/08/17 06:45 POC Glucose (mg/dL) 144 mg/dL (65-110) H 10/02/17 23:00 Random Glucose 102 mg/dL (70-110) 10/08/17 06:45 Hemoglobin A1c 6.0 % (4.2-6.5) 10/05/17 05:30 Calcium 9.5 mg/dL (8.4-10.5) 10/08/17 06:45 Phosphorus 3.6 mg/dL (2.5-4.5) 10/06/17 06:00 Magnesium 1.9 mg/dL (1.7-2.2) 10/06/17 06:00 Total Bilirubin 1.3 mg/dL (0.2-1.3) 10/08/17 06:45 AST 25 U/L (14-36) 10/08/17 06:45 ALT 32 U/L (7-56) 10/08/17 06:45 Alkaline Phosphatase 117 U/L (38-126) 10/08/17 06:45 Lactate Dehydrogenase 800 U/L (333-699) H 10/02/17 17:40 Total Creatine Kinase 29 U/L (35-230) L 10/02/17 17:40 Troponin I 0.08 ng/mL 10/03/17 06:00 NT-Pro-B Natriuret Pep 1910 pg/mL (0-450) H 10/02/17 17:40 Total Protein 6.4 g/dL (5.8-8.3) 10/08/17 06:45 Albumin 3.6 g/dL (3.0-4.8) 10/08/17 06:45 Globulin 2.8 gm/dL 10/08/17 06:45 Albumin/Globulin Ratio 1.3 (1.1-1.8) 10/08/17 06:45 Triglycerides 62 mg/dL (35-160) 10/03/17 06:00 Cholesterol 104 mg/dL (130-200) L 10/03/17 06:00 LDL Cholesterol Direct 44 mg/dL (0-129) 10/03/17 06:00 HDL Cholesterol 46 mg/dL (29-60) 10/03/17 06:00 Free T4 1.77 ng/dL (0.78-2.19) 10/08/17 06:45 Thyroxine (T4) 8.4 ug/dL (5.5-11.0) 10/08/17 06:45 TSH 3rd Generation 0.13 mIU/mL (0.46-4.68) L 10/08/17 06:45 Thyroid Stim Immunoglob 106 % baseline (<140) 10/05/17 05:30 Urine Color Dark yellow (YELLOW) 10/02/17 19:55 Urine Appearance Clear (CLEAR) 10/02/17 19:55 Urine pH 6.0 (4.7-8.0) 10/02/17 19:55 Ur Specific [place] 1.010 (1.005-1.035) 10/02/17 19:55 Urine Protein 30 mg/dL (<30 mg/dL) H 10/02/17 19:55 Urine Glucose (UA) Negative mg/dL (NEGATIVE) 10/02/17 19:55 Urine Ketones Negative mg/dL (NEGATIVE) 10/02/17 19:55 Urine Blood Negative (NEGATIVE) 10/02/17 19:55 Urine Nitrate Negative (NEGATIVE) 10/02/17 19:55 Urine Bilirubin Small (NEGATIVE) H 10/02/17 19:55 Urine Urobilinogen 1.0 E.U./dL (<1 E.U./dL) H 10/02/17 19:55 Ur Leukocyte Esterase Negative [place]lma/uL (NEGATIVE) 10/02/17 19:55 Urine RBC 0 - 2 /hpf (0-2) 10/02/17 19:55 Urine WBC 1 - 3 /hpf (0-6) 10/02/17 19:55 Ur Epithelial Cells 4 - 5 /hpf (0-5) 10/02/17 19:55 Urine Bacteria Large (NEG) 10/02/17 19:55 Coarse Granular Casts Trace /hpf (0-2) H 10/02/17 19:55 Urine Other [place] 10/02/17 19:55 Urine HCG, Qual Negative (NEGATIVE) 10/05/17 09:25 Urine Opiates Screen Negative (NEGATIVE) 10/02/17 19:55 Urine Methadone Screen Negative (NEGATIVE) 10/02/17 19:55 Ur Barbiturates Screen Negative (NEGATIVE) 10/02/17 19:55 Ur Phencyclidine Scrn Negative (NEGATIVE) 10/02/17 19:55 Ur Amphetamines Screen Negative (NEGATIVE) 10/02/17 19:55 U Benzodiazepines Scrn Negative (NEGATIVE) 10/02/17 19:55 U Oth Cocaine Metabols Negative (NEGATIVE) 10/02/17 19:55 U Cannabinoids Screen Negative (NEGATIVE) 10/02/17 19:55 Alcohol, Quantitative < 10 mg/dL (0-10) 10/02/17 17:40 Thyroperoxidase Ab <1 IU/mL (<9) 10/05/17 05:30 Attending/Attestation - Attestation I have personally seen and examined this patient.: Yes I have fully participated in the care of the patient.: Yes I have reviewed all pertinent clinical information, including history, physical exam and plan: Yes Notes (Text): 10/08/17 16:37 Medical record note made by the resident after discussion with my direction and input after the patient was personally seen and examined by me. I have reviewed the chart and agree that the record accurately reflects by personal performance of the history, physical exam, data review, and medical decision-making, in the course for the patient. I have also personally directed the plan of care. 42 year old female with PMH of chronic hypoxic Resp Failure on home oxygen, CHF with diastolic dysfunction, COPD, DVT/PE on xarelto, s/p left BKA, , LAYO on CPAP, pulmonary hypertension and non compliance with medication was presented with shortness of breath secondary to CHF/COPD exacerbation. Patient has responded well to therapy, she is not wheezing, lung sound are clear, patient is on tapering dose of prednisone and oral lasix . CT angio was suboptimal study for PE. Patient is on xarelto. She is on base line hypoxia. She was counselled on medication compliance. Subclinical Hyperthyroidism, TSH is low with elevated free T4.will need repeat Thyroid function in 6-8 weeks.Endocrine evaluation is appreciated. Patient will be discharged home with home services and will follow up with PCP . Issue of compliance with medication and CPAP was discussed in detail with her. Management plan was discussed in detail with patient Education was provided.
== END 2017-10-08 15:45 | disposition home health service (06) | DRG 541 ==
LOC: ED 16:58 → ERH 20:08 → 2RNO 21:44 → OBSVTOIN 10-03 07:12 → 5RNO 10-07 11:38
PROVIDERS: ADMIT Internal Medicine; ATTEND Internal Medicine
DX: J44.1 Chronic obstructive pulmonary disease with (acute) exacerbation (principal); I50.33 Acute on chronic diastolic (congestive) heart failure; J96.11 Chronic respiratory failure with hypoxia; E05.90 Thyrotoxicosis, unspecified without thyrotoxic crisis or storm; E11.51 Type 2 diabetes mellitus with diabetic peripheral angiopathy without gangrene; E66.2 Morbid (severe) obesity with alveolar hypoventilation; I07.1 Rheumatic tricuspid insufficiency; I11.0 Hypertensive heart disease with heart failure; D72.829 Elevated white blood cell count, unspecified; E07.81 Sick-euthyroid syndrome; F10.20 Alcohol dependence, uncomplicated; F32.89 Other specified depressive episodes; I27.20 Pulmonary hypertension, unspecified; I31.3 Pericardial effusion (noninflammatory); Z99.81 Dependence on supplemental oxygen; Z86.711 Personal history of pulmonary embolism; Z86.718 Personal history of other venous thrombosis and embolism; Z89.512 Acquired absence of left leg below knee; Z89.511 Acquired absence of right leg below knee; J98.4 Other disorders of lung; K21.9 Gastro-esophageal reflux disease without esophagitis; T38.0X5A Adverse effect of glucocorticoids and synthetic analogues, initial encounter; Z79.01 Long term (current) use of anticoagulants; Z79.52 Long term (current) use of systemic steroids; Z79.899 Other long term (current) drug therapy; Z82.49 Family history of ischemic heart disease and other diseases of the circulatory system; Z83.2 Family history of diseases of the blood and blood-forming organs and certain disorders involving the immune mechanism; Z83.3 Family history of diabetes mellitus; Z91.14 Patient's other noncompliance with medication regimen; Z91.19 Patient's noncompliance with other medical treatment and regimen; Z98.891 History of uterine scar from previous surgery; Z87.891 Personal history of nicotine dependence; Z68.43 Body mass index [BMI] 50.0-59.9, adult; G54.6 Phantom limb syndrome with pain

== ENCOUNTER 2017-12-27 21:38 | Inpatient (IN) | payer MEDICAID ==
[2017-12-27 22:10] VITALS: BMI 41.5
[2017-12-27 23:02] LABS: BASO # 0.04 K/mm3 (0.0-2.0); BASO % 0.6 % (0.0-3.0); EOS # 0.1 (0.0-0.7); EOS % 1.7 % (1.5-5.0); GRAN # 5.09 (1.4-6.5); GRAN % 70.1 % (50.0-68.0); LYMPH # 1.1 (1.2-3.4); LYMPH % 14.5 % (22.0-35.0); MEAN CELL VOLUME 84.3 fl (80.0-105.0); MEAN CORPUSCULAR HEMOGLOBIN 25.5 pg (25.0-35.0); MEAN CORPUSCULAR HGB CONC 30.3 g/dl (31.0-37.0); MEAN PLATELET VOLUME 9.7 fl (7.0-11.0); MONO % 13.1 % (1.0-6.0); RBC 4.7 10^6/uL (3.5-6.1); RED CELL DISTRIBUTION WIDTH 19.9 % (11.5-14.5); WHITE BLOOD COUNT 7.3 10^3/ul (4.5-11.0)
[2017-12-27] MEDS ORDERED: Albuterol-Ipratrop 3 mg / 0.5 (3 ml) UD IH STA (23:03)
[2017-12-27] MEDS ORDERED: Levalbuterol 1.25 MG/3 ML Inhal Soln UD IH STA (23:03)
[2017-12-27 23:10] LABS: INR 2.88; PARTIAL THROMBOPLASTIN TIME 31.9 Seconds (25.1-36.5); PROTHROMBIN TIME 33.6 SECONDS (9.4-12.5)
--- NOTE | 2017-12-27 23:17 | ED PDOC ---
Arrival/HPI - General Chief Complaint: Shortness Of Breath Time Seen by Provider: 12/27/17 22:00 Historian: Patient - History of Present Illness Narrative History of Present Illness (Text): 12/27/17 23:03 42yo morbidly obese female, bed bound who was bib the EMS for complaint of b/l leg pain, SOB, and right breast discharge. States she was just discharged [facility] [place] for leg cellulitis. She states she always have baseline SOB, but started coughing this week after her discharge from [facility]. States she though she was having a clear from her right nipple, but when she cleaned it with tissue it was greenish discharge. She notes that she had pain before, but the pain resolved in the breast. She denies fever, chills, diaphoresis, nausea, vomiting, any other complaint. Patient is on 4L of oxygen at home. Past Medical History - Provider Review Nursing Documentation Reviewed: Yes - Infectious Disease Hx of Infectious Diseases: None - Cardiac Hx Congestive Heart Failure: Yes - Pulmonary Hx Chronic Obstructive Pulmonary Disease (COPD): Yes (Home O2 @ 4LPM) - Hematological/Oncological Other/Comment: DVT - Musculoskeletal/Rheumatological Other/Comment: Andrew WHEAT - s/p DVT - Gastrointestinal Hx Gastroesophageal Reflux: Yes - Psychiatric Hx Substance Use: No - Surgical History Hx Section: Yes (x2) Other/Comment: Andrew WHEAT - 2015 Family/Social History - Physician Review Nursing Documentation Reviewed: Yes Family/Social History: Unknown Family HX Smoking Status: Former Smoker Hx Alcohol Use: Yes Hx Substance Use: No Allergies/Home Meds Allergies/Adverse Reactions: Allergies No Known Allergies Allergy (Verified 12/27/17 22:09) Home Medications: Home Meds Medication Instructions Recorded Confirmed Furosemide [Lasix] 1 tab PO DAILY 10/02/17 12/27/17 Rivaroxaban [Xarelto] 1 tab PO DAILY 10/02/17 12/27/17 Sildenafil [Revatio] 1 tab PO DAILY 10/02/17 12/27/17 Review of Systems - Physician Review All systems were reviewed & negative as marked: Yes - Review of Systems Constitutional: Normal Eyes: Normal ENT: Normal Respiratory: SOB, Cough Cardiovascular: Normal, Other (Right breast pain) Gastrointestinal: Normal Genitourinary Female: Normal Musculoskeletal: Arthralgias (B/L leg pain) Skin: Normal Neurological: Normal Endocrine: Normal Hemo/Lymphatic: Normal Psychiatric: Normal Physical Exam Vital Signs Reviewed: Yes Vital Signs Pulse Resp BP Pulse Ox 12/27/17 22:23 95 H 18 107/67 89 L Temperature: Afebrile Blood Pressure: Normal Pulse: Regular Respiratory Rate: Normal Appearance: Positive for: Well-Appearing, Non-Toxic, Comfortable, Other (Morbidly obese) Pain Distress: None Mental Status: Positive for: Alert and Oriented X 3 - Systems Exam Head: Present: Atraumatic, Normocephalic Pupils: Present: PERRL Extroacular Muscles: Present: EOMI Conjunctiva: Present: Normal Mouth: Present: Moist Mucous Membranes Neck: Present: Normal Range of Motion Respiratory/Chest: Present: Other (B/L Crackles). No: Respiratory Distress, Accessory Muscle Use, Wheezes, Decreased Breath Sounds, Rales, Retracting, Rhonchi, Tachypneic Cardiovascular: Present: Regular Rate and Rhythm, Normal S1, S2. No: Murmurs Abdomen: No: Tenderness, Distention, Peritoneal Signs Breast/Axillary: Present: Other (Hardened right breast. Both breast enlarged/swollen). No: Symmetrical (Right breast more enlarged), Tender to Palpation Back: Present: Normal Inspection Upper Extremity: Present: Normal Inspection. No: Cyanosis, Edema Lower Extremity: Present: Normal Inspection, Edema (5+ edema of b/l LE), CALF TENDERNESS (Right leg), Neurovascularly Intact, Other (BKA of the left leg). No: NORMAL PULSES (DEcreased), Erythema, Temperature Abnormalties Neurological: Present: GCS=15, CN II-XII Intact, Speech Normal Skin: Present: Warm, Dry, Normal Color. No: Rashes Psychiatric: Present: Alert, Oriented x 3, Normal Insight, Normal Concentration Medical Decision Making ED Course and Treatment: 12/28/17 01:52 42yo female in ED for b/l leg pain, SOB, cough and right breast pain. Labs Doppler Us/Right breast Card iso Blood culture Duoneb Xopenex solu medrol CXR EKG EKG NSR with RAD; incomplete RBBB; RVH @96bpm CXR Cardiomegaly Doppler Us - No DVT b/l. Pt on Xarelto Lab reviewed with no leuko. BNP 2100. Otherwise unremarkable labs. Lasix 40mg ordered Result was DW the pt. She remain hypoxic and will be admitted for COPD /CHF exacerbation Case was ANDERS Valero and she accepted pt for admission. Result and plan was ANDERS the pt and she agreed. - Lab Interpretations Lab Results: 12/27/17 22:45 Lab Results 12/27/17 22:45: WBC 7.3 D, RBC 4.70, Hgb 12.0, Hct 39.6, MCV 84.3 D, MCH 25.5, MCHC 30.3 L, RDW 19.9 H, Plt Count 219, MPV 9.7, Gran % 70.1 H, Lymph % (Auto) 14.5 L, [place] % (Auto) 13.1 H, Eos % (Auto) 1.7, Baso % (Auto) 0.6, Gran # 5.09, Lymph # (Auto) 1.1 L, [place] # (Auto) 1.0 H, Eos # (Auto) 0.1, Baso # (Auto) 0.04 - RAD Interpretation Radiology Orders: 12/27/17 22:29 DUPLEX LOWER EXTRM VEIN BILAT [US] Stat 12/27/17 22:36 CHEST PORTABLE [RAD] Stat Disposition/Present on Arrival - Present on Arrival Any Indicators Present on Arrival: No History of DVT/PE: Yes History of Uncontrolled Diabetes: No Urinary Catheter: No History of Decub. Ulcer: No History Surgical Site Infection Following: None - Disposition Have Diagnosis and Disposition been Completed?: Yes Diagnosis: Hypoxia, Chronic obstructive pulmonary disease, Congestive heart failure, Mastitis Disposition: HOSPITALIZED Disposition Time: 01:05 Patient Plan: Admission Condition: FAIR Discharge Instructions (ExitCare): Heart Failure (ED) Referrals: Debora Little [Primary Care Provider] - Follow up with primary Forms: [facility] ([place])
[2017-12-28 00:03] LABS: ALB/GLOB RATIO 1.3 (1.1-1.8); ALBUMIN 3.8 g/dL (3.0-4.8); ALT/SGPT 15 U/L (7-56); AST/SGOT 22 U/L (14-36); BLOOD UREA NITROGEN 8 mg/dL (7-21); GFR NON-AFRICAN AMERICAN > 60
[2017-12-28] MEDS ORDERED: Levalbuterol 1.25 MG/3 ML Inhal Soln UD IH STA (00:08)
[2017-12-28 00:09] LABS: VENOUS BLOOD GAS BASE EXCESS -0.8 mmol/L (0.0-2.0); VENOUS BLOOD GAS PO2 39 mm/Hg (30-55); VENOUS BLOOD PH 7.36 (7.32-7.43)
[2017-12-28 00:18] LABS: B-TYPE NATRIURETIC PEPTIDE 2140 pg/mL (0-450)
[2017-12-28] MEDS ORDERED: cefTRIAXone 1 gm 1 GM/100 ML BAG IVPB STA (01:58)
[2017-12-28 02:35] LABS: TROPONIN I < 0.01 ng/mL
[2017-12-28] MEDS ORDERED: DiphenhydrAMINE 50 mg/ml Inj IVP STA (02:42)
[2017-12-28] MEDS ORDERED: Levalbuterol 0.63 MG/3 ML Inhal Soln UD IH PRN (02:50)
[2017-12-28 03:08] LABS: ARTERIAL BLOOD GAS HCO3 19.2 mmol/L (21-28); ARTERIAL BLOOD GAS O2 SAT 81.4 % (95-98); ARTERIAL BLOOD GAS PCO2 29 mm/Hg (35-45); ARTERIAL BLOOD GAS PH 7.43 (7.35-7.45); ARTERIAL BLOOD GAS TCO2 20.1 mmol.L (22-28)
--- NOTE | 2017-12-28 04:14 | CP.PCM.HP ---
<Brenda Valero N - Last Filed: 12/28/17 06:28> Meds Allergies/Adverse Reactions: Allergies Allergy/AdvReac Type Severity Reaction Status Date / Time No Known Allergies Allergy Verified 12/27/17 22:09 Results - Vital Signs Recent Vital Signs: Last Vital Signs Temp 98.2 F 12/28/17 05:41 Pulse 93 H 12/28/17 05:41 Resp 20 12/28/17 05:41 BP 124/80 12/28/17 05:41 Pulse Ox 93 L 12/28/17 05:41 - Labs Result Diagrams: 12/28/17 04:18 12/28/17 04:18 Labs: Laboratory Results - last 24 hr 12/27/17 12/27/17 12/27/17 22:45 22:45 22:45 WBC 7.3 D RBC 4.70 Hgb 12.0 Hct 39.6 MCV 84.3 D MCH 25.5 MCHC 30.3 L RDW 19.9 H Plt Count 219 MPV 9.7 Gran % 70.1 H Lymph % (Auto) 14.5 L Harney % (Auto) 13.1 H Eos % (Auto) 1.7 Baso % (Auto) 0.6 Gran # 5.09 Lymph # (Auto) 1.1 L Harney # (Auto) 1.0 H Eos # (Auto) 0.1 Baso # (Auto) 0.04 PT 33.6 H INR 2.88 APTT 31.9 pCO2 pO2 HCO3 ABG pH ABG Total CO2 ABG O2 Saturation ABG Base Excess ABG Potassium VBG pH VBG pCO2 VBG HCO3 VBG Total CO2 VBG O2 Sat (Calc) VBG Base Excess VBG Potassium Glucose Lactate FiO2 Sodium 137 Potassium 3.8 Chloride 105 Carbon Dioxide 23 Anion Gap 13 BUN 8 Creatinine 0.8 Est GFR ( Amer) > 60 Est GFR (Non-Af Amer) > 60 Random Glucose 82 Calcium 9.0 Phosphorus Magnesium Total Bilirubin 3.0 H AST 22 ALT 15 Alkaline Phosphatase 186 H D Lactate Dehydrogenase Total Creatine Kinase Troponin I NT-Pro-B Natriuret Pep 2140 H Total Protein 6.8 Albumin 3.8 Globulin 3.0 Albumin/Globulin Ratio 1.3 Arterial Blood Potassium Venous Blood Potassium 12/27/17 12/27/17 12/28/17 22:45 23:10 02:55 WBC RBC Hgb Hct MCV MCH MCHC RDW Plt Count MPV Gran % Lymph % (Auto) Harney % (Auto) Eos % (Auto) Baso % (Auto) Gran # Lymph # (Auto) Harney # (Auto) Eos # (Auto) Baso # (Auto) PT INR APTT pCO2 29 L pO2 39 44.0 L* HCO3 19.2 L ABG pH 7.43 ABG Total CO2 20.1 L ABG O2 Saturation 81.4 L ABG Base Excess -3.9 L ABG Potassium 3.5 L VBG pH 7.36 VBG pCO2 44.0 VBG HCO3 24.9 VBG Total CO2 26.3 VBG O2 Sat (Calc) 68.7 H VBG Base Excess -0.8 L VBG Potassium 3.8 Glucose 79 133 H Lactate 1.6 1.8 FiO2 21.0 44.0 Sodium 137.0 137.0 Potassium Chloride 105.0 108.0 H Carbon Dioxide Anion Gap BUN Creatinine Est GFR ( Amer) Est GFR (Non-Af Amer) Random Glucose Calcium Phosphorus Magnesium Total Bilirubin AST ALT Alkaline Phosphatase Lactate Dehydrogenase 615 Total Creatine Kinase 29 L Troponin I < 0.01 D NT-Pro-B Natriuret Pep Total Protein Albumin Globulin Albumin/Globulin Ratio Arterial Blood Potassium 3.5 L Venous Blood Potassium 3.8 12/28/17 12/28/17 12/28/17 04:18 04:18 04:18 WBC 7.2 RBC 4.69 Hgb 12.0 Hct 39.2 MCV 83.6 MCH 25.6 MCHC 30.6 L RDW 19.9 H Plt Count 248 MPV 10.0 Gran % 94.5 H Lymph % (Auto) 3.9 L Harney % (Auto) 1.4 Eos % (Auto) 0.1 L Baso % (Auto) 0.1 Gran # 6.75 H Lymph # (Auto) 0.3 L Harney # (Auto) 0.1 Eos # (Auto) 0.0 Baso # (Auto) 0.01 PT INR APTT pCO2 pO2 HCO3 ABG pH ABG Total CO2 ABG O2 Saturation ABG Base Excess ABG Potassium VBG pH VBG pCO2 VBG HCO3 VBG Total CO2 VBG O2 Sat (Calc) VBG Base Excess VBG Potassium Glucose Lactate FiO2 Sodium 137 Potassium 3.9 Chloride 105 Carbon Dioxide 20 L Anion Gap 16 BUN 8 Creatinine 0.8 Est GFR ( Amer) > 60 Est GFR (Non-Af Amer) > 60 Random Glucose 128 H Calcium 8.9 Phosphorus 3.8 Magnesium 1.7 Total Bilirubin 2.9 H AST 22 ALT 19 Alkaline Phosphatase 194 H Lactate Dehydrogenase 573 Total Creatine Kinase 30 L Troponin I < 0.01 NT-Pro-B Natriuret Pep Total Protein 7.0 Albumin 4.0 Globulin 3.1 Albumin/Globulin Ratio 1.3 Arterial Blood Potassium Venous Blood Potassium <Donnie Edouard - Last Filed: 12/28/17 20:25> History of Present Illness - History of Present Illness History of Present Illness: HISTORY & PHYSICAL NOTE FOR HOSPITALIST TEAM Donnie Edouard D.O. PGY-1 CC: SOB 42 y/o morbidly obese F with PMH of pulmonary artery hypertension, hx of PE/DVT on xarelto, s/p L leg amputation, COPD on 4L home O2, LAYO w/ home CPAP, HFpEF presented to ED with complaints of SOB, dyspnea and cough. Upon interview, pt was in significant respiratory distress and provided a limited interview. She reports a history of "fluid in the lungs", and difficulty breathing for several weeks. She reports that shortness of breath and cough is baseline for her at home. While interviewing patient, she began to desaturate into the upper 70%-low 80% region and she was unable to provide ROS. Pt was tachypneic with accessory muscle use. ABG was obtained and pt was placed on BiPAP immediately. Prior history obtained from chart review. PMH: CHF, COPD, hx DVT/PE, pulmonary HTN PSH: c/s x2 Allergies: NKDA Meds: as per EMR, RN reviewed with pharmacy to verify Fam Hx: mother has HTN, father had DM2 and a clotting disorder Soc Hx: former smoker of at least 20 years, drinks heavily, denies illicit drug use. She states she moves around very little and stays in her bed all day. Present on Admission - Present on Admission Any Indicators Present on Admission: Yes Review of Systems - Review of Systems Review of Systems: as per HPI Past Patient History - Infectious Disease Hx of Infectious Diseases: None - Past Social History Smoking Status: Former Smoker - CARDIAC Hx Cardiac Disorders: Yes Hx Congestive Heart Failure: Yes Hx Peripheral Edema: Yes - PULMONARY Hx Respiratory Disorders: Yes Hx Chronic Obstructive Pulmonary Disease (COPD): Yes Hx Pulmonary Embolism: Yes - HEMATOLOGICAL/ONCOLOGICAL Other/Comment: DVT - MUSCULOSKELETAL/RHEUMATOLOGICAL Hx Falls: No - GASTROINTESTINAL Hx Gastrointestinal Disorders: Yes Hx Gastroesophageal Reflux: Yes - PSYCHIATRIC Hx Substance Use: No - SURGICAL HISTORY Other/Comment: C-sectionx2, L. BKA Physical Exam - Constitutional Appears: In Acute Distress - Head Exam Head Exam: ATRAUMATIC, NORMAL INSPECTION - Eye Exam Eye Exam: EOMI, Normal appearance - ENT Exam ENT Exam: Normal Exam - Neck Exam Neck exam: Positive for: Normal Inspection - Respiratory Exam Respiratory Exam: Accessory Muscle Use, Respiratory Distress - Cardiovascular Exam Cardiovascular Exam: REGULAR RHYTHM, +S1, +S2 - GI/Abdominal Exam GI & Abdominal Exam: Soft. absent: Tenderness - Extremities Exam Extremities exam: Positive for: pedal edema. Negative for: calf tenderness - Back Exam Back exam: NORMAL INSPECTION - Neurological Exam Neurological exam: Alert, Oriented x3 - Psychiatric Exam Psychiatric exam: Normal Affect, Normal Mood - Skin Skin Exam: Dry, Intact, Warm Results - Vital Signs Recent Vital Signs: Last Vital Signs Temp 98.7 F 12/28/17 02:43 Pulse 83 12/28/17 03:11 Resp 20 12/28/17 03:11 BP 102/50 L 12/28/17 03:11 Pulse Ox 90 L 12/28/17 03:11 - Labs Result Diagrams: 12/28/17 04:18 12/28/17 04:18 Labs: Laboratory Results - last 24 hr 12/27/17 12/27/17 12/27/17 22:45 22:45 22:45 WBC 7.3 D RBC 4.70 Hgb 12.0 Hct 39.6 MCV 84.3 D MCH 25.5 MCHC 30.3 L RDW 19.9 H Plt Count 219 MPV 9.7 Gran % 70.1 H Lymph % (Auto) 14.5 L Harney % (Auto) 13.1 H Eos % (Auto) 1.7 Baso % (Auto) 0.6 Gran # 5.09 Lymph # (Auto) 1.1 L Harney # (Auto) 1.0 H Eos # (Auto) 0.1 Baso # (Auto) 0.04 PT 33.6 H INR 2.88 APTT 31.9 pCO2 pO2 HCO3 ABG pH ABG Total CO2 ABG O2 Saturation ABG Base Excess ABG Potassium VBG pH VBG pCO2 VBG HCO3 VBG Total CO2 VBG O2 Sat (Calc) VBG Base Excess VBG Potassium Glucose Lactate FiO2 Sodium 137 Potassium 3.8 Chloride 105 Carbon Dioxide 23 Anion Gap 13 BUN 8 Creatinine 0.8 Est GFR ( Amer) > 60 Est GFR (Non-Af Amer) > 60 Random Glucose 82 Calcium 9.0 Total Bilirubin 3.0 H AST 22 ALT 15 Alkaline Phosphatase 186 H D Lactate Dehydrogenase Total Creatine Kinase Troponin I NT-Pro-B Natriuret Pep 2140 H Total Protein 6.8 Albumin 3.8 Globulin 3.0 Albumin/Globulin Ratio 1.3 Arterial Blood Potassium Venous Blood Potassium 12/27/17 12/27/17 12/28/17 22:45 23:10 02:55 WBC RBC Hgb Hct MCV MCH MCHC RDW Plt Count MPV Gran % Lymph % (Auto) Harney % (Auto) Eos % (Auto) Baso % (Auto) Gran # Lymph # (Auto) Harney # (Auto) Eos # (Auto) Baso # (Auto) PT INR APTT pCO2 29 L pO2 39 44.0 L* HCO3 19.2 L ABG pH 7.43 ABG Total CO2 20.1 L ABG O2 Saturation 81.4 L ABG Base Excess -3.9 L ABG Potassium 3.5 L VBG pH 7.36 VBG pCO2 44.0 VBG HCO3 24.9 VBG Total CO2 26.3 VBG O2 Sat (Calc) 68.7 H VBG Base Excess -0.8 L VBG Potassium 3.8 Glucose 79 133 H Lactate 1.6 1.8 FiO2 21.0 44.0 Sodium 137.0 137.0 Potassium Chloride 105.0 108.0 H Carbon Dioxide Anion Gap BUN Creatinine Est GFR ( Amer) Est GFR (Non-Af Amer) Random Glucose Calcium Total Bilirubin AST ALT Alkaline Phosphatase Lactate Dehydrogenase 615 Total Creatine Kinase 29 L Troponin I < 0.01 D NT-Pro-B Natriuret Pep Total Protein Albumin Globulin Albumin/Globulin Ratio Arterial Blood Potassium 3.5 L Venous Blood Potassium 3.8 Assessment & Plan - Assessment and Plan (Free Text) Assessment: 42 y/o F with PMHx of pulmonary artery hypertension, hx of PE/DVT on xarelto, s/p L leg amputation, COPD on 4L home O2, LAYO w/ home CPAP, HFpEF admitted for acute on chronic respiratory failure Plan: Acute on chronic hypoxic respiratory failure Likely secondary to COPD exacerbation, Pulm HTN, Hx of PE Place on BiPAP. IPEP: 12 EPEP: 6 FiO2: Repeat ABG in am Start Duoneb/acetylcysteine silvia Start Levalbuterol prn Start IV methylprednisolone Consult pulmonology f/u legionella/mycoplasma/s. pneumonie Ag Pulmonary Hypertension Continue home sildenafil Echo reviewed from prior visit 09/2017. Hx of DVT/PE Continue home xarelto Obtain hypercoaguble workup: ATIII, factor 5/8/C/S activity Obtain duplex lower extremity HFpEF Monitor I/Os Daily weights Start Furosemide 40mg IVP Case seen, examined and discussed with attending physician, Dr. Valero
[2017-12-28] MEDS: Acetylcysteine 20% Inhal Soln (4ml) IH SCH ×5 (04:19→19:40)
[2017-12-28] MEDS: Albuterol-Ipratrop 3 mg / 0.5 (3 ml) UD IH SCH ×5 (04:19→19:40)
[2017-12-28 04:46] LABS: BASO # 0.01 K/mm3 (0.0-2.0); BASO % 0.1 % (0.0-3.0); EOS % 0.1 % (1.5-5.0); GRAN # 6.75 (1.4-6.5); GRAN % 94.5 % (50.0-68.0); LYMPH # 0.3 (1.2-3.4); LYMPH % 3.9 % (22.0-35.0); MEAN CELL VOLUME 83.6 fl (80.0-105.0); MEAN CORPUSCULAR HEMOGLOBIN 25.6 pg (25.0-35.0); MEAN CORPUSCULAR HGB CONC 30.6 g/dl (31.0-37.0); MONO # 0.1 (0.1-0.6); MONO % 1.4 % (1.0-6.0); PLATELET COUNT 248 10^3/uL (120.0-450.0); RBC 4.69 10^6/uL (3.5-6.1); RED CELL DISTRIBUTION WIDTH 19.9 % (11.5-14.5); WHITE BLOOD COUNT 7.2 10^3/ul (4.5-11.0)
[2017-12-28 05:00] LABS: TROPONIN I < 0.01 ng/mL
[2017-12-28 05:23] LABS: ALB/GLOB RATIO 1.3 (1.1-1.8); ALT/SGPT 19 U/L (7-56); AST/SGOT 22 U/L (14-36); BLOOD UREA NITROGEN 8 mg/dL (7-21); CALCIUM 8.9 mg/dL (8.4-10.5); GFR NON-AFRICAN AMERICAN > 60
[2017-12-28] MEDS ORDERED: MethylPREDNISolone 40 mg Vial IVP SCH ×2 (06:00→10:00)
[2017-12-28 06:37] LABS: BAND 1 % (0-2); LYMPHOCYTE 4 % (22.0-35.0); MONOCYTE 1 % (1.0-6.0); NEUTROPHIL 94 % (50.0-70.0); PLATELET ESTIMATE NORMAL (NORMAL)
--- NOTE | 2017-12-28 09:18 | RAD ---
Date of service: 12/28/2017 HISTORY: SOB COMPARISON: 10/02/2017 FINDINGS: LUNGS: No active pulmonary disease. PLEURA: No significant pleural effusion identified, no pneumothorax apparent. CARDIOVASCULAR: Mild cardiomegaly and mild to moderate vascular congestion OSSEOUS STRUCTURES: No significant abnormalities. VISUALIZED UPPER ABDOMEN: Normal. OTHER FINDINGS: None. IMPRESSION: Mild cardiomegaly and mild to moderate vascular congestion
--- NOTE | 2017-12-28 09:28 | US ---
Date of service: 12/28/2017 PROCEDURE: Ultrasound right breast HISTORY: breast pain/discharge COMPARISON: None available TECHNIQUE: Ultrasound examination was performed throughout the right breast and in the right axilla peer FINDINGS: No solid or cystic mass. Mild edema is noted, nonspecific. No axillary lymphadenopathy is appreciated. IMPRESSION: No solid or cystic mass identified. No sonographic evidence of malignancy in the right breast. BIRADS 2 Benign finding Recommendation: Continue annual screening mammography, as per ACR guidelines.
--- NOTE | 2017-12-28 09:39 | CARD ---
APPROVED REPORT Date of service: 12/27/2017 EKG Measurement Heart [id number] <Conclusion> Normal sinus rhythm Low voltage ECG Right bundle branch block Possible Inferior infarct, old No change
--- NOTE | 2017-12-28 10:13 | US ---
HISTORY: Leg pain and swelling. Evaluate for DVT PHYSICIAN(S): Farshad Garcia MD. TECHNIQUE: Duplex sonography and color-flow Doppler with graded compression were used to evaluate the deep venous systems of both lower extremities. FINDINGS: The patient is status post left BK A. The exam is very limited by body habitus and edema. The distal right femoral vein is not well seen. The tibial veins are not well seen. There is no sonographic evidence for deep venous thrombosis in the visualized segments of the right and left lower extremity. IMPRESSION: No sonographic evidence for deep venous thrombosis in the visualized segments of both lower extremities. Very limited study
[2017-12-28] MEDS: levoFLOXacin 750 mg in D5W 750 MG/150 ML BAG IVPB SCH (10:55)
[2017-12-28] MEDS: Sildenafil 20 MG TAB PO SCH (10:56)
[2017-12-28 11:11] LABS: TROPONIN I < 0.01 ng/mL
[2017-12-28 11:22] LABS: ARTERIAL BLOOD GAS HCO3 20.4 mmol/L (21-28); ARTERIAL BLOOD GAS O2 SAT 83.6 % (95-98); ARTERIAL BLOOD GAS PCO2 30 mm/Hg (35-45); ARTERIAL BLOOD GAS PH 7.44 (7.35-7.45); ARTERIAL BLOOD GAS TCO2 21.3 mmol.L (22-28)
--- NOTE | 2017-12-28 14:14 | CP.PCM.CON ---
History of Present Illness - History of Present Illness History of Present Illness: Pulmonary Consult Note HPI Patient is 42yeo AA female with PMH of chronic hypoxic Resp Failure on home oxygen 4LPM, CHF with diastolic dysfunction, COPD, DVT/PE on Xarelto, s/p left BKA, , LAYO on CPAP, Severe pulmonary hypertension, and non compliance with medication presented to the [facility] with breast discharged. Upon further re viewed patient was ntoed to be hypoxic on 4LNC, sat 82-86%, placed on BIPAP 12/6/50%, given Solumedrol IV and Lasix IV, admitted to the telemetry. On my examination, patient is sitting in bed comfortably, in NAD, denies fever, chills, chest pain, sob; endorses cough that is dry, non productive. Afebrile, BP stable, pulse ox 83% on 4LNC PMhx chronic hypoxic Resp Failure on home oxygen 4LPM, CHF with diastolic dysfunction, COPD, DVT/PE on Xarelto, s/p left BKA, , LAYO on CPAP, Severe pulmonary hypertension PSHx L BKA Meds as per EMR FHx NC Allergies NKDA Review of Systems - Review of Systems Review of Systems: as per HPI Past Patient History - Infectious Disease Hx of Infectious Diseases: None - Past Social History Smoking Status: Former Smoker - CARDIAC Hx Cardiac Disorders: Yes Hx Congestive Heart Failure: Yes Hx Peripheral Edema: Yes - PULMONARY Hx Respiratory Disorders: Yes Hx Chronic Obstructive Pulmonary Disease (COPD): Yes Hx Pulmonary Embolism: Yes - HEMATOLOGICAL/ONCOLOGICAL Other/Comment: DVT - MUSCULOSKELETAL/RHEUMATOLOGICAL Hx Falls: No - GASTROINTESTINAL Hx Gastrointestinal Disorders: Yes Hx Gastroesophageal Reflux: Yes - PSYCHIATRIC Hx Substance Use: No - SURGICAL HISTORY Other/Comment: C-sectionx2, L. BKA Meds Allergies/Adverse Reactions: Allergies Allergy/AdvReac Type Severity Reaction Status Date / Time No Known Allergies Allergy Verified 12/27/17 22:09 - Medications Medications: Current Medications Acetaminophen (Tylenol 325mg Tab) 650 mg PO Q6H PRN PRN Reason: pain Acetylcysteine (Acetylcysteine 20%) 4 ml IH [id number] DUNIA Last Admin: 12/28/17 11:29 Dose: 4 ml Albuterol/Ipratropium (Duoneb 3 Mg/0.5 Mg (3 Ml) Ud) 3 ml IH [id number] DUNIA Last Admin: 10/01/18 11:29 Dose: 3 ml Benzonatate (Tessalon Perles) 100 mg PO TID [facility] Last Admin: 12/28/17 10:56 Dose: 100 mg Furosemide (Lasix) 40 mg IVP DAILY [facility] Last Admin: 12/28/17 10:54 Dose: 40 mg Gabapentin (Neurontin) 300 mg PO TID [facility]; Protocol Last Admin: 12/28/17 10:55 Dose: 300 mg Levofloxacin/Dextrose (Levaquin 750mg) 750 mg in 150 mls @ 100 mls/hr IVPB DAILY [facility]; Protocol Last Admin: 12/28/17 10:55 Dose: 100 mls/hr Levalbuterol HCl (Xopenex) 0.63 mg IH Q2H PRN PRN Reason: Shortness of Breath Methylprednisolone (Solu-Medrol) 40 mg IVP Q12 [facility] Last Admin: 12/28/17 10:54 Dose: 40 mg Pantoprazole Sodium (Protonix Ec Tab) 40 mg PO ACB [facility] Rivaroxaban (Xarelto) 20 mg PO DAILY [facility]; Protocol Last Admin: 12/28/17 10:56 Dose: 20 mg Sildenafil Citrate (Revatio) 20 mg PO DAILY [facility] Last Admin: 12/28/17 10:56 Dose: 20 mg Physical Exam - Constitutional Appears: Non-toxic, No Acute Distress - Head Exam Head Exam: NORMAL INSPECTION - Eye Exam Eye Exam: Normal appearance - ENT Exam ENT Exam: Mucous Membranes Moist - Neck Exam Neck exam: Positive for: Normal Inspection - Respiratory Exam Respiratory Exam: Clear to Auscultation Bilateral, NORMAL BREATHING PATTERN - Cardiovascular Exam Cardiovascular Exam: REGULAR RHYTHM, +S1, +S2 - GI/Abdominal Exam GI & Abdominal Exam: Normal Bowel Sounds, Soft - Extremities Exam Extremities exam: Positive for: pedal edema Additional comments: L BKA - Neurological Exam Neurological exam: Alert, Oriented x3 - Psychiatric Exam Psychiatric exam: Normal Mood - Skin Skin Exam: Normal Color, Warm Results - Vital Signs Recent Vital Signs: Last Vital Signs Temp 98.3 F 12/28/17 12:00 Pulse 91 H 12/28/17 12:00 Resp 18 12/28/17 12:00 BP 105/72 12/28/17 12:00 Pulse Ox 93 L 12/28/17 05:41 - Labs Result Diagrams: 12/28/17 04:18 10/01/18 04:18 Labs: Laboratory Results - last 24 hr 12/27/17 12/27/17 12/27/17 22:45 22:45 22:45 WBC 7.3 D RBC 4.70 Hgb 12.0 Hct 39.6 MCV 84.3 D MCH 25.5 MCHC 30.3 L RDW 19.9 H Plt Count 219 MPV 9.7 Gran % 70.1 H Lymph % (Auto) 14.5 L Gilliam % (Auto) 13.1 H Eos % (Auto) 1.7 Baso % (Auto) 0.6 Gran # 5.09 Lymph # (Auto) 1.1 L Gilliam # (Auto) 1.0 H Eos # (Auto) 0.1 Baso # (Auto) 0.04 Neutrophils % (Manual) Band Neutrophils % Lymphocytes % (Manual) Monocytes % (Manual) Platelet Evaluation PT 33.6 H INR 2.88 APTT 31.9 D-Dimer, Quantitative pCO2 pO2 HCO3 ABG pH ABG Total CO2 ABG O2 Saturation ABG Base Excess ABG Potassium VBG pH VBG pCO2 VBG HCO3 VBG Total CO2 VBG O2 Sat (Calc) VBG Base Excess VBG Potassium Glucose Lactate FiO2 Sodium 137 Potassium 3.8 Chloride 105 Carbon Dioxide 23 Anion Gap 13 BUN 8 Creatinine 0.8 Est GFR ( Amer) > 60 Est GFR (Non-Af Amer) > 60 Random Glucose 82 Calcium 9.0 Phosphorus Magnesium Total Bilirubin 3.0 H AST 22 ALT 15 Alkaline Phosphatase 186 H D Lactate Dehydrogenase Total Creatine Kinase Troponin I NT-Pro-B Natriuret Pep 2140 H Total Protein 6.8 Albumin 3.8 Globulin 3.0 Albumin/Globulin Ratio 1.3 Procalcitonin Arterial Blood Potassium Venous Blood Potassium Ur L.pneumophila Ag 12/27/17 12/27/17 12/28/17 22:45 23:10 02:55 WBC RBC Hgb Hct MCV MCH MCHC RDW Plt Count MPV Gran % Lymph % (Auto) Gilliam % (Auto) Eos % (Auto) Baso % (Auto) Gran # Lymph # (Auto) Gilliam # (Auto) Eos # (Auto) Baso # (Auto) Neutrophils % (Manual) Band Neutrophils % Lymphocytes % (Manual) Monocytes % (Manual) Platelet Evaluation PT INR APTT D-Dimer, Quantitative pCO2 29 L pO2 39 44.0 L* HCO3 19.2 L ABG pH 7.43 ABG Total CO2 20.1 L ABG O2 Saturation 81.4 L ABG Base Excess -3.9 L ABG Potassium 3.5 L VBG pH 7.36 VBG pCO2 44.0 VBG HCO3 24.9 VBG Total CO2 26.3 VBG O2 Sat (Calc) 68.7 H VBG Base Excess -0.8 L VBG Potassium 3.8 Glucose 79 133 H Lactate 1.6 1.8 FiO2 21.0 44.0 Sodium 137.0 137.0 Potassium Chloride 105.0 108.0 H Carbon Dioxide Anion Gap BUN Creatinine Est GFR ( Amer) Est GFR (Non-Af Amer) Random Glucose Calcium Phosphorus Magnesium Total Bilirubin AST ALT Alkaline Phosphatase Lactate Dehydrogenase 615 Total Creatine Kinase 29 L Troponin I < 0.01 D NT-Pro-B Natriuret Pep Total Protein Albumin Globulin Albumin/Globulin Ratio Procalcitonin Arterial Blood Potassium 3.5 L Venous Blood Potassium 3.8 Ur L.pneumophila Ag 12/28/17 12/28/17 12/28/17 04:18 04:18 04:18 WBC 7.2 RBC 4.69 Hgb 12.0 Hct 39.2 MCV 83.6 MCH 25.6 MCHC 30.6 L RDW 19.9 H Plt Count 248 MPV 10.0 Gran % 94.5 H Lymph % (Auto) 3.9 L Gilliam % (Auto) 1.4 Eos % (Auto) 0.1 L Baso % (Auto) 0.1 Gran # 6.75 H Lymph # (Auto) 0.3 L Gilliam # (Auto) 0.1 Eos # (Auto) 0.0 Baso # (Auto) 0.01 Neutrophils % (Manual) 94 H Band Neutrophils % 1 Lymphocytes % (Manual) 4 L Monocytes % (Manual) 1 Platelet Evaluation Normal PT INR APTT D-Dimer, Quantitative pCO2 pO2 HCO3 ABG pH ABG Total CO2 ABG O2 Saturation ABG Base Excess ABG Potassium VBG pH VBG pCO2 VBG HCO3 VBG Total CO2 VBG O2 Sat (Calc) VBG Base Excess VBG Potassium Glucose Lactate FiO2 Sodium 137 Potassium 3.9 Chloride 105 Carbon Dioxide 20 L Anion Gap 16 BUN 8 Creatinine 0.8 Est GFR ( Amer) > 60 Est GFR (Non-Af Amer) > 60 Random Glucose 128 H Calcium 8.9 Phosphorus Magnesium Total Bilirubin 2.9 H AST 22 ALT 19 Alkaline Phosphatase 194 H Lactate Dehydrogenase Total Creatine Kinase Troponin I NT-Pro-B Natriuret Pep Total Protein 7.0 Albumin 4.0 Globulin 3.1 Albumin/Globulin Ratio 1.3 Procalcitonin 0.05 L Arterial Blood Potassium Venous Blood Potassium Ur L.pneumophila Ag 12/28/17 12/28/17 12/28/17 04:18 05:50 07:00 WBC RBC Hgb Hct MCV MCH MCHC RDW Plt Count MPV Gran % Lymph % (Auto) Gilliam % (Auto) Eos % (Auto) Baso % (Auto) Gran # Lymph # (Auto) Gilliam # (Auto) Eos # (Auto) Baso # (Auto) Neutrophils % (Manual) Band Neutrophils % Lymphocytes % (Manual) Monocytes % (Manual) Platelet Evaluation PT INR APTT D-Dimer, Quantitative 282 H pCO2 pO2 HCO3 ABG pH ABG Total CO2 ABG O2 Saturation ABG Base Excess ABG Potassium VBG pH VBG pCO2 VBG HCO3 VBG Total CO2 VBG O2 Sat (Calc) VBG Base Excess VBG Potassium Glucose Lactate FiO2 Sodium Potassium Chloride Carbon Dioxide Anion Gap BUN Creatinine Est GFR ( Amer) Est GFR (Non-Af Amer) Random Glucose Calcium Phosphorus 3.8 Magnesium 1.7 Total Bilirubin AST ALT Alkaline Phosphatase Lactate Dehydrogenase 573 Total Creatine Kinase 30 L Troponin I < 0.01 NT-Pro-B Natriuret Pep Total Protein Albumin Globulin Albumin/Globulin Ratio Procalcitonin Arterial Blood Potassium Venous Blood Potassium Ur L.pneumophila Ag Negative 12/28/17 12/28/17 10:30 11:18 WBC RBC Hgb Hct MCV MCH MCHC RDW Plt Count MPV Gran % Lymph % (Auto) Gilliam % (Auto) Eos % (Auto) Baso % (Auto) Gran # Lymph # (Auto) Gilliam # (Auto) Eos # (Auto) Baso # (Auto) Neutrophils % (Manual) Band Neutrophils % Lymphocytes % (Manual) Monocytes % (Manual) Platelet Evaluation PT INR APTT D-Dimer, Quantitative pCO2 30 L pO2 47.0 L HCO3 20.4 L ABG pH 7.44 ABG Total CO2 21.3 L ABG O2 Saturation 83.6 L ABG Base Excess -2.7 L ABG Potassium 3.7 VBG pH VBG pCO2 VBG HCO3 VBG Total CO2 VBG O2 Sat (Calc) VBG Base Excess VBG Potassium Glucose 193 H Lactate 1.8 FiO2 32.0 Sodium 135.0 Potassium Chloride 105.0 Carbon Dioxide Anion Gap BUN Creatinine Est GFR ( Amer) Est GFR (Non-Af Amer) Random Glucose Calcium Phosphorus Magnesium Total Bilirubin AST ALT Alkaline Phosphatase Lactate Dehydrogenase 499 Total Creatine Kinase 27 L Troponin I < 0.01 NT-Pro-B Natriuret Pep Total Protein Albumin Globulin Albumin/Globulin Ratio Procalcitonin Arterial Blood Potassium 3.7 Venous Blood Potassium Ur L.pneumophila Ag - Imaging and Cardiology Chest x-ray Status: Image reviewed by me, Report reviewed by me Assessment & Plan - Assessment and Plan (Free Text) Assessment: Patient is 42yo female with PMHx of CHF, diastolic, COPD,Severe Pulm HTN on Revatio, DVT/PE on Xarelto, chronic hypoxic Resp Failure on home oxygen 4LPM, s/p left BKA, , LAYO on CPAP with hypoxia Hypoxia, chronic Severe Pulm HTN on Revatio Hx DVT/PE COPD Chronic O2 use - acute on chronic hypoxia - currently afebrile, BP stable, AAOx3, NAD comfortable, pulse ox 83-88% on 4LNC; patient denies F/C, CP, SOB, endorses Cough that is non productive - would switch to high flow O2, 50%, 50LPM, - BIPAP at night - cont with Solumedrol IV - Lasix IV diuresis - would repeat ECHO with bubble study - CT Chest with IV contrast, PE study - Vin Black
[2017-12-29 07:48] LABS: EOS % 0.1 % (1.5-5.0); GRAN # 6.71 (1.4-6.5); GRAN % 82.3 % (50.0-68.0); HEMOGLOBIN 11.8 g/dL (12.0-16.0); LYMPH # 0.6 (1.2-3.4); LYMPH % 7.1 % (22.0-35.0); MEAN CELL VOLUME 83.6 fl (80.0-105.0); MEAN CORPUSCULAR HEMOGLOBIN 25.5 pg (25.0-35.0); MEAN CORPUSCULAR HGB CONC 30.5 g/dl (31.0-37.0); MEAN PLATELET VOLUME 10.4 fl (7.0-11.0); MONO # 0.9 (0.1-0.6); MONO % 10.5 % (1.0-6.0); RBC 4.63 10^6/uL (3.5-6.1); RED CELL DISTRIBUTION WIDTH 19.6 % (11.5-14.5); WHITE BLOOD COUNT 8.2 10^3/ul (4.5-11.0)
[2017-12-29] MEDS: Acetylcysteine 20% Inhal Soln (4ml) IH SCH ×5 (07:49→23:03)
[2017-12-29] MEDS: Albuterol-Ipratrop 3 mg / 0.5 (3 ml) UD IH SCH ×5 (07:49→23:03)
[2017-12-29 08:07] LABS: ALB/GLOB RATIO 1.3 (1.1-1.8); ALBUMIN 3.8 g/dL (3.0-4.8); ALT/SGPT 15 U/L (7-56); AST/SGOT 21 U/L (14-36); BLOOD UREA NITROGEN 13 mg/dL (7-21); GFR NON-AFRICAN AMERICAN > 60
[2017-12-29] MEDS ORDERED: Iohexol 350 MG/100 ML VIAL ONE (08:54)
[2017-12-29] MEDS: MethylPREDNISolone 40 mg Vial IVP SCH ×2 (09:47→09:48)
[2017-12-29] MEDS: levoFLOXacin 750 mg in D5W 750 MG/150 ML BAG IVPB SCH (09:47)
[2017-12-29] MEDS: Sildenafil 20 MG TAB PO SCH ×3 (09:48→17:57)
[2017-12-29] MEDS: Pantoprazole 40 mg EC Tab PO SCH (09:48)
--- NOTE | 2017-12-29 11:37 | CT ---
Date of service: 12/29/2017 PROCEDURE: CT Chest with contrast (Pulmonary Angiogram) HISTORY: elevated d-dimer COMPARISON: 10/02/2017 TECHNIQUE: Axial computed tomography images were obtained of the chest in the pulmonary arterial phase of enhancement. Coronal and sagittal reformatted images were created and reviewed. Intravenous contrast dose: 100 cc of Omni 350 Radiation dose: Total exam DLP = 552 mGy-cm. This CT exam was performed using one or more of the following dose reduction techniques: Automated exposure control, adjustment of the mA and/or kV according to patient size, and/or use of iterative reconstruction technique. FINDINGS: PULMONARY ARTERIES: There is suboptimal opacification of the pulmonary arteries similar to the previous exam. There are no large central emboli seen. Small distal emboli cannot be excluded. AORTA: No acute findings. No thoracic aortic aneurysm. LUNGS: Unremarkable. No nodule, mass or pulmonary consolidation. PLEURAL SPACES: There is moderate size pericardial effusion measuring 28 mm in thickness on the right side. HEART: Unremarkable. No cardiomegaly. LYMPH NODES: No lymphadenopathy. BONES, CHEST WALL: Unremarkable. No fracture or destructive lesion OTHER FINDINGS: Unremarkable. IMPRESSION: There is suboptimal opacification of the pulmonary arteries similar to the previous exam. There are no large central emboli seen. Small distal emboli cannot be excluded. Moderate size pericardial effusion
--- NOTE | 2017-12-29 12:05 | CP.PCM.PN ---
Subjective - Date & Time of Evaluation Date of Evaluation: 12/29/17 Time of Evaluation: 10:00 - Subjective Subjective: Patient seen and examined, currently on HF 50%, doing well, no major respiratory CV complaints. Objective - Vital Signs/Intake and Output Vital Signs (last 24 hours): Temp Pulse Resp BP Pulse Ox 98.8 F 89 19 112/80 93 L 12/29/17 08:38 12/29/17 08:38 12/29/17 11:20 12/29/17 09:48 12/29/17 08:38 Intake and Output: 12/29/17 12/29/17 06:59 18:59 Intake Total 200 Output Total 500 Balance -300 - Medications Medications: Current Medications Acetaminophen (Tylenol 325mg Tab) 650 mg PO Q6H PRN PRN Reason: pain Acetylcysteine (Acetylcysteine 20%) 4 ml IH [id number] [facility] Last Admin: 12/29/17 11:15 Dose: 4 ml Albuterol/Ipratropium (Duoneb 3 Mg/0.5 Mg (3 Ml) Ud) 3 ml IH [id number] [facility] Last Admin: 12/29/17 11:16 Dose: 3 ml Benzonatate (Tessalon Perles) 100 mg PO TID [facility] Last Admin: 12/29/17 09:49 Dose: 100 mg Furosemide (Lasix) 40 mg IVP DAILY [facility] Last Admin: 12/29/17 09:48 Dose: 40 mg Gabapentin (Neurontin) 300 mg PO TID [facility]; Protocol Last Admin: 12/29/17 09:49 Dose: 300 mg Levalbuterol HCl (Xopenex) 0.63 mg IH Q2H PRN PRN Reason: Shortness of Breath Levofloxacin (Levaquin) 750 mg PO DAILY [facility] Methylprednisolone (Solu-Medrol) 40 mg IVP DAILY [facility] Last Admin: 12/29/17 09:48 Dose: Not Given Pantoprazole Sodium (Protonix Ec Tab) 40 mg PO ACB [facility] Last Admin: 12/29/17 09:48 Dose: 40 mg Rivaroxaban (Xarelto) 20 mg PO DAILY [facility]; Protocol Last Admin: 12/29/17 09:49 Dose: 20 mg Sildenafil Citrate (Revatio) 20 mg PO TID [facility] - Labs Labs: 12/29/17 07:00 12/29/17 07:00 PT 33.6 SECONDS (9.4-12.5) H 12/27/17 22:45 INR 2.88 12/27/17 22:45 APTT 31.9 Seconds (25.1-36.5) 12/27/17 22:45 - Constitutional Appears: Non-toxic, No Acute Distress - Eye Exam Eye Exam: Normal appearance - ENT Exam ENT Exam: Mucous Membranes Moist - Neck Exam Neck Exam: Full ROM - Respiratory Exam Respiratory Exam: Clear to Ausculation Bilateral, NORMAL BREATHING PATTERN - Cardiovascular Exam Cardiovascular Exam: REGULAR RHYTHM, +S1, +S2 - GI/Abdominal Exam GI & Abdominal Exam: Soft, Normal Bowel Sounds - Extremities Exam Extremities Exam: Pedal Edema Additional comments: L BKA - Neurological Exam Neurological Exam: Alert, Awake, Oriented x3 - Psychiatric Exam Psychiatric exam: Normal Affect - Skin Skin Exam: Normal Color, Warm Assessment and Plan - Assessment and Plan (Free Text) Assessment: Patient is 42yo female with PMHx of CHF, diastolic, COPD,Severe Pulm HTN on Revatio, DVT/PE on Xarelto, chronic hypoxic Resp Failure on home oxygen 4LPM, s/p left BKA, , LAYO on CPAP admitted with hypoxia Hypoxia, chronic Severe Pulm HTN on Revatio Hx DVT/PE COPD Chronic O2 use - acute on chronic hypoxia - currently afebrile, BP stable, AAOx3, NAD comfortable, pulse ox 92-94% on HF 50%; patient denies F/C, CP, SOB, endorses Cough that is non productive - as per the patient, patient has been on A/C since 2016, questionable history of recurrent DVT/PEs in the past CT CHEST PE protocol completed on this admission, although a limited study, does NOT demonstrate any visible central PE, and in conjunction with normal LE duplex; would obtain a hematology evaluation for further recommendations regarding continuing A/C - cont with HF as tolerated, would transition to NC 4LPM - BIPAP at night - taper Solumedrol IV 20mg Q12hr - switch Lasix IV to Lasix PO 40mg daily - repeat ECHO with bubble study - Vin Black - clarify home dose of Revatio, should be 20mg TID usually - would DC abx, no focal consolidation on CT chest, procal negative
--- NOTE | 2017-12-29 18:52 | CP.PCM.PN ---
Subjective - Date & Time of Evaluation Date of Evaluation: 12/29/17 Time of Evaluation: 11:00 - Subjective Subjective: PGY-1 [facility] Medicine Progress Note for Dr. Gross's service Patient was seen and examined at bedside. Patient offers no acute complaints. She feels that her breathing has improved since she was admitted. She reports dry cough. She denies SOB, fever, chills, N/V/D, constipation, dysuria, CP, difficulty breathing. Objective - Vital Signs/Intake and Output Vital Signs (last 24 hours): Temp Pulse Resp BP Pulse Ox 98.8 F 81 18 145/79 92 L 12/29/17 16:08 12/29/17 16:08 12/29/17 16:57 12/29/17 16:08 12/29/17 16:08 Intake and Output: 12/29/17 12/29/17 06:59 18:59 Intake Total 200 Output Total 500 Balance -300 - Medications Medications: Current Medications Acetaminophen (Tylenol 325mg Tab) 650 mg PO Q6H PRN PRN Reason: pain Acetylcysteine (Acetylcysteine 20%) 4 ml IH [id number] [facility] Last Admin: 12/29/17 16:44 Dose: 4 ml Albuterol/Ipratropium (Duoneb 3 Mg/0.5 Mg (3 Ml) Ud) 3 ml IH [id number] [facility] Last Admin: 12/29/17 16:44 Dose: 3 ml Benzonatate (Tessalon Perles) 100 mg PO TID [facility] Last Admin: 12/29/17 17:56 Dose: 100 mg Furosemide (Lasix) 40 mg IVP DAILY [facility] Last Admin: 12/29/17 09:48 Dose: 40 mg Gabapentin (Neurontin) 300 mg PO TID [facility]; Protocol Last Admin: 12/29/17 17:57 Dose: 300 mg Levalbuterol HCl (Xopenex) 0.63 mg IH Q2H PRN PRN Reason: Shortness of Breath Levofloxacin (Levaquin) 750 mg PO DAILY [facility] Methylprednisolone (Solu-Medrol) 40 mg IVP DAILY [facility] Last Admin: 12/29/17 09:48 Dose: Not Given Pantoprazole Sodium (Protonix Ec Tab) 40 mg PO ACB [facility] Last Admin: 12/29/17 09:48 Dose: 40 mg Rivaroxaban (Xarelto) 20 mg PO DAILY [facility]; Protocol Last Admin: 12/29/17 09:49 Dose: 20 mg Sildenafil Citrate (Revatio) 20 mg PO TID [facility] Last Admin: 12/29/17 17:57 Dose: 20 mg - Labs Labs: 12/29/17 07:00 12/29/17 07:00 PT 33.6 SECONDS (9.4-12.5) H 12/27/17 22:45 INR 2.88 12/27/17 22:45 APTT 31.9 Seconds (25.1-36.5) 12/27/17 22:45 - Constitutional Appears: Non-toxic, No Acute Distress - Head Exam Head Exam: NORMAL INSPECTION, NORMOCEPHALIC - Eye Exam Eye Exam: EOMI, Normal appearance - ENT Exam ENT Exam: Mucous Membranes Moist - Respiratory Exam Respiratory Exam: Clear to Ausculation Bilateral, NORMAL BREATHING PATTERN. absent: Decreased Breath Sounds, Rales, Rhonchi, Wheezes - Cardiovascular Exam Cardiovascular Exam: REGULAR RHYTHM, +S1, +S2 - GI/Abdominal Exam GI & Abdominal Exam: Soft, Normal Bowel Sounds. absent: Tenderness - Extremities Exam Extremities Exam: Normal Inspection. absent: Calf Tenderness, Pedal Edema - Neurological Exam Neurological Exam: Alert, Awake, Oriented x3 - Psychiatric Exam Psychiatric exam: Normal Affect, Normal Mood - Skin Skin Exam: Intact, Normal Color Assessment and Plan - Assessment and Plan (Free Text) Assessment: Rachel Oakes, 42F, with PMHx of pulmonary artery hypertension, hx of PE/DVT (Xarelto), s/p L leg amputation (2015), COPD on 4L home O2, LAYO w/ home CPAP, HFpEF admitted for acute on chronic respiratory failure. Plan: Acute on chronic hypoxic respiratory failure Likely secondary to COPD exacerbation, Pulm HTN, Hx of PE Pulmonology consulted- recommended to switch patient to high flow O2, 50%, 50LPM; BIPAP at night; taper solumedrol IV 20mg Q12hr, switch to Lasix PO 40mg daily; repeat echo with bubble study; CT chest with IV contrast (PE study), Pulmicort and Brovana; D/C abx. CT chest: although a limited study, does NOT demonstrate any visible central PE, and in conjunction with normal LE duplex; would obtain a hematology evaluation for further recommendations regarding continuing A/C Duoneb/acetylcysteine DUNIA Levalbuterol prn Legionella/mycoplasma/s. pneumonie Ag- L. Pneuomophilia Ag negative 650 mg Acetaminophen PO Q6H PRN for pain Pulmonary Hypertension 20 mg Sildenafil Citrate PO TID Repeat Echo with bubble study- pending Hx of DVT/PE Continue home Xarelto Obtain hypercoaguble workup: ATIII, factor 5/8/C/S activity results pending Duplex lower extremity- no sonographic evidence for DVT in the visualized segments of both lower extremities; very limited study. HFpEF Monitor I/Os Daily weights Furosemide 40mg PO PPx DVT ppx- Xarelto 20mg po daily GI ppx - Protonoix 40mg po Medical Management discussed with Dr. Renato Crystal PGY-2
[2017-12-30] MEDS: Albuterol-Ipratrop 3 mg / 0.5 (3 ml) UD IH SCH ×5 (03:40→23:39)
[2017-12-30] MEDS: Acetylcysteine 20% Inhal Soln (4ml) IH SCH ×6 (03:40→23:39)
[2017-12-30 07:41] LABS: GRAN # 7.78 (1.4-6.5); GRAN % 80.6 % (50.0-68.0); HEMOGLOBIN 11.7 g/dL (12.0-16.0); LYMPH # 1.3 (1.2-3.4); LYMPH % 13.4 % (22.0-35.0); MEAN CELL VOLUME 84.2 fl (80.0-105.0); MEAN CORPUSCULAR HEMOGLOBIN 25.7 pg (25.0-35.0); MEAN CORPUSCULAR HGB CONC 30.5 g/dl (31.0-37.0); MEAN PLATELET VOLUME 10.1 fl (7.0-11.0); MONO # 0.6 (0.1-0.6); RBC 4.55 10^6/uL (3.5-6.1); RED CELL DISTRIBUTION WIDTH 19.5 % (11.5-14.5); WHITE BLOOD COUNT 9.7 10^3/ul (4.5-11.0)
[2017-12-30 07:59] LABS: ALB/GLOB RATIO 1.3 (1.1-1.8); ALBUMIN 3.7 g/dL (3.0-4.8); ALT/SGPT 20 U/L (7-56); AST/SGOT 27 U/L (14-36); BLOOD UREA NITROGEN 16 mg/dL (7-21); CALCIUM 8.9 mg/dL (8.4-10.5); GFR NON-AFRICAN AMERICAN > 60
[2017-12-30] MEDS ORDERED: MethylPREDNISolone 40 mg Vial IVP SCH ×2 (10:00→14:00)
[2017-12-30] MEDS ORDERED: levoFLOXacin 750 MG TAB PO SCH (10:00)
[2017-12-30] MEDS: Pantoprazole 40 mg EC Tab PO SCH (10:44)
[2017-12-30] MEDS: Sildenafil 20 MG TAB PO SCH ×3 (10:44→18:15)
--- NOTE | 2017-12-30 13:24 | CP.PCM.PN ---
Subjective - Date & Time of Evaluation Date of Evaluation: 12/30/17 Time of Evaluation: 13:20 - Subjective Subjective: PGY-1 [facility] Medicine Progress Note for Dr. Gross's service Patient was seen and examined at bedside. Patient offers no acute complaints. Patient reports that she was getting short of breath as she was washing up in bed. She denies SOB, fever, chills, N/V/D, constipation, dysuria, CP, difficulty breathing. Objective - Vital Signs/Intake and Output Vital Signs (last 24 hours): Temp Pulse Resp BP Pulse Ox 97 F L 92 H 19 115/67 95 12/30/17 06:00 12/30/17 06:00 12/30/17 08:25 12/30/17 10:44 12/30/17 06:00 Intake and Output: 12/30/17 12/30/17 06:59 18:59 Intake Total 1470 Output Total 2200 Balance -730 - Medications Medications: Current Medications Acetaminophen (Tylenol 325mg Tab) 650 mg PO Q6H PRN PRN Reason: pain Acetylcysteine (Acetylcysteine 20%) 4 ml IH [id number] [facility] Last Admin: 12/30/17 11:32 Dose: Not Given Albuterol/Ipratropium (Duoneb 3 Mg/0.5 Mg (3 Ml) Ud) 3 ml IH [id number] [facility] Last Admin: 12/30/17 11:32 Dose: Not Given Arformoterol Tartrate (Brovana) 15 mcg IH [id number] [facility] Benzonatate (Tessalon Perles) 100 mg PO TID [facility] Last Admin: 12/30/17 10:44 Dose: 100 mg Budesonide (Pulmicort Respules) 0.5 mg IH [id number] [facility] Furosemide (Lasix) 40 mg IV BID [facility] Gabapentin (Neurontin) 300 mg PO TID [facility]; Protocol Last Admin: 12/30/17 10:44 Dose: 300 mg Levalbuterol HCl (Xopenex) 0.63 mg IH Q2H PRN PRN Reason: Shortness of Breath Methylprednisolone (Solu-Medrol) 20 mg IVP Q12 [facility] Pantoprazole Sodium (Protonix Ec Tab) 40 mg PO ACB [facility] Last Admin: 12/30/17 10:44 Dose: 40 mg Rivaroxaban (Xarelto) 20 mg PO DAILY [facility]; Protocol Last Admin: 12/30/17 10:44 Dose: 20 mg Sildenafil Citrate (Revatio) 20 mg PO TID [facility] Last Admin: 12/30/17 10:44 Dose: 20 mg - Labs Labs: 12/30/17 07:15 12/30/17 07:15 PT 33.6 SECONDS (9.4-12.5) H 12/27/17 22:45 INR 2.88 12/27/17 22:45 APTT 31.9 Seconds (25.1-36.5) 12/27/17 22:45 - Additional Findings Additional findings: - Constitutional Appears: Non-toxic, No Acute Distress - Head Exam Head Exam: NORMAL INSPECTION, NORMOCEPHALIC - Eye Exam Eye Exam: EOMI, Normal appearance - ENT Exam ENT Exam: Mucous Membranes Moist - Respiratory Exam Respiratory Exam: Wheezes, NORMAL BREATHING PATTERN. absent: Decreased Breath Sounds, Rales, Rhonchi - Cardiovascular Exam Cardiovascular Exam: REGULAR RHYTHM, +S1, +S2 - GI/Abdominal Exam GI & Abdominal Exam: Soft, Normal Bowel Sounds. absent: Tenderness - Extremities Exam Extremities Exam: Normal Inspection. absent: Calf Tenderness, Pedal Edema Additional Comments- Left Leg BKA - Neurological Exam Neurological Exam: Alert, Awake, Oriented x3 - Psychiatric Exam Psychiatric exam: Normal Affect, Normal Mood - Skin Skin Exam: Intact, Normal Color Assessment and Plan - Assessment and Plan (Free Text) Assessment: Rachel Oakes, 42F, with PMHx of pulmonary artery hypertension, hx of PE/DVT (Xarelto), s/p L leg amputation (2015), COPD on 4L home O2, LAYO w/ home CPAP, HFpEF admitted for acute on chronic respiratory failure. On xarelto for pulmonary embolism; CT chest shows no large central emboli seen, small distal emboli cannot be excluded, moderate sized pleura effusion. Echo pending Plan: Acute on chronic hypoxic respiratory failure Likely secondary to COPD exacerbation, Pulm HTN, Hx of PE Pulmonology consulted-continue with HF as tolerated, transition to NC 4LPM; BIPAP at night; taper Solumedrol IV 20mg Q12hr, switch to IV Lasix to Lasix PO 40 mg daily; repeat echo with bubble study; Pulmicort and Brovana; D/C abx. CT chest: although a limited study, does NOT demonstrate any visible central PE, and in conjunction with normal LE duplex; would obtain a hematology evaluation for further recommendations regarding continuing A/C Transitioned to Nasal cannula- can go up to 6L, if patient unable to keep oxygenation at 89% or greater, then retry high flow at 40%. BIPAP at night Duoneb/acetylcysteine DUNIA Levalbuterol PRN Brovana and Pulmicort Methylprednisolone 20 mg IVP Q12 Legionella/mycoplasma/s. pneumonie Ag- L. Pneuomophilia Ag negative HFpEF Echo pending Monitor I/Os Daily weights Lasix 40mg bid IV Pulmonary Hypertension 20 mg Sildenafil Citrate PO TID Repeat Echo with bubble study- pending Hx of DVT/PE 12/29/17 Duplex lower extremity- no sonographic evidence for DVT in the visualized segments of both lower extremities; very limited study 12/29/17 CT chest- suboptimal opacification of the pulmonary arteries similar to the previous exam. There are no large central emboli seen. Small distal emboli cannot be excluded Continue home Xarelto Hypercoaguble workup: ATIII, factor 5/8/C/S activity results pending PPx DVT ppx- Xarelto 20mg po daily GI ppx - Protonoix 40mg po
--- NOTE | 2017-12-30 13:45 | PN ---
DATE: 12/30/2017 SUBJECTIVE: The patient is seen and examined at bedside. She is comfortable. She talks full sentences. She is not in respiratory or otherwise distress. PHYSICAL EXAMINATION: VITAL SIGNS: Temperature 97, heart rate 92, blood pressure 115/67, respiratory rate 19, oxygen saturation 95% on 5 L per minute nasal cannula. ENT: Head and neck atraumatic. LUNGS: Clear to auscultation bilaterally. HEART: Regular rate and rhythm. S1 and S2 normal. ABDOMEN: Soft, nontender and nondistended. MUSCULOSKELETAL: Status post a AKA on the left side and 1+ pedal and ankle edema on the right side. SKIN: Moist. PSYCHIATRIC: The patient is alert, awake and oriented x3. LABORATORY DATA: WBC 9.7, hemoglobin 11.7, platelet count 253. Sodium 136, potassium 4.2, chloride 102, carbon dioxide 26, BUN 16, creatinine 0.9, glucose 133, AST 27, ALT 20, total bilirubin 1.4, alkaline phosphatase 145, procalcitonin initially 0.05. ABG showed pH 7.44 with pCO2 of 30 and O2 sat 83% on 32% FIO2. Sodium 136, potassium 4.2, chloride 102, carbon dioxide 26, BUN 16, creatinine 0.9, glucose 133. Urine for Legionella pneumophila is negative. Extremity ultrasound showed no sonographic evidence for deep venous thrombosis in the visualized segments of both lower extremities. The CT chest revealed no pulmonary embolism. However, small pleural effusion bilaterally, some questionable consolidative changes bilaterally. Echocardiogram (prelim review). Official report is pending. No gross LV systolic dysfunction; however, there is a D shaped interventricular septum with right ventricle appears to be very dilated (even though image is suboptimal and may give false impression due to incomplete RV centering on 4 chamber view) suggesting fluid/pressure overload (that is preliminary review and official report may just interpretation). 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 After CT chest with PE protocol ruled out PE, presumed diagnosis of chronic obstructive pulmonary disease exacerbation was made and the patient was started on antibiotics, steroid taper and bronchodilators. Of note she carries dx of PH and has been on Revatio prior to admission. It is unclear however if she had RV cath and other work up for it (V/Q scan, autoimmune screen, HIV testing etc). Thus, apart from empirically treating her with course of abx/steroid taper/bronchodilators, she needs to be evaluated by stereotyper apprentice as an outpatient including referral to pulmonary hypertension clinic and consideration of right heart catheterization with vasodilatory challenge. Even though her pulmonary hypertension may be multifactorial, and include pulmonary disease related pulmonary hypertension (type III) and/or chronic thromboembolic pulmonary hypertension--CTEPH (type IV), possibility of postcappilary (type II) PH or primary component of precapillary pulmonary hypertension (Type I) cannot be ruled out as well. At present time, I would continue target euvolemia, would encourage bilevel positive airway pressure at night, supplemental oxygen to maintain normoxemia. She is on Xarelto, which I would continue. I would continue with careful/gentle diuresis (but monitor bicarb and ph periodically to avoid significant contraction alkalosis), bronchodilators and steroid taper. Her treatment of pulmonary hypertension has to be looked into in more details upon evaluation by her stereotyper apprentice, after stabilization and based on RV cath results. ccm time 40 min Mp Hurst MD MELISSA
[2017-12-30] MEDS: MethylPREDNISolone 40 mg Vial IVP SCH ×2 (14:27→23:21)
--- NOTE | 2017-12-30 16:56 | CARD ---
APPROVED REPORT Date of service: 12/30/2017 EXAM: Two-dimensional and M-mode echocardiogram with Doppler and color Doppler. INDICATION Pulmonary Embolism 2D DIMENSIONS Left Atrium (2D)2.7 (1.6-4.0cm)IVSd1.5 (0.7-1.1cm) LVDd3.6 (3.9-5.9cm)PWd1.3 (0.7-1.1cm) LVDs2.7 (2.5-4.0cm)FS (%) 25.3 % LVEF (%)50.8 (>50%) M-Mode DIMENSIONS Aortic Root2.80 (2.2-3.7cm)Aortic Cusp Exc.1.30 (1.5-2.0cm) Aortic Valve AoV Peak [id number]/Nathalie Peak GR.8mmHg Mitral Valve E/A ratio0.0 TDI E/Lateral E'0.0E/Medial E'0.0 Tricuspid Valve TR Peak [id number] [id number] Peak Gr.75mmHg [id number] LEFT VENTRICLE The left ventricle is normal size. There is mild concentric left ventricular hypertrophy. Left ventricle systolic function is borderline. There is a flattened septum RIGHT VENTRICLE The right ventricle is severely dilated. There is normal right ventricular wall thickness. The right ventricular Systolic function is severely reduced. ATRIA The left atrium size is normal. The right atrium is severely dilated. AORTIC VALVE The aortic valve is not well visualized. No aortic regurgitation is present. There is no aortic valvular stenosis. MITRAL VALVE The mitral valve is not well visualized. There is no mitral valve regurgitation noted. There is no mitral valve stenosis. TRICUSPID VALVE not well visualized. There is severe tricuspid regurgitation. There is severe pulmonary hypertension. PULMONIC VALVE The pulmonary valve is normal in structure. There is no pulmonic valvular regurgitation. GREAT VESSELS The aortic root is normal in size. The IVC is normal in size and collapses >50% with inspiration. PERICARDIAL EFFUSION There is no pericardial effusion. <Conclusion> The right ventricle is severely dilated. The right ventricular Systolic function is severely reduced. The right atrium is severely dilated. There is severe tricuspid regurgitation. There is severe pulmonary hypertension. There is a flattened septum
[2017-12-30] MEDS: Arformoterol 15 mcg/2 ml Inh Sol IH SCH (19:54)
[2017-12-30] MEDS: Budesonide 0.5 mg/2 ml Inhal Susp UD IH SCH (19:54)
[2017-12-31] MEDS: Acetylcysteine 20% Inhal Soln (4ml) IH SCH ×6 (04:30→19:31)
[2017-12-31] MEDS: Albuterol-Ipratrop 3 mg / 0.5 (3 ml) UD IH SCH ×6 (04:30→19:31)
[2017-12-31] MEDS: Arformoterol 15 mcg/2 ml Inh Sol IH SCH ×2 (07:30→19:31)
[2017-12-31] MEDS: Budesonide 0.5 mg/2 ml Inhal Susp UD IH SCH ×2 (07:31→19:31)
[2017-12-31 07:43] LABS: GRAN # 6.63 (1.4-6.5); GRAN % 86.3 % (50.0-68.0); HEMOGLOBIN 11.5 g/dL (12.0-16.0); LYMPH # 0.9 (1.2-3.4); LYMPH % 11.6 % (22.0-35.0); MEAN CELL VOLUME 84.2 fl (80.0-105.0); MEAN CORPUSCULAR HEMOGLOBIN 24.9 pg (25.0-35.0); MEAN CORPUSCULAR HGB CONC 29.6 g/dl (31.0-37.0); MEAN PLATELET VOLUME 10.3 fl (7.0-11.0); MONO # 0.2 (0.1-0.6); MONO % 2.1 % (1.0-6.0); RBC 4.61 10^6/uL (3.5-6.1); RED CELL DISTRIBUTION WIDTH 19.2 % (11.5-14.5); WHITE BLOOD COUNT 7.7 10^3/ul (4.5-11.0)
[2017-12-31 07:54] LABS: ALB/GLOB RATIO 1.4 (1.1-1.8); ALBUMIN 3.9 g/dL (3.0-4.8); ALT/SGPT 22 U/L (7-56); AST/SGOT 28 U/L (14-36); BLOOD UREA NITROGEN 17 mg/dL (7-21); GFR NON-AFRICAN AMERICAN > 60
[2017-12-31] MEDS: Pantoprazole 40 mg EC Tab PO SCH (08:36)
[2017-12-31] MEDS: MethylPREDNISolone 40 mg Vial IVP SCH (09:39)
[2017-12-31] MEDS: Sildenafil 20 MG TAB PO SCH ×3 (09:40→17:07)
[2017-12-31 11:20] VITALS: RESP 20
--- NOTE | 2017-12-31 16:14 | PN ---
DATE: 12/31/2017 SUBJECTIVE: The patient seen and examined at bedside. She is too short of breath and even though able to talk. She has trouble, gets short of breath sometimes. PHYSICAL EXAMINATION: VITAL SIGNS: Temperature 97.3, blood pressure 101/62, respiratory rate 20, oxygen saturation 98% on 5 L/min nasal cannula. HEENT: Head and neck atraumatic. LUNGS: Decreased breath sounds bilaterally. HEART: Regular rate and rhythm. S1, S2 distant. ABDOMEN: Soft, nontender, nondistended, obese. MUSCULOSKELETAL: 1+ bilateral pedal and ankle edema. NEURO: The patient moves all extremities spontaneously. SKIN: Moist. PSYCH: The patient is alert, awake, and oriented x3. LABORATORY DATA: WBC 7.7, hemoglobin 11.5, and platelet count 266. Sodium 136, potassium 4.3, chloride 100, carbon dioxide 28. BUN 17, creatinine 0.9. Glucose 146. AST 28, ALT 22, total bilirubin 1.4, alkaline phosphatase 141. Echocardiogram report showed the right ventricle is severely dilated. The right ventricular systolic function is severely reduced. The right atrium is severely dilated. There is severe tricuspid regurgitation. There is severe pulmonary hypertension. There is flattened septum. MEDICATIONS: Acetylcysteine inhaled, DuoNeb every 4 hours, Brovana, Pulmicort, Lasix 40 mg p.o. b.i.d., Neurontin, Xopenex, prednisone 20 mg p.o. b.i.d., Xarelto, Revatio 20 mg p.o. t.i.d. 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 I have spoken with [facility] and discussed gravity of situation for the patient. The patient does need right ventricular catheterization with vasodilatory challenge to optimize her treatment of her pulmonary hypertension. The patient has been preliminarily accepted by Dr. Benita Rodriguez for the transfer. Meanwhile, we will continue with bronchodilators, steroid taper, and gentle diuresis. We will continue with Xarelto. Whether to stop Revatio in preparation for right ventricular catheterization will be deferred to [facility] Pulmonary Hypertension Staff. I will touch base again with Dr. Rodriguez to see if she would prefer for us to complete workup for her pulmonary hypertension prior to right heart catheterization at [facility] including rheumatology screen, V/Q scan, HIV status, or she would prefer to have it done at the same place where right heart catheterization will be performed. We will continue target euvolemia, euglycemia, normothermia, and oxygen saturation more than 90%. Continue with DVT and GI prophylaxes. Mp Hurst MD
[2017-12-31 16:43] VITALS: BP 101/72; TEMP 98.4; O2SAT 90
--- NOTE | 2017-12-31 17:43 | CP.PCM.PN ---
Subjective - Date & Time of Evaluation Date of Evaluation: 12/31/17 Time of Evaluation: 10:40 - Subjective Subjective: PGY-1 [facility] Medicine Progress Note for Dr. Gross's service Patient was seen and examined at bedside. Patient offers no acute complaints. Patient reports that she was getting short of breath as she was washing up in bed 1 day ago, but is otherwise feeling well. She denies SOB, fever, chills, N/V/D, constipation, dysuria, CP, difficulty breathing. Objective - Vital Signs/Intake and Output Vital Signs (last 24 hours): Temp Pulse Resp BP Pulse Ox 98.4 F 109 H 20 101/72 90 L 12/31/17 16:43 12/31/17 16:43 12/31/17 16:43 12/31/17 17:07 12/31/17 16:43 Intake and Output: 12/31/17 12/31/17 06:59 18:59 Intake Total 600 Output Total 1800 Balance -1200 - Medications Medications: Current Medications Acetaminophen (Tylenol 325mg Tab) 650 mg PO Q6H PRN PRN Reason: pain Acetylcysteine (Acetylcysteine 20%) 4 ml IH [id number] [facility] Last Admin: 12/31/17 15:24 Dose: 4 ml Albuterol/Ipratropium (Duoneb 3 Mg/0.5 Mg (3 Ml) Ud) 3 ml IH [id number] [facility] Last Admin: 12/31/17 15:24 Dose: 3 ml Arformoterol Tartrate (Brovana) 15 mcg IH [id number] [facility] Last Admin: 12/31/17 07:30 Dose: 15 mcg Benzonatate (Tessalon Perles) 100 mg PO TID [facility] Last Admin: 12/31/17 17:07 Dose: 100 mg Budesonide (Pulmicort Respules) 0.5 mg IH [id number] [facility] Last Admin: 12/31/17 07:31 Dose: 0.5 mg Furosemide (Lasix) 40 mg PO BID [facility] Last Admin: 12/31/17 17:07 Dose: 40 mg Gabapentin (Neurontin) 300 mg PO TID [facility]; Protocol Last Admin: 12/31/17 17:07 Dose: 300 mg Levalbuterol HCl (Xopenex) 0.63 mg IH Q2H PRN PRN Reason: Shortness of Breath Last Admin: 12/30/17 13:39 Dose: 0.63 mg Pantoprazole Sodium (Protonix Ec Tab) 40 mg PO ACB [facility] Last Admin: 12/31/17 08:36 Dose: 40 mg Prednisone (Prednisone Tab) 20 mg PO BID [facility] Last Admin: 12/31/17 17:07 Dose: 20 mg Rivaroxaban (Xarelto) 20 mg PO DAILY [facility]; Protocol Last Admin: 12/31/17 09:40 Dose: 20 mg Sildenafil Citrate (Revatio) 20 mg PO TID [facility] Last Admin: 12/31/17 17:07 Dose: 20 mg - Labs Labs: 12/31/17 07:30 12/31/17 07:30 PT 33.6 SECONDS (9.4-12.5) H 12/27/17 22:45 INR 2.88 12/27/17 22:45 APTT 31.9 Seconds (25.1-36.5) 12/27/17 22:45 - Constitutional Appears: Non-toxic, No Acute Distress - Head Exam Head Exam: NORMAL INSPECTION, NORMOCEPHALIC - Eye Exam Eye Exam: EOMI, Normal appearance. absent: Nystagmus, Scleral icterus - ENT Exam ENT Exam: Mucous Membranes Moist - Respiratory Exam Respiratory Exam: Clear to Ausculation Bilateral, NORMAL BREATHING PATTERN. absent: Rhonchi, Wheezes - Cardiovascular Exam Cardiovascular Exam: REGULAR RHYTHM, +S1, +S2 - GI/Abdominal Exam GI & Abdominal Exam: Soft, Normal Bowel Sounds. absent: Distended, Firm, Guard ing, Tenderness - Extremities Exam Extremities Exam: Normal Inspection. absent: Calf Tenderness, Pedal Edema - Neurological Exam Neurological Exam: Alert, Awake, Oriented x3 - Psychiatric Exam Psychiatric exam: Normal Affect, Normal Mood - Skin Skin Exam: Intact, Normal Color Assessment and Plan - Assessment and Plan (Free Text) Assessment: Rachel Oakes, 42F, with PMHx of pulmonary artery hypertension, hx of PE/DVT (Xarelto), s/p L leg amputation (2016), COPD on 4L home O2, LAYO w/ home CPAP, HFpEF admitted for acute on chronic respiratory failure. On xarelto for pul monary embolism. Plan: Acute on chronic hypoxic respiratory failure COPD exacerbation vs LAYO vs Chronic embolism Pulmonology consulted-Dr. Hurst: transfer patient to [facility] HTN clinic CT chest: although a limited study, does NOT demonstrate any visible central PE, and in conjunction with normal LE duplex; would obtain a hematology evaluation for further recommendations regarding continuing A/C Transitioned to Nasal cannula- can go up to 6L, if patient unable to keep oxygenation at 89% or greater, then retry high flow at 40%. BIPAP at night Duoneb/acetylcysteine DUNIA Levalbuterol PRN Brovana and Pulmicort Prednisone 20 mg PO Q12 Legionella/mycoplasma/s. pneumonie Ag- L. Pneuomophilia Ag negative HFpEF Echo: LV severely dialted, LV systolic function severely decreased, RA severely dilated, severe tricuspid regurgitation, severe pulmonary hypertension , flattened septum. Seen by pulmonology-Dr. Hurst: recc abx/steroid txt/bronchodilators; f/u outpatient pulmonology, referral to pulmonary HTN clinic and consideration of right heart cath with vasodilatory challenge; continue target euvolemia, encourage bilevel positive airway pressure at night, supplemental o2 to maintain normax emia, careful/gentle diuresis- monitor bicarb and pH to avoid contraction alkalosi, bronchodilators, steroid taper; treatment of pulmonary HTN should be looked into based on eval by towel folder after stabilization and based on RV cath results Monitor I/Os Daily weights Lasix 40mg PO bid PT consult Pulmonary Hypertension Repeat Echo with bubble study-LV severely dialted, LV systolic function severely decreased, RA severely dilated, severe tricuspid regurgitation, severe pulmonary hypertension , flattened septum. 20 mg Sildenafil Citrate PO TID Hx of DVT/PE 12/29/17 Duplex lower extremity- no sonographic evidence for DVT in the visualized segments of both lower extremities; very limited study 12/29/17 CT chest- suboptimal opacification of the pulmonary arteries similar to the previous exam. There are no large central emboli seen. Small distal emboli cannot be excluded Continue home Xarelto Hypercoaguble workup: ATIII, factor 5/8/C/S activity results pending PPx DVT ppx- Xarelto 20mg po daily GI ppx - Protonoix 40mg po Medical Management discussed with Dr. Gross PGY-1 John Crystal
[2017-12-31 18:05] VITALS: PULSE 97
[2018-01-01 00:33] LABS: SOURCE SERUM
--- NOTE | 2018-01-01 12:56 | CP.PCM.DIS ---
Provider - Provider Date of Admission: 12/28/17 01:48 Attending physician: Plcaido Gross MD Primary care physician: Debora Little Consults: Dr. Aggarwal Time Spent in preparation of Discharge (in minutes): 45 Hospital Course - Lab Results Lab Results: Micro Results 12/27/17 22:45 Blood-Venous Blood Culture - Preliminary NO GROWTH AFTER 4 DAYS 12/27/17 22:30 Blood-Venous Blood Culture - Preliminary NO GROWTH AFTER 4 DAYS Most Recent Lab Values WBC 7.7 10^3/ul (4.5-11.0) D 12/31/17 07:30 RBC 4.61 10^6/uL (3.5-6.1) 12/31/17 07:30 Hgb 11.5 g/dL (12.0-16.0) L 12/31/17 07:30 Hct 38.8 % (36.0-48.0) 12/31/17 07:30 MCV 84.2 fl (80.0-105.0) 12/31/17 07:30 MCH 24.9 pg (25.0-35.0) L 12/31/17 07:30 MCHC 29.6 g/dl (31.0-37.0) L 12/31/17 07:30 RDW 19.2 % (11.5-14.5) H 12/31/17 07:30 Plt Count 266 10^3/uL (120.0-450.0) 12/31/17 07:30 MPV 10.3 fl (7.0-11.0) 12/31/17 07:30 Gran % 86.3 % (50.0-68.0) H 12/31/17 07:30 Lymph % (Auto) 11.6 % (22.0-35.0) L 12/31/17 07:30 Towns % (Auto) 2.1 % (1.0-6.0) 12/31/17 07:30 Eos % (Auto) 0.0 % (1.5-5.0) L 12/31/17 07:30 Baso % (Auto) 0.0 % (0.0-3.0) 12/31/17 07:30 Gran # 6.63 (1.4-6.5) H 12/31/17 07:30 Lymph # (Auto) 0.9 (1.2-3.4) L 12/31/17 07:30 Towns # (Auto) 0.2 (0.1-0.6) 12/31/17 07:30 Eos # (Auto) 0.0 (0.0-0.7) 12/31/17 07:30 Baso # (Auto) 0.00 K/mm3 (0.0-2.0) 12/31/17 07:30 Neutrophils % (Manual) 94 % (50.0-70.0) H 12/28/17 04:18 Band Neutrophils % 1 % (0-2) 12/28/17 04:18 Lymphocytes % (Manual) 4 % (22.0-35.0) L 12/28/17 04:18 Monocytes % (Manual) 1 % (1.0-6.0) 12/28/17 04:18 Platelet Evaluation Normal (NORMAL) 12/28/17 04:18 PT 33.6 SECONDS (9.4-12.5) H 12/27/17 22:45 INR 2.88 12/27/17 22:45 APTT 31.9 Seconds (25.1-36.5) 12/27/17 22:45 D-Dimer, Quantitative 282 ng/mlDDU (0-243) H 12/28/17 07:00 Protein C Activity 52 % (70-180) L 12/28/17 10:00 Protein S Activity 121 % (60-140) 12/28/17 10:30 Antithrombin III Activ 76 % activity (80-120) L 12/28/17 10:30 Factor V see note 12/28/17 04:18 Factor VIII Activity 273 % (50-180) H 12/28/17 10:30 pCO2 30 mm/Hg (35-45) L 12/28/17 11:18 pO2 47.0 mm/Hg (80-100) L 12/28/17 11:18 HCO3 20.4 mmol/L (21-28) L 12/28/17 11:18 ABG pH 7.44 (7.35-7.45) 12/28/17 11:18 ABG Total CO2 21.3 mmol.L (22-28) L 12/28/17 11:18 ABG O2 Saturation 83.6 % (95-98) L 12/28/17 11:18 ABG Base Excess -2.7 mmol/L (-2.0-3.0) L 12/28/17 11:18 ABG Potassium 3.7 mmol/L (3.6-5.2) 12/28/17 11:18 VBG pH 7.36 (7.32-7.43) 12/27/17 23:10 VBG pCO2 44.0 (40-60) 12/27/17 23:10 VBG HCO3 24.9 mmol/l (21-28) 12/27/17 23:10 VBG Total CO2 26.3 mmol.L (22-28) 12/27/17 23:10 VBG O2 Sat (Calc) 68.7 % (40-65) H 12/27/17 23:10 VBG Base Excess -0.8 mmol/L (0.0-2.0) L 12/27/17 23:10 VBG Potassium 3.8 mmol/L (3.6-5.2) 12/27/17 23:10 Sodium 135.0 mmol/L (132-148) 12/28/17 11:18 Chloride 105.0 mmol/L (98-107) 12/28/17 11:18 Glucose 193 mg/dl (65-105) H 12/28/17 11:18 Lactate 1.8 mmol/L (0.7-2.1) 12/28/17 11:18 FiO2 32.0 % 12/28/17 11:18 Sodium 136 mmol/L (132-148) 12/31/17 07:30 Potassium 4.3 mmol/L (3.6-5.0) 12/31/17 07:30 Chloride 100 mmol/L (98-107) 12/31/17 07:30 Carbon Dioxide 28 mmol/L (21-33) 12/31/17 07:30 Anion Gap 13 (10-20) 12/31/17 07:30 BUN 17 mg/dL (7-21) 12/31/17 07:30 Creatinine 0.9 mg/dl (0.7-1.2) 12/31/17 07:30 Est GFR ( Amer) > 60 12/31/17 07:30 Est GFR (Non-Af Amer) > 60 12/31/17 07:30 Random Glucose 146 mg/dL (70-110) H 12/31/17 07:30 Calcium 9.0 mg/dL (8.4-10.5) 12/31/17 07:30 Phosphorus 3.9 mg/dL (2.5-4.5) 12/31/17 07:30 Magnesium 2.0 mg/dL (1.7-2.2) 12/31/17 07:30 Total Bilirubin 1.4 mg/dL (0.2-1.3) H 12/31/17 07:30 AST 28 U/L (14-36) 12/31/17 07:30 ALT 22 U/L (7-56) 12/31/17 07:30 Alkaline Phosphatase 141 U/L (38-126) H 12/31/17 07:30 Lactate Dehydrogenase 499 U/L (333-699) 12/28/17 10:30 Total Creatine Kinase 27 U/L (35-230) L 12/28/17 10:30 Troponin I < 0.01 ng/mL 12/28/17 10:30 NT-Pro-B Natriuret Pep 2140 pg/mL (0-450) H 12/27/17 22:45 Total Protein 6.7 g/dL (5.8-8.3) 12/31/17 07:30 Albumin 3.9 g/dL (3.0-4.8) 12/31/17 07:30 Globulin 2.8 gm/dL 12/31/17 07:30 Albumin/Globulin Ratio 1.4 (1.1-1.8) 12/31/17 07:30 Procalcitonin 0.05 NG/ML (0.19-0.49) L 12/28/17 04:18 Arterial Blood Potassium 3.7 mmol/L (3.6-5.2) 12/28/17 11:18 Venous Blood Potassium 3.8 mmol/L (3.6-5.2) 12/27/17 23:10 Ur L.pneumophila Ag Negative (NEGATIVE) 12/28/17 05:50 Mycoplasma pneumon IgG 4.86 (<=0.90) H 12/28/17 04:00 Mycoplasma pneumon IgM 239 U/mL (<770) 12/28/17 04:00 Pneumocystis Source Serum 12/28/17 04:18 S. pneumoniae Antigen Not detected 12/28/17 04:18 - Hospital Course Hospital Course: Upon admission: 42 y/o morbidly obese F with PMH of pulmonary artery hypertension, hx of PE/DVT on xarelto, s/p L leg amputation, COPD on 4L home O2, LAYO w/ home CPAP, HFpEF presented to ED with complaints of SOB, dyspnea and cough. Upon interview, pt was in significant respiratory distress and provided a limited interview. She reports a history of "fluid in the lungs", and difficulty breathing for several weeks. She reports that shortness of breath and cough is baseline for her at home. While interviewing patient, she began to desaturate into the upper 70%-low 80% region and she was unable to provide ROS. Pt was t achypneic with accessory muscle use. ABG was obtained and pt was placed on BiPAP immediately. Prior history obtained from chart review. Breast US from the ED resulted benign. Hospital course: 42 year old female admitted for acute on chronic respiratory failure. Patient was admitted and placed on bipap. CXR from the ED resulted cardiomegaly. EKG resulted normal sinus rhythm with RAD, incomplete RBBB, RVH. She was given 1 dose of rocephin and levaquin in the ED. BNP resulted 2100 and D-dimer 282. Hypercoagulable workup resulted high factor 8 activity, low protein c activity. Lower extremity duplex was negative. Patient was started on Solumedrol. Pulmonology was consulted and recommended high flow O2(50%, 50 LPM), BIPAP at night, Lasix IV diuresis, CT chest, and echo with bubble study. CT chest obtained showing no large central emboli seen; small distal emboli cannot be excluded. After CT chest resulted pulmonology recommended transitioning patient to NC 4LPM, solumedrol taper, and PO lasix. Echo with bubble study showed severe pulmonary HTN for which Dr. Hurst, pulmonology, recommended abx/steroid txt/bronchodilators; Dr. Aggarwal asked primary team to transfer patient to the care of Dr. Benita Rodriguez for further workup including but not limited to RV cath. Risks and benefits discussed with patient for transfer and further workup for her pulmonary hypertension. Discharge plan: Patient is stable for transfer to [facility] as per Dr. Gross. Patient to continue all medications as were during this hospital admission. Alterations to medications as per Dr. Rodriguez. Further plan is dependent on results of RV cath. Reviewed all medications with patient, and she understands instructions. Patient understands and agrees with transfer plan. Disclaimer: Written above is a synopsis of patients current hospital admission. For full report refer to EMR. Discharge Exam - Head Exam Head Exam: NORMAL INSPECTION, NORMOCEPHALIC - Additional Findings Additional findings: Emtala was performed and during that time patient had a complete physical exam Patient was discharged after short call left so no exam was done prior to her discharge however, patient was completely stable for discharge while EMTALA form was discussed. Please refer to prior progress note for full exam Discharge Plan - Follow Up Plan Condition: FAIR Disposition: OTHER INSTITUTION Additional Instructions: 1. Patient is stable for discharge to [facility] as per Dr. Gross and Dr. Hurst 2. Patient will be under the care of Dr. Brandee Rodriguez at [facility] in the Pulmonary Hypertension [place]. 3. Patient will continue all the medications she was actively taking during this hospital admission and further recommendations or adjustments as per Dr. Rodriguez. 4. Patient is made aware of the transfer plan. Patient was explained the risks and benefits of the transfer including her signing the EMTALA form. 5. Patient will be transferred as soon as a bed is available at [facility]. Referrals: Debora Little [Primary Care Provider] -
== END 2017-12-31 19:30 | disposition short-term general hospital (02) | DRG 541 ==
LOC: ED 21:38 → ERH 12-28 01:48 → 2RNO 12-28 03:15 → 3RSO 12-28 22:27
PROVIDERS: ADMIT Hospitalist; ATTEND Internal Medicine
PROC: 5A09457 Assistance with Respiratory Ventilation, 24-96 Consecutive Hours, Continuous Positive Airway Pressure (ICD-10-PCS; principal; 2017-12-28)
DX: J96.21 Acute and chronic respiratory failure with hypoxia (principal); I50.32 Chronic diastolic (congestive) heart failure; I26.99 Other pulmonary embolism without acute cor pulmonale; J44.9 Chronic obstructive pulmonary disease, unspecified; I50.82 Biventricular heart failure; D68.59 Other primary thrombophilia; I07.1 Rheumatic tricuspid insufficiency; E66.01 Morbid (severe) obesity due to excess calories; G47.33 Obstructive sleep apnea (adult) (pediatric); I27.21 Secondary pulmonary arterial hypertension; I45.10 Unspecified right bundle-branch block; K21.9 Gastro-esophageal reflux disease without esophagitis; N61.0 Mastitis without abscess; Z79.01 Long term (current) use of anticoagulants; Z82.49 Family history of ischemic heart disease and other diseases of the circulatory system; Z83.2 Family history of diseases of the blood and blood-forming organs and certain disorders involving the immune mechanism; Z83.3 Family history of diabetes mellitus; Z86.711 Personal history of pulmonary embolism; Z86.718 Personal history of other venous thrombosis and embolism; Z87.891 Personal history of nicotine dependence; Z89.512 Acquired absence of left leg below knee; Z91.14 Patient's other noncompliance with medication regimen; Z98.891 History of uterine scar from previous surgery; Z99.81 Dependence on supplemental oxygen; Z68.43 Body mass index [BMI] 50.0-59.9, adult

== ENCOUNTER 2018-02-23 17:41 | Inpatient (IN) | payer MEDICAID ==
[2018-02-23 18:15] VITALS: BMI 45.4
--- NOTE | 2018-02-23 18:23 | ED PDOC ---
Arrival/HPI <Benjy Griffin - Last Filed: 02/24/18 02:18> - General Historian: Patient - History of Present Illness Narrative History of Present Illness (Text): 02/24/18 00:58 42 y/o female with PMH of COPD, CHF, left BKA presents to the ED c/o bilateral lower extremity edema/weakness, and increased of shortness of breath x 1 week. Pt was discharged from [facility] [place] yesterday for similar complaints, however, she states her symptoms are not any better. Currently c/o bilateral leg pain and weeping of left leg and flank since yesterday. States her legs feel weak today. Has not taken any medication for pain. Tolerating PO per baseline.Denies fevers, chills, chest pain, palpitations, diaphoresis, back pain, abdominal pain, N/V, rash, urinary symptoms, bowel/bladder incontinence, saddles anesthesia, or any other associated symptoms. <Vinita Eric - Last Filed: 02/24/18 03:37> - General Chief Complaint: Shortness Of Breath Time Seen by Provider: 02/23/18 20:20 Past Medical History - Provider Review Nursing Documentation Reviewed: Yes - Infectious Disease Hx of Infectious Diseases: None - Cardiac Hx Cardiac Disorders: Yes Hx Congestive Heart Failure: Yes Hx Peripheral Edema: Yes - Pulmonary Hx Respiratory Disorders: Yes Hx Chronic Obstructive Pulmonary Disease (COPD): Yes Hx Pulmonary Embolism: Yes - Neurological Hx Neurological Disorder: No - HEENT Hx HEENT Disorder: No - Renal Hx Renal Disorder: No - Endocrine/Metabolic Hx Endocrine Disorders: No - Hematological/Oncological Hx Blood Disorders: Yes Other/Comment: DVT - Integumentary Hx Dermatological Disorder: No - Musculoskeletal/Rheumatological Hx Musculoskeletal Disorders: No - Gastrointestinal Hx Gastrointestinal Disorders: Yes Hx Gastroesophageal Reflux: Yes - Genitourinary/Gynecological Hx Genitourinary Disorders: No - Psychiatric Hx Psychophysiologic Disorder: No Hx Substance Use: No - Surgical History Other/Comment: C-sectionmanuela, L. BKA <Vinita Eric - Last Filed: 02/24/18 03:37> Family/Social History - Physician Review Nursing Documentation Reviewed: Yes Family/Social History: No Known Family HX Smoking Status: Former Smoker Hx Alcohol Use: Yes (socially) Hx Substance Use: No <Vinita Eric - Last Filed: 02/24/18 03:37> Allergies/Home Meds <Benjy Griffin - Last Filed: 02/24/18 02:18> <Vinita Eric - Last Filed: 02/24/18 03:37> Allergies/Adverse Reactions: Allergies No Known Allergies Allergy (Verified 02/23/18 18:11) Review of Systems - Physician Review All systems were reviewed & negative as marked: Yes - Review of Systems Constitutional: Normal Eyes: Normal ENT: Normal Respiratory: Normal, SOB, Cough Cardiovascular: Normal, Calf Pain (right). absent: Chest Pain, Palpitations Gastrointestinal: Normal. absent: Abdominal Pain, Stool Changes, Nausea, Vomiting, Appetite Changes Genitourinary Female: Normal. absent: Dysuria, Frequency, Urine Output Changes, Vaginal Bleeding, Vaginal Discharge, Other (incontinence) Musculoskeletal: Normal. absent: Back Pain Skin: Normal. absent: Rash Neurological: Normal, Other (bilateral leg weakness). absent: Headache, Dizziness Endocrine: Normal Hemo/Lymphatic: Normal Psychiatric: Normal <HernestoVinita - Last Filed: 02/24/18 03:37> Physical Exam Vital Signs Pulse Resp BP Pulse Ox 02/24/18 01:02 121/81 02/23/18 22:59 96 H 20 100/68 92 L 02/23/18 18:42 18 94 L 02/23/18 18:41 91 H 18 107/65 94 L <Benjy Griffin - Last Filed: 02/24/18 02:18> Vital Signs Reviewed: Yes Temperature: Afebrile Blood Pressure: Normal Pulse: Regular Respiratory Rate: Normal Appearance: Positive for: Well-Appearing, Non-Toxic, Comfortable Pain Distress: None Mental Status: Positive for: Alert and Oriented X 3 - Systems Exam Head: Present: Atraumatic, Normocephalic Pupils: Present: PERRL Extroacular Muscles: Present: EOMI Conjunctiva: Present: Normal Ears: Present: NORMAL TM Mouth: Present: Moist Mucous Membranes Pharnyx: Present: Normal. No: ERYTHEMA, EXUDATE Nose (External): Present: Atraumatic Nose (Internal): Present: Normal Inspection Neck: Present: Normal Range of Motion. No: Meningeal Signs, MIDLINE TENDERNESS, Paraspinal Tenderness Respiratory/Chest: Present: Decreased Breath Sounds (bilaterally), Rales (bilateral lung bases), Other (visible shortness of breath). No: Respiratory Distress, Accessory Muscle Use, Retracting, Tender to Palpation Cardiovascular: Present: Regular Rate and Rhythm, Normal S1, S2. No: Murmurs Abdomen: Present: Normal Bowel Sounds. No: Tenderness, Distention, Peritoneal Signs, Rebound, Guarding Back: Present: Normal Inspection. No: CVA Tenderness, Midline Tenderness, Paraspinal Tenderness Upper Extremity: Present: Normal Inspection, Normal ROM, NORMAL PULSES, Neurovascularly Intact, Capillary Refill < 2s. No: Cyanosis, Edema, Tenderness, Deformity Lower Extremity: Present: Normal Inspection, Edema (pitting edema to right foot, ankle, ), Normal ROM, Tenderness (right calf), Capillary Refill < 2 s. No: NORMAL PULSES (unable to palpate right pedal pulse secondary to habitus and edema) Neurological: Present: GCS=15, CN II-XII Intact, Speech Normal, Motor Func Grossly Intact, Normal Sensory Function, Memory Normal. No: Gait Normal (unable to assess) Skin: Present: Warm, Dry, Normal Color, Cold (bilateral lower extremities, pt states they are cold at baseline). No: Rashes, Pale Lymphatic: No: Cervical Adenopathy Psychiatric: Present: Alert, Oriented x 3, Normal Insight, Normal Concentration, Normal Affect, Normal Mood <Vinita Eric - Last Filed: 02/24/18 03:37> Medical Decision Making - Lab Interpretations Lab Results: 02/23/18 20:40 02/23/18 20:40 Lab Results 02/23/18 20:40: Troponin I 0.03 D 02/23/18 20:40: Sodium 139, Potassium 3.7, Chloride 102, Carbon Dioxide 27, Anion Gap 13, BUN 29 H, Creatinine 1.0, Est GFR ( Amer) > 60, Est GFR (Non-Af Amer) > 60, Random Glucose 92, Calcium 9.6, Total Bilirubin 2.4 H, AST 30, ALT 37, Alkaline Phosphatase 159 H, NT-Pro-B Natriuret Pep 3350 H, Total Protein 7.4, Albumin 4.2, Globulin 3.2, Albumin/Globulin Ratio 1.3 02/23/18 20:40: WBC 11.1 H, RBC 5.57, Hgb 14.2 D, Hct 45.3, MCV 81.3, MCH 25.5, MCHC 31.3, RDW 18.4 H, Plt Count 385, MPV 9.9, Gran % 70.7 H, Lymph % (Auto) 21.4 L, [place] % (Auto) 5.6, Eos % (Auto) 2.2, Baso % (Auto) 0.1, Gran # 7.81 H, Lymph # (Auto) 2.4, [place] # (Auto) 0.6, Eos # (Auto) 0.2, Baso # (Auto) 0.01, Neutrophils % (Manual) 72 H, Lymphocytes % (Manual) 14 L, Atypical Lymphs % 2 H, Monocytes % (Manual) 9 H, Eosinophils % (Manual) 3, Large Platelets Present, Poikilocytosis (manual 1+, Anisocytosis (manual) Slight, Ovalocytes Slight, Schistocytes Slight - RAD Interpretation Radiology Orders: 02/23/18 20:18 CXR [CHEST PORTABLE] [RAD] Stat 02/23/18 20:28 DUPLEX LOWER EXTRM VEIN BILAT [US] Stat 02/23/18 21:40 LOWER EXT ART NON-INV COMPL [US] Stat - Medication Orders Current Medication Orders: Albuterol/Ipratropium (Duoneb 3 Mg/0.5 Mg (3 Ml) Ud) 3 ml IH [id number] PRN PRN Reason: Shortness of Breath Arformoterol Tartrate (Brovana) 15 mcg IH [id number] DUNIA Budesonide (Pulmicort Respules) 0.5 mg IH [id number] DUNIA Doxycycline Hyclate (Doryx) 100 mg PO Q12 DUNIA; Protocol Furosemide (Lasix) 20 mg IVP Q12 DUNIA Methylprednisolone (Solu-Medrol) 20 mg IVP Q8 DUNIA Discontinued Medications Albuterol/Ipratropium (Duoneb 3 Mg/0.5 Mg (3 Ml) Ud) 3 ml IH Q15M DUNIA Stop: 02/23/18 22:31 Last Admin: 02/23/18 23:27 Dose: 3 ml Furosemide (Lasix) 40 mg IVP STAT STA Stop: 02/23/18 22:25 Last Admin: 02/24/18 01:02 Dose: 40 mg MAR Blood Pressure Document 02/24/18 01:02 RG (Rec: 02/24/18 01:03 [email or web address]) Blood Pressure Blood Pressure (100/60-150/90 mm Hg) 121/81 IVP Administration Document 02/24/18 01:02 RG (Rec: 02/24/18 01:03 [email or web address]) Charges for Administration # of IVP Administrations 1 Methylprednisolone (Solu-Medrol) 125 mg IVP STAT STA Stop: 02/23/18 21:48 Last Admin: 02/23/18 23:02 Dose: 125 mg IVP Administration Document 02/23/18 23:02 RG (Rec: 02/23/18 23:28 [email or web address]) Charges for Administration # of IVP Administrations 1 Potassium Chloride (K-Dur 20 Meq Er Tab) 20 meq PO STAT STA Stop: 02/23/18 22:25 Last Admin: 02/23/18 23:27 Dose: 20 meq <Benjy Griffin - Last Filed: 02/24/18 02:18> ED Course and Treatment: 18:00 Pt found to have bed bugs. Nursing needs to shower patient and change rooms. Pt on 2L NC as per baseline, resting comfortably in stretcher in no acute distress. Will evaluate once showered by nursing. 18:35 Vital signs stable at this time 20:20 Pt finished with decontamination and placed in room. 23:50 Dr. Griffin evaluated pt at bedside, agrees with plan of care and disposition. 00:[address] Orellana who accepted patient for inpatient admission with diagnosis of CHF exacerbation and COPD. - Lab Interpretations I have reviewed the lab results: Yes - RAD Interpretation Narrative RAD Interpretations (Text): CXR: Read by me and Dr. Griffin Cardiomegaly Increased vascular markings bilaterally Program Advisor: ED Physician - EKG Interpretation EKG Interpretation (Text): 23:[address] Griffin rate 85; NSR; normal intervals; nonspecific ST changes; low voltage QRS; compared with prior EKG, no change Interpreted by ED Physician: Yes Type: 12 lead EKG Comparison: Com.w/previous EKG <Vinita Eric - Last Filed: 02/24/18 03:37> - PA / SHEET CUTTING OPERATOR / Resident Statement / has reviewed & agrees with the documentation as recorded. / has examined the patient and agrees with the treatment plan. <Benjy Griffin - Last Filed: 02/24/18 02:18> Disposition/Present on Arrival <Benjy Griffin - Last Filed: 02/24/18 02:18> - Present on Arrival Any Indicators Present on Arrival: No History of DVT/PE: No History of Uncontrolled Diabetes: No Urinary Catheter: No History of Decub. Ulcer: No History Surgical Site Infection Following: None - Disposition Have Diagnosis and Disposition been Completed?: Yes Disposition Time: 00:00 Patient Plan: Admission <Vinita Eric - Last Filed: 02/24/18 03:37> - Disposition Diagnosis: CHF exacerbation, Chronic obstructive pulmonary disease, Hypoxia Disposition: HOSPITALIZED Condition: STABLE
[2018-02-23 20:55] LABS: BASO # 0.01 K/mm3 (0.0-2.0); BASO % 0.1 % (0.0-3.0); EOS # 0.2 (0.0-0.7); EOS % 2.2 % (1.5-5.0); GRAN # 7.81 (1.4-6.5); GRAN % 70.7 % (50.0-68.0); HEMOGLOBIN 14.2 g/dL (12.0-16.0); LYMPH # 2.4 (1.2-3.4); LYMPH % 21.4 % (22.0-35.0); MEAN CELL VOLUME 81.3 fl (80.0-105.0); MEAN CORPUSCULAR HEMOGLOBIN 25.5 pg (25.0-35.0); MEAN CORPUSCULAR HGB CONC 31.3 g/dl (31.0-37.0); MEAN PLATELET VOLUME 9.9 fl (7.0-11.0); MONO # 0.6 (0.1-0.6); MONO % 5.6 % (1.0-6.0); PLATELET COUNT 385 10^3/uL (120.0-450.0); RBC 5.57 10^6/uL (3.5-6.1); RED CELL DISTRIBUTION WIDTH 18.4 % (11.5-14.5); WHITE BLOOD COUNT 11.1 10^3/uL (4.5-11.0)
[2018-02-23 21:45] LABS: ALB/GLOB RATIO 1.3 (1.1-1.8); ALBUMIN 4.2 g/dL (3.0-4.8); ALT/SGPT 37 U/L (7-56); AST/SGOT 30 U/L (14-36); BLOOD UREA NITROGEN 29 mg/dL (7-21); CALCIUM 9.6 mg/dL (8.4-10.5); GFR NON-AFRICAN AMERICAN > 60
[2018-02-23 21:51] LABS: B-TYPE NATRIURETIC PEPTIDE 3350 pg/mL (0-450)
[2018-02-23 22:03] LABS: ATYPICAL LYMPHOCYTE 2 % (0.0-0.0); EOSINOPHIL 3 % (0.0-3.0); LARGE PLATELETS PRESENT; LYMPHOCYTE 14 % (22.0-35.0); MONOCYTE 9 % (1.0-6.0); NEUTROPHIL 72 % (50.0-70.0)
[2018-02-23 22:04] LABS: OVALOCYTES SLIGHT; POIKILOCYTOSIS 1+
[2018-02-23 22:06] LABS: ANISOCYTOSIS SLIGHT; SCHISTOCYTES SLIGHT
[2018-02-23] MEDS ORDERED: Potassium Chloride 20 mEq ER Tab PO STA (22:24)
[2018-02-23] MEDS: Albuterol-Ipratrop 3 mg / 0.5 (3 ml) UD IH SCH ×3 (23:00→23:27)
--- NOTE | 2018-02-24 03:26 | CP.PCM.HP ---
<ManjinderCaron - Last Filed: 02/25/18 05:29> History of Present Illness - History of Present Illness History of Present Illness: Caron Dunbar, PGY-1 Medicine H&P for Dr. 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 Pt states that she was discharged from [facility] yesterday, where she was admitted for the same b/l leg pain and per pt, only gave her a water pill before d/cing her. Pt states that she is having the same pain as yesterday when she was d/sabi from [facility] [place]. She currently reports that the pain is present diffusely throughout both her legs more anteriorly than posteriorly and is rated at a 9/10. She denies having any increased swelling or heaviness to either leg b/l. She states that today she was having difficulty walking and was unable to get assistance to get to the bathroom from her family. She denies any new trauma to the area. She currently denies fevers, chills, headache, lightheadedness, dizziness, chest pain, palpitations, abd pain, n/v, c/d, dysuria, hematuria, numbness or tingling. She does admit to SOB, cough which is productive of hay colored sputum, Dyspnea on exertion, sleeps using 2 pillows due to orthopnea, but denies PND. 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 Past Patient History - Infectious Disease Hx of Infectious Diseases: None - Past Social History Smoking Status: Former Smoker - CARDIAC Hx Cardiac Disorders: Yes Hx Congestive Heart Failure: Yes Hx Peripheral Edema: Yes - PULMONARY Hx Respiratory Disorders: Yes Hx Chronic Obstructive Pulmonary Disease (COPD): Yes Hx Pulmonary Embolism: Yes - NEUROLOGICAL Hx Neurological Disorder: No - HEENT Hx HEENT Problems: No - RENAL Hx Chronic Kidney Disease: No - ENDOCRINE/METABOLIC Hx Endocrine Disorders: No - HEMATOLOGICAL/ONCOLOGICAL Hx Blood Disorders: Yes Other/Comment: DVT - INTEGUMENTARY Hx Dermatological Problems: No - MUSCULOSKELETAL/RHEUMATOLOGICAL Hx Musculoskeletal Disorders: No - GASTROINTESTINAL Hx Gastrointestinal Disorders: Yes Hx Gastroesophageal Reflux: Yes - GENITOURINARY/GYNECOLOGICAL Hx Genitourinary Disorders: No - PSYCHIATRIC Hx Psychophysiologic Disorder: No Hx Substance Use: No - SURGICAL HISTORY Other/Comment: C-sectionx2, L. BKA Meds Allergies/Adverse Reactions: Allergies Allergy/AdvReac Type Severity Reaction Status Date / Time No Known Allergies Allergy Verified 02/23/18 18:11 Physical Exam - Constitutional Appears: Non-toxic, No Acute Distress, Other (Obese) - Head Exam Head Exam: ATRAUMATIC, NORMAL INSPECTION, NORMOCEPHALIC - Eye Exam Eye Exam: EOMI, Normal appearance, PERRL - Respiratory Exam Respiratory Exam: Decreased Breath Sounds, NORMAL BREATHING PATTERN. absent: Accessory Muscle Use, Rales, Rhonchi, Wheezes, Respiratory Distress, Stridor - Cardiovascular Exam Cardiovascular Exam: RRR, +S1, +S2. absent: Gallop, Rubs - GI/Abdominal Exam GI & Abdominal Exam: Normal Bowel Sounds, Soft. absent: Tenderness - Extremities Exam Extremities exam: Positive for: pedal edema (1+) Additional comments: pt has evidence of L BKA - Back Exam Back exam: NORMAL INSPECTION. absent: CVA tenderness (L), CVA tenderness (R) - Neurological Exam Neurological exam: Alert, Oriented x3 - Psychiatric Exam Psychiatric exam: Normal Affect, Normal Mood - Skin Skin Exam: Dry, Intact, Normal Color, Warm Results - Vital Signs Recent Vital Signs: Last Vital Signs Temp Pulse 96 H 02/23/18 22:59 Resp 20 02/23/18 22:59 BP 121/81 02/24/18 01:02 Pulse Ox 92 L 02/23/18 22:59 - Labs Result Diagrams: 02/24/18 06:00 02/24/18 06:00 Labs: Laboratory Results - last 24 hr 02/23/18 02/23/18 02/23/18 20:40 20:40 20:40 WBC 11.1 H RBC 5.57 Hgb 14.2 D Hct 45.3 MCV 81.3 MCH 25.5 MCHC 31.3 RDW 18.4 H Plt Count 385 MPV 9.9 Gran % 70.7 H Lymph % (Auto) 21.4 L [place] % (Auto) 5.6 Eos % (Auto) 2.2 Baso % (Auto) 0.1 Gran # 7.81 H Lymph # (Auto) 2.4 [place] # (Auto) 0.6 Eos # (Auto) 0.2 Baso # (Auto) 0.01 Neutrophils % (Manual) 72 H Lymphocytes % (Manual) 14 L Atypical Lymphs % 2 H Monocytes % (Manual) 9 H Eosinophils % (Manual) 3 Large Platelets Present Poikilocytosis (manual 1+ Anisocytosis (manual) Slight Ovalocytes Slight Schistocytes Slight Sodium 139 Potassium 3.7 Chloride 102 Carbon Dioxide 27 Anion Gap 13 BUN 29 H Creatinine 1.0 Est GFR ( Amer) > 60 Est GFR (Non-Af Amer) > 60 Random Glucose 92 Calcium 9.6 Total Bilirubin 2.4 H AST 30 ALT 37 Alkaline Phosphatase 159 H Troponin I 0.03 D NT-Pro-B Natriuret Pep 3350 H Total Protein 7.4 Albumin 4.2 Globulin 3.2 Albumin/Globulin Ratio 1.3 Assessment & Plan - Assessment and Plan (Free Text) Assessment: Pt is a 42 yo F with pmhx of Pulm HTN, 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 Echo reviewed from 01/14 shows LVEF of 50.8%, but does show RV is severely dilated, RV systolic function is severely reduced, RA is severely dilated, severe TR, severe pulm HTN. B/l extremity U/S prelim read is negative for DVT. BNP is elevated to 3350. Pt is admitted for CHF exacerbation. Plan: B/l leg pain likely 2/2 CHF Exacerbation with hx of L BKA: - Echo show RV is severely dilated, RV systolic function is severely reduced, RA is severely dilated, severe TR, severe pulm HTN - BNP is elevated at 3380 - US b/l extremity pre-christopher read is negative for DVT - Lasix 20 IV BID - Pt eval - Cont home gabapentin 300 TID SOB 2/2 CHF vs COPD vs Pulm HTN: - Pts lung sounds are clear on exam, no basilar crackles noted - Duonebs q4 PRN - Pulmicort .5 BID - Solumedrol 20 IV q8 - Echo done on 01/14, results noted above. - Cont home Sildenafil PPX: DVT - Xarelto 20 GI: Protonix 40 <Jessica Orellana - Last Filed: 02/25/18 19:54> Results - Vital Signs Recent Vital Signs: Last Vital Signs Temp 97 F L 02/25/18 18:00 Pulse 94 H 02/25/18 18:00 Resp 18 02/25/18 18:00 BP 103/62 02/25/18 18:00 Pulse Ox 92 L 02/25/18 05:34 - Labs Result Diagrams: 02/25/18 07:15 02/25/18 07:15 Labs: Laboratory Results - last 24 hr 02/25/18 02/25/18 07:15 07:15 WBC 8.4 RBC 4.74 Hgb 11.7 L Hct 37.8 MCV 79.7 L MCH 24.7 L MCHC 31.0 RDW 18.5 H Plt Count 313 MPV 10.8 Gran % 85.6 H Lymph % (Auto) 9.4 L [place] % (Auto) 4.8 Eos % (Auto) 0.2 L Baso % (Auto) 0.0 Gran # 7.21 H Lymph # (Auto) 0.8 L [place] # (Auto) 0.4 Eos # (Auto) 0.0 Baso # (Auto) 0.00 Sodium 136 Potassium 4.9 Chloride 106 Carbon Dioxide 23 Anion Gap 12 BUN 28 H Creatinine 0.9 Est GFR ( Amer) > 60 Est GFR (Non-Af Amer) > 60 Random Glucose 156 H Calcium 9.1 Total Bilirubin 1.9 H AST 30 ALT 35 Alkaline Phosphatase 130 H Total Protein 6.2 Albumin 3.4 Globulin 2.8 Albumin/Globulin Ratio 1.2 Attending/Attestation - Attestation I have personally seen and examined this patient.: Yes I have fully participated in the care of the patient.: Yes I have reviewed all pertinent clinical information: Yes
[2018-02-24] MEDS: Pantoprazole 40 mg EC Tab PO SCH (05:52)
[2018-02-24] MEDS: MethylPREDNISolone 40 mg Vial IVP SCH ×3 (05:53→21:11)
[2018-02-24 06:45] LABS: ALB/GLOB RATIO 1.2 (1.1-1.8); ALBUMIN 3.6 g/dL (3.0-4.8); ALT/SGPT 33 U/L (7-56); AST/SGOT 28 U/L (14-36); BLOOD UREA NITROGEN 27 mg/dL (7-21); CALCIUM 9.1 mg/dL (8.4-10.5); GFR NON-AFRICAN AMERICAN > 60
[2018-02-24 07:09] LABS: EOS % 0.1 % (1.5-5.0); GRAN # 7.19 (1.4-6.5); GRAN % 94.1 % (50.0-68.0); HEMOGLOBIN 12.5 g/dL (12.0-16.0); LYMPH # 0.3 (1.2-3.4); LYMPH % 4.4 % (22.0-35.0); MEAN CELL VOLUME 80.4 fl (80.0-105.0); MEAN PLATELET VOLUME 9.9 fl (7.0-11.0); MONO # 0.1 (0.1-0.6); MONO % 1.4 % (1.0-6.0); RBC 5.01 10^6/uL (3.5-6.1); RED CELL DISTRIBUTION WIDTH 18.4 % (11.5-14.5); WHITE BLOOD COUNT 7.7 10^3/uL (4.5-11.0)
[2018-02-24] MEDS: Arformoterol 15 mcg/2 ml Inh Sol IH SCH ×2 (07:27→20:26)
[2018-02-24] MEDS: Budesonide 0.5 mg/2 ml Inhal Susp UD IH SCH ×2 (07:27→20:27)
--- NOTE | 2018-02-24 08:32 | US ---
HISTORY: Leg pain and swelling. Evaluate for DVT PHYSICIAN(S): Farshad Garcia MD. TECHNIQUE: Duplex sonography and color-flow Doppler with graded compression were used to evaluate the deep venous systems of both lower extremities. The exam is very limited due to body habitus and edema. The distal femoral veins and tibial veins are not adequately seen FINDINGS: The visualized deep venous systems of both lower extremities are sonographically normal and compressible. Normal wave forms and augmentation are seen. There is no sonographic evidence for deep venous thrombosis in the visualized segments of both lower extremities. IMPRESSION: No sonographic evidence for deep venous thrombosis in the visualized segments of both lower extremities. Very limited study.
--- NOTE | 2018-02-24 08:34 | US ---
PROCEDURE: Lower extremity FREDDY exam HISTORY: Peripheral vascular disease. Previous left BKA P PHYSICIAN(S): Farshad Garcia MD. FINDINGS: The exam is very limited due to obesity. The right resting FREDDY is normal, 0.98. The brachial systolic pressures are symmetric. The right low thigh, calf, and ankle PVR waveforms, allowing for limitations of the study, appear relatively normal. IMPRESSION: 1. Normal right resting FREDDY. Previous left BKA. 2. Limited study due to body habitus. 3. Allowing for technique, the right lower extremity PVR waveforms are relatively normal
--- NOTE | 2018-02-24 09:25 | RAD ---
Date of service: 02/23/2018 HISTORY: SOB r/o PNA COMPARISON: 12/28/2017 FINDINGS: LUNGS: No active pulmonary disease. PLEURA: No significant pleural effusion identified, no pneumothorax apparent. CARDIOVASCULAR: No aortic atherosclerotic calcification present. Moderate cardiomegaly mild to moderate vascular congestion OSSEOUS STRUCTURES: No significant abnormalities. VISUALIZED UPPER ABDOMEN: Normal. OTHER FINDINGS: None. IMPRESSION: Moderate cardiomegaly with mild to moderate vascular congestion
--- NOTE | 2018-02-24 10:23 | CARD ---
APPROVED REPORT Date of service: 02/23/2018 EKG Measurement Heart [id number] <Conclusion> Normal sinus rhythm RBBB Low voltage QRS Poor R wave progression Possible inferior infarct, age undetermined Abnormal ECG
[2018-02-24] MEDS: Sildenafil 20 MG TAB PO SCH ×3 (10:45→18:20)
[2018-02-24 12:48] LABS: URINE BILIRUBIN NEGATIVE (NEGATIVE); URINE BLOOD LARGE (NEGATIVE); URINE GLUCOSE (UA) NEGATIVE (NEGATIVE); URINE LEUKOCYTE ESTERASE TRACE Leu/uL (NEGATIVE); URINE PROTEIN NEGATIVE mg/dL (<30 mg/dL); URINE UROBILINOGEN 0.2 E.U./dL (<1 E.U./dL)
[2018-02-24 12:49] LABS: URINE APPEARANCE CLEAR (CLEAR); URINE COLOR LIGHT YELLOW (YELLOW)
[2018-02-24 12:53] LABS: URINE BACTERIA MOD (NEG); URINE RBC 0 - 2 /hpf (0-2); URINE WBC 0 - 2 /hpf (0-6)
[2018-02-24 13:37] LABS: HCG,QUALITATIVE URINE NEGATIVE (NEGATIVE)
[2018-02-25] MEDS: MethylPREDNISolone 40 mg Vial IVP SCH ×3 (05:19→21:32)
--- NOTE | 2018-02-25 07:10 | CP.PCM.PN ---
<Lisa Begum L - Last Filed: 02/25/18 15:38> Subjective - Date & Time of Evaluation Date of Evaluation: 02/25/18 Time of Evaluation: 07:09 - Subjective Subjective: Resident Progress Note for Hospitalist Service Patient examined at bedside. No acute events overnight. Patient states she feels better overall, however she still has bilateral leg pain. Patient is amenable to subacute rehab. Denies fevers, chills, shortness of breath, chest pain, abdominal pain, constipation, diarrhea. Objective - Vital Signs/Intake and Output Vital Signs (last 24 hours): Temp Pulse Resp BP Pulse Ox 97.5 F L 89 20 90/57 L 92 L 02/25/18 05:34 02/25/18 05:34 02/25/18 05:34 02/25/18 05:34 02/25/18 05:34 Intake and Output: 02/25/18 02/25/18 06:59 18:59 Intake Total 240 Output Total 800 Balance -560 - Medications Medications: Current Medications Albuterol/Ipratropium (Duoneb 3 Mg/0.5 Mg (3 Ml) Ud) 3 ml IH [id number] PRN PRN Reason: Shortness of Breath Arformoterol Tartrate (Brovana) 15 mcg IH [id number] [facility] Last Admin: 02/24/18 20:26 Dose: 15 mcg Budesonide (Pulmicort Respules) 0.5 mg IH [id number] [facility] Last Admin: 02/24/18 20:27 Dose: 0.5 mg Doxycycline Hyclate (Doryx) 100 mg PO Q12 [facility]; Protocol Last Admin: 02/24/18 21:13 Dose: 100 mg Furosemide (Lasix) 20 mg IVP Q12 [facility] Last Admin: 02/24/18 21:12 Dose: 20 mg Gabapentin (Neurontin) 300 mg PO TID [facility]; Protocol Last Admin: 02/24/18 18:21 Dose: 300 mg Methylprednisolone (Solu-Medrol) 20 mg IVP Q8 [facility] Last Admin: 02/25/18 05:19 Dose: 20 mg Pantoprazole Sodium (Protonix Ec Tab) 40 mg PO 0600 [facility] Last Admin: 02/24/18 05:52 Dose: 40 mg Rivaroxaban (Xarelto) 20 mg PO DAILY [facility]; Protocol Last Admin: 02/24/18 10:46 Dose: 20 mg Sildenafil Citrate (Revatio) 20 mg PO TID [facility] Last Admin: 02/24/18 18:20 Dose: 20 mg - Labs Labs: 02/24/18 06:00 02/24/18 06:00 - Additional Findings Additional findings: - Constitutional Appears: Non-toxic, No Acute Distress, Other (Obese) - Head Exam Head Exam: ATRAUMATIC, NORMOCEPHALIC - Eye Exam Eye Exam: EOMI, Normal appearance - Respiratory Exam Respiratory Exam: Decreased Breath Sounds, NORMAL BREATHING PATTERN. absent: Accessory Muscle Use, Rales, Rhonchi, Wheezes, Respiratory Distress, Stridor - Cardiovascular Exam Cardiovascular Exam: RRR, +S1, +S2. absent: Gallop, Rubs - GI/Abdominal Exam GI & Abdominal Exam: Normal Bowel Sounds, Soft. absent: Tenderness - Extremities Exam Extremities exam: Positive for: pedal edema (1+) Additional comments: L BKA - Back Exam Back exam: NORMAL INSPECTION. 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 Plan: Bilateral leg pain - likely CHF rxacerbation with hx of L BKA - Echo show RV is severely dilated, RV systolic function is severely reduced, RA is severely dilated, severe TR, severe pulm HTN - BNP 3380 - Dopplers negative for DVT - Lasix 20 IV BID - Cont home gabapentin 300 TID - PT OT eval Shortness of breath - CHF vs COPD vs Pulm HTN - Duonebs q4 PRN - Brovana 15 mcg Q12H - Pulmicort .5 BID - Solumedrol 20 IV q8 - Cont home Sildenafil 29 mg PO TID GI/DVT PPX: - Xarelto 20 - Protonix 40 Dispo: Pending subacute rehab placement Case discussed with attending Dr. Renato Begum PGY-1 <Placido Gross - Last Filed: 02/26/18 12:17> Objective - Vital Signs/Intake and Output Vital Signs (last 24 hours): Temp Pulse Resp BP Pulse Ox 97.9 F 77 20 99/63 L 94 L 02/26/18 06:00 02/26/18 06:00 02/26/18 06:00 02/26/18 10:33 02/26/18 00:01 Intake and Output: 02/26/18 02/26/18 06:59 18:59 Intake Total 1524 Output Total 3300 Balance -1776 - Medications Medications: Current Medications Albuterol/Ipratropium (Duoneb 3 Mg/0.5 Mg (3 Ml) Ud) 3 ml IH [id number] PRN PRN Reason: Shortness of Breath Last Admin: 02/25/18 13:48 Dose: 3 ml Arformoterol Tartrate (Brovana) 15 mcg IH [id number] [facility] Last Admin: 02/26/18 07:52 Dose: 15 mcg Budesonide (Pulmicort Respules) 0.5 mg IH [id number] [facility] Last Admin: 02/26/18 07:52 Dose: 0.5 mg Doxycycline Hyclate (Doryx) 100 mg PO Q12 [facility]; Protocol Last Admin: 02/26/18 10:32 Dose: 100 mg Furosemide (Lasix) 20 mg IVP Q12 [facility] Last Admin: 02/26/18 10:33 Dose: 20 mg Gabapentin (Neurontin) 300 mg PO TID [facility]; Protocol Last Admin: 02/26/18 10:32 Dose: 300 mg Methylprednisolone (Solu-Medrol) 20 mg IVP Q8 [facility] Last Admin: 02/26/18 06:17 Dose: 20 mg Pantoprazole Sodium (Protonix Ec Tab) 40 mg PO 0600 [facility] Last Admin: 02/25/18 07:21 Dose: 40 mg Rivaroxaban (Xarelto) 20 mg PO DAILY [facility]; Protocol Last Admin: 02/26/18 10:32 Dose: 20 mg Sildenafil Citrate (Revatio) 20 mg PO TID [facility] Last Admin: 02/26/18 10:32 Dose: 20 mg - Labs Labs: 02/26/18 06:00 02/26/18 06:00 Attending/Attestation - Attestation I have personally seen and examined this patient.: Yes I have fully participated in the care of the patient.: Yes I have reviewed all pertinent clinical information, including history, physical exam and plan: Yes Notes (Text): 02/26/18 12:13 Medical record note made by the resident after discussion with my direction and input after the patient was personally seen and examined by me. I have reviewed the chart and agree that the record accurately reflects by personal performance of the history, physical exam, data review, and medical decision-making, in the course for the patient. I have also personally directed the plan of care. 42 year old female with PMH of chronic hypoxic Resp Failure on home oxygen, CHF with diastolic dysfunction, COPD, DVT/PE on xarelto, s/p left BKA, , LAYO on CPAP, pulmonary hypertension and non compliance with medication is admitted with leg pain, swelling of leg and worsening dyspnea, BNP was elevated 3350, Acute on chronic hypoxic Resp Failure due to acute on chronic diastolic CHF/ mild COPD exacerbation. Patient has responded well to therapy, she is not wheezing, lung sound are clear, we will continue IV lasix, will change to oral in 24 hour.IV steroid are discontinued,on oral Prednisone now. Patient was evaluated by physical therapy and [facility] is recommended. Issue of compliance with medication and CPAP was discussed in detail with her. Management plan was discussed in detail with patient Education was provided. 02/26/18 12:14
[2018-02-25] MEDS: Pantoprazole 40 mg EC Tab PO SCH (07:21)
[2018-02-25 07:31] LABS: EOS % 0.2 % (1.5-5.0); GRAN # 7.21 (1.4-6.5); GRAN % 85.6 % (50.0-68.0); HEMOGLOBIN 11.7 g/dL (12.0-16.0); LYMPH # 0.8 (1.2-3.4); LYMPH % 9.4 % (22.0-35.0); MEAN CELL VOLUME 79.7 fl (80.0-105.0); MEAN CORPUSCULAR HEMOGLOBIN 24.7 pg (25.0-35.0); MEAN PLATELET VOLUME 10.8 fl (7.0-11.0); MONO # 0.4 (0.1-0.6); MONO % 4.8 % (1.0-6.0); RBC 4.74 10^6/uL (3.5-6.1); RED CELL DISTRIBUTION WIDTH 18.5 % (11.5-14.5); WHITE BLOOD COUNT 8.4 10^3/uL (4.5-11.0)
[2018-02-25] MEDS: Arformoterol 15 mcg/2 ml Inh Sol IH SCH ×2 (07:52→20:16)
[2018-02-25] MEDS: Budesonide 0.5 mg/2 ml Inhal Susp UD IH SCH ×2 (07:52→20:16)
[2018-02-25 07:55] LABS: BLOOD UREA NITROGEN 28 mg/dL (7-21); CALCIUM 9.1 mg/dL (8.4-10.5); GFR NON-AFRICAN AMERICAN > 60
[2018-02-25 08:28] LABS: ALB/GLOB RATIO 1.2 (1.1-1.8); ALBUMIN 3.4 g/dL (3.0-4.8); ALT/SGPT 35 U/L (7-56); AST/SGOT 30 U/L (14-36)
[2018-02-25] MEDS: Sildenafil 20 MG TAB PO SCH ×3 (09:59→17:49)
[2018-02-25] MEDS: Albuterol-Ipratrop 3 mg / 0.5 (3 ml) UD IH PRN (13:48)
[2018-02-26] MEDS: MethylPREDNISolone 40 mg Vial IVP SCH ×3 (06:17→21:52)
[2018-02-26 06:48] LABS: ALB/GLOB RATIO 1.2 (1.1-1.8); ALBUMIN 3.6 g/dL (3.0-4.8); ALT/SGPT 36 U/L (7-56); AST/SGOT 28 U/L (14-36); BLOOD UREA NITROGEN 27 mg/dL (7-21); GFR NON-AFRICAN AMERICAN > 60
[2018-02-26 07:01] LABS: GRAN # 7.86 (1.4-6.5); GRAN % 88.8 % (50.0-68.0); HEMOGLOBIN 11.6 g/dL (12.0-16.0); LYMPH # 0.4 (1.2-3.4); LYMPH % 4.2 % (22.0-35.0); MEAN CORPUSCULAR HEMOGLOBIN 24.7 pg (25.0-35.0); MEAN CORPUSCULAR HGB CONC 30.5 g/dl (31.0-37.0); MONO # 0.6 (0.1-0.6); RBC 4.69 10^6/uL (3.5-6.1); RED CELL DISTRIBUTION WIDTH 18.6 % (11.5-14.5); WHITE BLOOD COUNT 8.9 10^3/uL (4.5-11.0)
[2018-02-26] MEDS: Budesonide 0.5 mg/2 ml Inhal Susp UD IH SCH ×2 (07:52→21:07)
[2018-02-26] MEDS: Arformoterol 15 mcg/2 ml Inh Sol IH SCH ×2 (07:52→21:07)
--- NOTE | 2018-02-26 08:35 | CP.PCM.PN ---
<Vitaliy Benitez - Last Filed: 02/26/18 18:33> Subjective - Date & Time of Evaluation Date of Evaluation: 02/26/18 Time of Evaluation: 06:45 - Subjective Subjective: Walter Emmanuel PGY2 - Progress Note for Hospitalist Service Patient seen and examined this AM. NO acute events reported by patient or nursing staff. Patient has no complaints at time of interview. States she requires further physical therapy to get stronger. Patient is awaiting access to [facility]. Objective - Vital Signs/Intake and Output Vital Signs (last 24 hours): Temp Pulse Resp BP Pulse Ox 97.9 F 77 20 98/69 L 94 L 02/26/18 06:00 02/26/18 06:00 02/26/18 06:00 02/26/18 06:00 02/26/18 00:01 Intake and Output: 02/26/18 02/26/18 06:59 18:59 Intake Total 1524 Output Total 3300 Balance -1776 - Medications Medications: Current Medications Albuterol/Ipratropium (Duoneb 3 Mg/0.5 Mg (3 Ml) Ud) 3 ml IH [id number] PRN PRN Reason: Shortness of Breath Last Admin: 02/25/18 13:48 Dose: 3 ml Arformoterol Tartrate (Brovana) 15 mcg IH [id number] [facility] Last Admin: 02/26/18 07:52 Dose: 15 mcg Budesonide (Pulmicort Respules) 0.5 mg IH [id number] [facility] Last Admin: 02/26/18 07:52 Dose: 0.5 mg Doxycycline Hyclate (Doryx) 100 mg PO Q12 [facility]; Protocol Last Admin: 02/25/18 21:31 Dose: 100 mg Furosemide (Lasix) 20 mg IVP Q12 [facility] Last Admin: 02/25/18 21:33 Dose: 20 mg Gabapentin (Neurontin) 300 mg PO TID [facility]; Protocol Last Admin: 02/25/18 17:48 Dose: 300 mg Methylprednisolone (Solu-Medrol) 20 mg IVP Q8 [facility] Last Admin: 02/26/18 06:17 Dose: 20 mg Pantoprazole Sodium (Protonix Ec Tab) 40 mg PO 0600 [facility] Last Admin: 02/25/18 07:21 Dose: 40 mg Rivaroxaban (Xarelto) 20 mg PO DAILY [facility]; Protocol Last Admin: 02/25/18 09:59 Dose: 20 mg Sildenafil Citrate (Revatio) 20 mg PO TID [facility] Last Admin: 02/25/18 17:49 Dose: 20 mg - Labs Labs: 02/26/18 06:00 02/26/18 06:00 - Constitutional Appears: No Acute Distress, Older Than Stated Age - Head Exam Head Exam: ATRAUMATIC, NORMAL INSPECTION, NORMOCEPHALIC - Eye Exam Eye Exam: EOMI, PERRL - ENT Exam ENT Exam: Mucous Membranes Moist - Neck Exam Neck Exam: Full ROM - Respiratory Exam Respiratory Exam: Clear to Ausculation Bilateral, NORMAL BREATHING PATTERN - Cardiovascular Exam Cardiovascular Exam: REGULAR RHYTHM, +S1, +S2 - GI/Abdominal Exam GI & Abdominal Exam: Soft, Normal Bowel Sounds. 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 Plan: Bilateral leg pain - likely CHF rxacerbation with hx of L BKA - Echo show RV is severely dilated, RV systolic function is severely reduced, RA is severely dilated, severe TR, severe pulm HTN - Dopplers negative for DVT - Lasix 20 chagned to PO - Gabapentin 300 TID - PT recommending [facility] Shortness of breath - CHF vs COPD vs Pulm HTN - Duonebs q4 PRN - Brovana 15 mcg Q12H - Pulmicort .5 BID - Solumedrol 20 IV q8 - Sildenafil 29 mg PO TID LAYO - Continue BiPAP at night GI/DVT PPX: - Xarelto 20 - Protonix 40 Dispo: Patient has been denied by [facility] and at this point is unstable per PT recommendations, patient to continue rehab and strengthening to be stable for discharge to home, prognosis gaurded Case discussed with attending Dr. Gross <Placido Gross - Last Filed: 02/27/18 11:34> Objective - Vital Signs/Intake and Output Vital Signs (last 24 hours): Temp Pulse Resp BP Pulse Ox 97.8 F 76 21 128/82 93 L 02/27/18 05:38 02/27/18 05:38 02/27/18 05:38 02/27/18 09:18 02/27/18 05:38 Intake and Output: 02/27/18 02/27/18 06:59 18:59 Intake Total 1140 Output Total 2100 Balance -960 - Medications Medications: Current Medications Albuterol/Ipratropium (Duoneb 3 Mg/0.5 Mg (3 Ml) Ud) 3 ml IH [id number] PRN PRN Reason: Shortness of Breath Last Admin: 02/27/18 07:51 Dose: 3 ml Arformoterol Tartrate (Brovana) 15 mcg IH [id number] [facility] Last Admin: 02/27/18 07:51 Dose: 15 mcg Budesonide (Pulmicort Respules) 0.5 mg IH [id number] [facility] Last Admin: 02/27/18 07:51 Dose: 0.5 mg Doxycycline Hyclate (Doryx) 100 mg PO Q12 [facility]; Protocol Last Admin: 02/27/18 09:18 Dose: 100 mg Furosemide (Lasix) 40 mg PO BID [facility] Gabapentin (Neurontin) 300 mg PO TID [facility]; Protocol Last Admin: 02/27/18 09:19 Dose: 300 mg Pantoprazole Sodium (Protonix Ec Tab) 40 mg PO 0600 [facility] Last Admin: 02/27/18 05:35 Dose: 40 mg Prednisone (Prednisone Tab) 40 mg PO DAILY [facility] Stop: 03/01/18 10:01 Rivaroxaban (Xarelto) 20 mg PO DAILY [facility]; Protocol Last Admin: 02/27/18 09:19 Dose: 20 mg Sildenafil Citrate (Revatio) 20 mg PO TID [facility] Last Admin: 02/27/18 09:18 Dose: 20 mg - Labs Labs: 02/27/18 06:30 02/27/18 06:30 Attending/Attestation - Attestation I have personally seen and examined this patient.: Yes I have fully participated in the care of the patient.: Yes I have reviewed all pertinent clinical information, including history, physical exam and plan: Yes Notes (Text): 02/27/18 11:33 Medical record note made by the resident after discussion with my direction and input after the patient was personally seen and examined by me. I have reviewed the chart and agree that the record accurately reflects by personal performance of the history, physical exam, data review, and medical decision-making, in the course for the patient. I have also personally directed the plan of care. 42 year old female with PMH of chronic hypoxic Resp Failure on home oxygen, CH F with diastolic dysfunction, COPD, DVT/PE on xarelto, s/p left BKA, , LAYO on CPAP, pulmonary hypertension and non compliance with medication was admitted with leg pain, swelling of leg and worsening dyspnea, BNP was elevated 3350, She was found to have Acute on chronic hypoxic Resp Failure due to acute on chronic diastolic CHF/ mild COPD exacerbation. Patient has responded well to therapy, she is not wheezing, lung sound are clear, we will continue IV lasix, will change to oral in 24 hour.IV steroid can be changes to oral. Patient was evaluated by physical therapy and [facility] is recommended. Issue of compliance with medication and CPAP was discussed in detail with her. Management plan was discussed in detail with patient Education was provided.
[2018-02-26] MEDS: Sildenafil 20 MG TAB PO SCH ×3 (10:32→17:32)
[2018-02-27] MEDS: MethylPREDNISolone 40 mg Vial IVP SCH (05:34)
[2018-02-27] MEDS: Pantoprazole 40 mg EC Tab PO SCH (05:35)
[2018-02-27 07:08] LABS: ALB/GLOB RATIO 1.2 (1.1-1.8); ALBUMIN 3.6 g/dL (3.0-4.8); ALT/SGPT 35 U/L (7-56); AST/SGOT 32 U/L (14-36); BLOOD UREA NITROGEN 27 mg/dL (7-21); GFR NON-AFRICAN AMERICAN > 60
[2018-02-27 07:44] LABS: BASO # 0.04 K/mm3 (0.0-2.0); BASO % 0.6 % (0.0-3.0); GRAN % 86.2 % (50.0-68.0); LYMPH # 0.4 (1.2-3.4); MEAN CELL VOLUME 81.3 fl (80.0-105.0); MEAN CORPUSCULAR HEMOGLOBIN 25.2 pg (25.0-35.0); MEAN PLATELET VOLUME 10.4 fl (7.0-11.0); MONO # 0.6 (0.1-0.6); MONO % 8.2 % (1.0-6.0); PLATELET COUNT 369 10^3/uL (120.0-450.0); RBC 4.76 10^6/uL (3.5-6.1); RED CELL DISTRIBUTION WIDTH 19.7 % (11.5-14.5); WHITE BLOOD COUNT 7.1 10^3/uL (4.5-11.0)
[2018-02-27] MEDS: Budesonide 0.5 mg/2 ml Inhal Susp UD IH SCH ×2 (07:51→19:49)
[2018-02-27] MEDS: Arformoterol 15 mcg/2 ml Inh Sol IH SCH ×2 (07:51→19:49)
[2018-02-27] MEDS: Albuterol-Ipratrop 3 mg / 0.5 (3 ml) UD IH PRN (07:51)
[2018-02-27] MEDS: Sildenafil 20 MG TAB PO SCH ×3 (09:18→17:44)
--- NOTE | 2018-02-27 09:55 | CP.PCM.PN ---
<Lisa Begum L - Last Filed: 02/27/18 13:24> Subjective - Date & Time of Evaluation Date of Evaluation: 02/27/18 Time of Evaluation: 07:00 - Subjective Subjective: Resident Progress Note for Hospitalist Service Patient examined at bedside. No acute events overnight. Patient is resting comfortably with no signs of respiratory distress. Patient states that her right arm has increased swelling compared to prior, however she denies any pain. Offers no other complaints. Denies fevers, chills, shortness of breath, chest pain, abdominal pain. Objective - Vital Signs/Intake and Output Vital Signs (last 24 hours): Temp Pulse Resp BP Pulse Ox 97.8 F 76 21 128/82 93 L 02/27/18 05:38 02/27/18 05:38 02/27/18 05:38 02/27/18 09:18 02/27/18 05:38 Intake and Output: 02/27/18 02/27/18 06:59 18:59 Intake Total 1140 Output Total 2100 Balance -960 - Medications Medications: Current Medications Albuterol/Ipratropium (Duoneb 3 Mg/0.5 Mg (3 Ml) Ud) 3 ml IH [id number] PRN PRN Reason: Shortness of Breath Last Admin: 02/27/18 07:51 Dose: 3 ml Arformoterol Tartrate (Brovana) 15 mcg IH [id number] [facility] Last Admin: 02/27/18 07:51 Dose: 15 mcg Budesonide (Pulmicort Respules) 0.5 mg IH [id number] [facility] Last Admin: 02/27/18 07:51 Dose: 0.5 mg Doxycycline Hyclate (Doryx) 100 mg PO Q12 [facility]; Protocol Last Admin: 02/27/18 09:18 Dose: 100 mg Furosemide (Lasix) 40 mg PO BID [facility] Gabapentin (Neurontin) 300 mg PO TID [facility]; Protocol Last Admin: 02/27/18 09:19 Dose: 300 mg Pantoprazole Sodium (Protonix Ec Tab) 40 mg PO 0600 [facility] Last Admin: 02/27/18 05:35 Dose: 40 mg Prednisone (Prednisone Tab) 40 mg PO DAILY [facility] Stop: 03/01/18 10:01 Rivaroxaban (Xarelto) 20 mg PO DAILY [facility]; Protocol Last Admin: 02/27/18 09:19 Dose: 20 mg Sildenafil Citrate (Revatio) 20 mg PO TID [facility] Last Admin: 02/27/18 09:18 Dose: 20 mg - Labs Labs: 02/27/18 06:30 02/27/18 06:30 - Additional Findings Additional findings: - Head Exam Head Exam: ATRAUMATIC, NORMOCEPHALIC - Eye Exam Eye Exam: EOMI, Normal Appearance - ENT Exam ENT Exam: Mucous Membranes Moist - Neck Exam Neck Exam: Full ROM - Respiratory Exam Respiratory Exam: Clear to Auscultation Bilateral, NORMAL BREATHING PATTERN - Cardiovascular Exam Cardiovascular Exam: REGULAR RHYTHM, +S1, +S2 - GI/Abdominal Exam GI & Abdominal Exam: Soft, Normal Bowel Sounds. 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 Plan: Bilateral leg pain - likely CHF rxacerbation with hx of L BKA - Echo show RV is severely dilated, RV systolic function is severely reduced, RA is severely dilated, severe TR, severe pulm HTN - Dopplers negative for DVT - Lasix 40 mg PO BID - Gabapentin 300 TID - PT recommending [facility] Shortness of breath - CHF vs COPD vs Pulm HTN - Duonebs q4H PRN - Brovana 15 mcg Q12H - Pulmicort .5 mg BID - Prednisone 40 mg PO daily - Sildenafil 29 mg PO TID RUE swelling - Afebrile, no leukocytosis - Dopplers to r/o DVT LAYO - Continue BiPAP at night GI/DVT PPX: - Xarelto 20 mg PO daily - Protonix 40 mg PO daily Dispo: Patient has been denied by [facility] and at this point is unstable per PT recommendations, patient to continue rehab and strengthening to be stable for discharge to home. Case discussed with attending Dr. Renato Begum PGY-1 <Placido Gross - Last Filed: 02/28/18 13:28> Objective - Vital Signs/Intake and Output Vital Signs (last 24 hours): Temp Pulse Resp BP Pulse Ox 98.6 F 75 20 98/60 L 95 02/28/18 06:00 02/28/18 06:00 02/28/18 06:00 02/28/18 09:23 02/28/18 06:00 Intake and Output: 02/28/18 02/28/18 06:59 18:59 Intake Total 1980 Output Total 5550 Balance -3570 - Medications Medications: Current Medications Albuterol/Ipratropium (Duoneb 3 Mg/0.5 Mg (3 Ml) Ud) 3 ml IH [id number] PRN PRN Reason: Shortness of Breath Last Admin: 02/28/18 08:14 Dose: 3 ml Arformoterol Tartrate (Brovana) 15 mcg IH [id number] [facility] Last Admin: 02/28/18 08:14 Dose: 15 mcg Budesonide (Pulmicort Respules) 0.5 mg IH [id number] [facility] Last Admin: 02/28/18 08:14 Dose: 0.5 mg Doxycycline Hyclate (Doryx) 100 mg PO Q12 [facility]; Protocol Last Admin: 02/28/18 09:24 Dose: 100 mg Furosemide (Lasix) 40 mg PO BID [facility] Last Admin: 02/28/18 09:23 Dose: 40 mg Gabapentin (Neurontin) 300 mg PO TID [facility]; Protocol Last Admin: 02/28/18 09:23 Dose: 300 mg Pantoprazole Sodium (Protonix Ec Tab) 40 mg PO 0600 [facility] Last Admin: 02/28/18 05:08 Dose: 40 mg Prednisone (Prednisone Tab) 40 mg PO DAILY [facility] Stop: 03/01/18 10:01 Last Admin: 02/28/18 09:24 Dose: 40 mg Rivaroxaban (Xarelto) 20 mg PO DAILY [facility]; Protocol Last Admin: 02/28/18 09:23 Dose: 20 mg Sildenafil Citrate (Revatio) 20 mg PO TID [facility] Last Admin: 02/28/18 09:24 Dose: 20 mg - Labs Labs: 02/28/18 07:00 02/28/18 07:00 Attending/Attestation - Attestation I have personally seen and examined this patient.: Yes I have fully participated in the care of the patient.: Yes I have reviewed all pertinent clinical information, including history, physical exam and plan: Yes
[2018-02-27 11:55] LABS: LYMPHOCYTE 7 % (22.0-35.0); MONOCYTE 3 % (1.0-6.0); MYELOCYTE 1 %; NEUTROPHIL 89 % (50.0-70.0); PLATELET ESTIMATE NORMAL (NORMAL)
--- NOTE | 2018-02-27 22:21 | US ---
PROCEDURE: Right upper extremity venous US CLINICAL HISTORY: Arm pain and swelling Evaluate for deep venous thrombosis. PHYSICIAN(S): Farshad Garcia M.D FINDINGS: The visualized rightinternal jugular vein is sonographically normal and compressible. No evidence of obstruction or thrombus is seen. The visualized segments of the right subclavian vein are patent with normal waveforms. No sonographic evidence of obstruction or thrombosis is seen. The visualized deep venous system of the proximal right upper extremity is sonographically normal and compressible. IMPRESSION: 1. No sonographic evidence for deep venous thrombosis in the visualized segments of the right upper extremity.
[2018-02-28] MEDS: Pantoprazole 40 mg EC Tab PO SCH (05:08)
[2018-02-28 08:07] LABS: GRAN # 7.51 (1.4-6.5); GRAN % 78.3 % (50.0-68.0); HEMOGLOBIN 11.6 g/dL (12.0-16.0); LYMPH # 1.7 (1.2-3.4); LYMPH % 17.2 % (22.0-35.0); MEAN CELL VOLUME 81.3 fl (80.0-105.0); MEAN CORPUSCULAR HEMOGLOBIN 24.6 pg (25.0-35.0); MEAN CORPUSCULAR HGB CONC 30.3 g/dl (31.0-37.0); MONO # 0.4 (0.1-0.6); MONO % 4.5 % (1.0-6.0); RBC 4.71 10^6/uL (3.5-6.1); RED CELL DISTRIBUTION WIDTH 18.4 % (11.5-14.5); WHITE BLOOD COUNT 9.6 10^3/uL (4.5-11.0)
[2018-02-28] MEDS: Arformoterol 15 mcg/2 ml Inh Sol IH SCH ×2 (08:14→19:41)
[2018-02-28] MEDS: Budesonide 0.5 mg/2 ml Inhal Susp UD IH SCH ×2 (08:14→19:41)
[2018-02-28] MEDS: Albuterol-Ipratrop 3 mg / 0.5 (3 ml) UD IH PRN (08:14)
[2018-02-28 09:14] LABS: ALB/GLOB RATIO 1.1 (1.1-1.8); ALBUMIN 3.4 g/dL (3.0-4.8); ALT/SGPT 38 U/L (7-56); AST/SGOT 36 U/L (14-36); BLOOD UREA NITROGEN 26 mg/dL (7-21); GFR NON-AFRICAN AMERICAN > 60
[2018-02-28] MEDS: Sildenafil 20 MG TAB PO SCH ×3 (09:24→18:17)
--- NOTE | 2018-02-28 10:19 | CP.PCM.PN ---
<Vitaliy Benitez - Last Filed: 02/28/18 11:23> Subjective - Date & Time of Evaluation Date of Evaluation: 02/28/18 Time of Evaluation: 10:16 - Subjective Subjective: Walter Benitez PGY2 - Progress Note for Hospitalist Service Patient seen and examined this AM. No acute events reported overnight. Patient complains of left leg neuropathic pain. Patient denies chest pain, shortness of breath, abdominal pain, nausea, vomiting, fever, chills. Objective - Vital Signs/Intake and Output Vital Signs (last 24 hours): Temp Pulse Resp BP Pulse Ox 98.6 F 75 20 98/60 L 95 02/28/18 06:00 02/28/18 06:00 02/28/18 06:00 02/28/18 09:23 02/28/18 06:00 Intake and Output: 02/28/18 02/28/18 06:59 18:59 Intake Total 1980 Output Total 5550 Balance -3570 - Medications Medications: Current Medications Albuterol/Ipratropium (Duoneb 3 Mg/0.5 Mg (3 Ml) Ud) 3 ml IH [id number] PRN PRN Reason: Shortness of Breath Last Admin: 02/28/18 08:14 Dose: 3 ml Arformoterol Tartrate (Brovana) 15 mcg IH [id number] [facility] Last Admin: 02/28/18 08:14 Dose: 15 mcg Budesonide (Pulmicort Respules) 0.5 mg IH [id number] [facility] Last Admin: 02/28/18 08:14 Dose: 0.5 mg Doxycycline Hyclate (Doryx) 100 mg PO Q12 [facility]; Protocol Last Admin: 02/28/18 09:24 Dose: 100 mg Furosemide (Lasix) 40 mg PO BID [facility] Last Admin: 02/28/18 09:23 Dose: 40 mg Gabapentin (Neurontin) 300 mg PO TID [facility]; Protocol Last Admin: 02/28/18 09:23 Dose: 300 mg Pantoprazole Sodium (Protonix Ec Tab) 40 mg PO 0600 [facility] Last Admin: 02/28/18 05:08 Dose: 40 mg Prednisone (Prednisone Tab) 40 mg PO DAILY [facility] Stop: 03/01/18 10:01 Last Admin: 02/28/18 09:24 Dose: 40 mg Rivaroxaban (Xarelto) 20 mg PO DAILY [facility]; Protocol Last Admin: 02/28/18 09:23 Dose: 20 mg Sildenafil Citrate (Revatio) 20 mg PO TID [facility] Last Admin: 02/28/18 09:24 Dose: 20 mg - Labs Labs: 02/28/18 07:00 02/28/18 07:00 - Constitutional Appears: No Acute Distress - Head Exam Head Exam: ATRAUMATIC, NORMOCEPHALIC - Eye Exam Eye Exam: EOMI, PERRL - ENT Exam ENT Exam: Mucous Membranes Moist - Neck Exam Neck Exam: Full ROM - Respiratory Exam Respiratory Exam: Clear to Ausculation Bilateral, NORMAL BREATHING PATTERN. absent: Rhonchi, Wheezes - Cardiovascular Exam Cardiovascular Exam: REGULAR RHYTHM, +S1, +S2 - GI/Abdominal Exam GI & Abdominal Exam: Soft, Normal Bowel Sounds. 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 Plan: Bilateral leg pain - Echo show RV is severely dilated, RV systolic function is severely reduced, RA is severely dilated, severe TR, severe pulm HTN - Dopplers negative for DVT - Lasix 40 mg PO BID - Gabapentin 300 TID - PT recommending [facility] Shortness of breath - CHF vs COPD vs Pulm HTN - Duonebs q4H PRN - Brovana 15 mcg Q12H - Pulmicort .5 mg BID - Prednisone 40 mg PO daily - Sildenafil 29 mg PO TID RUE swelling - Afebrile, no leukocytosis - Dopplers to r/o DVT LAYO - Continue BiPAP at night GI/DVT PPX: - Xarelto 20 mg PO daily - Protonix 40 mg PO daily Dispo: Patient has been denied by [facility] and at this point is unstable per PT recommendations, patient to continue rehab and strengthening to be stable for discharge to home. Patient seen, case and plan discussed with attending, Dr. Gross <Placido Gross - Last Filed: 02/28/18 13:28> Objective - Vital Signs/Intake and Output Vital Signs (last 24 hours): Temp Pulse Resp BP Pulse Ox 98.6 F 75 20 98/60 L 95 02/28/18 06:00 02/28/18 06:00 02/28/18 06:00 02/28/18 09:23 02/28/18 06:00 Intake and Output: 02/28/18 02/28/18 06:59 18:59 Intake Total 1980 Output Total 5550 Balance -3570 - Medications Medications: Current Medications Albuterol/Ipratropium (Duoneb 3 Mg/0.5 Mg (3 Ml) Ud) 3 ml IH [id number] PRN PRN Reason: Shortness of Breath Last Admin: 02/28/18 08:14 Dose: 3 ml Arformoterol Tartrate (Brovana) 15 mcg IH [id number] [facility] Last Admin: 02/28/18 08:14 Dose: 15 mcg Budesonide (Pulmicort Respules) 0.5 mg IH [id number] [facility] Last Admin: 02/28/18 08:14 Dose: 0.5 mg Doxycycline Hyclate (Doryx) 100 mg PO Q12 [facility]; Protocol Last Admin: 02/28/18 09:24 Dose: 100 mg Furosemide (Lasix) 40 mg PO BID [facility] Last Admin: 02/28/18 09:23 Dose: 40 mg Gabapentin (Neurontin) 300 mg PO TID [facility]; Protocol Last Admin: 02/28/18 09:23 Dose: 300 mg Pantoprazole Sodium (Protonix Ec Tab) 40 mg PO 0600 [facility] Last Admin: 02/28/18 05:08 Dose: 40 mg Prednisone (Prednisone Tab) 40 mg PO DAILY [facility] Stop: 03/01/18 10:01 Last Admin: 02/28/18 09:24 Dose: 40 mg Rivaroxaban (Xarelto) 20 mg PO DAILY [facility]; Protocol Last Admin: 02/28/18 09:23 Dose: 20 mg Sildenafil Citrate (Revatio) 20 mg PO TID [facility] Last Admin: 02/28/18 09:24 Dose: 20 mg - Labs Labs: 02/28/18 07:00 02/28/18 07:00 Attending/Attestation - Attestation I have personally seen and examined this patient.: Yes I have fully participated in the care of the patient.: Yes I have reviewed all pertinent clinical information, including history, physical exam and plan: Yes Notes (Text): 02/28/18 13:25 Medical record note made by the resident after discussion with my direction and input after the patient was personally seen and examined by me. I have reviewed the chart and agree that the record accurately reflects by personal performance of the history, physical exam, data review, and medical decision-making, in the course for the patient. I have also personally directed the plan of care. 42 year old female with PMH of chronic hypoxic Resp Failure on home oxygen, CHF with diastolic dysfunction, COPD, DVT/PE on xarelto, s/p left BKA, , LAYO on CPAP, pulmonary hypertension and non compliance with medication was admitted with leg pain, swelling of leg and worsening dyspnea, BNP was elevated 3350, She was found to have Acute on chronic hypoxic Resp Failure due to acute on chronic diastolic CHF/ mild COPD exacerbation. Patient has responded well to therapy, she is not wheezing, lung sound are clear, still has leg edema but is improving, now on oral lasix, and PO steroid. Patient was evaluated by physical therapy and [facility] is recommended.Insurance has denied, Patient is awaiting placement. Prognosis is guarded due to non compliance. Management plan was discussed in detail with patient. Education was provided.
[2018-03-01] MEDS: Budesonide 0.5 mg/2 ml Inhal Susp UD IH SCH ×2 (07:34→20:25)
[2018-03-01] MEDS: Arformoterol 15 mcg/2 ml Inh Sol IH SCH ×2 (07:34→20:25)
--- NOTE | 2018-03-01 08:56 | CP.PCM.PN ---
<Wilmer Santo - Last Filed: 03/01/18 15:21> Subjective - Date & Time of Evaluation Date of Evaluation: 03/01/18 Time of Evaluation: 07:45 - Subjective Subjective: Wilmer Santo PGY-1 Progress Note for Hospitalist Service Patient seen and examined this AM. No acute events reported overnight. Resting comfortably. Patient complains of left leg neuropathic pain. Patient denies chest pain, shortness of breath, abdominal pain, nausea, vomiting, fever, chills. Objective - Vital Signs/Intake and Output Vital Signs (last 24 hours): Temp Pulse Resp BP Pulse Ox 97.8 F 84 20 109/66 93 L 03/01/18 08:22 03/01/18 08:22 03/01/18 08:22 03/01/18 08:22 03/01/18 08:22 - Medications Medications: Current Medications Albuterol/Ipratropium (Duoneb 3 Mg/0.5 Mg (3 Ml) Ud) 3 ml IH [id number] PRN PRN Reason: Shortness of Breath Last Admin: 02/28/18 08:14 Dose: 3 ml Arformoterol Tartrate (Brovana) 15 mcg IH [id number] [facility] Last Admin: 03/01/18 07:34 Dose: 15 mcg Budesonide (Pulmicort Respules) 0.5 mg IH [id number] [facility] Last Admin: 03/01/18 07:34 Dose: 0.5 mg Doxycycline Hyclate (Doryx) 100 mg PO Q12 [facility]; Protocol Last Admin: 02/28/18 21:46 Dose: 100 mg Furosemide (Lasix) 40 mg PO BID [facility] Last Admin: 02/28/18 18:17 Dose: 40 mg Gabapentin (Neurontin) 300 mg PO TID [facility]; Protocol Last Admin: 02/28/18 18:17 Dose: 300 mg Pantoprazole Sodium (Protonix Ec Tab) 40 mg PO 0600 [facility] Last Admin: 02/28/18 05:08 Dose: 40 mg Prednisone (Prednisone Tab) 40 mg PO DAILY [facility] Stop: 03/01/18 10:01 Last Admin: 02/28/18 09:24 Dose: 40 mg Rivaroxaban (Xarelto) 20 mg PO DAILY [facility]; Protocol Last Admin: 02/28/18 09:23 Dose: 20 mg Sildenafil Citrate (Revatio) 20 mg PO TID [facility] Last Admin: 02/28/18 18:17 Dose: 20 mg - Labs Labs: 02/28/18 07:00 02/28/18 07:00 - Additional Findings Additional findings: - Constitutional Appears: No Acute Distress - Head Exam Head Exam: ATRAUMATIC, NORMOCEPHALIC - Eye Exam Eye Exam: EOMI, PERRL - ENT Exam ENT Exam: Mucous Membranes Moist - Neck Exam Neck Exam: Full ROM - Respiratory Exam Respiratory Exam: Clear to Ausculation Bilateral, NORMAL BREATHING PATTERN. absent: Rhonchi, Wheezes - Cardiovascular Exam Cardiovascular Exam: REGULAR RHYTHM, +S1, +S2 - GI/Abdominal Exam GI & Abdominal Exam: Obesity, Soft, Normal Bowel Sounds. 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 Plan: Bilateral leg pain - Echo show RV is severely dilated, RV systolic function is severely reduced, RA is severely dilated, severe TR, severe pulm HTN - Dopplers negative for DVT - Lasix 40 mg PO BID - Gabapentin 300 TID - PT recommending [facility]. Stating patient not at baseline. F/u recs Shortness of breath - CHF vs COPD vs Pulm HTN - Duonebs q4H PRN - Brovana 15 mcg Q12H - Pulmicort .5 mg BID - Prednisone 40 mg PO daily - Sildenafil 29 mg PO TID RUE swelling - Afebrile, no leukocytosis - Dopplers to r/o DVT LAYO - Continue BiPAP at night GI/DVT PPX: - Xarelto 20 mg PO daily - Protonix 40 mg PO daily Dispo: At this point is unstable per PT recommendations, patient to continue rehab and strengthening to be stable for discharge. Patient seen, case reviewed and plan approved with Dr. Carrington. Wilmer Santo, PGY-1 <Jenn Carrington - Last Filed: 03/01/18 15:50> Objective - Vital Signs/Intake and Output Vital Signs (last 24 hours): Temp Pulse Resp BP Pulse Ox 97.8 F 84 20 109/66 93 L 03/01/18 08:22 03/01/18 08:22 03/01/18 08:22 03/01/18 11:15 03/01/18 08:22 - Medications Medications: Current Medications Albuterol/Ipratropium (Duoneb 3 Mg/0.5 Mg (3 Ml) Ud) 3 ml IH [id number] PRN PRN Reason: Shortness of Breath Last Admin: 02/28/18 08:14 Dose: 3 ml Arformoterol Tartrate (Brovana) 15 mcg IH [id number] [facility] Last Admin: 03/01/18 07:34 Dose: 15 mcg Budesonide (Pulmicort Respules) 0.5 mg IH [id number] [facility] Last Admin: 03/01/18 07:34 Dose: 0.5 mg Doxycycline Hyclate (Doryx) 100 mg PO Q12 [facility]; Protocol Last Admin: 03/01/18 11:14 Dose: 100 mg Furosemide (Lasix) 40 mg PO BID [facility] Last Admin: 03/01/18 11:15 Dose: 40 mg Gabapentin (Neurontin) 300 mg PO TID [facility]; Protocol Last Admin: 03/01/18 15:16 Dose: 300 mg Pantoprazole Sodium (Protonix Ec Tab) 40 mg PO 0600 [facility] Last Admin: 03/01/18 11:16 Dose: 40 mg Rivaroxaban (Xarelto) 20 mg PO DAILY [facility]; Protocol Last Admin: 03/01/18 11:16 Dose: 20 mg Sildenafil Citrate (Revatio) 20 mg PO TID [facility] Last Admin: 03/01/18 15:16 Dose: 20 mg - Labs Labs: 02/28/18 07:00 02/28/18 07:00 Attending/Attestation - Attestation I have personally seen and examined this patient.: Yes I have fully participated in the care of the patient.: Yes I have reviewed all pertinent clinical information, including history, physical exam and plan: Yes Notes (Text): 03/01/18 15:47 42 year old female with past medical history of COPD, diastolic CHF, DVT/PE on xarelto, LAYO and left BKA who presented with complaint of shortness of breath and LE edema. She was admitted for acute on chronic hypoxic respiratory failure secondary to diastolic CHF / COPD exacerbation. She is currently on po lasix bid and po steroids. Currently she is still weak and deconditioned and PT is still recommending [facility] which was initially denied by insurance. Will discuss with mental health case manager. Patient was counselled on medication compliance. Jenn Carrington MD Hospitalist.
[2018-03-01] MEDS: Sildenafil 20 MG TAB PO SCH ×3 (11:16→17:43)
[2018-03-01] MEDS: Pantoprazole 40 mg EC Tab PO SCH (11:16)
--- NOTE | 2018-03-01 18:36 | RAD ---
HISTORY: Hemoptysis COMPARISON: Chest x-ray performed 02/23/18 TECHNIQUE: Chest, one view. FINDINGS: LUNGS: Mild pulmonary venous congestion. No focal consolidation. Please note that chest x-ray has limited sensitivity for the detection of pulmonary masses. PLEURA: No significant pleural effusion identified. No definite pneumothorax . CARDIOVASCULAR: Marked cardiomegaly. No significant atherosclerotic calcification present. OSSEOUS STRUCTURES: No acute osseous abnormality identified. VISUALIZED UPPER ABDOMEN: Unremarkable. OTHER FINDINGS: None. IMPRESSION: Marked cardiomegaly. Mild pulmonary venous congestion.
[2018-03-01 18:57] LABS: HEMOGLOBIN 12.1 g/dL (12.0-16.0); MEAN CELL VOLUME 81.4 fl (80.0-105.0); MEAN CORPUSCULAR HEMOGLOBIN 25.3 pg (25.0-35.0); MEAN CORPUSCULAR HGB CONC 31.1 g/dl (31.0-37.0); MEAN PLATELET VOLUME 9.5 fl (7.0-11.0); RBC 4.78 10^6/uL (3.5-6.1); RED CELL DISTRIBUTION WIDTH 18.3 % (11.5-14.5); WHITE BLOOD COUNT 12.7 10^3/uL (4.5-11.0)
[2018-03-01 19:02] LABS: INR 3.05; PARTIAL THROMBOPLASTIN TIME 32.1 Seconds (25.1-36.5); PROTHROMBIN TIME 35.6 SECONDS (9.4-12.5)
[2018-03-02 00:01] LABS: HEMOGLOBIN 11.7 g/dL (12.0-16.0); MEAN CELL VOLUME 81.3 fl (80.0-105.0); MEAN CORPUSCULAR HEMOGLOBIN 25.2 pg (25.0-35.0); RBC 4.64 10^6/uL (3.5-6.1); RED CELL DISTRIBUTION WIDTH 18.5 % (11.5-14.5); WHITE BLOOD COUNT 12.4 10^3/uL (4.5-11.0)
[2018-03-02] MEDS: Pantoprazole 40 mg EC Tab PO SCH (05:20)
[2018-03-02 06:54] LABS: HEMOGLOBIN 11.9 g/dL (12.0-16.0); MEAN CELL VOLUME 81.7 fl (80.0-105.0); MEAN CORPUSCULAR HGB CONC 30.6 g/dl (31.0-37.0); MEAN PLATELET VOLUME 9.7 fl (7.0-11.0); RBC 4.76 10^6/uL (3.5-6.1); RED CELL DISTRIBUTION WIDTH 18.5 % (11.5-14.5); WHITE BLOOD COUNT 14.1 10^3/uL (4.5-11.0)
[2018-03-02] MEDS: Budesonide 0.5 mg/2 ml Inhal Susp UD IH SCH ×2 (07:28→20:11)
[2018-03-02] MEDS: Arformoterol 15 mcg/2 ml Inh Sol IH SCH ×2 (07:28→20:11)
[2018-03-02 10:16] LABS: BLOOD UREA NITROGEN 28 mg/dL (7-21); GFR NON-AFRICAN AMERICAN 55
[2018-03-02 10:17] LABS: ALB/GLOB RATIO 1.2 (1.1-1.8); ALBUMIN 3.5 g/dL (3.0-4.8); ALT/SGPT 46 U/L (7-56); AST/SGOT 27 U/L (14-36)
[2018-03-02] MEDS: Sildenafil 20 MG TAB PO SCH ×3 (11:03→20:24)
[2018-03-02 11:58] LABS: HEMOGLOBIN 12.1 g/dL (12.0-16.0); MEAN CELL VOLUME 82.4 fl (80.0-105.0); MEAN CORPUSCULAR HEMOGLOBIN 25.4 pg (25.0-35.0); RBC 4.77 10^6/uL (3.5-6.1); WHITE BLOOD COUNT 14.3 10^3/uL (4.5-11.0)
[2018-03-02 11:59] LABS: MEAN CORPUSCULAR HGB CONC 30.8 g/dl (31.0-37.0); MEAN PLATELET VOLUME 10.4 fl (7.0-11.0); RED CELL DISTRIBUTION WIDTH 20.1 % (11.5-14.5)
--- NOTE | 2018-03-02 13:29 | CP.PCM.PN ---
<Wilmer Santo - Last Filed: 03/02/18 13:39> Subjective - Date & Time of Evaluation Date of Evaluation: 03/02/18 Time of Evaluation: 07:45 - Subjective Subjective: Wilmer Santo PGY-1 Progress Note for Hospitalist Service Patient seen and examined this AM. One episode of hemoptysis early yesterday evening. No dizziness or blurry vision at that time. Patient complains of left leg neuropathic pain. Patient denies chest pain, shortness of breath, abdominal pain, nausea, vomiting, fever, chills. Objective - Vital Signs/Intake and Output Vital Signs (last 24 hours): Temp Pulse Resp BP Pulse Ox 98 F 86 20 115/65 92 L 03/02/18 09:06 03/02/18 09:06 03/02/18 09:06 03/02/18 11:02 03/02/18 09:06 - Medications Medications: Current Medications Albuterol/Ipratropium (Duoneb 3 Mg/0.5 Mg (3 Ml) Ud) 3 ml IH [id number] PRN PRN Reason: Shortness of Breath Last Admin: 02/28/18 08:14 Dose: 3 ml Arformoterol Tartrate (Brovana) 15 mcg IH [id number] [facility] Last Admin: 03/02/18 07:28 Dose: 15 mcg Budesonide (Pulmicort Respules) 0.5 mg IH [id number] [facility] Last Admin: 03/02/18 07:28 Dose: 0.5 mg Furosemide (Lasix) 40 mg PO BID [facility] Last Admin: 03/02/18 11:02 Dose: 40 mg Gabapentin (Neurontin) 300 mg PO TID [facility]; Protocol Last Admin: 03/02/18 11:03 Dose: 300 mg Pantoprazole Sodium (Protonix Ec Tab) 40 mg PO 0600 [facility] Last Admin: 03/02/18 05:20 Dose: 40 mg Rivaroxaban (Xarelto) 20 mg PO DAILY [facility]; Protocol Last Admin: 03/01/18 11:16 Dose: 20 mg Sildenafil Citrate (Revatio) 20 mg PO TID [facility] Last Admin: 03/02/18 11:03 Dose: 20 mg - Labs Labs: 03/02/18 11:26 03/02/18 08:00 PT 35.6 SECONDS (9.4-12.5) H 12/03/18 18:48 INR 3.05 03/01/18 18:48 APTT 32.1 Seconds (25.1-36.5) 03/01/18 18:48 - Additional Findings Additional findings: - Constitutional Appears: No Acute Distress - Head Exam Head Exam: ATRAUMATIC, NORMOCEPHALIC - Eye Exam Eye Exam: EOMI, PERRL - ENT Exam ENT Exam: Mucous Membranes Moist - Neck Exam Neck Exam: Full ROM - Respiratory Exam Respiratory Exam: Clear to Ausculation Bilateral, NORMAL BREATHING PATTERN. absent: Rhonchi, Wheezes - Cardiovascular Exam Cardiovascular Exam: REGULAR RHYTHM, +S1, +S2 - GI/Abdominal Exam GI & Abdominal Exam: Obesity, Soft, Normal Bowel Sounds. 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 Plan: Hemoptysis single episode yesterday afternoon, contained in palm if handful, no further episodes since Hgb has remained stable continue to monitor Pulm consult - Dr. Clark - recs appreciated Bilateral leg pain - Echo show RV is severely dilated, RV systolic function is severely reduced, RA is severely dilated, severe TR, severe pulm HTN - Dopplers negative for DVT - Lasix 40 mg PO BID - Gabapentin 300 TID - PT recommending [facility]. Stating patient not at baseline. F/u recs Shortness of breath - CHF vs COPD vs Pulm HTN - Duonebs q4H PRN - Brovana 15 mcg Q12H - Pulmicort .5 mg BID - Prednisone 40 mg PO daily - Sildenafil 29 mg PO TID RUE swelling - Afebrile, no leukocytosis - Dopplers to r/o DVT LAYO - BiPAP at night GI/DVT PPX: - Xarelto 20 mg PO daily - Protonix 40 mg PO daily Dispo: At this point is unstable per PT recommendations, patient to continue rehab and strengthening. Per SW, will go home if not candidate for [facility], open to [facility] Patient seen, case reviewed and plan approved with Dr. Carrington. Wilmer Santo, PGY-1 <Jenn Carrington - Last Filed: 03/02/18 14:49> Objective - Vital Signs/Intake and Output Vital Signs (last 24 hours): Temp Pulse Resp BP Pulse Ox 98 F 86 20 115/65 92 L 03/02/18 09:06 03/02/18 09:06 03/02/18 09:06 03/02/18 11:02 03/02/18 09:06 - Medications Medications: Current Medications Albuterol/Ipratropium (Duoneb 3 Mg/0.5 Mg (3 Ml) Ud) 3 ml IH [id number] PRN PRN Reason: Shortness of Breath Last Admin: 02/28/18 08:14 Dose: 3 ml Arformoterol Tartrate (Brovana) 15 mcg IH [id number] [facility] Last Admin: 03/02/18 07:28 Dose: 15 mcg Budesonide (Pulmicort Respules) 0.5 mg IH [id number] [facility] Last Admin: 03/02/18 07:28 Dose: 0.5 mg Furosemide (Lasix) 40 mg PO BID [facility] Last Admin: 03/02/18 11:02 Dose: 40 mg Gabapentin (Neurontin) 300 mg PO TID [facility]; Protocol Last Admin: 03/02/18 11:03 Dose: 300 mg Pantoprazole Sodium (Protonix Ec Tab) 40 mg PO 0600 [facility] Last Admin: 03/02/18 05:20 Dose: 40 mg Rivaroxaban (Xarelto) 20 mg PO DAILY [facility]; Protocol Last Admin: 03/01/18 11:16 Dose: 20 mg Sildenafil Citrate (Revatio) 20 mg PO TID [facility] Last Admin: 03/02/18 11:03 Dose: 20 mg - Labs Labs: 03/02/18 11:26 03/02/18 08:00 PT 35.6 SECONDS (9.4-12.5) H 03/01/18 18:48 INR 3.05 03/01/18 18:48 APTT 32.1 Seconds (25.1-36.5) 03/01/18 18:48 Attending/Attestation - Attestation I have personally seen and examined this patient.: Yes I have fully participated in the care of the patient.: Yes I have reviewed all pertinent clinical information, including history, physical exam and plan: Yes Notes (Text): 03/02/18 14:46 42 year old female with past medical history of COPD, diastolic CHF, DVT/PE on xarelto, LAYO and left BKA who presented with complaint of shortness of breath and LE edema. She was admitted for acute on chronic hypoxic respiratory failure secondary to diastolic CHF / COPD exacerbation. She is currently on po lasix bid and po steroids. Yesterday evening she had episode of hemoptysis. Xarelto was held. H/H has been stable. Pulmonary evaluation was appreciated who agrees with holding anticoagulation for now; recommended to obtain CT chest to rule out PE. Will replete and repeat potassium. PT has been recommending [facility] which is denied by insurance. Will follow up with CMx/Sw. Patient was counselled on medication compliance. Jenn Carrington MD Hospitalist.
--- NOTE | 2018-03-02 14:30 | CP.PCM.CON ---
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 Pt has had an extensive hospital stay. Pt yesterday developed 3-4 episodes of hemoptysis, characterized by coughing up blood into a tissue, cannot quantify definitevely how much, stating "it was tissue tinged with blood" Pt denies fever, chills, cough, chest pain, sob, palpitations, nose bleeds. No other constitutional symptoms. No further episodes of hemoptysis today. 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, COPD on 4L home O2, LAYO w/ CPAP, HFpEF Pshx: , BKA 2015 All: NKDA Social: Quit smoking 2 yrs ago, previous hx of [id number] years, social drinker 1-2 beers/month, denies illicit drug use Fam: Mom: HTN, Dad: Clotting disorder Review of Systems - Review of Systems Review of Systems: as per HPI Past Patient History - Infectious Disease Hx of Infectious Diseases: None - Past Social History Smoking Status: Former Smoker - CARDIAC Hx Cardiac Disorders: Yes Hx Congestive Heart Failure: Yes Hx Peripheral Edema: Yes - PULMONARY Hx Respiratory Disorders: Yes Hx Chronic Obstructive Pulmonary Disease (COPD): Yes Hx Pulmonary Embolism: Yes - NEUROLOGICAL Hx Neurological Disorder: No - HEENT Hx HEENT Problems: No - RENAL Hx Chronic Kidney Disease: No - ENDOCRINE/METABOLIC Hx Endocrine Disorders: No - HEMATOLOGICAL/ONCOLOGICAL Hx Blood Disorders: Yes Other/Comment: DVT - INTEGUMENTARY Hx Dermatological Problems: No - MUSCULOSKELETAL/RHEUMATOLOGICAL Hx Musculoskeletal Disorders: No - GASTROINTESTINAL Hx Gastrointestinal Disorders: Yes Hx Gastroesophageal Reflux: Yes - GENITOURINARY/GYNECOLOGICAL Hx Genitourinary Disorders: No - PSYCHIATRIC Hx Psychophysiologic Disorder: No Hx Substance Use: No - SURGICAL HISTORY Other/Comment: C-section, L. BKA Meds Allergies/Adverse Reactions: Allergies Allergy/AdvReac Type Severity Reaction Status Date / Time No Known Allergies Allergy Verified 02/23/18 18:11 - Medications Medications: Current Medications Albuterol/Ipratropium (Duoneb 3 Mg/0.5 Mg (3 Ml) Ud) 3 ml IH [id number] PRN PRN Reason: Shortness of Breath Last Admin: 02/28/18 08:14 Dose: 3 ml Arformoterol Tartrate (Brovana) 15 mcg IH [id number] [facility] Last Admin: 03/02/18 07:28 Dose: 15 mcg Budesonide (Pulmicort Respules) 0.5 mg IH [id number] [facility] Last Admin: 03/02/18 07:28 Dose: 0.5 mg Furosemide (Lasix) 40 mg PO BID [facility] Last Admin: 03/02/18 11:02 Dose: 40 mg Gabapentin (Neurontin) 300 mg PO TID [facility]; Protocol Last Admin: 03/02/18 11:03 Dose: 300 mg Pantoprazole Sodium (Protonix Ec Tab) 40 mg PO 0600 [facility] Last Admin: 03/02/18 05:20 Dose: 40 mg Rivaroxaban (Xarelto) 20 mg PO DAILY [facility]; Protocol Last Admin: 03/01/18 11:16 Dose: 20 mg Sildenafil Citrate (Revatio) 20 mg PO TID [facility] Last Admin: 03/02/18 11:03 Dose: 20 mg Physical Exam - Constitutional Appears: Non-toxic, No Acute Distress - Head Exam Head Exam: NORMAL INSPECTION - Eye Exam Eye Exam: Normal appearance - ENT Exam ENT Exam: Mucous Membranes Moist - Neck Exam Neck exam: Positive for: Full Rom - Respiratory Exam Respiratory Exam: Clear to Auscultation Bilateral, NORMAL BREATHING PATTERN - Cardiovascular Exam Cardiovascular Exam: REGULAR RHYTHM, +S1, +S2 - GI/Abdominal Exam GI & Abdominal Exam: Normal Bowel Sounds, Soft - Neurological Exam Neurological exam: Alert, Oriented x3 - Psychiatric Exam Psychiatric exam: Normal Affect, Normal Mood - Skin Skin Exam: Normal Color, Warm Results - Vital Signs Recent Vital Signs: Last Vital Signs Temp 98 F 03/02/18 09:06 Pulse 86 03/02/18 09:06 Resp 20 03/02/18 09:06 BP 115/65 03/02/18 11:02 Pulse Ox 92 L 03/02/18 09:06 - Labs Result Diagrams: 03/02/18 11:26 03/02/18 08:00 Labs: Laboratory Results - last 24 hr 03/01/18 03/01/18 03/01/18 18:48 18:48 23:48 WBC 12.7 H D 12.4 H RBC 4.78 4.64 Hgb 12.1 11.7 L Hct 38.9 37.7 MCV 81.4 81.3 MCH 25.3 25.2 MCHC 31.1 31.0 RDW 18.3 H 18.5 H Plt Count 320 271 MPV 9.5 9.0 PT 35.6 H INR 3.05 APTT 32.1 Sodium Potassium Chloride Carbon Dioxide Anion Gap BUN Creatinine Est GFR ( Amer) Est GFR (Non-Af Amer) Random Glucose Calcium Total Bilirubin AST ALT Alkaline Phosphatase Total Protein Albumin Globulin Albumin/Globulin Ratio 03/02/18 03/02/18 03/02/18 06:00 08:00 11:26 WBC 14.1 H 14.3 H RBC 4.76 4.77 Hgb 11.9 L 12.1 Hct 38.9 39.3 MCV 81.7 82.4 MCH 25.0 25.4 MCHC 30.6 L 30.8 L RDW 18.5 H 20.1 H Plt Count 301 282 MPV 9.7 10.4 PT INR APTT Sodium 137 Potassium 3.4 L Chloride 101 Carbon Dioxide 27 Anion Gap 12 BUN 28 H Creatinine 1.1 Est GFR ( Amer) > 60 Est GFR (Non-Af Amer) 55 Random Glucose 112 H Calcium 9.0 Total Bilirubin 1.5 H AST 27 ALT 46 Alkaline Phosphatase 157 H D Total Protein 6.4 Albumin 3.5 Globulin 2.9 Albumin/Globulin Ratio 1.2 Assessment & Plan - Assessment and Plan (Free Text) Assessment: 42yo female with PMhx Pulm HTN, 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
[2018-03-02] MEDS ORDERED: Potassium Chloride 40 mEq/30 ml LIQ UD PO ONE (14:44)
[2018-03-03] MEDS: Pantoprazole 40 mg EC Tab PO SCH (05:17)
[2018-03-03] MEDS ORDERED: Iohexol 350 MG/100 ML VIAL ONE (07:25)
[2018-03-03] MEDS: Arformoterol 15 mcg/2 ml Inh Sol IH SCH ×2 (07:37→19:58)
[2018-03-03] MEDS: Budesonide 0.5 mg/2 ml Inhal Susp UD IH SCH ×2 (07:37→19:58)
[2018-03-03 09:42] LABS: BASO # 0.01 K/mm3 (0.0-2.0); BASO % 0.1 % (0.0-3.0); EOS # 0.1 (0.0-0.7); EOS % 1.1 % (1.5-5.0); GRAN % 78.3 % (50.0-68.0); HEMOGLOBIN 11.7 g/dL (12.0-16.0); LYMPH # 1.4 (1.2-3.4); LYMPH % 10.7 % (22.0-35.0); MEAN CELL VOLUME 82.6 fl (80.0-105.0); MEAN CORPUSCULAR HEMOGLOBIN 25.1 pg (25.0-35.0); MEAN CORPUSCULAR HGB CONC 30.4 g/dl (31.0-37.0); MEAN PLATELET VOLUME 9.6 fl (7.0-11.0); MONO # 1.3 (0.1-0.6); MONO % 9.8 % (1.0-6.0); RBC 4.66 10^6/uL (3.5-6.1); RED CELL DISTRIBUTION WIDTH 18.8 % (11.5-14.5); WHITE BLOOD COUNT 12.8 10^3/uL (4.5-11.0)
[2018-03-03] MEDS: Sildenafil 20 MG TAB PO SCH ×3 (09:58→18:23)
[2018-03-03 10:03] LABS: ALB/GLOB RATIO 1.3 (1.1-1.8); ALBUMIN 3.6 g/dL (3.0-4.8); ALT/SGPT 45 U/L (7-56); AST/SGOT 27 U/L (14-36); BLOOD UREA NITROGEN 24 mg/dL (7-21); CALCIUM 9.1 mg/dL (8.4-10.5); GFR NON-AFRICAN AMERICAN > 60
--- NOTE | 2018-03-03 13:15 | CT ---
Date of service: 03/03/2018 PROCEDURE: CT Chest with contrast (Pulmonary Angiogram) HISTORY: PE COMPARISON: 10/02/2017 TECHNIQUE: Axial computed tomography images were obtained of the chest in the pulmonary arterial phase of enhancement. Coronal and sagittal reformatted images were created and reviewed. Intravenous contrast dose: 100 cc of Omni 350 Radiation dose: Total exam DLP = 488.18 mGy-cm. This CT exam was performed using one or more of the following dose reduction techniques: Automated exposure control, adjustment of the mA and/or kV according to patient size, and/or use of iterative reconstruction technique. FINDINGS: PULMONARY ARTERIES: There is no embolus seen in the central and proximal pulmonary arteries. The distal branches are not well visualized due to contrast bolus and motion artifact. There is some contrast refluxing into the azygos system from the SVC. AORTA: No acute findings. No thoracic aortic aneurysm. No aortic atherosclerotic calcification or mural plaque present. LUNGS: Unremarkable. No nodule, mass or pulmonary consolidation. PLEURAL SPACES: There is a small right pleural effusion. There is a pericardial effusion along the right heart border that measures 3 cm in thickness. HEART: There is severe cardiomegaly LYMPH NODES: No lymphadenopathy. BONES, CHEST WALL: Unremarkable. No fracture or destructive lesion OTHER FINDINGS: Findings are similar to the previous exam IMPRESSION: No evidence of central or proximal pulmonary embolus. Pericardial effusion. Small right-sided pleural effusion. Severe cardiomegaly
--- NOTE | 2018-03-03 15:11 | CP.PCM.PN ---
<Wilmer Santo - Last Filed: 03/03/18 15:02> Subjective - Date & Time of Evaluation Date of Evaluation: 03/03/18 Time of Evaluation: 08:00 - Subjective Subjective: Wilmer Santo PGY-1 Progress Note for Hospitalist Service Patient seen and examined this AM. One episode of hemoptysis 2 days ago. Patient reported scant blood in sputum she coughed up. No dizziness or blurry vision at that time. Patient complains of left leg neuropathic pain. Patient denies chest pain, shortness of breath, abdominal pain, nausea, vomiting, fever, chills. Objective - Vital Signs/Intake and Output Vital Signs (last 24 hours): Temp Pulse Resp BP Pulse Ox 98 F 82 20 109/64 93 L 03/03/18 07:23 03/03/18 07:23 03/03/18 07:23 03/03/18 09:57 03/03/18 07:23 Intake and Output: 03/03/18 03/03/18 06:59 18:59 Intake Total 300 Output Total 1450 Balance -1150 - Medications Medications: Current Medications Albuterol/Ipratropium (Duoneb 3 Mg/0.5 Mg (3 Ml) Ud) 3 ml IH [id number] PRN PRN Reason: Shortness of Breath Last Admin: 02/28/18 08:14 Dose: 3 ml Arformoterol Tartrate (Brovana) 15 mcg IH [id number] [facility] Last Admin: 03/03/18 07:37 Dose: 15 mcg Budesonide (Pulmicort Respules) 0.5 mg IH [id number] [facility] Last Admin: 03/03/18 07:37 Dose: 0.5 mg Furosemide (Lasix) 40 mg IVP BID [facility] Last Admin: 03/03/18 09:57 Dose: 40 mg Gabapentin (Neurontin) 300 mg PO TID [facility]; Protocol Last Admin: 03/03/18 13:18 Dose: 300 mg Pantoprazole Sodium (Protonix Ec Tab) 40 mg PO 0600 [facility] Last Admin: 03/03/18 05:17 Dose: 40 mg Rivaroxaban (Xarelto) 20 mg PO DAILY [facility]; Protocol Last Admin: 03/01/18 11:16 Dose: 20 mg Sildenafil Citrate (Revatio) 20 mg PO TID [facility] Last Admin: 03/03/18 13:19 Dose: 20 mg - Labs Labs: 03/03/18 09:35 03/03/18 09:35 PT 35.6 SECONDS (9.4-12.5) H 03/01/18 18:48 INR 3.05 03/01/18 18:48 APTT 32.1 Seconds (25.1-36.5) 03/01/18 18:48 - Additional Findings Additional findings: - Constitutional Appears: No Acute Distress - Head Exam Head Exam: ATRAUMATIC, NORMOCEPHALIC - Eye Exam Eye Exam: EOMI, PERRL - ENT Exam ENT Exam: Mucous Membranes Moist - Neck Exam Neck Exam: Full ROM - Respiratory Exam Respiratory Exam: Clear to Ausculation Bilateral, NORMAL BREATHING PATTERN. absent: Rhonchi, Wheezes - Cardiovascular Exam Cardiovascular Exam: REGULAR RHYTHM, +S1, +S2 - GI/Abdominal Exam GI & Abdominal Exam: Obesity, Soft, Normal Bowel Sounds. 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 Plan: Hemoptysis single episode 03/01 afternoon, contained in palm if handful. Patient reported scant blood in sputum this morning Hgb has remained stable Continue to monitor Pulm consult - Dr. Clark - f/u further recs CT chest shows no pulm embolus but is + for pericardial effusion and small R pleural effusion f/u repeat Echo for more precise quantification of pericardial effusion Bilateral leg pain - Echo 01/14 show RV is severely dilated, RV systolic function is severely reduced, RA is severely dilated, severe TR, severe pulm HTN - Dopplers negative for DVT - Lasix changed to 40 mg IV BID - Gabapentin 300 TID Shortness of breath - CHF vs COPD vs Pulm HTN - Duonebs q4H PRN - Brovana 15 mcg Q12H - Pulmicort .5 mg BID - Prednisone 40 mg PO daily - Sildenafil 20 mg PO TID RUE swelling - Afebrile, no leukocytosis - Dopplers neg for DVT LAYO - BiPAP at night GI/DVT PPX - Xarelto 20 mg PO daily held in light of hemoptysis, SCDs - Protonix 40 mg PO daily Dispo: [facility] per PT recommendations since not at baseline, patient to continue rehab and strengthening. Per CM, can get outpatient PT since patient not candidate for [facility]. Patient seen, case reviewed and plan approved with Dr. Carrington. Wilmer Santo, PGY-1 <Jenn Carrington - Last Filed: 03/03/18 17:55> Objective - Vital Signs/Intake and Output Vital Signs (last 24 hours): Temp Pulse Resp BP Pulse Ox 98.3 F 88 20 100/53 L 92 L 03/03/18 16:42 03/03/18 16:42 03/03/18 16:42 03/03/18 16:42 03/03/18 16:42 Intake and Output: 03/03/18 03/03/18 06:59 18:59 Intake Total 300 Output Total 1450 Balance -1150 - Medications Medications: Current Medications Albuterol/Ipratropium (Duoneb 3 Mg/0.5 Mg (3 Ml) Ud) 3 ml IH [id number] PRN PRN Reason: Shortness of Breath Last Admin: 02/28/18 08:14 Dose: 3 ml Arformoterol Tartrate (Brovana) 15 mcg IH [id number] [facility] Last Admin: 03/03/18 07:37 Dose: 15 mcg Budesonide (Pulmicort Respules) 0.5 mg IH [id number] [facility] Last Admin: 03/03/18 07:37 Dose: 0.5 mg Furosemide (Lasix) 40 mg IVP BID [facility] Last Admin: 03/03/18 09:57 Dose: 40 mg Gabapentin (Neurontin) 300 mg PO TID [facility]; Protocol Last Admin: 03/03/18 13:18 Dose: 300 mg Pantoprazole Sodium (Protonix Ec Tab) 40 mg PO 0600 [facility] Last Admin: 03/03/18 05:17 Dose: 40 mg Rivaroxaban (Xarelto) 20 mg PO DAILY [facility]; Protocol Last Admin: 03/01/18 11:16 Dose: 20 mg Sildenafil Citrate (Revatio) 20 mg PO TID [facility] Last Admin: 03/03/18 13:19 Dose: 20 mg - Labs Labs: 03/03/18 09:35 03/03/18 09:35 PT 35.6 SECONDS (9.4-12.5) H 03/01/18 18:48 INR 3.05 03/01/18 18:48 APTT 32.1 Seconds (25.1-36.5) 03/01/18 18:48 Attending/Attestation - Attestation I have personally seen and examined this patient.: Yes I have fully participated in the care of the patient.: Yes I have reviewed all pertinent clinical information, including history, physical exam and plan: Yes Notes (Text): 03/03/18 17:43 42 year old female with past medical history of COPD, diastolic CHF, DVT/PE on xarelto, LAYO and left BKA who presented with complaint of shortness of breath and LE edema. She was admitted for acute on chronic hypoxic respiratory failure secondary to diastolic CHF / COPD exacerbation. She is currently on lasix bid and po steroids. Two nights prior she had episode of hemoptysis. Xarelto was held. H/H has been stable. Pulmonary evaluation was appreciated who ordered CT study which was negative for PE but shows pericardial effusion. Consider resuming anticoagulation if no further hemoptysis per pulmonary. Will order for echocard iogram to further evaluate pericardial effusion. PT has been recommending [facility] which is denied by insurance. Consider home or outpatient PT services upon discharge. Patient was counselled on medication compliance. Jenn Carrington MD Hospitalist.
--- NOTE | 2018-03-03 16:24 | CP.PCM.PN ---
Subjective - Date & Time of Evaluation Date of Evaluation: 03/03/18 Time of Evaluation: 16:22 - Subjective Subjective: Patient seen and examined, reports no SOB. Had one episode of coughing yesterday with minimal blood streak. No further episodes of hemoptysis today. Objective - Vital Signs/Intake and Output Vital Signs (last 24 hours): Temp Pulse Resp BP Pulse Ox 98 F 82 20 109/64 93 L 03/03/18 07:23 03/03/18 07:23 03/03/18 07:23 03/03/18 09:57 03/03/18 07:23 Intake and Output: 03/03/18 03/03/18 06:59 18:59 Intake Total 300 Output Total 1450 Balance -1150 - Medications Medications: Current Medications Albuterol/Ipratropium (Duoneb 3 Mg/0.5 Mg (3 Ml) Ud) 3 ml IH [id number] PRN PRN Reason: Shortness of Breath Last Admin: 02/28/18 08:14 Dose: 3 ml Arformoterol Tartrate (Brovana) 15 mcg IH [id number] [facility] Last Admin: 03/03/18 07:37 Dose: 15 mcg Budesonide (Pulmicort Respules) 0.5 mg IH [id number] [facility] Last Admin: 03/03/18 07:37 Dose: 0.5 mg Furosemide (Lasix) 40 mg IVP BID [facility] Last Admin: 03/03/18 09:57 Dose: 40 mg Gabapentin (Neurontin) 300 mg PO TID [facility]; Protocol Last Admin: 03/03/18 13:18 Dose: 300 mg Pantoprazole Sodium (Protonix Ec Tab) 40 mg PO 0600 [facility] Last Admin: 03/03/18 05:17 Dose: 40 mg Rivaroxaban (Xarelto) 20 mg PO DAILY [facility]; Protocol Last Admin: 03/01/18 11:16 Dose: 20 mg Sildenafil Citrate (Revatio) 20 mg PO TID [facility] Last Admin: 03/03/18 13:19 Dose: 20 mg - Labs Labs: 03/03/18 09:35 03/03/18 09:35 PT 35.6 SECONDS (9.4-12.5) H 03/01/18 18:48 INR 3.05 03/01/18 18:48 APTT 32.1 Seconds (25.1-36.5) 03/01/18 18:48 - Constitutional Appears: Non-toxic, No Acute Distress - Head Exam Head Exam: NORMAL INSPECTION - Eye Exam Eye Exam: Normal appearance - ENT Exam ENT Exam: Mucous Membranes Moist - Neck Exam Neck Exam: Full ROM - Cardiovascular Exam Cardiovascular Exam: REGULAR RHYTHM, +S1, +S2 - GI/Abdominal Exam GI & Abdominal Exam: Soft, Normal Bowel Sounds - Neurological Exam Neurological Exam: Alert, Awake, Oriented x3 - Psychiatric Exam Psychiatric exam: Normal Affect - Skin Skin Exam: Normal Color, Warm Assessment and Plan - Assessment and Plan (Free Text) Assessment: 42yo female with PMhx Pulm HTN, 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
[2018-03-04] MEDS: Pantoprazole 40 mg EC Tab PO SCH (06:10)
[2018-03-04 06:40] LABS: BASO # 0.01 K/mm3 (0.0-2.0); BASO % 0.1 % (0.0-3.0); EOS # 0.2 (0.0-0.7); EOS % 1.4 % (1.5-5.0); GRAN # 9.46 (1.4-6.5); GRAN % 80.5 % (50.0-68.0); LYMPH # 1.1 (1.2-3.4); MEAN CELL VOLUME 82.2 fl (80.0-105.0); MEAN CORPUSCULAR HEMOGLOBIN 25.1 pg (25.0-35.0); MEAN CORPUSCULAR HGB CONC 30.5 g/dl (31.0-37.0); MEAN PLATELET VOLUME 10.1 fl (7.0-11.0); MONO # 1.1 (0.1-0.6); RBC 4.39 10^6/uL (3.5-6.1); RED CELL DISTRIBUTION WIDTH 18.9 % (11.5-14.5); WHITE BLOOD COUNT 11.8 10^3/uL (4.5-11.0)
[2018-03-04 06:47] LABS: ALB/GLOB RATIO 1.2 (1.1-1.8); ALBUMIN 3.5 g/dL (3.0-4.8); ALT/SGPT 39 U/L (7-56); AST/SGOT 25 U/L (14-36); BLOOD UREA NITROGEN 22 mg/dL (7-21); GFR NON-AFRICAN AMERICAN > 60
[2018-03-04] MEDS: Budesonide 0.5 mg/2 ml Inhal Susp UD IH SCH ×2 (07:45→20:11)
[2018-03-04] MEDS: Arformoterol 15 mcg/2 ml Inh Sol IH SCH ×2 (07:45→20:11)
[2018-03-04] MEDS: Sildenafil 20 MG TAB PO SCH ×3 (09:49→17:31)
--- NOTE | 2018-03-04 10:58 | CP.PCM.PN ---
<Wilmer Santo - Last Filed: 03/04/18 10:55> Subjective - Date & Time of Evaluation Date of Evaluation: 03/04/18 Time of Evaluation: 07:30 - Subjective Subjective: Wilmer Santo PGY-1 Progress Note for Hospitalist Service Patient seen and examined this morning. No further episodes of hemoptysis reported. Patient reports headache but no dizziness or blurry vision at this time. Patient reports improved leg pain. Patient denies chest pain, shortness of breath, abdominal pain, nausea, vomiting, fever, chills. Objective - Vital Signs/Intake and Output Vital Signs (last 24 hours): Temp Pulse Resp BP Pulse Ox 98.3 F 88 20 104/70 92 L 03/03/18 16:42 03/03/18 16:42 03/03/18 16:42 03/04/18 09:48 03/03/18 16:42 Intake and Output: 03/04/18 03/04/18 06:59 18:59 Intake Total 600 Output Total 850 Balance -250 - Medications Medications: Current Medications Albuterol/Ipratropium (Duoneb 3 Mg/0.5 Mg (3 Ml) Ud) 3 ml IH [id number] PRN PRN Reason: Shortness of Breath Last Admin: 02/28/18 08:14 Dose: 3 ml Arformoterol Tartrate (Brovana) 15 mcg IH [id number] [facility] Last Admin: 03/04/18 07:45 Dose: 15 mcg Budesonide (Pulmicort Respules) 0.5 mg IH [id number] [facility] Last Admin: 03/04/18 07:45 Dose: 0.5 mg Furosemide (Lasix) 40 mg PO BID [facility] Gabapentin (Neurontin) 300 mg PO TID [facility]; Protocol Last Admin: 03/04/18 09:49 Dose: 300 mg Pantoprazole Sodium (Protonix Ec Tab) 40 mg PO 0600 [facility] Last Admin: 03/04/18 06:10 Dose: 40 mg Rivaroxaban (Xarelto) 20 mg PO DAILY [facility]; Protocol Last Admin: 03/01/18 11:16 Dose: 20 mg Sildenafil Citrate (Revatio) 20 mg PO TID [facility] Last Admin: 03/04/18 09:49 Dose: 20 mg - Labs Labs: 03/04/18 06:00 03/04/18 06:00 PT 35.6 SECONDS (9.4-12.5) H 03/01/18 18:48 INR 3.05 03/01/18 18:48 APTT 32.1 Seconds (25.1-36.5) 03/01/18 18:48 - Additional Findings Additional findings: - Constitutional Appears: No Acute Distress - Head Exam Head Exam: ATRAUMATIC, NORMOCEPHALIC - Eye Exam Eye Exam: EOMI, PERRL - ENT Exam ENT Exam: Mucous Membranes Moist - Neck Exam Neck Exam: Full ROM - Respiratory Exam Respiratory Exam: Clear to Ausculation Bilateral, NORMAL BREATHING PATTERN. absent: Rhonchi, Wheezes - Cardiovascular Exam Cardiovascular Exam: REGULAR RHYTHM, +S1, +S2 - GI/Abdominal Exam GI & Abdominal Exam: Obesity, Soft, Normal Bowel Sounds. 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 Plan: Hemoptysis, hx of PE/DVT single episode 03/01 afternoon, contained in palm if handful. Patient reported scant blood in sputum yesterday, resolved this morning Hgb has remained stable. Resume Xarelto today Continue to monitor Pulm consult - Dr. Clark - f/u further recs CT chest shows no pulm embolus but is + for pericardial effusion and small R pleural effusion f/u repeat Echo for more precise quantification of pericardial effusion Bilateral leg pain, hx DVT - Echo 01/14 show RV is severely dilated, RV systolic function is severely reduced, RA is severely dilated, severe TR, severe pulm HTN - Dopplers negative for DVT - Lasix changed to 40 mg PO BID - Gabapentin 300 TID Shortness of breath - CHF vs COPD vs Pulm HTN - Lasix changed to 40 mg PO BID - Duonebs q4H PRN - Brovana 15 mcg Q12H - Pulmicort .5 mg BID - Prednisone 40 mg PO daily - Sildenafil 20 mg PO TID RUE swelling, hx DVT - Afebrile, no leukocytosis - Dopplers neg for DVT LAYO - BiPAP at night GI/DVT PPX - Xarelto 20 mg PO daily, SCDs - Protonix 40 mg PO daily Dispo: [facility] per PT recommendations since not at baseline, patient to continue rehab and strengthening. Per CM, can get outpatient PT since patient not candidate for [facility]. Patient seen, case reviewed and plan approved with Dr. Carrington. Wilmer Santo, PGY-1 <Jenn Carrington - Last Filed: 03/04/18 13:35> Objective - Vital Signs/Intake and Output Vital Signs (last 24 hours): Temp Pulse Resp BP Pulse Ox 98.3 F 88 20 104/70 92 L 03/03/18 16:42 03/03/18 16:42 03/03/18 16:42 03/04/18 09:48 03/03/18 16:42 Intake and Output: 03/04/18 03/04/18 06:59 18:59 Intake Total 600 Output Total 850 Balance -250 - Medications Medications: Current Medications Acetaminophen (Tylenol 325mg Tab) 650 mg PO Q6H PRN PRN Reason: Headache Albuterol/Ipratropium (Duoneb 3 Mg/0.5 Mg (3 Ml) Ud) 3 ml IH [id number] PRN PRN Reason: Shortness of Breath Last Admin: 02/28/18 08:14 Dose: 3 ml Arformoterol Tartrate (Brovana) 15 mcg IH [id number] [facility] Last Admin: 03/04/18 07:45 Dose: 15 mcg Budesonide (Pulmicort Respules) 0.5 mg IH [id number] [facility] Last Admin: 03/04/18 07:45 Dose: 0.5 mg Furosemide (Lasix) 40 mg PO BID [facility] Gabapentin (Neurontin) 300 mg PO TID [facility]; Protocol Last Admin: 03/04/18 09:49 Dose: 300 mg Pantoprazole Sodium (Protonix Ec Tab) 40 mg PO 0600 [facility] Last Admin: 03/04/18 06:10 Dose: 40 mg Rivaroxaban (Xarelto) 20 mg PO DAILY [facility]; Protocol Last Admin: 03/01/18 11:16 Dose: 20 mg Sildenafil Citrate (Revatio) 20 mg PO TID [facility] Last Admin: 03/04/18 09:49 Dose: 20 mg - Labs Labs: 03/04/18 06:00 03/04/18 06:00 PT 35.6 SECONDS (9.4-12.5) H 03/01/18 18:48 INR 3.05 03/01/18 18:48 APTT 32.1 Seconds (25.1-36.5) 03/01/18 18:48 Attending/Attestation - Attestation I have personally seen and examined this patient.: Yes I have fully participated in the care of the patient.: Yes I have reviewed all pertinent clinical information, including history, physical exam and plan: Yes Notes (Text): 03/04/18 13:32 42 year old female with past medical history of COPD, diastolic CHF, DVT/PE on xarelto, LAYO and left BKA who presented with complaint of shortness of breath and LE edema. She was admitted for acute on chronic hypoxic respiratory failure secondary to diastolic CHF / COPD exacerbation. She is s/p steroids. Lasix will be switched back to po today. Few nights prior she had episode of hemoptysis which has resolved. Pulmonary evaluation was appreciated who ordered CT study which was negative for PE but showed pericardial effusion. Will resume anticoagulation as no further hemoptysis per pulmonary and monitor. Will follow up on echocardiogram to further evaluate pericardial effusion. PT has been recommending [facility] which is denied by insurance. Consider home or outpatient PT services upon discharge or home with services. Patient was counselled on medication compliance. Jenn Carrington MD Hospitalist.
--- NOTE | 2018-03-04 16:08 | CARD ---
APPROVED REPORT Date of service: 03/04/2018 EXAM: Two-dimensional and M-mode echocardiogram with Doppler and color Doppler. INDICATION Pericardial Effusion 2D DIMENSIONS Left Atrium (2D)2.5 (1.6-4.0cm)IVSd1.3 (0.7-1.1cm) LVDd3.7 (3.9-5.9cm)PWd1.1 (0.7-1.1cm) LVDs2.4 (2.5-4.0cm)FS (%) 35.2 % LVEF (%)65.4 (>50%) M-Mode DIMENSIONS Aortic Root2.80 (2.2-3.7cm)Aortic Cusp Exc.1.90 (1.5-2.0cm) Aortic Valve AoV Peak Dilrxlxh283.0cm/Nathalie Peak GR.11mmHg Mitral Valve E/A ratio0.0 TDI E/Lateral E'0.0E/Medial E'0.0 Tricuspid Valve TR Peak [id number] [id number] Peak Gr.75mmHg [id number] LEFT VENTRICLE The left ventricle is normal size. There is borderline to mild concentric left ventricular hypertrophy. The left ventricular function is normal.EF-65% There is a flattened septum consistent with right ventricle volume and pressure overload. Transmitral Doppler flow pattern is Grade III-reversible restrictive diastolic dysfunction. No left ventricle thrombus noted on this study. There is no ventricular septal defect visualized. There is no left ventricular aneurysm. There is no mass noted in the left ventricle. RIGHT VENTRICLE The right ventricle is severely dilated. The right ventricle is mildly hypertrophied. Right Ventricular septal motion is flattened. Systolic function of RV is severely reduced. ATRIA The left atrium size is normal. The right atrium is severely dilated. The interatrial septum is intact with no evidence for an atrial septal defect. AORTIC VALVE The aortic valve is thickened but opens well. The aortic valve is possibly bicuspid. No aortic regurgitation is present. There is no aortic valvular stenosis. There is no aortic valvular vegetation. MITRAL VALVE The mitral valve is thickened but opens well. Mitral annular calcification is mild. Mitral regurgitation is trace. There is no mitral valve stenosis. There is no evidence of mitral valve prolapse. TRICUSPID VALVE The tricuspid valve leaflets are thickened , but open well. There is severe tricuspid regurgitation.RVSP-85 mmof Hg. There is severe pulmonary hypertension. There is no tricuspid valve stenosis. There is no tricuspid valve prolapse or vegetation. PULMONIC VALVE The pulmonic valve is mildly thickened. There is trace to mild pulmonic valvular regurgitation. There is no pulmonic valvular stenosis. GREAT VESSELS The aortic root is normal in size. The ascending aorta is normal in size. The pulmonary artery is normal. The IVC is dilated. PERICARDIAL EFFUSION There is no pleural effusion. There is a trace pericardial effusion. <Conclusion> The left ventricle is normal size. There is borderline to mild concentric left ventricular hypertrophy. The left ventricular function is normal.EF-65% The right ventricle is severely dilated. Systolic function of RV is severely reduced. There is a flattened septum consistent with right ventricle volume and pressure overload. Mitral regurgitation is trace. There is severe tricuspid regurgitation.RVSP-85 mmof Hg. There is severe pulmonary hypertension. There is trace to mild pulmonic valvular regurgitation. The IVC is dilated. There is a trace pericardial effusion. No vegetation or thrombus noted.
[2018-03-04] MEDS: Albuterol-Ipratrop 3 mg / 0.5 (3 ml) UD IH PRN (16:12)
[2018-03-05] MEDS: Pantoprazole 40 mg EC Tab PO SCH (05:33)
[2018-03-05] MEDS: Albuterol-Ipratrop 3 mg / 0.5 (3 ml) UD IH PRN (05:52)
[2018-03-05 07:00] LABS: BASO # 0.01 K/mm3 (0.0-2.0); BASO % 0.1 % (0.0-3.0); EOS # 0.2 (0.0-0.7); EOS % 1.4 % (1.5-5.0); GRAN # 9.75 (1.4-6.5); GRAN % 83.2 % (50.0-68.0); HEMOGLOBIN 10.6 g/dL (12.0-16.0); LYMPH # 0.8 (1.2-3.4); LYMPH % 6.7 % (22.0-35.0); MEAN CELL VOLUME 82.9 fl (80.0-105.0); MEAN CORPUSCULAR HEMOGLOBIN 25.2 pg (25.0-35.0); MEAN CORPUSCULAR HGB CONC 30.4 g/dl (31.0-37.0); MEAN PLATELET VOLUME 9.9 fl (7.0-11.0); MONO % 8.6 % (1.0-6.0); RBC 4.21 10^6/uL (3.5-6.1); RED CELL DISTRIBUTION WIDTH 19.2 % (11.5-14.5); WHITE BLOOD COUNT 11.7 10^3/uL (4.5-11.0)
[2018-03-05 07:07] LABS: ALB/GLOB RATIO 1.2 (1.1-1.8); ALBUMIN 3.5 g/dL (3.0-4.8); ALT/SGPT 39 U/L (7-56); AST/SGOT 26 U/L (14-36); BLOOD UREA NITROGEN 18 mg/dL (7-21); CALCIUM 9.3 mg/dL (8.4-10.5); GFR NON-AFRICAN AMERICAN > 60
[2018-03-05] MEDS: Arformoterol 15 mcg/2 ml Inh Sol IH SCH ×2 (07:15→19:47)
[2018-03-05] MEDS: Budesonide 0.5 mg/2 ml Inhal Susp UD IH SCH ×2 (07:15→19:47)
[2018-03-05] MEDS: Sildenafil 20 MG TAB PO SCH ×3 (09:56→17:24)
--- NOTE | 2018-03-05 15:26 | CP.PCM.PN ---
<Wilmer Santo - Last Filed: 03/05/18 15:21> Subjective - Date & Time of Evaluation Date of Evaluation: 03/05/18 Time of Evaluation: 07:45 - Subjective Subjective: Wilmer Santo PGY-1 Progress Note for Hospitalist Service Patient seen and examined this morning. No further episodes of hemoptysis reported. Patient reports headache has improved and continued to deny dizziness or blurry vision at this time. Patient reports improved leg pain. Patient denies chest pain, shortness of breath, abdominal pain, nausea, vomiting, fever, chills. Objective - Vital Signs/Intake and Output Vital Signs (last 24 hours): Temp Pulse Resp BP Pulse Ox 97.9 F 87 20 115/82 88 L 03/05/18 06:00 03/05/18 06:00 03/05/18 06:00 03/05/18 09:52 03/05/18 06:00 Intake and Output: 03/05/18 03/05/18 06:59 18:59 Intake Total 900 Output Total 900 Balance 0 - Medications Medications: Current Medications Acetaminophen (Tylenol 325mg Tab) 650 mg PO Q6H PRN PRN Reason: Headache Last Admin: 03/05/18 14:07 Dose: 650 mg Albuterol/Ipratropium (Duoneb 3 Mg/0.5 Mg (3 Ml) Ud) 3 ml IH [id number] PRN PRN Reason: Shortness of Breath Last Admin: 03/05/18 05:52 Dose: 3 ml Arformoterol Tartrate (Brovana) 15 mcg IH [id number] [facility] Last Admin: 03/05/18 07:15 Dose: 15 mcg Budesonide (Pulmicort Respules) 0.5 mg IH [id number] [facility] Last Admin: 03/05/18 07:15 Dose: 0.5 mg Furosemide (Lasix) 40 mg PO BID [facility] Last Admin: 03/05/18 09:52 Dose: 40 mg Gabapentin (Neurontin) 300 mg PO TID [facility]; Protocol Last Admin: 03/05/18 14:08 Dose: 300 mg Pantoprazole Sodium (Protonix Ec Tab) 40 mg PO 0600 [facility] Last Admin: 03/05/18 05:33 Dose: 40 mg Rivaroxaban (Xarelto) 20 mg PO DAILY [facility]; Protocol Last Admin: 03/05/18 09:56 Dose: 20 mg Sildenafil Citrate (Revatio) 20 mg PO TID [facility] Last Admin: 03/05/18 14:08 Dose: 20 mg - Labs Labs: 03/05/18 06:00 03/05/18 06:00 PT 35.6 SECONDS (9.4-12.5) H 03/01/18 18:48 INR 3.05 03/01/18 18:48 APTT 32.1 Seconds (25.1-36.5) 03/01/18 18:48 - Additional Findings Additional findings: - Constitutional Appears: No Acute Distress - Head Exam Head Exam: ATRAUMATIC, NORMOCEPHALIC - Eye Exam Eye Exam: EOMI, PERRL - ENT Exam ENT Exam: Mucous Membranes Moist - Neck Exam Neck Exam: Full ROM - Respiratory Exam Respiratory Exam: Clear to Ausculation Bilateral, NORMAL BREATHING PATTERN. absent: Rhonchi, Wheezes - Cardiovascular Exam Cardiovascular Exam: REGULAR RHYTHM, +S1, +S2 - GI/Abdominal Exam GI & Abdominal Exam: Obesity, Soft, Normal Bowel Sounds. absent: Tenderness - Extremities Exam Additional comments: left bka +2 edema b/l LE up to inguinal area Improved, nontender RUE swelling compared to yesterday. 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 Patient desaturated yesterday and was thus unable to participate in physical therapy. Plan: Bilateral leg pain, hx DVT - Echo 01/14 show RV is severely dilated, RV systolic function is severely reduced, RA is severely dilated, severe TR, severe pulm HTN - Dopplers negative for DVT - Lasix changed to 40 mg PO BID - Gabapentin 300 TID Shortness of breath - CHF vs COPD vs Pulm HTN - Lasix changed to 40 mg PO BID - Duonebs q4H PRN - Brovana 15 mcg Q12H - Pulmicort .5 mg BID - Prednisone 40 mg PO daily - Sildenafil 20 mg PO TID Hemoptysis, hx of PE/DVT- resolved single episode 03/01 afternoon, contained in palm if handful. Patient reported scant blood in sputum yesterday, resolved this morning Hgb has remained stable. Resume Xarelto today Continue to monitor Pulm consult - Dr. Clark - f/u further recs CT chest shows no pulm embolus but is + for pericardial effusion and small R pleural effusion repeat Echo shows trace pericardial effusion RUE swelling, hx DVT - Afebrile, no leukocytosis - Dopplers neg for DVT LAYO - BiPAP at night GI/DVT PPX - Xarelto 20 mg PO daily, SCDs - Protonix 40 mg PO daily Dispo: JESUS per PT recommendations since not at baseline. Insurance won't cover JESUS. Visiting nurse service approved with [employer] transportation home when appropriate. Patient seen, case reviewed and plan approved with Dr. Carrington. Wilmer Santo, PGY-1 <Jenn Carrington - Last Filed: 03/05/18 15:49> Objective - Vital Signs/Intake and Output Vital Signs (last 24 hours): Temp Pulse Resp BP Pulse Ox 97.9 F 87 20 115/82 88 L 03/05/18 06:00 03/05/18 06:00 03/05/18 06:00 03/05/18 09:52 03/05/18 06:00 Intake and Output: 03/05/18 03/05/18 06:59 18:59 Intake Total 900 Output Total 900 Balance 0 - Medications Medications: Current Medications Acetaminophen (Tylenol 325mg Tab) 650 mg PO Q6H PRN PRN Reason: Headache Last Admin: 03/05/18 14:07 Dose: 650 mg Albuterol/Ipratropium (Duoneb 3 Mg/0.5 Mg (3 Ml) Ud) 3 ml IH [id number] PRN PRN Reason: Shortness of Breath Last Admin: 03/05/18 05:52 Dose: 3 ml Arformoterol Tartrate (Brovana) 15 mcg IH [id number] [facility] Last Admin: 03/05/18 07:15 Dose: 15 mcg Budesonide (Pulmicort Respules) 0.5 mg IH [id number] [facility] Last Admin: 03/05/18 07:15 Dose: 0.5 mg Furosemide (Lasix) 40 mg PO BID [facility] Last Admin: 03/05/18 09:52 Dose: 40 mg Gabapentin (Neurontin) 300 mg PO TID [facility]; Protocol Last Admin: 03/05/18 14:08 Dose: 300 mg Pantoprazole Sodium (Protonix Ec Tab) 40 mg PO 0600 [facility] Last Admin: 03/05/18 05:33 Dose: 40 mg Rivaroxaban (Xarelto) 20 mg PO DAILY [facility]; Protocol Last Admin: 03/05/18 09:56 Dose: 20 mg Sildenafil Citrate (Revatio) 20 mg PO TID [facility] Last Admin: 03/05/18 14:08 Dose: 20 mg - Labs Labs: 03/05/18 06:00 03/05/18 06:00 PT 35.6 SECONDS (9.4-12.5) H 03/01/18 18:48 INR 3.05 03/01/18 18:48 APTT 32.1 Seconds (25.1-36.5) 03/01/18 18:48 Attending/Attestation - Attestation I have personally seen and examined this patient.: Yes I have fully participated in the care of the patient.: Yes I have reviewed all pertinent clinical information, including history, physical exam and plan: Yes Notes (Text): 03/05/18 15:44 42 year old female with past medical history of COPD, diastolic CHF, DVT/PE on xarelto, LAYO and left BKA who presented with complaint of shortness of breath and LE edema. She was admitted for acute on chronic hypoxic respiratory failure secondary to diastolic CHF / COPD exacerbation. She is s/p steroids. She is on po lasix. Few nights prior she had episode of hemoptysis which has resolved. Pulmonary evaluation was appreciated who ordered CT study which was negative for PE but showed pericardial effusion. Echocardiogram showed only trace pericardial effusion. Anticoagulation is resumed as per pulmonary since hemoptysis resolved. PT has been recommending JESUS which is denied by insurance. Per PT patient is not currently at her baseline. PT follow up was requested again today. Consider home or outpatient PT services upon discharge or home with services. Patient was counselled on medication compliance. Jenn Carrington MD Hospitalist.
[2018-03-06] MEDS: Pantoprazole 40 mg EC Tab PO SCH (06:08)
--- NOTE | 2018-03-06 07:51 | CP.PCM.PN ---
<Vitaliy Benitez - Last Filed: 03/06/18 15:10> Subjective - Date & Time of Evaluation Date of Evaluation: 03/06/18 Time of Evaluation: 08:00 - Subjective Subjective: Walter Benitez PGY2 - Progress note for Hospitalist Service Patient seen and examined this AM. Overnight no acute events reported. Patient reports left leg pain for which is controlled with gabapentin. Denies chest pain, abdominal pain, nausea, vomiting, lethargy, weakness, numbness. Objective - Vital Signs/Intake and Output Vital Signs (last 24 hours): Temp Pulse Resp BP Pulse Ox 97.8 F 84 20 112/61 90 L 03/06/18 06:00 03/06/18 06:00 03/06/18 06:00 03/06/18 06:00 03/06/18 06:00 Intake and Output: 03/06/18 03/06/18 06:59 18:59 Intake Total 240 Output Total 700 Balance -460 - Medications Medications: Current Medications Acetaminophen (Tylenol 325mg Tab) 650 mg PO Q6H PRN PRN Reason: Headache Last Admin: 03/05/18 21:07 Dose: 650 mg Albuterol/Ipratropium (Duoneb 3 Mg/0.5 Mg (3 Ml) Ud) 3 ml IH [id number] PRN PRN Reason: Shortness of Breath Last Admin: 03/05/18 05:52 Dose: 3 ml Arformoterol Tartrate (Brovana) 15 mcg IH [id number] [facility] Last Admin: 03/05/18 19:47 Dose: 15 mcg Budesonide (Pulmicort Respules) 0.5 mg IH [id number] [facility] Last Admin: 03/05/18 19:47 Dose: 0.5 mg Furosemide (Lasix) 40 mg PO BID [facility] Last Admin: 03/05/18 17:23 Dose: 40 mg Gabapentin (Neurontin) 300 mg PO TID [facility]; Protocol Last Admin: 03/05/18 17:23 Dose: 300 mg Pantoprazole Sodium (Protonix Ec Tab) 40 mg PO 0600 [facility] Last Admin: 03/06/18 06:08 Dose: 40 mg Rivaroxaban (Xarelto) 20 mg PO DAILY [facility]; Protocol Last Admin: 03/05/18 09:56 Dose: 20 mg Sildenafil Citrate (Revatio) 20 mg PO TID [facility] Last Admin: 03/05/18 17:24 Dose: 20 mg - Labs Labs: 03/05/18 06:00 03/05/18 06:00 PT 35.6 SECONDS (9.4-12.5) H 03/01/18 18:48 INR 3.05 03/01/18 18:48 APTT 32.1 Seconds (25.1-36.5) 03/01/18 18:48 - Constitutional Appears: No Acute Distress - Head Exam Head Exam: ATRAUMATIC, NORMAL INSPECTION, NORMOCEPHALIC - Eye Exam Eye Exam: EOMI, PERRL - ENT Exam ENT Exam: Mucous Membranes Moist - Respiratory Exam Respiratory Exam: Clear to Ausculation Bilateral, NORMAL BREATHING PATTERN - Cardiovascular Exam Cardiovascular Exam: REGULAR RHYTHM, +S1, +S2 - GI/Abdominal Exam GI & Abdominal Exam: Soft, Normal Bowel Sounds. 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 Patient clinically unchanged in past 24 hours Plan: Shortness of breath - CHF vs COPD vs Pulm HTN - Lasix changed to 40 mg PO BID - Duonebs q4H PRN - Brovana 15 mcg Q12H - Pulmicort .5 mg BID - Prednisone 40 mg PO daily - Sildenafil 20 mg PO TID - Patient placed on biPAP for low oxygenation with improvement in O2 sats - Chest xray performed shows some haziness b/l and pulmonary congestion as interpreted by myself - extra dose of lasix 20mg once daily - Pulmonary consulted and following Hemoptysis, hx of PE/DVT- resolved single episode 03/01 afternoon, contained in palm if handful. Patient reported scant blood in sputum yesterday, resolved this morning Hgb has remained stable. Resume Xarelto today Continue to monitor Pulm consult - Dr. Clark - f/u further recs CT chest shows no pulm embolus but is + for pericardial effusion and small R pleural effusion repeat Echo shows trace pericardial effusion Bilateral leg pain, hx DVT - Echo 01/14 show RV is severely dilated, RV systolic function is severely reduced, RA is severely dilated, severe TR, severe pulm HTN - Dopplers negative for DVT - Lasix 40 mg PO BID - Gabapentin 300 TID RUE swelling, hx DVT - Afebrile, no leukocytosis - Dopplers neg for DVT LAYO - BiPAP at night as tolerated GI/DVT PPX - Xarelto 20 mg PO daily, SCDs - Protonix 40 mg PO daily Dispo: JESUS per PT recommendations since not at baseline. Insurance won't cover JESUS. Visiting nurse service approved with [employer] transportation home when appropriate. Patient seen, case and plan discussed with attending, Dr. Carrington <Jenn Carrington - Last Filed: 03/06/18 15:43> Objective - Vital Signs/Intake and Output Vital Signs (last 24 hours): Temp Pulse Resp BP Pulse Ox 97.8 F 84 20 112/61 90 L 03/06/18 06:00 03/06/18 11:10 03/06/18 06:00 03/06/18 11:21 03/06/18 06:00 Intake and Output: 03/06/18 03/06/18 06:59 18:59 Intake Total 240 Output Total 700 Balance -460 - Medications Medications: Current Medications Acetaminophen (Tylenol 325mg Tab) 650 mg PO Q6H PRN PRN Reason: Headache Last Admin: 03/05/18 21:07 Dose: 650 mg Albuterol/Ipratropium (Duoneb 3 Mg/0.5 Mg (3 Ml) Ud) 3 ml IH [id number] PRN PRN Reason: Shortness of Breath Last Admin: 03/05/18 05:52 Dose: 3 ml Arformoterol Tartrate (Brovana) 15 mcg IH [id number] [facility] Last Admin: 03/06/18 08:29 Dose: 15 mcg Budesonide (Pulmicort Respules) 0.5 mg IH [id number] [facility] Last Admin: 03/06/18 08:29 Dose: 0.5 mg Furosemide (Lasix) 40 mg PO BID [facility] Last Admin: 03/06/18 10:29 Dose: 40 mg Gabapentin (Neurontin) 300 mg PO TID [facility]; Protocol Last Admin: 03/06/18 14:04 Dose: 300 mg Pantoprazole Sodium (Protonix Ec Tab) 40 mg PO 0600 [facility] Last Admin: 03/06/18 06:08 Dose: 40 mg Rivaroxaban (Xarelto) 20 mg PO DAILY [facility]; Protocol Last Admin: 03/06/18 10:30 Dose: 20 mg Sildenafil Citrate (Revatio) 20 mg PO TID [facility] Last Admin: 03/06/18 14:04 Dose: 20 mg - Labs Labs: 03/06/18 08:01 03/06/18 14:29 PT 35.6 SECONDS (9.4-12.5) H 03/01/18 18:48 INR 3.05 03/01/18 18:48 APTT 32.1 Seconds (25.1-36.5) 03/01/18 18:48 Attending/Attestation - Attestation I have personally seen and examined this patient.: Yes I have fully participated in the care of the patient.: Yes I have reviewed all pertinent clinical information, including history, physical exam and plan: Yes Notes (Text): 03/06/18 15:37 42 year old female with past medical history of COPD, diastolic CHF, DVT/PE on xarelto, LAYO and left BKA who presented with complaint of shortness of breath and LE edema. She was admitted for acute on chronic hypoxic respiratory failure secondary to diastolic CHF / COPD exacerbation. She is s/p steroids. She is on po lasix bid. She had episode of hemoptysis few days prior which resolved. Anticoagulation was resumed. CT chest was negative for PE. Echocardiogram showed trace pericardial effusion and severe pulmonary hypertension. PT has been recommending JESUS which is denied by insurance. Per PT patient is not currently at her baseline. Patient continues to have hypoxia with even minimal activity. ABG/CXR reviewed. Extra dose of iv lasix was given today. BIPAP was ordered. Will request for pulmonary follow up. Consider home or outpatient PT services upon discharge or home with services when ready. Patient was counselled on medication compliance. Jenn Carrington MD Hospitalist.
[2018-03-06 08:15] LABS: EOS # 0.2 (0.0-0.7); EOS % 2.5 % (1.5-5.0); GRAN # 6.37 (1.4-6.5); GRAN % 78.6 % (50.0-68.0); HEMOGLOBIN 10.1 g/dL (12.0-16.0); LYMPH # 0.7 (1.2-3.4); LYMPH % 8.8 % (22.0-35.0); MEAN CELL VOLUME 82.8 fl (80.0-105.0); MEAN CORPUSCULAR HEMOGLOBIN 25.1 pg (25.0-35.0); MEAN CORPUSCULAR HGB CONC 30.3 g/dl (31.0-37.0); MEAN PLATELET VOLUME 9.8 fl (7.0-11.0); MONO # 0.8 (0.1-0.6); MONO % 10.1 % (1.0-6.0); RBC 4.02 10^6/uL (3.5-6.1); RED CELL DISTRIBUTION WIDTH 19.4 % (11.5-14.5); WHITE BLOOD COUNT 8.1 10^3/uL (4.5-11.0)
[2018-03-06] MEDS: Budesonide 0.5 mg/2 ml Inhal Susp UD IH SCH ×2 (08:29→21:30)
[2018-03-06] MEDS: Arformoterol 15 mcg/2 ml Inh Sol IH SCH ×2 (08:29→21:30)
[2018-03-06 08:46] LABS: ALB/GLOB RATIO 1.3 (1.1-1.8); ALBUMIN 3.6 g/dL (3.0-4.8); ALT/SGPT 33 U/L (7-56); AST/SGOT 24 U/L (14-36); BLOOD UREA NITROGEN 17 mg/dL (7-21); CALCIUM 9.1 mg/dL (8.4-10.5); GFR NON-AFRICAN AMERICAN > 60
[2018-03-06] MEDS: Sildenafil 20 MG TAB PO SCH ×3 (10:30→18:35)
[2018-03-06] MEDS ORDERED: Potassium Chloride 40 mEq/30 ml LIQ UD PO ONE (10:43)
--- NOTE | 2018-03-06 12:37 | RAD ---
Date of service: 03/06/2018 HISTORY: increased respiratory effort COMPARISON: 03/01/2018 FINDINGS: LUNGS: No active pulmonary disease. PLEURA: No significant pleural effusion identified, no pneumothorax apparent. CARDIOVASCULAR: No aortic atherosclerotic calcification present. Moderate cardiomegaly no pulmonary vascular congestion. OSSEOUS STRUCTURES: No significant abnormalities. VISUALIZED UPPER ABDOMEN: Normal. OTHER FINDINGS: None. IMPRESSION: No active disease.
[2018-03-06 13:06] LABS: ARTERIAL BLOOD GAS HCO3 27.4 mmol/L (21-28); ARTERIAL BLOOD GAS O2 CONTENT 14.1 ML/dl (15-23); ARTERIAL BLOOD GAS O2 SAT 94.1 % (95-98); ARTERIAL BLOOD GAS PCO2 36 mm/Hg (35-45); ARTERIAL BLOOD GAS PH 7.49 (7.35-7.45); ARTERIAL BLOOD GAS TCO2 28.5 mmol.L (22-28)
[2018-03-06 14:41] LABS: BLOOD UREA NITROGEN 17 mg/dL (7-21); CALCIUM 9.1 mg/dL (8.4-10.5); GFR NON-AFRICAN AMERICAN > 60
--- NOTE | 2018-03-07 02:33 | CON ---
DATE: 03/06/2018 REQUESTING PHYSICIAN: Dr. Rondon____. CHIEF COMPLAINT: The patient presents with respiratory insufficiency, pulmonary hypertension, and congestive heart failure. HISTORY OF PRESENT ILLNESS: Ms. Oakes is a 42-year-old morbidly obese female with a history of COPD, congestive heart failure, DVT/PE, obstructive sleep apnea, left BKA, chronic hypoxia, and severe pulmonary hypertension. The patient has been admitted to [facility] and at this time is noted to have respiratory insufficiency requiring BiPAP and O2 support. The patient has hypoxia, but is stable with BiPAP with 70% and O2 saturation is 98%. She is awake and alert. No distress and no significant cough, but mild congestion. No active fever, chills, nausea, or vomiting. PAST MEDICAL HISTORY: As above. ALLERGIES: SHE HAS NO KNOWN ALLERGIES. CURRENT MEDICATIONS: Can be evaluated as per the nurses intake form. REVIEW OF SYSTEMS: CONSTITUTIONAL: All negative. HEENT: All negative. CARDIOVASCULAR: No chest pain. GASTROINTESTINAL: All negative. RESPIRATORY: The patient has shortness of breath, occasional cough. : All negative. MUSCULOSKELETAL: Does have some lower extremity swelling. SKIN: All negative. ENDOCRINE: All negative. HEMATOLOGIC: All negative. IMMUNOLOGIC: All negative. NEUROPSYCHIATRIC: All negative. PHYSICAL EXAMINATION: VITAL SIGNS: Noted that her temperature is 97.8, her pulse is 84, respirations 20 and BP is 112/61. SKIN: Warm and dry. HEENT: Head is atraumatic, normocephalic. Eyes reactive to light. Ear, nose and throat seemed to be within normal limits. NECK: Supple. No JVD. No thyroid enlargement or lymph nodes. HEART: Regular rate and rhythm. Normal S1 and S2. LUNGS: Reveal mild rhonchi bilaterally. ABDOMEN: Soft, decreased bowel sounds, but obese. GENITALIA: Deferred. MUSCULOSKELETAL: No joint deformities, except the fact that she does have a left BKA. NEUROLOGIC: She seem to be grossly intact. LABORATORY DATA: As far as her laboratories, the patient's while count is 8.1, hemoglobin is 10.1, hematocrit 33.3 with platelets of 125,000. Arterial blood gas reveals the pH of 7.49, pCO2 of 36, pO2 of 62. This is on a BiPAP and FiO2 of 50%. The patient's sodium is 136, potassium 4.2, chloride 101, CO2 of 26 with a BUN of 17, creatinine of 1.0 and glucose of 106. IMPRESSION: As far as my impression, impression is that patient has respiratory insufficiency secondary to congestive heart failure, chronic obstructive pulmonary disease and severe pulmonary hypertension. She is noted to have obstructive sleep apnea, morbid obesity, history of deep venous thrombosis and pulmonary embolus as well as the left below-knee amputation and chronic hypoxia. PLAN: As far as our plan, she will be transferred to a monitored unit. Patient is on Brovana as well as DuoNeb for bronchodilator. She is being given Lasix aggressively 40 mg p.o. and the patient is getting her Protonix, Pulmicort, sildenafil and Xarelto. She has been transferred to the telemetry unit as stated above and we will continue to follow closely and treat aggressively along with the other consultants and the primary care doctor. Pierre Moore MD DATE: 03/06/2018 REQUESTING PHYSICIAN: . CHIEF COMPLAINT: The patient presents with respiratory insufficiency, pulmonary hypertension, and congestive heart failure. HISTORY OF PRESENT ILLNESS: Ms. Oakes is a 42-year-old morbidly obese female with a history of COPD, congestive heart failure, DVT/PE, obstructive sleep apnea, left BKA, chronic hypoxia, and severe pulmonary hypertension. The patient has been admitted to [facility] and at this time is noted to have respiratory insufficiency requiring BiPAP and O2 support. The patient has hypoxia, but is stable with BiPAP with 70% and O2 saturation is 98%. She is awake and alert. No distress and no significant cough, but mild congestion. No active fever, chills, nausea, or vomiting. PAST MEDICAL HISTORY: As above. ALLERGIES: SHE HAS NO KNOWN ALLERGIES. CURRENT MEDICATIONS: Can be evaluated as per the nurses intake form. REVIEW OF SYSTEMS: CONSTITUTIONAL: All negative. HEENT: All negative. CARDIOVASCULAR: No chest pain. GASTROINTESTINAL: All negative. RESPIRATORY: The patient has shortness of breath, occasional cough. : All negative. MUSCULOSKELETAL: Does have some lower extremity swelling. SKIN: All negative. ENDOCRINE: All negative. HEMATOLOGIC: All negative. IMMUNOLOGIC: All negative. NEUROPSYCHIATRIC: All negative. PHYSICAL EXAMINATION: VITAL SIGNS: Noted that her temperature is 97.8, her pulse is 84, respirations 20 and BP is 112/61. SKIN: Warm and dry. HEENT: Head is atraumatic, normocephalic. Eyes reactive to light. Ear, nose and throat seemed to be within normal limits. NECK: Supple. No JVD. No thyroid enlargement or lymph nodes. HEART: Regular rate and rhythm. Normal S1 and S2. LUNGS: Reveal mild rhonchi bilaterally. ABDOMEN: Soft, decreased bowel sounds, but obese. GENITALIA: Deferred. MUSCULOSKELETAL: No joint deformities, except the fact that she does have a left BKA. NEUROLOGIC: She seem to be grossly intact. LABORATORY DATA: As far as her laboratories, the patient's while count is 8.1, hemoglobin is 10.1, hematocrit 33.3 with platelets of 125,000. Arterial blood gas reveals the pH of 7.49, pCO2 of 36, pO2 of 62. This is on a BiPAP and FiO2 of 50%. The patient's sodium is 136, potassium 4.2, chloride 101, CO2 of 26 with a BUN of 17, creatinine of 1.0 and glucose of 106. IMPRESSION: As far as my impression, impression is that patient has respiratory insufficiency secondary to congestive heart failure, chronic obstructive pulmonary disease and severe pulmonary hypertension. She is noted to have obstructive sleep apnea, morbid obesity, history of deep venous thrombosis and pulmonary embolus as well as the left below-knee amputation and chronic hypoxia. PLAN: As far as our plan, she will be transferred to a monitored unit. Patient is on Brovana as well as DuoNeb for bronchodilator. She is being given Lasix aggressively 40 mg p.o. and the patient is getting her Protonix, Pulmicort, sildenafil and Xarelto. She has been transferred to the telemetry unit as stated above and we will continue to follow closely and treat aggressively along with the other consultants and the primary care doctor. Pierre Moore MD MTDAyana
[2018-03-07] MEDS: Pantoprazole 40 mg EC Tab PO SCH (05:49)
--- NOTE | 2018-03-07 07:28 | CP.PCM.PN ---
<Vitaliy Benitez - Last Filed: 03/07/18 13:59> Subjective - Date & Time of Evaluation Date of Evaluation: 03/07/18 Time of Evaluation: 07:27 - Subjective Subjective: Walter Benitez PGY2 - Progress note for Hospitalist Service Patient seen and examined this AM. No acute events reported overnight. Patient tolerated BiPAP. Patient complains of edema in her legs bilaterally at time of interview. Patient indicated respiratory effort is improved from yesterday. Objective - Vital Signs/Intake and Output Vital Signs (last 24 hours): Temp Pulse Resp BP Pulse Ox 97.7 F 80 18 90/62 L 95 03/07/18 06:00 03/07/18 06:00 03/07/18 06:00 03/07/18 06:00 03/07/18 06:00 Intake and Output: 03/07/18 03/07/18 06:59 18:59 Intake Total 600 Output Total 800 Balance -200 - Medications Medications: Current Medications Acetaminophen (Tylenol 325mg Tab) 650 mg PO Q6H PRN PRN Reason: Headache Last Admin: 03/05/18 21:07 Dose: 650 mg Albuterol/Ipratropium (Duoneb 3 Mg/0.5 Mg (3 Ml) Ud) 3 ml IH [id number] PRN PRN Reason: Shortness of Breath Last Admin: 03/05/18 05:52 Dose: 3 ml Arformoterol Tartrate (Brovana) 15 mcg IH [id number] [facility] Last Admin: 03/06/18 21:30 Dose: 15 mcg Budesonide (Pulmicort Respules) 0.5 mg IH [id number] [facility] Last Admin: 03/06/18 21:30 Dose: 0.5 mg Furosemide (Lasix) 40 mg PO BID [facility] Last Admin: 03/06/18 18:34 Dose: 40 mg Gabapentin (Neurontin) 300 mg PO TID [facility]; Protocol Last Admin: 03/06/18 18:34 Dose: 300 mg Pantoprazole Sodium (Protonix Ec Tab) 40 mg PO 0600 [facility] Last Admin: 03/07/18 05:49 Dose: 40 mg Rivaroxaban (Xarelto) 20 mg PO DAILY [facility]; Protocol Last Admin: 03/06/18 10:30 Dose: 20 mg Sildenafil Citrate (Revatio) 20 mg PO TID [facility] Last Admin: 03/06/18 18:35 Dose: 20 mg - Labs Labs: 03/06/18 08:01 03/06/18 14:29 PT 35.6 SECONDS (9.4-12.5) H 03/01/18 18:48 INR 3.05 03/01/18 18:48 APTT 32.1 Seconds (25.1-36.5) 03/01/18 18:48 - Constitutional Appears: No Acute Distress, Older Than Stated Age - Head Exam Head Exam: ATRAUMATIC, NORMAL INSPECTION, NORMOCEPHALIC - Eye Exam Eye Exam: EOMI, PERRL - ENT Exam ENT Exam: Mucous Membranes Moist - Neck Exam Neck Exam: Full ROM - Respiratory Exam Respiratory Exam: Decreased Breath Sounds. absent: Rales, Rhonchi, Wheezes Additional comments: increased respiratory effort with movement - GI/Abdominal Exam GI & Abdominal Exam: Soft, Normal Bowel Sounds. 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 Patient clinically unchanged in past 24 hours Plan: Shortness of breath - CHF vs COPD vs Pulm HTN - Continue Lasix changed to 40 mg PO BID - Duonebs q4H PRN - Brovana 15 mcg Q12H - Pulmicort .5 mg BID - Prednisone 40 mg PO daily - Sildenafil 20 mg PO TID - Patient placed on biPAP for low oxygenation with improvement in O2 sats yest afternoon and into the night - Pulmonary consulted with follow up yesterday, recommending continued therapy and emphasis on biPAP overnight Hemoptysis, hx of PE/DVT- resolved single episode 03/01 afternoon, contained in palm if handful. Patient reported scant blood in sputum yesterday, resolved this morning Hgb has remained stable. Resume Xarelto today Continue to monitor Pulm consult - Dr. Takhalov - f/u further recs CT chest shows no pulm embolus but is + for pericardial effusion and small R pleural effusion repeat Echo shows trace pericardial effusion Bilateral leg pain, hx DVT - Echo 01/14 show RV is severely dilated, RV systolic function is severely reduced, RA is severely dilated, severe TR, severe pulm HTN - Dopplers negative for DVT - Lasix 40 mg PO BID - Gabapentin 300 TID RUE swelling, hx DVT - Afebrile, no leukocytosis - Dopplers neg for DVT LAYO - BiPAP at night as tolerated GI/DVT PPX - Xarelto 20 mg PO daily, SCDs - Protonix 40 mg PO daily Dispo: JESUS per PT recommendations since not at baseline. Insurance won't cover JESUS. Visiting nurse service approved with [employer] transportation home when appropriate. Consider home or outpatient PT services upon discharge or home with services when ready. Patient seen, case and plan discussed with attending, Dr. Carrington <Jenn Carrington - Last Filed: 03/07/18 14:07> Objective - Vital Signs/Intake and Output Vital Signs (last 24 hours): Temp Pulse Resp BP Pulse Ox 98.4 F 67 17 89/64 L 95 03/07/18 12:00 03/07/18 12:00 03/07/18 12:00 03/07/18 12:00 03/07/18 06:00 Intake and Output: 03/07/18 03/07/18 06:59 18:59 Intake Total 600 Output Total 800 Balance -200 - Medications Medications: Current Medications Acetaminophen (Tylenol 325mg Tab) 650 mg PO Q6H PRN PRN Reason: Headache Last Admin: 03/05/18 21:07 Dose: 650 mg Albuterol/Ipratropium (Duoneb 3 Mg/0.5 Mg (3 Ml) Ud) 3 ml IH [id number] PRN PRN Reason: Shortness of Breath Last Admin: 03/05/18 05:52 Dose: 3 ml Arformoterol Tartrate (Brovana) 15 mcg IH [id number] [facility] Last Admin: 03/07/18 08:03 Dose: 15 mcg Budesonide (Pulmicort Respules) 0.5 mg IH [id number] [facility] Last Admin: 03/07/18 08:02 Dose: 0.5 mg Furosemide (Lasix) 40 mg PO BID [facility] Last Admin: 03/07/18 11:12 Dose: 40 mg Gabapentin (Neurontin) 300 mg PO TID [facility]; Protocol Last Admin: 03/07/18 11:13 Dose: 300 mg Pantoprazole Sodium (Protonix Ec Tab) 40 mg PO 0600 [facility] Last Admin: 03/07/18 05:49 Dose: 40 mg Rivaroxaban (Xarelto) 20 mg PO DAILY [facility]; Protocol Last Admin: 03/07/18 11:12 Dose: 20 mg Sildenafil Citrate (Revatio) 20 mg PO TID [facility] Last Admin: 03/07/18 11:12 Dose: 20 mg - Labs Labs: 03/07/18 06:30 03/07/18 06:30 PT 35.6 SECONDS (9.4-12.5) H 03/01/18 18:48 INR 3.05 03/01/18 18:48 APTT 32.1 Seconds (25.1-36.5) 03/01/18 18:48 Attending/Attestation - Attestation I have personally seen and examined this patient.: Yes I have fully participated in the care of the patient.: Yes I have reviewed all pertinent clinical information, including history, physical exam and plan: Yes Notes (Text): 03/07/18 14:04 42 year old female with past medical history of COPD, diastolic CHF, DVT/PE on xarelto, LAYO and left BKA who presented with complaint of shortness of breath and LE edema. She was admitted for acute on chronic hypoxic respiratory failure secondary to diastolic CHF / COPD exacerbation. She is s/p steroids. She is on po lasix bid. She had episode of hemoptysis few days prior which resolved. Anticoagulation was resumed. CT chest was negative for PE. Echocardiogram showed trace pericardial effusion and severe pulmonary hypertension. She is on revatio. Yesterday she was noted to have significant hypoxia even with minimal activity. Bipap was applied. Pulmonary follow up was appreciated; encouraged bipap use at night. PT has been recommending JESUS which is denied by insurance. Per PT patient is not currently at her baseline. Patient continues to have hypoxia with even minimal activity. Will discuss with pulmonary. Consider home or outpatient PT services upon discharge or home with services when ready. Patient was counselled on medication compliance. Jenn Carrington MD Hospitalist.
[2018-03-07 07:35] LABS: EOS # 0.2 (0.0-0.7); EOS % 2.6 % (1.5-5.0); GRAN # 6.43 (1.4-6.5); GRAN % 77.2 % (50.0-68.0); HEMOGLOBIN 10.2 g/dL (12.0-16.0); LYMPH # 0.7 (1.2-3.4); LYMPH % 8.2 % (22.0-35.0); MEAN CELL VOLUME 83.7 fl (80.0-105.0); MEAN CORPUSCULAR HEMOGLOBIN 25.1 pg (25.0-35.0); MEAN PLATELET VOLUME 10.1 fl (7.0-11.0); RBC 4.06 10^6/uL (3.5-6.1); RED CELL DISTRIBUTION WIDTH 19.5 % (11.5-14.5); WHITE BLOOD COUNT 8.3 10^3/uL (4.5-11.0)
[2018-03-07] MEDS: Budesonide 0.5 mg/2 ml Inhal Susp UD IH SCH ×2 (08:02→20:22)
[2018-03-07] MEDS: Arformoterol 15 mcg/2 ml Inh Sol IH SCH ×2 (08:03→20:22)
[2018-03-07 08:22] LABS: ALB/GLOB RATIO 1.3 (1.1-1.8); ALBUMIN 3.7 g/dL (3.0-4.8); ALT/SGPT 32 U/L (7-56); AST/SGOT 25 U/L (14-36); BLOOD UREA NITROGEN 17 mg/dL (7-21); CALCIUM 9.3 mg/dL (8.4-10.5); GFR NON-AFRICAN AMERICAN > 60
[2018-03-07] MEDS: Sildenafil 20 MG TAB PO SCH ×3 (11:12→17:45)
[2018-03-07] MEDS: guaiFENesin DM 100 mg-10 mg/5 ml UD PO PRN (15:37)
--- NOTE | 2018-03-07 21:20 | PN ---
DATE: 03/07/2018 SUBJECTIVE: The patient is resting in bed with O2 via nasal cannula, has had the nasal cannula on for part of the day but states she wants to go back on the BiPAP. No complaints of increased cough or congestion. No chest pain. No abdominal pain or diarrhea. The patient does have family at bedside. PHYSICAL EXAMINATION: VITAL SIGNS: Her temperature is 98.4, her pulse is 65, respirations of 17 and BP is 122/95. SKIN: Warm and dry. HEENT: Head atraumatic, normocephalic. Eyes reactive to light. Ears, nose and throat seemed to be within normal limits. NECK: Supple. No JVD. No thyroid enlargement or lymph nodes. HEART: Regular rate and rhythm. Normal S1, S2. LUNGS: Rare rhonchi bilaterally. ABDOMEN: Soft, obese. Decreased bowel sounds. GENITALIA AND RECTAL: Deferred. MUSCULOSKELETAL: No joint deformities except for the lower extremity swelling. NEUROLOGIC: She seemed to be grossly intact. LABORATORY DATA: White count is 8.3, hemoglobin of 10.2, hematocrit 34 with platelets of 111,000. Sodium is 135, potassium 3.8, chloride 100, CO2 of 27 with a BUN of 17, creatinine of 1 and a glucose of 95. IMPRESSION: The patient has respiratory insufficiency secondary to congestive heart failure and chronic obstructive pulmonary disease with severe pulmonary hypertension. She is noted to have obstructive sleep apnea, morbid obesity, history of deep venous thrombosis, pulmonary embolus as well as left [id number] amputation and chronic hypoxia. PLAN: The patient will continue with bronchodilators, DuoNeb, been given Lasix for diuresis as well as Protonix, Pulmicort, sildenafil and Xarelto. We will continue to treat aggressively along with the other consultants and the primary care doctor. Pierre Moore MD
[2018-03-08] MEDS: guaiFENesin DM 100 mg-10 mg/5 ml UD PO PRN ×3 (05:11→21:41)
[2018-03-08] MEDS: Pantoprazole 40 mg EC Tab PO SCH (05:11)
[2018-03-08] MEDS: Budesonide 0.5 mg/2 ml Inhal Susp UD IH SCH ×2 (07:29→19:42)
[2018-03-08] MEDS: Arformoterol 15 mcg/2 ml Inh Sol IH SCH ×2 (07:29→19:42)
[2018-03-08 07:57] LABS: BASO # 0.01 K/mm3 (0.0-2.0); BASO % 0.1 % (0.0-3.0); EOS # 0.1 (0.0-0.7); EOS % 1.7 % (1.5-5.0); GRAN # 6.6 (1.4-6.5); GRAN % 79.2 % (50.0-68.0); HEMOGLOBIN 9.4 g/dL (12.0-16.0); LYMPH # 0.7 (1.2-3.4); LYMPH % 8.3 % (22.0-35.0); MEAN CELL VOLUME 83.5 fl (80.0-105.0); MEAN CORPUSCULAR HEMOGLOBIN 25.5 pg (25.0-35.0); MEAN CORPUSCULAR HGB CONC 30.5 g/dl (31.0-37.0); MEAN PLATELET VOLUME 10.2 fl (7.0-11.0); MONO # 0.9 (0.1-0.6); MONO % 10.7 % (1.0-6.0); RBC 3.69 10^6/uL (3.5-6.1); RED CELL DISTRIBUTION WIDTH 19.5 % (11.5-14.5); WHITE BLOOD COUNT 8.3 10^3/uL (4.5-11.0)
[2018-03-08 08:09] LABS: ALB/GLOB RATIO 1.3 (1.1-1.8); ALBUMIN 3.4 g/dL (3.0-4.8); ALT/SGPT 28 U/L (7-56); AST/SGOT 21 U/L (14-36); BLOOD UREA NITROGEN 17 mg/dL (7-21); CALCIUM 9.1 mg/dL (8.4-10.5); GFR NON-AFRICAN AMERICAN > 60
[2018-03-08] MEDS: Sildenafil 20 MG TAB PO SCH ×3 (09:17→17:35)
[2018-03-08 12:08] LABS: ARTERIAL BLOOD GAS HCO3 24.6 mmol/L (21-28); ARTERIAL BLOOD GAS HEMOGLOBIN 9.6 g/dL (11.7-17.4); ARTERIAL BLOOD GAS O2 CAPACITY 13.2 mL/dl (16-24); ARTERIAL BLOOD GAS O2 CONTENT 12.2 ML/dl (15-23); ARTERIAL BLOOD GAS O2 SAT 92.6 % (95-98); ARTERIAL BLOOD GAS PCO2 33 mm/Hg (35-45); ARTERIAL BLOOD GAS PH 7.48 (7.35-7.45); ARTERIAL BLOOD GAS TCO2 25.6 mmol.L (22-28)
--- NOTE | 2018-03-08 15:57 | CP.PCM.PN ---
<Wilmer Santo - Last Filed: 03/08/18 15:53> Subjective - Date & Time of Evaluation Date of Evaluation: 03/08/18 Time of Evaluation: 07:58 - Subjective Subjective: Wilmer Santo PGY-1 Progress Note for Hospitalist Service Patient seen and evaluated at bedside. Patient denies acute events overnight. Patient currently using BiPAP machine. Patient reports improved leg edema from weekend. Objective - Vital Signs/Intake and Output Vital Signs (last 24 hours): Temp Pulse Resp BP Pulse Ox 98.2 F 76 18 90/46 L 97 03/08/18 12:00 03/08/18 12:00 03/08/18 12:00 03/08/18 12:00 03/08/18 06:00 Intake and Output: 03/08/18 03/08/18 06:59 18:59 Intake Total 240 Output Total 600 Balance -360 - Medications Medications: Current Medications Acetaminophen (Tylenol 325mg Tab) 650 mg PO Q6H PRN PRN Reason: Headache Last Admin: 03/05/18 21:07 Dose: 650 mg Albuterol/Ipratropium (Duoneb 3 Mg/0.5 Mg (3 Ml) Ud) 3 ml IH [id number] PRN PRN Reason: Shortness of Breath Last Admin: 03/05/18 05:52 Dose: 3 ml Arformoterol Tartrate (Brovana) 15 mcg IH [id number] [facility] Last Admin: 03/08/18 07:29 Dose: 15 mcg Budesonide (Pulmicort Respules) 0.5 mg IH [id number] [facility] Last Admin: 03/08/18 07:29 Dose: 0.5 mg Furosemide (Lasix) 60 mg PO BID [facility] Gabapentin (Neurontin) 300 mg PO TID [facility]; Protocol Last Admin: 03/08/18 13:22 Dose: 300 mg Guaifenesin/Dextromethorphan (Robitussin Dm) 5 ml PO Q4H PRN PRN Reason: Cough Last Admin: 03/08/18 13:22 Dose: 5 ml Pantoprazole Sodium (Protonix Ec Tab) 40 mg PO 0600 [facility] Last Admin: 03/08/18 05:11 Dose: 40 mg Rivaroxaban (Xarelto) 20 mg PO DAILY [facility]; Protocol Last Admin: 03/08/18 09:17 Dose: 20 mg Sildenafil Citrate (Revatio) 20 mg PO TID [facility] Last Admin: 03/08/18 13:23 Dose: 20 mg - Labs Labs: 03/08/18 07:40 03/08/18 07:40 PT 35.6 SECONDS (9.4-12.5) H 03/01/18 18:48 INR 3.05 03/01/18 18:48 APTT 32.1 Seconds (25.1-36.5) 03/01/18 18:48 - Additional Findings Additional findings: - Constitutional Appears: No Acute Distress, Older Than Stated Age - Head Exam Head Exam: ATRAUMATIC, NORMAL INSPECTION, NORMOCEPHALIC - Eye Exam Eye Exam: EOMI, PERRL - ENT Exam ENT Exam: Mucous Membranes Moist - Neck Exam Neck Exam: Full ROM - Respiratory Exam Respiratory Exam: Decreased Breath Sounds. absent: Rales, Rhonchi, Wheezes Additional comments: increased respiratory effort with movement - GI/Abdominal Exam GI & Abdominal Exam: Soft, Normal Bowel Sounds. 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 Patient with episode of hypoxia on BiPAP. Plan: Shortness of breath - CHF vs COPD vs Pulm HTN - Continue Lasix changed to 40 mg PO BID - Duonebs q4H PRN - Brovana 15 mcg Q12H - Pulmicort .5 mg BID - Prednisone 40 mg PO daily - Sildenafil 20 mg PO TID - Daily weights, Is and Os - Patient placed on biPAP for low oxygenation with improvement in O2 sats over weekend - Pulmonary consulted, recommending continued therapy and emphasis on biPAP overnight. Further recs after O2 sats dropped today - f/u ABG, repeat CXR and pulmonary recs. FiO2 increased to 60 % Hemoptysis, hx of PE/DVT- resolved single episode 03/01 afternoon, contained in palm if handful. Patient reported scant blood in sputum yesterday, resolved this morning Hgb has remained stable. Resume Xarelto today Continue to monitor Pulm consult - Dr. Clark - f/u further recs CT chest shows no pulm embolus but is + for pericardial effusion and small R pleural effusion repeat Echo shows trace pericardial effusion Bilateral leg pain, hx DVT - Echo 01/14 show RV is severely dilated, RV systolic function is severely reduced, RA is severely dilated, severe TR, severe pulm HTN - Dopplers negative for DVT - Lasix 40 mg PO BID - Gabapentin 300 TID RUE swelling, hx DVT - Afebrile, no leukocytosis - Dopplers neg for DVT LAYO - BiPAP at night as tolerated GI/DVT PPX - Xarelto 20 mg PO daily, SCDs - Protonix 40 mg PO daily Dispo: [facility] per PT recommendations since not at baseline. Insurance won't cover JESUS. Visiting nurse service approved with [employer] transportation home when appropriate. - Awaiting appeal results for JESUS Patient seen, case reviewed and plan approved by Dr. Gross. Wilmer Santo, PGY-1 <Placido Gross - Last Filed: 03/13/18 10:55> Objective - Vital Signs/Intake and Output Vital Signs (last 24 hours): Temp Pulse Resp BP Pulse Ox 98.6 F 86 21 98/62 L 96 03/13/18 06:00 03/13/18 07:35 03/13/18 06:00 03/13/18 06:00 03/13/18 06:00 Intake and Output: 03/13/18 03/13/18 06:59 18:59 Intake Total 350 Balance 350 - Medications Medications: Current Medications Acetaminophen (Tylenol 325mg Tab) 650 mg PO Q6H PRN PRN Reason: Headache Last Admin: 03/05/18 21:07 Dose: 650 mg Albuterol/Ipratropium (Duoneb 3 Mg/0.5 Mg (3 Ml) Ud) 3 ml IH [id number] PRN PRN Reason: Shortness of Breath Last Admin: 03/13/18 00:15 Dose: 3 ml Arformoterol Tartrate (Brovana) 15 mcg IH [id number] [facility] Last Admin: 03/13/18 07:34 Dose: 15 mcg Budesonide (Pulmicort Respules) 0.5 mg IH [id number] [facility] Last Admin: 03/13/18 07:34 Dose: 0.5 mg Furosemide (Lasix) 40 mg IVP Q12 [facility] Last Admin: 03/12/18 21:54 Dose: 40 mg Gabapentin (Neurontin) 300 mg PO TID [facility]; Protocol Last Admin: 03/12/18 18:25 Dose: 300 mg Guaifenesin/Dextromethorphan (Robitussin Dm) 5 ml PO Q4H PRN PRN Reason: Cough Last Admin: 03/12/18 22:34 Dose: 5 ml Pantoprazole Sodium (Protonix Ec Tab) 40 mg PO 0600 [facility] Last Admin: 03/12/18 05:49 Dose: 40 mg Rivaroxaban (Xarelto) 20 mg PO DAILY [facility]; Protocol Last Admin: 03/12/18 10:29 Dose: 20 mg Sildenafil Citrate (Revatio) 20 mg PO TID [facility] Last Admin: 03/12/18 18:24 Dose: 20 mg - Labs Labs: 03/13/18 07:00 03/13/18 07:00 PT 35.6 SECONDS (9.4-12.5) H 03/01/18 18:48 INR 3.05 03/01/18 18:48 APTT 32.1 Seconds (25.1-36.5) 03/01/18 18:48 Attending/Attestation - Attestation I have personally seen and examined this patient.: Yes I have fully participated in the care of the patient.: Yes I have reviewed all pertinent clinical information, including history, physical exam and plan: Yes Notes (Text): 03/13/18 10:45 Medical record note made by the resident after discussion with my direction and input after the patient was personally seen and examined by me. I have reviewed the chart and agree that the record accurately reflects by personal performance of the history, physical exam, data review, and medical decision-making, in the course for the patient. I have also personally directed the plan of care. 42 year old female with past medical history of COPD, diastolic CHF, DVT/PE on xarelto, LAYO and left BKA who presented with complaint of shortness of breath and LE edema. She was admitted for acute on chronic hypoxic respiratory failure secondary to diastolic CHF / COPD exacerbation. She is SP steroids therapy for COPD exacerbation. She is on PO lasix bid. She had episode of hemoptysis few days prior which was resolved. Anticoagulation was resumed. CT chest was negative for PE. Echocardiogram showed trace pericardial effusion and severe pulmonary hypertension. She is on revatiom Hypoxia is worsened today on BIPAP FIO 2 50%,.Chest x ray showed Pulmonary congestion .We will start patient on IV lasix.We will request Pulmonary Follow up . Blood pressure is soft,avoid over diuresis due to severe Pulmonary HTN. Prognosis is guarded.
--- NOTE | 2018-03-08 17:23 | RAD ---
Date of service: 03/08/2018 HISTORY: shortness of breath COMPARISON: 03/06/2018. 03/03/2018 CT pulmonary angiogram FINDINGS: LUNGS: No active pulmonary disease. PLEURA: No significant pleural effusion identified, no pneumothorax apparent. CARDIOVASCULAR: No atherosclerotic calcification present Cardiomegaly/pulmonary vascular congestion. Stable findings OSSEOUS STRUCTURES: No significant abnormalities. VISUALIZED UPPER ABDOMEN: Normal. OTHER FINDINGS: None. IMPRESSION: Stable cardiomegaly/mild CHF.
--- NOTE | 2018-03-08 17:52 | CP.PCM.PN ---
Subjective - Date & Time of Evaluation Date of Evaluation: 03/08/18 Time of Evaluation: 13:00 - Subjective Subjective: Patient seen and examined, remains on BIPAP 12/09/60%, reports SOB is mildly improved. Denies CP. Objective - Vital Signs/Intake and Output Vital Signs (last 24 hours): Temp Pulse Resp BP Pulse Ox 98.9 F 84 18 98/54 L 97 03/08/18 17:46 03/08/18 17:46 03/08/18 17:46 03/08/18 17:46 03/08/18 06:00 Intake and Output: 03/08/18 03/08/18 06:59 18:59 Intake Total 240 Output Total 600 Balance -360 - Medications Medications: Current Medications Acetaminophen (Tylenol 325mg Tab) 650 mg PO Q6H PRN PRN Reason: Headache Last Admin: 03/05/18 21:07 Dose: 650 mg Albuterol/Ipratropium (Duoneb 3 Mg/0.5 Mg (3 Ml) Ud) 3 ml IH [id number] PRN PRN Reason: Shortness of Breath Last Admin: 03/05/18 05:52 Dose: 3 ml Arformoterol Tartrate (Brovana) 15 mcg IH [id number] [facility] Last Admin: 03/08/18 07:29 Dose: 15 mcg Budesonide (Pulmicort Respules) 0.5 mg IH [id number] [facility] Last Admin: 03/08/18 07:29 Dose: 0.5 mg Furosemide (Lasix) 40 mg IVP Q12 [facility] Gabapentin (Neurontin) 300 mg PO TID [facility]; Protocol Last Admin: 03/08/18 17:35 Dose: 300 mg Guaifenesin/Dextromethorphan (Robitussin Dm) 5 ml PO Q4H PRN PRN Reason: Cough Last Admin: 03/08/18 13:22 Dose: 5 ml Pantoprazole Sodium (Protonix Ec Tab) 40 mg PO 0600 [facility] Last Admin: 03/08/18 05:11 Dose: 40 mg Rivaroxaban (Xarelto) 20 mg PO DAILY [facility]; Protocol Last Admin: 03/08/18 09:17 Dose: 20 mg Sildenafil Citrate (Revatio) 20 mg PO TID [facility] Last Admin: 03/08/18 17:35 Dose: 20 mg - Labs Labs: 03/08/18 07:40 03/08/18 07:40 PT 35.6 SECONDS (9.4-12.5) H 03/01/18 18:48 INR 3.05 03/01/18 18:48 APTT 32.1 Seconds (25.1-36.5) 03/01/18 18:48 - Constitutional Appears: Non-toxic, No Acute Distress - Head Exam Head Exam: NORMAL INSPECTION - Eye Exam Eye Exam: Normal appearance - ENT Exam ENT Exam: Mucous Membranes Moist - Neck Exam Neck Exam: Full ROM - Respiratory Exam Respiratory Exam: Rales, NORMAL BREATHING PATTERN - Cardiovascular Exam Cardiovascular Exam: REGULAR RHYTHM, +S1, +S2 - Neurological Exam Neurological Exam: Alert, Awake, Oriented x3 Assessment and Plan - Assessment and Plan (Free Text) Assessment: 42yo female with PMhx Pulm HTN, 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
[2018-03-09] MEDS: Pantoprazole 40 mg EC Tab PO SCH (06:13)
[2018-03-09 06:55] LABS: BASO # 0.02 K/mm3 (0.0-2.0); BASO % 0.2 % (0.0-3.0); EOS # 0.2 (0.0-0.7); EOS % 2.1 % (1.5-5.0); GRAN # 7.09 (1.4-6.5); GRAN % 80.9 % (50.0-68.0); HEMOGLOBIN 9.5 g/dL (12.0-16.0); LYMPH # 1.1 (1.2-3.4); MEAN CELL VOLUME 83.6 fl (80.0-105.0); MEAN CORPUSCULAR HEMOGLOBIN 25.6 pg (25.0-35.0); MEAN CORPUSCULAR HGB CONC 30.6 g/dl (31.0-37.0); MEAN PLATELET VOLUME 10.4 fl (7.0-11.0); MONO # 0.4 (0.1-0.6); MONO % 4.8 % (1.0-6.0); RBC 3.71 10^6/uL (3.5-6.1); RED CELL DISTRIBUTION WIDTH 19.6 % (11.5-14.5); WHITE BLOOD COUNT 8.8 10^3/uL (4.5-11.0)
[2018-03-09 06:56] LABS: ALB/GLOB RATIO 1.2 (1.1-1.8); ALBUMIN 3.5 g/dL (3.0-4.8); ALT/SGPT 30 U/L (7-56); AST/SGOT 24 U/L (14-36); BLOOD UREA NITROGEN 17 mg/dL (7-21); GFR NON-AFRICAN AMERICAN > 60
[2018-03-09] MEDS: Arformoterol 15 mcg/2 ml Inh Sol IH SCH ×2 (09:00→19:39)
[2018-03-09] MEDS: Budesonide 0.5 mg/2 ml Inhal Susp UD IH SCH ×2 (09:00→19:39)
[2018-03-09] MEDS: Sildenafil 20 MG TAB PO SCH ×3 (09:39→17:59)
--- NOTE | 2018-03-09 12:44 | CP.PCM.PN ---
Subjective - Date & Time of Evaluation Date of Evaluation: 03/09/18 Time of Evaluation: 12:41 - Subjective Subjective: Patient seen and examined. Pt is OFF BIPAP, having lunch, reports SOB is significantly improved. Objective - Vital Signs/Intake and Output Vital Signs (last 24 hours): Temp Pulse Resp BP Pulse Ox 97.8 F 85 18 109/69 99 03/09/18 11:45 03/09/18 11:45 03/09/18 11:45 03/09/18 11:45 03/09/18 06:00 Intake and Output: 03/09/18 03/09/18 06:59 18:59 Intake Total 720 Output Total 1200 Balance -480 - Medications Medications: Current Medications Acetaminophen (Tylenol 325mg Tab) 650 mg PO Q6H PRN PRN Reason: Headache Last Admin: 03/05/18 21:07 Dose: 650 mg Albuterol/Ipratropium (Duoneb 3 Mg/0.5 Mg (3 Ml) Ud) 3 ml IH [id number] PRN PRN Reason: Shortness of Breath Last Admin: 03/05/18 05:52 Dose: 3 ml Arformoterol Tartrate (Brovana) 15 mcg IH [id number] [facility] Last Admin: 03/09/18 09:00 Dose: 15 mcg Budesonide (Pulmicort Respules) 0.5 mg IH [id number] [facility] Last Admin: 03/09/18 09:00 Dose: 0.5 mg Furosemide (Lasix) 40 mg IVP Q12 [facility] Last Admin: 03/09/18 09:38 Dose: 40 mg Gabapentin (Neurontin) 300 mg PO TID [facility]; Protocol Last Admin: 03/09/18 09:39 Dose: 300 mg Guaifenesin/Dextromethorphan (Robitussin Dm) 5 ml PO Q4H PRN PRN Reason: Cough Last Admin: 03/08/18 21:41 Dose: 5 ml Pantoprazole Sodium (Protonix Ec Tab) 40 mg PO 0600 [facility] Last Admin: 03/09/18 06:13 Dose: 40 mg Rivaroxaban (Xarelto) 20 mg PO DAILY [facility]; Protocol Last Admin: 03/09/18 09:39 Dose: 20 mg Sildenafil Citrate (Revatio) 20 mg PO TID [facility] Last Admin: 03/09/18 09:39 Dose: 20 mg - Labs Labs: 03/09/18 05:50 03/09/18 05:50 PT 35.6 SECONDS (9.4-12.5) H 03/01/18 18:48 INR 3.05 03/01/18 18:48 APTT 32.1 Seconds (25.1-36.5) 03/01/18 18:48 - Constitutional Appears: Non-toxic, No Acute Distress - Head Exam Head Exam: NORMAL INSPECTION - Eye Exam Eye Exam: Normal appearance - ENT Exam ENT Exam: Mucous Membranes Moist - Respiratory Exam Respiratory Exam: Clear to Ausculation Bilateral, NORMAL BREATHING PATTERN - Cardiovascular Exam Cardiovascular Exam: REGULAR RHYTHM, +S1, +S2 - GI/Abdominal Exam GI & Abdominal Exam: Soft, Normal Bowel Sounds - Extremities Exam Extremities Exam: Normal Inspection - Neurological Exam Neurological Exam: Alert, Awake, Oriented x3 Assessment and Plan - Assessment and Plan (Free Text) Assessment: 42yo female with PMhx Pulm HTN, 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
[2018-03-09] MEDS: guaiFENesin DM 100 mg-10 mg/5 ml UD PO PRN (13:27)
--- NOTE | 2018-03-09 14:31 | CON ---
DATE: 03/09/2018 CARDIOLOGY CONSULTATION HISTORY OF PRESENT ILLNESS: The patient is a 42-year-old woman, who presents with dyspnea. The patient's cardiac risk factors include severe pulmonary hypertension documented by echocardiogram, in which she is currently on anti-pulmonary hypertension medications. In addition, the patient has had a thromboembolic phenomenon in the past and is currently receiving anticoagulation with Xarelto. The patient is status post amputation of the left lower extremity secondary to thromboembolic phenomenon. In addition, she suffers from morbid obesity. SOCIAL HISTORY: She denies smoking. REVIEW OF SYSTEMS: Currently, her breathing is better. No angina. Edema is no change. The patient is annoyed and actually wants to continue eating her lunch and answering questions. PHYSICAL EXAMINATION: VITAL SIGNS: Blood pressure is 109/69, heart rate is in the 80s. NECK: Negative JVD. LUNGS: Decreased breath sounds bilaterally. HEART: Revealed S1, S2. EXTREMITIES: Amputation of left lower extremity. EKG shows marked poor voltage throughout. Hemoglobin is 9.5. Chemistries, unremarkable. ProBNP is elevated. The total bilirubin is 2.5. IMPRESSION: 1. Severe pulmonary hypertension. 2. History of thromboembolic phenomenon, treated with Xarelto. 3. Dyspnea, likely secondary to her pulmonary hypertension. 4. Morbid obesity. 5. Anemia. 6. Status post amputation of lower extremities. PLAN: Given these findings, there is no evidence for left-sided CHF, instead, the patient's dyspnea is primarily from her pulmonary hypertension. Farshad Landers MD
--- NOTE | 2018-03-09 16:34 | CP.PCM.PN ---
<Wilmer Santo - Last Filed: 03/09/18 16:30> Subjective - Date & Time of Evaluation Date of Evaluation: 03/09/18 Time of Evaluation: 08:00 - Subjective Subjective: Wilmer Santo PGY-1 Progress Note for Hospitalist Service Patient seen and evaluated at bedside. Patient denies acute events overnight. Patient currently on NC 5 L. Negative 480 mL balance overall. SOB significantly improved, and denies CP, palpitations, dizziness and headaches. Objective - Vital Signs/Intake and Output Vital Signs (last 24 hours): Temp Pulse Resp BP Pulse Ox 97.8 F 85 18 109/69 99 03/09/18 11:45 03/09/18 14:00 03/09/18 11:45 03/09/18 11:45 03/09/18 06:00 Intake and Output: 03/09/18 03/09/18 06:59 18:59 Intake Total 720 Output Total 1200 Balance -480 - Medications Medications: Current Medications Acetaminophen (Tylenol 325mg Tab) 650 mg PO Q6H PRN PRN Reason: Headache Last Admin: 03/05/18 21:07 Dose: 650 mg Albuterol/Ipratropium (Duoneb 3 Mg/0.5 Mg (3 Ml) Ud) 3 ml IH [id number] PRN PRN Reason: Shortness of Breath Last Admin: 03/05/18 05:52 Dose: 3 ml Arformoterol Tartrate (Brovana) 15 mcg [facility] [id number] [facility] Last Admin: 03/09/18 09:00 Dose: 15 mcg Budesonide (Pulmicort Respules) 0.5 mg IH [id number] [facility] Last Admin: 03/09/18 09:00 Dose: 0.5 mg Furosemide (Lasix) 40 mg IVP Q12 [facility] Last Admin: 03/09/18 09:38 Dose: 40 mg Gabapentin (Neurontin) 300 mg PO TID [facility]; Protocol Last Admin: 03/09/18 13:27 Dose: 300 mg Guaifenesin/Dextromethorphan (Robitussin Dm) 5 ml PO Q4H PRN PRN Reason: Cough Last Admin: 03/09/18 13:27 Dose: 5 ml Pantoprazole Sodium (Protonix Ec Tab) 40 mg PO 0600 [facility] Last Admin: 03/09/18 06:13 Dose: 40 mg Rivaroxaban (Xarelto) 20 mg PO DAILY [facility]; Protocol Last Admin: 03/09/18 09:39 Dose: 20 mg Sildenafil Citrate (Revatio) 20 mg PO TID [facility] Last Admin: 03/09/18 13:27 Dose: 20 mg - Labs Labs: 03/09/18 05:50 03/09/18 05:50 PT 35.6 SECONDS (9.4-12.5) H 03/01/18 18:48 INR 3.05 03/01/18 18:48 APTT 32.1 Seconds (25.1-36.5) 03/01/18 18:48 - Additional Findings Additional findings: - Constitutional Appears: No Acute Distress, Older Than Stated Age - Head Exam Head Exam: ATRAUMATIC, NORMAL INSPECTION, NORMOCEPHALIC - Eye Exam Eye Exam: EOMI, PERRL - ENT Exam ENT Exam: Mucous Membranes Moist - Neck Exam Neck Exam: Full ROM - Respiratory Exam Respiratory Exam: Decreased Breath Sounds. absent: Rales, Rhonchi, Wheezes - GI/Abdominal Exam GI & Abdominal Exam: Soft, Normal Bowel Sounds. 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 Plan: Shortness of breath 2/2 Pulm HTN - CHF vs COPD - Continue Lasix changed to 40 mg IV BID - Duonebs q4H PRN - Brovana 15 mcg Q12H - Pulmicort .5 mg BID - Sildenafil 20 mg PO TID - Daily weights, Is and Os, fluid restrict to 1.2 L daily - Patient placed on biPAP for low oxygenation with improvement in O2 sats over weekend - Pulmonary consulted, recommending continued therapy and emphasis on biPAP. - Repeat CXR 03/08 shows stable cardiomegaly, pulm vascular congestion Hemoptysis, hx of PE/DVT- resolved - Single episode 03/01 afternoon, contained in palm if handful. Patient reported scant blood in sputum yesterday, resolved this morning - Hgb has remained stable. Xarelto resumed - Continue to monitor - Pulm consult - Dr. Clark - f/u further recs - CT chest shows no pulm embolus but is + for pericardial effusion and small R pleural effusion - repeat Echo shows trace pericardial effusion - Guaifenesin DM for cough, improved Bilateral leg pain, hx DVT - Echo 01/14 show RV is severely dilated, RV systolic function is severely re duced, RA is severely dilated, severe TR, severe pulm HTN - Dopplers negative for DVT - Lasix 40 mg IV BID - Gabapentin 300 TID RUE swelling, hx DVT - Afebrile, no leukocytosis - Dopplers neg for DVT - OOB to chair LAYO - BiPAP at night as tolerated GI/DVT PPX - Xarelto 20 mg PO daily, SCDs - Protonix 40 mg PO daily Dispo: [facility] per PT. Patient seen, case reviewed and plan approved by Dr. Hong. Wilmer Santo, PGY-1 <Gary Hong - Last Filed: 03/10/18 18:14> Objective - Vital Signs/Intake and Output Vital Signs (last 24 hours): Temp Pulse Resp BP Pulse Ox 97.5 F L 84 20 120/75 96 03/10/18 12:00 03/10/18 12:00 03/10/18 12:00 03/10/18 12:00 03/10/18 06:00 Intake and Output: 03/10/18 03/10/18 06:59 18:59 Intake Total 240 Output Total 2400 Balance -2160 - Medications Medications: Current Medications Acetaminophen (Tylenol 325mg Tab) 650 mg PO Q6H PRN PRN Reason: Headache Last Admin: 03/05/18 21:07 Dose: 650 mg Albuterol/Ipratropium (Duoneb 3 Mg/0.5 Mg (3 Ml) Ud) 3 ml IH [id number] PRN PRN Reason: Shortness of Breath Last Admin: 03/05/18 05:52 Dose: 3 ml Arformoterol Tartrate (Brovana) 15 mcg IH [id number] [facility] Last Admin: 03/10/18 07:30 Dose: 15 mcg Budesonide (Pulmicort Respules) 0.5 mg IH [id number] [facility] Last Admin: 03/10/18 07:30 Dose: 0.5 mg Furosemide (Lasix) 40 mg IVP Q12 [facility] Last Admin: 03/10/18 10:32 Dose: 40 mg Gabapentin (Neurontin) 300 mg PO TID [facility]; Protocol Last Admin: 03/10/18 17:16 Dose: 300 mg Guaifenesin/Dextromethorphan (Robitussin Dm) 5 ml PO Q4H PRN PRN Reason: Cough Last Admin: 03/10/18 13:02 Dose: 5 ml Pantoprazole Sodium (Protonix Ec Tab) 40 mg PO 0600 [facility] Last Admin: 03/10/18 06:58 Dose: 40 mg Rivaroxaban (Xarelto) 20 mg PO DAILY [facility]; Protocol Last Admin: 03/10/18 10:32 Dose: 20 mg Sildenafil Citrate (Revatio) 20 mg PO TID [facility] Last Admin: 03/10/18 17:16 Dose: 20 mg - Labs Labs: 03/10/18 06:00 03/10/18 06:00 PT 35.6 SECONDS (9.4-12.5) H 03/01/18 18:48 INR 3.05 03/01/18 18:48 APTT 32.1 Seconds (25.1-36.5) 03/01/18 18:48 Attending/Attestation - Attestation I have personally seen and examined this patient.: Yes I have fully participated in the care of the patient.: Yes I have reviewed all pertinent clinical information, including history, physical exam and plan: Yes Notes (Text): CHF COPD LAYO History of DVT and PE Deconditioned c/w Duo/nebs PRN BiPAP at night c/w diuretics, strict I/Os c/w xarelto PT on board
[2018-03-10 06:47] LABS: BASO # 0.01 K/mm3 (0.0-2.0); BASO % 0.1 % (0.0-3.0); EOS # 0.2 (0.0-0.7); EOS % 2.6 % (1.5-5.0); GRAN # 5.87 (1.4-6.5); GRAN % 76.1 % (50.0-68.0); HEMOGLOBIN 9.2 g/dL (12.0-16.0); LYMPH % 13.3 % (22.0-35.0); MEAN CELL VOLUME 83.3 fl (80.0-105.0); MEAN CORPUSCULAR HEMOGLOBIN 25.6 pg (25.0-35.0); MEAN CORPUSCULAR HGB CONC 30.7 g/dl (31.0-37.0); MEAN PLATELET VOLUME 10.5 fl (7.0-11.0); MONO # 0.6 (0.1-0.6); MONO % 7.9 % (1.0-6.0); RBC 3.6 10^6/uL (3.5-6.1); RED CELL DISTRIBUTION WIDTH 19.7 % (11.5-14.5); WHITE BLOOD COUNT 7.7 10^3/uL (4.5-11.0)
[2018-03-10 06:49] LABS: ALB/GLOB RATIO 1.2 (1.1-1.8); ALBUMIN 3.5 g/dL (3.0-4.8); ALT/SGPT 24 U/L (7-56); AST/SGOT 22 U/L (14-36); BLOOD UREA NITROGEN 16 mg/dL (7-21); GFR NON-AFRICAN AMERICAN > 60
[2018-03-10] MEDS: Pantoprazole 40 mg EC Tab PO SCH (06:58)
[2018-03-10] MEDS: Budesonide 0.5 mg/2 ml Inhal Susp UD IH SCH ×2 (07:30→20:57)
[2018-03-10] MEDS: Arformoterol 15 mcg/2 ml Inh Sol IH SCH ×2 (07:30→20:57)
[2018-03-10] MEDS ORDERED: Potassium Chloride 20 mEq ER Tab PO STA (08:34)
[2018-03-10] MEDS: Sildenafil 20 MG TAB PO SCH ×3 (10:32→17:16)
[2018-03-10] MEDS: guaiFENesin DM 100 mg-10 mg/5 ml UD PO PRN ×2 (13:02→20:34)
--- NOTE | 2018-03-10 16:14 | CP.PCM.PN ---
<Wilmer Santo - Last Filed: 03/10/18 15:58> Subjective - Date & Time of Evaluation Date of Evaluation: 03/10/18 Time of Evaluation: 09:00 - Subjective Subjective: Wilmer Santo PGY-1 Progress Note for Hospitalist Service Patient seen and evaluated at bedside. Patient denies acute events overnight. Patient currently on NC 5 L. Negative 500 mL balance overall. SOB significantly improved, and denies CP, palpitations, dizziness and headaches. Fluid restriction to 1.2 L. Objective - Vital Signs/Intake and Output Vital Signs (last 24 hours): Temp Pulse Resp BP Pulse Ox 97.5 F L 84 20 120/75 96 03/10/18 12:00 03/10/18 12:00 03/10/18 12:00 03/10/18 12:00 03/10/18 06:00 Intake and Output: 03/10/18 03/10/18 06:59 18:59 Intake Total 240 Output Total 2400 Balance -2160 - Medications Medications: Current Medications Acetaminophen (Tylenol 325mg Tab) 650 mg PO Q6H PRN PRN Reason: Headache Last Admin: 03/05/18 21:07 Dose: 650 mg Albuterol/Ipratropium (Duoneb 3 Mg/0.5 Mg (3 Ml) Ud) 3 ml IH [id number] PRN PRN Reason: Shortness of Breath Last Admin: 03/05/18 05:52 Dose: 3 ml Arformoterol Tartrate (Brovana) 15 mcg IH [id number] [facility] Last Admin: 03/10/18 07:30 Dose: 15 mcg Budesonide (Pulmicort Respules) 0.5 mg IH [id number] [facility] Last Admin: 03/10/18 07:30 Dose: 0.5 mg Furosemide (Lasix) 40 mg IVP Q12 [facility] Last Admin: 03/10/18 10:32 Dose: 40 mg Gabapentin (Neurontin) 300 mg PO TID [facility]; Protocol Last Admin: 03/10/18 13:02 Dose: 300 mg Guaifenesin/Dextromethorphan (Robitussin Dm) 5 ml PO Q4H PRN PRN Reason: Cough Last Admin: 03/10/18 13:02 Dose: 5 ml Pantoprazole Sodium (Protonix Ec Tab) 40 mg PO 0600 [facility] Last Admin: 03/10/18 06:58 Dose: 40 mg Rivaroxaban (Xarelto) 20 mg PO DAILY [facility]; Protocol Last Admin: 03/10/18 10:32 Dose: 20 mg Sildenafil Citrate (Revatio) 20 mg PO TID [facility] Last Admin: 03/10/18 13:03 Dose: 20 mg - Labs Labs: 03/10/18 06:00 03/10/18 06:00 PT 35.6 SECONDS (9.4-12.5) H 03/01/18 18:48 INR 3.05 03/01/18 18:48 APTT 32.1 Seconds (25.1-36.5) 03/01/18 18:48 - Additional Findings Additional findings: - Constitutional Appears: No Acute Distress, Older Than Stated Age - Head Exam Head Exam: ATRAUMATIC, NORMAL INSPECTION, NORMOCEPHALIC - Eye Exam Eye Exam: EOMI, PERRL - ENT Exam ENT Exam: Mucous Membranes Moist - Neck Exam Neck Exam: Full ROM - Respiratory Exam Respiratory Exam: Decreased Breath Sounds. absent: Rales, Rhonchi, Wheezes - GI/Abdominal Exam GI & Abdominal Exam: Soft, Normal Bowel Sounds. 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 Plan: Shortness of breath 2/2 Pulm HTN - CHF vs COPD - Continue Lasix 40 mg IV BID - Duonebs q4H PRN - Brovana 15 mcg Q12H - Pulmicort .5 mg BID - Sildenafil 20 mg PO TID - Daily weight increased by 1 kg, Is and Os negative 500 today, fluid restrict to 1.2 L daily - Patient placed on biPAP for low oxygenation with improvement in O2 sats over weekend - Pulmonary consulted, recommending continued therapy and emphasis on biPAP. - Repeat CXR 03/08 shows stable cardiomegaly, pulm vascular congestion - Telemetry discontinued per Dr. Landers - transfer to med-surg once bed available Hypokalemia - repleted - monitor in AM Hemoptysis, hx of PE/DVT- resolved - Multiple episodes last week - Hgb has remained stable. Xarelto resumed - Continue to monitor - Pulm consult - Dr. Clark - CT chest shows no pulm embolus but is + for pericardial effusion and small R pleural effusion - Repeat Echo shows trace pericardial effusion - Guaifenesin DM for cough, improved Bilateral leg pain, hx DVT - Echo 01/14 show RV is severely dilated, RV systolic function is severely reduced, RA is severely dilated, severe TR, severe pulm HTN - Dopplers negative for DVT - Lasix 40 mg IV BID - Gabapentin 300 TID RUE swelling, hx DVT - Afebrile, no leukocytosis - Dopplers neg for DVT - OOB to chair LAYO - BiPAP at night as tolerated GI/DVT PPX - Xarelto 20 mg PO daily, SCDs - Protonix 40 mg PO daily Dispo: New PT order - awaiting recommendations. Home with [facility] per . Patient seen, case reviewed and plan approved by Dr. Hong. Wilmer Santo, PGY-1 <Gray Hong - Last Filed: 03/10/18 18:15> Objective - Vital Signs/Intake and Output Vital Signs (last 24 hours): Temp Pulse Resp BP Pulse Ox 97.5 F L 84 20 120/75 96 03/10/18 12:00 03/10/18 12:00 03/10/18 12:00 03/10/18 12:00 03/10/18 06:00 Intake and Output: 03/10/18 03/10/18 06:59 18:59 Intake Total 240 Output Total 2400 Balance -2160 - Medications Medications: Current Medications Acetaminophen (Tylenol 325mg Tab) 650 mg PO Q6H PRN PRN Reason: Headache Last Admin: 03/05/18 21:07 Dose: 650 mg Albuterol/Ipratropium (Duoneb 3 Mg/0.5 Mg (3 Ml) Ud) 3 ml IH [id number] PRN PRN Reason: Shortness of Breath Last Admin: 03/05/18 05:52 Dose: 3 ml Arformoterol Tartrate (Brovana) 15 mcg IH [id number] [facility] Last Admin: 03/10/18 07:30 Dose: 15 mcg Budesonide (Pulmicort Respules) 0.5 mg IH [id number] [facility] Last Admin: 03/10/18 07:30 Dose: 0.5 mg Furosemide (Lasix) 40 mg IVP Q12 [facility] Last Admin: 03/10/18 10:32 Dose: 40 mg Gabapentin (Neurontin) 300 mg PO TID [facility]; Protocol Last Admin: 03/10/18 17:16 Dose: 300 mg Guaifenesin/Dextromethorphan (Robitussin Dm) 5 ml PO Q4H PRN PRN Reason: Cough Last Admin: 03/10/18 13:02 Dose: 5 ml Pantoprazole Sodium (Protonix Ec Tab) 40 mg PO 0600 [facility] Last Admin: 03/10/18 06:58 Dose: 40 mg Rivaroxaban (Xarelto) 20 mg PO DAILY [facility]; Protocol Last Admin: 03/10/18 10:32 Dose: 20 mg Sildenafil Citrate (Revatio) 20 mg PO TID [facility] Last Admin: 03/10/18 17:16 Dose: 20 mg - Labs Labs: 03/10/18 06:00 03/10/18 06:00 PT 35.6 SECONDS (9.4-12.5) H 03/01/18 18:48 INR 3.05 03/01/18 18:48 APTT 32.1 Seconds (25.1-36.5) 03/01/18 18:48 Attending/Attestation - Attestation I have personally seen and examined this patient.: Yes I have fully participated in the care of the patient.: Yes I have reviewed all pertinent clinical information, including history, physical exam and plan: Yes Notes (Text): CHF COPD LAYO History of DVT and PE Deconditioned c/w Duo/nebs PRN BiPAP at night c/w diuretics, strict I/Os c/w xarelto PT on board
--- NOTE | 2018-03-11 04:54 | PN ---
DATE: 03/10/2018 CARDIOLOGY FOLLOWUP SUBJECTIVE: The patient is a awake, alert, eating without complaints. PHYSICAL EXAMINATION: VITAL SIGNS: Blood pressure is 120/75, heart rate is in the 80s. NECK: Negative JVD. LUNGS: Decreased breath sounds. HEART: S1 and S2. EXTREMITIES: Without change. LABORATORY DATA: Hemoglobin is 9.2, white count is 7.7. Chemistries, BUN and creatinine are unremarkable. IMPRESSION: 1. Severe pulmonary hypertension. 2. History of thromboembolic phenomena. 3. Dyspnea which is better. 4. Morbid obesity. 5. History of amputation in the lower extremities. PLAN: Given these findings, the patient's dyspnea is from her severe pulmonary hypertension. There are no arrhythmias noted. We will discontinue telemetry today. No further cardiac workup is necessary at this time. Farshad Landers MD
[2018-03-11] MEDS: Pantoprazole 40 mg EC Tab PO SCH (06:49)
[2018-03-11 07:46] LABS: BASO # 0.02 K/mm3 (0.0-2.0); BASO % 0.3 % (0.0-3.0); EOS # 0.2 (0.0-0.7); EOS % 2.9 % (1.5-5.0); GRAN # 5.49 (1.4-6.5); GRAN % 75.7 % (50.0-68.0); HEMOGLOBIN 8.7 g/dL (12.0-16.0); LYMPH # 0.7 (1.2-3.4); MEAN CORPUSCULAR HEMOGLOBIN 25.4 pg (25.0-35.0); MEAN CORPUSCULAR HGB CONC 30.2 g/dl (31.0-37.0); MEAN PLATELET VOLUME 9.5 fl (7.0-11.0); MONO # 0.9 (0.1-0.6); MONO % 12.1 % (1.0-6.0); RBC 3.43 10^6/uL (3.5-6.1); RED CELL DISTRIBUTION WIDTH 19.5 % (11.5-14.5); WHITE BLOOD COUNT 7.3 10^3/uL (4.5-11.0)
[2018-03-11] MEDS: Budesonide 0.5 mg/2 ml Inhal Susp UD IH SCH ×2 (07:52→20:16)
[2018-03-11] MEDS: Arformoterol 15 mcg/2 ml Inh Sol IH SCH ×2 (07:52→20:16)
[2018-03-11 08:03] LABS: ALB/GLOB RATIO 1.2 (1.1-1.8); ALBUMIN 3.4 g/dL (3.0-4.8); ALT/SGPT 29 U/L (7-56); AST/SGOT 19 U/L (14-36); BLOOD UREA NITROGEN 15 mg/dL (7-21); CALCIUM 8.7 mg/dL (8.4-10.5); GFR NON-AFRICAN AMERICAN > 60
[2018-03-11] MEDS: Sildenafil 20 MG TAB PO SCH ×3 (09:20→17:13)
[2018-03-11] MEDS: guaiFENesin DM 100 mg-10 mg/5 ml UD PO PRN ×2 (12:04→18:15)
[2018-03-11] MEDS ORDERED: Potassium Chloride 20 mEq ER Tab PO STA (15:53)
--- NOTE | 2018-03-11 18:12 | CP.PCM.PN ---
<Wilmer Santo - Last Filed: 03/11/18 18:05> Subjective - Date & Time of Evaluation Date of Evaluation: 03/11/18 Time of Evaluation: 09:00 - Subjective Subjective: Wilmer Santo PGY-1 Progress Note for Hospitalist Service Patient seen and evaluated at bedside. Patient denies acute events overnight. Patient niece at bedside. Patient lying supine without respiratory distress, currently on NC 4 L. Negative 2.6 L mL balance yesterday, neg. 860 mL today. SOB significantly improved, and denies CP, palpitations, dizziness and headaches. Fluid restriction to 1.2 L. Objective - Vital Signs/Intake and Output Vital Signs (last 24 hours): Temp Pulse Resp BP Pulse Ox 97.2 F L 91 H 22 110/62 96 03/11/18 16:17 03/11/18 16:17 03/11/18 16:17 03/11/18 16:17 03/11/18 16:17 Intake and Output: 03/11/18 03/11/18 06:59 18:59 Intake Total 840 Output Total 1700 Balance -860 - Medications Medications: Current Medications Acetaminophen (Tylenol 325mg Tab) 650 mg PO Q6H PRN PRN Reason: Headache Last Admin: 03/05/18 21:07 Dose: 650 mg Albuterol/Ipratropium (Duoneb 3 Mg/0.5 Mg (3 Ml) Ud) 3 ml IH [id number] PRN PRN Reason: Shortness of Breath Last Admin: 03/05/18 05:52 Dose: 3 ml Arformoterol Tartrate (Brovana) 15 mcg IH [id number] [facility] Last Admin: 03/11/18 07:52 Dose: 15 mcg Budesonide (Pulmicort Respules) 0.5 mg IH [id number] [facility] Last Admin: 03/11/18 07:52 Dose: 0.5 mg Furosemide (Lasix) 40 mg IVP Q12 [facility] Last Admin: 03/11/18 09:20 Dose: 40 mg Gabapentin (Neurontin) 300 mg PO TID [facility]; Protocol Last Admin: 03/11/18 17:13 Dose: 300 mg Guaifenesin/Dextromethorphan (Robitussin Dm) 5 ml PO Q4H PRN PRN Reason: Cough Last Admin: 03/11/18 12:04 Dose: 5 ml Pantoprazole Sodium (Protonix Ec Tab) 40 mg PO 0600 [facility] Last Admin: 03/10/18 06:58 Dose: 40 mg Rivaroxaban (Xarelto) 20 mg PO DAILY [facility]; Protocol Last Admin: 03/11/18 09:20 Dose: 20 mg Sildenafil Citrate (Revatio) 20 mg PO TID [facility] Last Admin: 03/11/18 17:13 Dose: 20 mg - Labs Labs: 03/11/18 07:25 03/11/18 07:25 PT 35.6 SECONDS (9.4-12.5) H 03/01/18 18:48 INR 3.05 03/01/18 18:48 APTT 32.1 Seconds (25.1-36.5) 03/01/18 18:48 - Additional Findings Additional findings: - Constitutional Appears: No Acute Distress, Older Than Stated Age - Head Exam Head Exam: ATRAUMATIC, NORMAL INSPECTION, NORMOCEPHALIC - Eye Exam Eye Exam: EOMI, PERRL - ENT Exam ENT Exam: Mucous Membranes Moist - Neck Exam Neck Exam: Full ROM - Respiratory Exam Respiratory Exam: Decreased Breath Sounds. absent: Rales, Rhonchi, Wheezes - GI/Abdominal Exam GI & Abdominal Exam: Soft, Normal Bowel Sounds. 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 Plan: Shortness of breath 2/2 Pulm HTN - CHF vs COPD - Continue Lasix 40 mg IV BID - Duonebs q4H PRN - Brovana 15 mcg Q12H - Pulmicort .5 mg BID - Sildenafil 20 mg PO TID - Daily weight increased by 1 kg, Is and Os negative 860 today, fluid restrict to 1.2 L daily - Patient placed on biPAP for low oxygenation with improvement in O2 sats over weekend - Pulmonary consulted, recommending continued therapy and emphasis on biPAP. - Repeat CXR 03/08 shows stable cardiomegaly, pulm vascular congestion - transferred to med-surg yesterday. Hypokalemia - repleted - monitor in AM Hemoptysis, hx of PE/DVT- resolved - Multiple episodes last week - Hgb has remained stable. Xarelto resumed - Continue to monitor - Pulm consult - Dr. Clark - CT chest shows no pulm embolus but is + for pericardial effusion and small R pleural effusion - Repeat Echo shows trace pericardial effusion - Guaifenesin DM for cough, improved Bilateral leg pain, hx DVT - Echo 01/14 show RV is severely dilated, RV systolic function is severely reduced, RA is severely dilated, severe TR, severe pulm HTN - Dopplers negative for DVT - Lasix 40 mg IV BID - Gabapentin 300 TID RUE swelling, hx DVT - Afebrile, no leukocytosis - Dopplers neg for DVT - OOB to chair LAYO - BiPAP at night as tolerated GI/DVT PPX - Xarelto 20 mg PO daily, SCDs - Protonix 40 mg PO daily Dispo: PT: HWS with 24 hour care. Home with VNA per CM. Patient seen, case reviewed and plan approved by Dr. Song. Wilmer Santo, PGY-1 <Jayson Song - Last Filed: 03/11/18 18:36> Objective - Vital Signs/Intake and Output Vital Signs (last 24 hours): Temp Pulse Resp BP Pulse Ox 97.2 F L 91 H 22 110/62 96 03/11/18 16:17 03/11/18 16:17 03/11/18 16:17 03/11/18 16:17 03/11/18 16:17 Intake and Output: 03/11/18 03/11/18 06:59 18:59 Intake Total 840 Output Total 1700 Balance -860 - Medications Medications: Current Medications Acetaminophen (Tylenol 325mg Tab) 650 mg PO Q6H PRN PRN Reason: Headache Last Admin: 03/05/18 21:07 Dose: 650 mg Albuterol/Ipratropium (Duoneb 3 Mg/0.5 Mg (3 Ml) Ud) 3 ml IH [id number] PRN PRN Reason: Shortness of Breath Last Admin: 03/05/18 05:52 Dose: 3 ml Arformoterol Tartrate (Brovana) 15 mcg IH [id number] [facility] Last Admin: 03/11/18 07:52 Dose: 15 mcg Budesonide (Pulmicort Respules) 0.5 mg IH [id number] [facility] Last Admin: 03/11/18 07:52 Dose: 0.5 mg Furosemide (Lasix) 40 mg IVP Q12 [facility] Last Admin: 03/11/18 09:20 Dose: 40 mg Gabapentin (Neurontin) 300 mg PO TID [facility]; Protocol Last Admin: 03/11/18 17:13 Dose: 300 mg Guaifenesin/Dextromethorphan (Robitussin Dm) 5 ml PO Q4H PRN PRN Reason: Cough Last Admin: 03/11/18 18:15 Dose: 5 ml Pantoprazole Sodium (Protonix Ec Tab) 40 mg PO 0600 [facility] Last Admin: 03/10/18 06:58 Dose: 40 mg Rivaroxaban (Xarelto) 20 mg PO DAILY [facility]; Protocol Last Admin: 03/11/18 09:20 Dose: 20 mg Sildenafil Citrate (Revatio) 20 mg PO TID [facility] Last Admin: 03/11/18 17:13 Dose: 20 mg - Labs Labs: 03/11/18 07:25 03/11/18 07:25 PT 35.6 SECONDS (9.4-12.5) H 03/01/18 18:48 INR 3.05 03/01/18 18:48 APTT 32.1 Seconds (25.1-36.5) 03/01/18 18:48 Attending/Attestation - Attestation I have personally seen and examined this patient.: Yes I have fully participated in the care of the patient.: Yes I have reviewed all pertinent clinical information, including history, physical exam and plan: Yes
[2018-03-12] MEDS: Pantoprazole 40 mg EC Tab PO SCH (05:49)
[2018-03-12] MEDS: guaiFENesin DM 100 mg-10 mg/5 ml UD PO PRN ×3 (05:49→22:34)
[2018-03-12] MEDS: Arformoterol 15 mcg/2 ml Inh Sol IH SCH ×3 (07:16→19:08)
[2018-03-12] MEDS: Budesonide 0.5 mg/2 ml Inhal Susp UD IH SCH ×3 (07:16→19:08)
[2018-03-12 07:58] LABS: BASO # 0.01 K/mm3 (0.0-2.0); BASO % 0.1 % (0.0-3.0); EOS # 0.2 (0.0-0.7); EOS % 2.6 % (1.5-5.0); GRAN # 5.25 (1.4-6.5); GRAN % 76.3 % (50.0-68.0); HEMOGLOBIN 9.3 g/dL (12.0-16.0); LYMPH # 0.6 (1.2-3.4); LYMPH % 8.4 % (22.0-35.0); MEAN CELL VOLUME 84.5 fl (80.0-105.0); MEAN CORPUSCULAR HEMOGLOBIN 25.7 pg (25.0-35.0); MEAN CORPUSCULAR HGB CONC 30.4 g/dl (31.0-37.0); MEAN PLATELET VOLUME 10.5 fl (7.0-11.0); MONO # 0.9 (0.1-0.6); MONO % 12.6 % (1.0-6.0); RBC 3.62 10^6/uL (3.5-6.1); RED CELL DISTRIBUTION WIDTH 19.7 % (11.5-14.5); WHITE BLOOD COUNT 6.9 10^3/uL (4.5-11.0)
[2018-03-12 08:17] LABS: ALB/GLOB RATIO 1.2 (1.1-1.8); ALBUMIN 3.6 g/dL (3.0-4.8); ALT/SGPT 21 U/L (7-56); AST/SGOT 21 U/L (14-36); BLOOD UREA NITROGEN 15 mg/dL (7-21); CALCIUM 9.1 mg/dL (8.4-10.5); GFR NON-AFRICAN AMERICAN > 60
[2018-03-12] MEDS: Sildenafil 20 MG TAB PO SCH ×3 (10:28→18:24)
--- NOTE | 2018-03-12 15:33 | CP.PCM.PN ---
<Wilmer Santo - Last Filed: 03/12/18 15:25> Subjective - Date & Time of Evaluation Date of Evaluation: 03/12/18 Time of Evaluation: 09:00 - Subjective Subjective: Wilmer Santo PGY-1 Progress Note for Hospitalist Service Patient seen and evaluated at bedside. Patient denies acute events overnight. Patient in wheelchair at bedside with physical therapist, currently on NC 4 L. Positive 265 mL balance yesterday. SOB improving when immobile, and denies CP, palpitations, dizziness and headaches. Fluid restriction to 1.2 L. Objective - Vital Signs/Intake and Output Vital Signs (last 24 hours): Temp Pulse Resp BP Pulse Ox 98.1 F 79 24 118/83 91 L 03/12/18 06:00 03/12/18 14:00 03/12/18 14:00 03/12/18 14:00 03/12/18 14:00 Intake and Output: 03/12/18 03/12/18 06:59 18:59 Intake Total 1140 Output Total 875 Balance 265 - Medications Medications: Current Medications Acetaminophen (Tylenol 325mg Tab) 650 mg PO Q6H PRN PRN Reason: Headache Last Admin: 03/05/18 21:07 Dose: 650 mg Albuterol/Ipratropium (Duoneb 3 Mg/0.5 Mg (3 Ml) Ud) 3 ml IH [id number] PRN PRN Reason: Shortness of Breath Last Admin: 03/05/18 05:52 Dose: 3 ml Arformoterol Tartrate (Brovana) 15 mcg IH [id number] [facility] Last Admin: 03/12/18 07:16 Dose: 15 mcg Budesonide (Pulmicort Respules) 0.5 mg IH [id number] [facility] Last Admin: 03/12/18 07:16 Dose: 0.5 mg Furosemide (Lasix) 40 mg IVP Q12 [facility] Last Admin: 03/12/18 10:29 Dose: 40 mg Gabapentin (Neurontin) 300 mg PO TID [facility]; Protocol Last Admin: 03/12/18 13:48 Dose: 300 mg Guaifenesin/Dextromethorphan (Robitussin Dm) 5 ml PO Q4H PRN PRN Reason: Cough Last Admin: 03/12/18 05:49 Dose: 5 ml Pantoprazole Sodium (Protonix Ec Tab) 40 mg PO 0600 [facility] Last Admin: 03/12/18 05:49 Dose: 40 mg Rivaroxaban (Xarelto) 20 mg PO DAILY [facility]; Protocol Last Admin: 03/12/18 10:29 Dose: 20 mg Sildenafil Citrate (Revatio) 20 mg PO TID [facility] Last Admin: 03/12/18 13:48 Dose: 20 mg - Labs Labs: 03/12/18 07:40 03/12/18 07:40 PT 35.6 SECONDS (9.4-12.5) H 03/01/18 18:48 INR 3.05 03/01/18 18:48 APTT 32.1 Seconds (25.1-36.5) 03/01/18 18:48 - Additional Findings Additional findings: - Constitutional Appears: No Acute Distress, Older Than Stated Age - Head Exam Head Exam: ATRAUMATIC, NORMAL INSPECTION, NORMOCEPHALIC - Eye Exam Eye Exam: EOMI, PERRL - ENT Exam ENT Exam: Mucous Membranes Moist - Neck Exam Neck Exam: Full ROM - Respiratory Exam Respiratory Exam: Decreased Breath Sounds. absent: Rales, Rhonchi, Wheezes - GI/Abdominal Exam GI & Abdominal Exam: Soft, Normal Bowel Sounds. 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 Episodes of hypoxia persist upon movement and tr ansfer to bed/wheelchair. Plan: Shortness of breath 2/2 Pulm HTN - CHF vs COPD - Continue Lasix 40 mg IV BID - Duonebs q4H PRN - Brovana 15 mcg Q12H - Pulmicort .5 mg BID - Sildenafil 20 mg PO TID - Daily weight increased by 1 kg, Is and Os positive today, fluid restrict to 1.2 L daily - Patient placed on biPAP for low oxygenation with improvement in O2 sats over weekend - Pulmonary consulted, recommending continued therapy and emphasis on biPAP. - Repeat CXR 03/08 shows stable cardiomegaly, pulm vascular congestion - transferred to med-surg yesterday. Hypokalemia - repleted - monitor in AM Hemoptysis, hx of PE/DVT- resolved - Multiple episodes last week - Hgb has remained stable. Xarelto resumed - Continue to monitor - Pulm consult - Dr. Clark - f/u recs - CT chest shows no pulm embolus but is + for pericardial effusion and small R pleural effusion - Repeat Echo shows trace pericardial effusion - Guaifenesin DM for cough, improved Bilateral leg pain, hx DVT - Echo 01/14 show RV is severely dilated, RV systolic function is severely reduced, RA is severely dilated, severe TR, severe pulm HTN - Dopplers negative for DVT - Lasix 40 mg IV BID - Gabapentin 300 TID RUE swelling, hx DVT - Afebrile, no leukocytosis - Dopplers neg for DVT - OOB to chair LAYO - BiPAP at night as tolerated GI/DVT PPX - Xarelto 20 mg PO daily, SCDs - Protonix 40 mg PO daily Dispo: PT: HWS with home PT Patient seen, case reviewed and plan approved by Dr. Song. Wilmer Santo, PGY-1 <Jayson Song - Last Filed: 03/12/18 16:30> Objective - Vital Signs/Intake and Output Vital Signs (last 24 hours): Temp Pulse Resp BP Pulse Ox 98.1 F 79 24 118/83 91 L 03/12/18 06:00 03/12/18 14:00 03/12/18 14:00 03/12/18 14:00 03/12/18 14:00 Intake and Output: 03/12/18 03/12/18 06:59 18:59 Intake Total 1140 Output Total 875 Balance 265 - Medications Medications: Current Medications Acetaminophen (Tylenol 325mg Tab) 650 mg PO Q6H PRN PRN Reason: Headache Last Admin: 03/05/18 21:07 Dose: 650 mg Albuterol/Ipratropium (Duoneb 3 Mg/0.5 Mg (3 Ml) Ud) 3 ml IH [id number] PRN PRN Reason: Shortness of Breath Last Admin: 03/05/18 05:52 Dose: 3 ml Arformoterol Tartrate (Brovana) 15 mcg IH [id number] [facility] Last Admin: 03/12/18 07:16 Dose: 15 mcg Budesonide (Pulmicort Respules) 0.5 mg IH [id number] [facility] Last Admin: 03/12/18 07:16 Dose: 0.5 mg Furosemide (Lasix) 40 mg IVP Q12 [facility] Last Admin: 03/12/18 10:29 Dose: 40 mg Gabapentin (Neurontin) 300 mg PO TID [facility]; Protocol Last Admin: 03/12/18 13:48 Dose: 300 mg Guaifenesin/Dextromethorphan (Robitussin Dm) 5 ml PO Q4H PRN PRN Reason: Cough Last Admin: 03/12/18 05:49 Dose: 5 ml Pantoprazole Sodium (Protonix Ec Tab) 40 mg PO 0600 [facility] Last Admin: 03/12/18 05:49 Dose: 40 mg Rivaroxaban (Xarelto) 20 mg PO DAILY [facility]; Protocol Last Admin: 03/12/18 10:29 Dose: 20 mg Sildenafil Citrate (Revatio) 20 mg PO TID [facility] Last Admin: 03/12/18 13:48 Dose: 20 mg - Labs Labs: 03/12/18 07:40 03/12/18 07:40 PT 35.6 SECONDS (9.4-12.5) H 03/01/18 18:48 INR 3.05 03/01/18 18:48 APTT 32.1 Seconds (25.1-36.5) 03/01/18 18:48 Attending/Attestation - Attestation I have personally seen and examined this patient.: Yes I have fully participated in the care of the patient.: Yes I have reviewed all pertinent clinical information, including history, physical exam and plan: Yes Notes (Text): Patient seen and examined with the residents, agree with above 43 yo female with multiple comorbidities at a young age presented with sob a ttributed to chf vs copd Has been diuresing well, still reporting sob with minimal activity (getting out of bed into chair) Will have pulmonary re-assess for any further input
[2018-03-12] MEDS: Albuterol-Ipratrop 3 mg / 0.5 (3 ml) UD IH PRN (18:41)
[2018-03-13] MEDS: Albuterol-Ipratrop 3 mg / 0.5 (3 ml) UD IH PRN ×2 (00:15→13:53)
[2018-03-13] MEDS: Budesonide 0.5 mg/2 ml Inhal Susp UD IH SCH ×2 (07:34→19:44)
[2018-03-13] MEDS: Arformoterol 15 mcg/2 ml Inh Sol IH SCH ×2 (07:34→19:44)
[2018-03-13 07:52] LABS: BASO # 0.01 K/mm3 (0.0-2.0); BASO % 0.2 % (0.0-3.0); EOS # 0.2 (0.0-0.7); EOS % 3.6 % (1.5-5.0); GRAN # 4.16 (1.4-6.5); GRAN % 74.7 % (50.0-68.0); HEMOGLOBIN 9.2 g/dL (12.0-16.0); LYMPH # 0.6 (1.2-3.4); LYMPH % 10.4 % (22.0-35.0); MEAN CELL VOLUME 83.7 fl (80.0-105.0); MEAN CORPUSCULAR HEMOGLOBIN 25.4 pg (25.0-35.0); MEAN CORPUSCULAR HGB CONC 30.4 g/dl (31.0-37.0); MEAN PLATELET VOLUME 10.1 fl (7.0-11.0); MONO # 0.6 (0.1-0.6); MONO % 11.1 % (1.0-6.0); RBC 3.62 10^6/uL (3.5-6.1); RED CELL DISTRIBUTION WIDTH 19.4 % (11.5-14.5); WHITE BLOOD COUNT 5.6 10^3/uL (4.5-11.0)
[2018-03-13 08:02] LABS: ALB/GLOB RATIO 1.4 (1.1-1.8); ALBUMIN 3.7 g/dL (3.0-4.8); ALT/SGPT 28 U/L (7-56); AST/SGOT 22 U/L (14-36); BLOOD UREA NITROGEN 15 mg/dL (7-21); CALCIUM 8.7 mg/dL (8.4-10.5); GFR NON-AFRICAN AMERICAN > 60
[2018-03-13] MEDS: guaiFENesin DM 100 mg-10 mg/5 ml UD PO PRN ×3 (10:54→23:35)
[2018-03-13] MEDS: Sildenafil 20 MG TAB PO SCH ×3 (10:56→17:06)
--- NOTE | 2018-03-13 15:17 | RAD ---
HISTORY: Pulm HTN, cough COMPARISON: Chest x-ray performed 03/08/18 TECHNIQUE: Chest, one view. FINDINGS: Examination limited by habitus. LUNGS: Mild pulmonary venous congestion. Please note that chest x-ray has limited sensitivity for the detection of pulmonary masses. PLEURA: No significant pleural effusion identified. No definite pneumothorax . CARDIOVASCULAR: Enlargement of the cardiomediastinal silhouette. Ectatic aorta. OSSEOUS STRUCTURES: No acute osseous abnormality is detected. VISUALIZED UPPER ABDOMEN: Unremarkable. OTHER FINDINGS: None. IMPRESSION: Mild pulmonary venous congestion. Enlargement of the cardiomediastinal silhouette.
--- NOTE | 2018-03-13 17:05 | CP.PCM.PN ---
<Wilmer Santo - Last Filed: 03/13/18 17:02> Subjective - Date & Time of Evaluation Date of Evaluation: 03/13/18 Time of Evaluation: 10:00 - Subjective Subjective: Wilmer Santo PGY-1 Progress Note for Hospitalist Service Patient seen and evaluated at bedside. Patient denies acute events overnight. Patient lying comfortably in bed watching TV, currently breathing on NC 4 L. Negative 130 mL balance yesterday. SOB improving when immobile, and denies CP, palpitations, dizziness and headaches. Fluid restriction to 1.2 L. Objective - Vital Signs/Intake and Output Vital Signs (last 24 hours): Temp Pulse Resp BP Pulse Ox 98.6 F 86 21 106/60 96 03/13/18 06:00 03/13/18 07:35 03/13/18 06:00 03/13/18 10:55 03/13/18 06:00 Intake and Output: 03/13/18 03/13/18 06:59 18:59 Intake Total 350 Balance 350 - Medications Medications: Current Medications Acetaminophen (Tylenol 325mg Tab) 650 mg PO Q6H PRN PRN Reason: Headache Last Admin: 03/05/18 21:07 Dose: 650 mg Albuterol/Ipratropium (Duoneb 3 Mg/0.5 Mg (3 Ml) Ud) 3 ml IH [id number] PRN PRN Reason: Shortness of Breath Last Admin: 03/13/18 13:53 Dose: 3 ml Arformoterol Tartrate (Brovana) 15 mcg IH [id number] [facility] Last Admin: 03/13/18 07:34 Dose: 15 mcg Budesonide (Pulmicort Respules) 0.5 mg IH [id number] [facility] Last Admin: 03/13/18 07:34 Dose: 0.5 mg Furosemide (Lasix) 40 mg IVP Q12 [facility] Last Admin: 03/13/18 10:55 Dose: 40 mg Gabapentin (Neurontin) 300 mg PO TID [facility]; Protocol Last Admin: 03/13/18 14:55 Dose: 300 mg Guaifenesin/Dextromethorphan (Robitussin Dm) 5 ml PO Q4H PRN PRN Reason: Cough Last Admin: 03/13/18 10:54 Dose: 5 ml Pantoprazole Sodium (Protonix Ec Tab) 40 mg PO 0600 [facility] Last Admin: 03/12/18 05:49 Dose: 40 mg Rivaroxaban (Xarelto) 20 mg PO DAILY [facility]; Protocol Last Admin: 03/13/18 10:55 Dose: 20 mg Sildenafil Citrate (Revatio) 20 mg PO TID [facility] Last Admin: 03/13/18 14:55 Dose: 20 mg - Labs Labs: 03/13/18 07:00 03/13/18 07:00 PT 35.6 SECONDS (9.4-12.5) H 03/01/18 18:48 INR 3.05 03/01/18 18:48 APTT 32.1 Seconds (25.1-36.5) 03/01/18 18:48 - Additional Findings Additional findings: - Constitutional Appears: No Acute Distress, Older Than Stated Age - Head Exam Head Exam: ATRAUMATIC, NORMAL INSPECTION, NORMOCEPHALIC - Eye Exam Eye Exam: EOMI, PERRL - ENT Exam ENT Exam: Mucous Membranes Moist - Neck Exam Neck Exam: Full ROM - Respiratory Exam Respiratory Exam: Decreased Breath Sounds. absent: Rales, Rhonchi, Wheezes - GI/Abdominal Exam GI & Abdominal Exam: Soft, Normal Bowel Sounds. 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 Episodes of hypoxia persist upon movement. LE swelling has improved. Plan: Shortness of breath 2/2 Pulm HTN - Lasix 40 mg IV BID - CHF vs COPD - Continue Lasix 40 mg IV BID - Duonebs q4H PRN - Brovana 15 mcg Q12H - Pulmicort .5 mg BID - Sildenafil 20 mg PO TID - Daily weight increased by 1 kg, Is and Os positive today, fluid restrict to 1.2 L daily - Patient placed on biPAP for low oxygenation with improvement in O2 sats over weekend - Pulmonary consulted, recommending continued therapy and emphasis on biPAP. - Repeat CXR 03/08 shows stable cardiomegaly, pulm vascular congestion - Repeat CXR ordered 03/13 showed mild pulmonary vascular congestion and enlargement of cardiomediastinal silhouette. - transferred to med-surg last week Hypokalemia - repleted - monitor in AM Hemoptysis, hx of PE/DVT- resolved - Multiple episodes last week - Hgb has remained stable. Xarelto resumed - Continue to monitor - Pulm consult - Dr. Clark - f/u recs - CT chest shows no pulm embolus but is + for pericardial effusion and small R pleural effusion - Repeat Echo shows trace pericardial effusion - Guaifenesin DM for cough, improved Bilateral leg pain, hx DVT - Echo 01/14 show RV is severely dilated, RV systolic function is severely reduced, RA is severely dilated, severe TR, severe pulm HTN - Dopplers negative for DVT - Lasix 40 mg IV BID - Gabapentin 300 TID RUE swelling, hx DVT - Afebrile, no leukocytosis - Dopplers neg for DVT - OOB to chair LAYO - BiPAP at night as tolerated GI/DVT PPX - Xarelto 20 mg PO daily, SCDs - Protonix 40 mg PO daily Dispo: PT: HWS with home PT. Patient was urged to follow up in [facility] upon discharge for her pulmonary hypertension. Patient seen, case reviewed and plan approved by Dr. Gross. Wilmer Santo, PGY-1 <Placido Gross - Last Filed: 03/13/18 18:23> Objective - Vital Signs/Intake and Output Vital Signs (last 24 hours): Temp Pulse Resp BP Pulse Ox 98.6 F 86 21 106/60 96 03/13/18 06:00 03/13/18 07:35 03/13/18 06:00 03/13/18 10:55 03/13/18 06:00 Intake and Output: 03/13/18 03/13/18 06:59 18:59 Intake Total 350 Balance 350 - Medications Medications: Current Medications Acetaminophen (Tylenol 325mg Tab) 650 mg PO Q6H PRN PRN Reason: Headache Last Admin: 03/05/18 21:07 Dose: 650 mg Albuterol/Ipratropium (Duoneb 3 Mg/0.5 Mg (3 Ml) Ud) 3 ml IH [id number] PRN PRN Reason: Shortness of Breath Last Admin: 03/13/18 13:53 Dose: 3 ml Arformoterol Tartrate (Brovana) 15 mcg IH [id number] [facility] Last Admin: 03/13/18 07:34 Dose: 15 mcg Budesonide (Pulmicort Respules) 0.5 mg IH [id number] [facility] Last Admin: 03/13/18 07:34 Dose: 0.5 mg Furosemide (Lasix) 40 mg IVP Q12 [facility] Last Admin: 03/13/18 10:55 Dose: 40 mg Gabapentin (Neurontin) 300 mg PO TID [facility]; Protocol Last Admin: 03/13/18 17:05 Dose: 300 mg Guaifenesin/Dextromethorphan (Robitussin Dm) 5 ml PO Q4H PRN PRN Reason: Cough Last Admin: 03/13/18 17:06 Dose: 5 ml Pantoprazole Sodium (Protonix Ec Tab) 40 mg PO 0600 [facility] Last Admin: 03/12/18 05:49 Dose: 40 mg Rivaroxaban (Xarelto) 20 mg PO DAILY [facility]; Protocol Last Admin: 03/13/18 10:55 Dose: 20 mg Sildenafil Citrate (Revatio) 20 mg PO TID [facility] Last Admin: 03/13/18 17:06 Dose: 20 mg - Labs Labs: 03/13/18 07:00 03/13/18 07:00 PT 35.6 SECONDS (9.4-12.5) H 03/01/18 18:48 INR 3.05 03/01/18 18:48 APTT 32.1 Seconds (25.1-36.5) 03/01/18 18:48 Attending/Attestation - Attestation I have personally seen and examined this patient.: Yes I have fully participated in the care of the patient.: Yes I have reviewed all pertinent clinical information, including history, physical exam and plan: Yes Notes (Text): 03/13/18 18:17 Medical record note made by the resident after discussion with my direction and input after the patient was personally seen and examined by me. I have reviewed the chart and agree that the record accurately reflects by personal performance of the history, physical exam, data review, and medical decision-making, in the course for the patient. I have also personally directed the plan of care. 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 Dyspnea is due to severe Pulmonary HTN, and acute on chronic diastolic CHF. Hypoxia is improving, however patient mobility is severely impaired due to worsening dyspnea. Repeat Chest X ray today still showed congestion but improving. If hypoxia will keep improving, will change to oral lasix. Patient will likely need JESUS. Prognosis is guarded. Management plan was discussed in detail with patient. Education was provided. 03/13/18 18:23
[2018-03-14] MEDS: Pantoprazole 40 mg EC Tab PO SCH (05:31)
[2018-03-14 07:36] LABS: BASO # 0.01 K/mm3 (0.0-2.0); BASO % 0.2 % (0.0-3.0); EOS # 0.2 (0.0-0.7); GRAN # 3.49 (1.4-6.5); GRAN % 69.4 % (50.0-68.0); LYMPH # 0.5 (1.2-3.4); LYMPH % 9.1 % (22.0-35.0); MEAN CELL VOLUME 83.7 fl (80.0-105.0); MEAN CORPUSCULAR HEMOGLOBIN 25.3 pg (25.0-35.0); MEAN CORPUSCULAR HGB CONC 30.2 g/dl (31.0-37.0); MEAN PLATELET VOLUME 10.2 fl (7.0-11.0); MONO # 0.9 (0.1-0.6); MONO % 17.3 % (1.0-6.0); RBC 3.56 10^6/uL (3.5-6.1); RED CELL DISTRIBUTION WIDTH 19.4 % (11.5-14.5)
--- NOTE | 2018-03-14 07:38 | CP.PCM.PN ---
<Wilmer Santo - Last Filed: 03/14/18 16:44> Subjective - Date & Time of Evaluation Date of Evaluation: 03/14/18 Time of Evaluation: 07:35 - Subjective Subjective: Wilmer Santo PGY-1 Progress Note for Hospitalist Service Patient seen and evaluated at bedside. Patient denies acute events overnight. Patient lying comfortably in bed watching TV, currently breathing on NC 4 L. Negative 130 mL balance yesterday. Reports dyspena, and denies CP, palpitations, dizziness and headaches. Fluid restriction to 1.2 L. Objective - Vital Signs/Intake and Output Vital Signs (last 24 hours): Temp Pulse Resp BP Pulse Ox 98.6 F 86 21 114/52 L 96 03/13/18 06:00 03/13/18 19:47 03/13/18 06:00 03/13/18 21:23 03/13/18 06:00 - Medications Medications: Current Medications Acetaminophen (Tylenol 325mg Tab) 650 mg PO Q6H PRN PRN Reason: Headache Last Admin: 03/05/18 21:07 Dose: 650 mg Albuterol/Ipratropium (Duoneb 3 Mg/0.5 Mg (3 Ml) Ud) 3 ml IH [id number] PRN PRN Reason: Shortness of Breath Last Admin: 03/13/18 13:53 Dose: 3 ml Arformoterol Tartrate (Brovana) 15 mcg IH [id number] [facility] Last Admin: 03/13/18 19:44 Dose: 15 mcg Budesonide (Pulmicort Respules) 0.5 mg IH [id number] [facility] Last Admin: 03/13/18 19:44 Dose: 0.5 mg Furosemide (Lasix) 40 mg IVP Q12 [facility] Last Admin: 03/13/18 21:23 Dose: 40 mg Gabapentin (Neurontin) 300 mg PO TID [facility]; Protocol Last Admin: 03/13/18 17:05 Dose: 300 mg Guaifenesin/Dextromethorphan (Robitussin Dm) 5 ml PO Q4H PRN PRN Reason: Cough Last Admin: 03/13/18 23:35 Dose: 5 ml Pantoprazole Sodium (Protonix Ec Tab) 40 mg PO 0600 [facility] Last Admin: 03/14/18 05:31 Dose: 40 mg Rivaroxaban (Xarelto) 20 mg PO DAILY [facility]; Protocol Last Admin: 03/13/18 10:55 Dose: 20 mg Sildenafil Citrate (Revatio) 20 mg PO TID [facility] Last Admin: 03/13/18 17:06 Dose: 20 mg - Labs Labs: 03/13/18 07:00 03/13/18 07:00 PT 35.6 SECONDS (9.4-12.5) H 03/01/18 18:48 INR 3.05 03/01/18 18:48 APTT 32.1 Seconds (25.1-36.5) 03/01/18 18:48 - Additional Findings Additional findings: - Constitutional Appears: No Acute Distress, Older Than Stated Age - Head Exam Head Exam: ATRAUMATIC, NORMAL INSPECTION, NORMOCEPHALIC - Eye Exam Eye Exam: EOMI, PERRL - ENT Exam ENT Exam: Mucous Membranes Moist - Neck Exam Neck Exam: Full ROM - Respiratory Exam Respiratory Exam: Decreased Breath Sounds. absent: Rales, Rhonchi, Wheezes - GI/Abdominal Exam GI & Abdominal Exam: Soft, Normal Bowel Sounds. 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 Episodes of hypoxia persist upon movement. LE swelling has improved. Repeat CXR 03/13 shows congestion but improvement when compared to previous study. Plan: Shortness of breath 2/2 Pulm HTN - CHF vs COPD - Changed Lasix to 20 mg IV BID due to improvement on CXR and clinical picture - Duonebs q4H PRN - Brovana 15 mcg Q12H - Pulmicort .5 mg BID - Sildenafil 20 mg PO TID - Is and Os negative today, fluid restrict to 1.2 L daily - Patient placed on biPAP for low oxygenation with improvement in O2 sats over weekend - Pulmonary consulted, recommending continued therapy and emphasis on biPAP. - Repeat CXR 03/08 shows stable cardiomegaly, pulm vascular congestion - Repeat CXR ordered 03/13 showed mild pulmonary vascular congestion and enlargement of cardiomediastinal silhouette. Improved from prior - transferred to med-surg last week Hypokalemia - repleted - monitor in AM Hemoptysis, hx of PE/DVT- resolved - Multiple episodes last week - Hgb has remained stable. Xarelto resumed - Continue to monitor - Pulm consult - Dr. Clark - f/u recs - CT chest shows no pulm embolus but is + for pericardial effusion and small R pleural effusion - Repeat Echo shows trace pericardial effusion - Guaifenesin DM for cough, improved Bilateral leg pain, hx DVT - Echo 01/14 show RV is severely dilated, RV systolic function is severely reduced, RA is severely dilated, severe TR, severe pulm HTN - Dopplers negative for DVT - Lasix 20 mg IV BID - Gabapentin 300 TID RUE swelling, hx DVT - Afebrile, no leukocytosis - Dopplers neg for DVT - OOB to chair LAYO - BiPAP at night as tolerated GI/DVT PPX - Xarelto 20 mg PO daily, SCDs - Protonix 40 mg PO daily Dispo: PT: HWS with home PT. Patient was urged to follow up in [facility] upon discharge for her pulmonary hypertension. Patient seen, case reviewed and plan approved by Dr. Gross. Wilmer Santo, PGY-1 <Placido Gross - Last Filed: 03/17/18 08:59> Objective - Vital Signs/Intake and Output Vital Signs (last 24 hours): Temp Pulse Resp BP Pulse Ox 97.8 F 80 19 106/60 92 L 03/17/18 06:00 03/17/18 06:00 03/17/18 06:00 03/17/18 06:00 03/17/18 06:00 Intake and Output: 03/17/18 03/17/18 06:59 18:59 Intake Total 180 Output Total 600 Balance -420 - Medications Medications: Current Medications Acetaminophen (Tylenol 325mg Tab) 650 mg PO Q6H PRN PRN Reason: Headache Last Admin: 03/05/18 21:07 Dose: 650 mg Albuterol/Ipratropium (Duoneb 3 Mg/0.5 Mg (3 Ml) Ud) 3 ml IH [id number] PRN PRN Reason: Shortness of Breath Last Admin: 03/16/18 13:11 Dose: 3 ml Arformoterol Tartrate (Brovana) 15 mcg IH [id number] [facility] Last Admin: 03/17/18 08:51 Dose: 15 mcg Budesonide (Pulmicort Respules) 0.5 mg IH [id number] [facility] Last Admin: 03/17/18 08:52 Dose: 0.5 mg Furosemide (Lasix) 40 mg IVP Q12 [facility] Last Admin: 03/16/18 21:26 Dose: 40 mg Gabapentin (Neurontin) 300 mg PO TID [facility]; Protocol Last Admin: 03/16/18 17:16 Dose: 300 mg Guaifenesin/Dextromethorphan (Robitussin Dm) 5 ml PO Q4H PRN PRN Reason: Cough Last Admin: 03/17/18 06:08 Dose: 5 ml Pantoprazole Sodium (Protonix Ec Tab) 40 mg PO 0600 [facility] Last Admin: 03/17/18 06:08 Dose: 40 mg Rivaroxaban (Xarelto) 20 mg PO DAILY [facility]; Protocol Last Admin: 03/16/18 10:10 Dose: 20 mg Sildenafil Citrate (Revatio) 20 mg PO TID [facility] Last Admin: 03/16/18 18:04 Dose: 20 mg - Labs Labs: 03/17/18 07:30 03/17/18 07:30 PT 35.6 SECONDS (9.4-12.5) H 03/01/18 18:48 INR 3.05 03/01/18 18:48 APTT 32.1 Seconds (25.1-36.5) 03/01/18 18:48 Attending/Attestation - Attestation I have personally seen and examined this patient.: Yes I have fully participated in the care of the patient.: Yes I have reviewed all pertinent clinical information, including history, physical exam and plan: Yes Notes (Text): 03/17/18 08:59 Medical record note made by the resident after discussion with my direction and input after the patient was personally seen and examined by me. I have reviewed the chart and agree that the record accurately reflects by personal performance of the history, physical exam, data review, and medical decision-making, in the course for the patient. I have also personally directed the plan of care.
[2018-03-14] MEDS: Arformoterol 15 mcg/2 ml Inh Sol IH SCH ×2 (07:49→19:23)
[2018-03-14] MEDS: Budesonide 0.5 mg/2 ml Inhal Susp UD IH SCH ×2 (07:49→19:23)
[2018-03-14] MEDS: Albuterol-Ipratrop 3 mg / 0.5 (3 ml) UD IH PRN ×3 (07:49→22:55)
[2018-03-14 08:11] LABS: ALB/GLOB RATIO 1.2 (1.1-1.8); ALBUMIN 3.6 g/dL (3.0-4.8); ALT/SGPT 27 U/L (7-56); AST/SGOT 20 U/L (14-36); BLOOD UREA NITROGEN 15 mg/dL (7-21); CALCIUM 8.9 mg/dL (8.4-10.5); GFR NON-AFRICAN AMERICAN > 60
[2018-03-14] MEDS: guaiFENesin DM 100 mg-10 mg/5 ml UD PO PRN ×3 (09:22→20:08)
[2018-03-14] MEDS: Sildenafil 20 MG TAB PO SCH ×3 (09:23→17:21)
[2018-03-15] MEDS: Pantoprazole 40 mg EC Tab PO SCH (05:13)
--- NOTE | 2018-03-15 06:58 | CP.PCM.PN ---
<ShyCydneytravis L - Last Filed: 03/15/18 16:51> Subjective - Date & Time of Evaluation Date of Evaluation: 03/15/18 Time of Evaluation: 06:58 - Subjective Subjective: Resident Progress Note for Hospitalist Service Patient examined at bedside. No acute events overnight. Patient reports improvement in lower extremity edema and is tolerating bipap at night. Denies fevers, chills, chest pain, shortness of breath, abdominal pain, diarrhea, dysuria. Objective - Vital Signs/Intake and Output Vital Signs (last 24 hours): Temp Pulse Resp BP Pulse Ox 97.9 F 80 24 103/62 93 L 03/14/18 14:00 03/14/18 22:00 03/14/18 22:00 03/14/18 22:00 03/14/18 14:00 Intake and Output: 03/14/18 03/15/18 18:59 06:59 Intake Total 540 Output Total 200 Balance 340 - Medications Medications: Current Medications Acetaminophen (Tylenol 325mg Tab) 650 mg PO Q6H PRN PRN Reason: Headache Last Admin: 03/05/18 21:07 Dose: 650 mg Albuterol/Ipratropium (Duoneb 3 Mg/0.5 Mg (3 Ml) Ud) 3 ml IH [id number] PRN PRN Reason: Shortness of Breath Last Admin: 03/14/18 22:55 Dose: 3 ml Arformoterol Tartrate (Brovana) 15 mcg IH [id number] [facility] Last Admin: 03/14/18 19:23 Dose: 15 mcg Budesonide (Pulmicort Respules) 0.5 mg IH [id number] [facility] Last Admin: 03/14/18 19:23 Dose: 0.5 mg Furosemide (Lasix) 20 mg IVP Q12 [facility] Last Admin: 03/14/18 21:26 Dose: 20 mg Gabapentin (Neurontin) 300 mg PO TID [facility]; Protocol Last Admin: 03/14/18 17:20 Dose: 300 mg Guaifenesin/Dextromethorphan (Robitussin Dm) 5 ml PO Q4H PRN PRN Reason: Cough Last Admin: 03/14/18 20:08 Dose: 5 ml Pantoprazole Sodium (Protonix Ec Tab) 40 mg PO 0600 [facility] Last Admin: 03/15/18 05:13 Dose: 40 mg Rivaroxaban (Xarelto) 20 mg PO DAILY [facility]; Protocol Last Admin: 03/14/18 09:22 Dose: 20 mg Sildenafil Citrate (Revatio) 20 mg PO TID [facility] Last Admin: 03/14/18 17:21 Dose: 20 mg - Labs Labs: 03/14/18 07:00 03/14/18 07:00 PT 35.6 SECONDS (9.4-12.5) H 03/01/18 18:48 INR 3.05 03/01/18 18:48 APTT 32.1 Seconds (25.1-36.5) 03/01/18 18:48 - Additional Findings Additional findings: - Constitutional Appears: No Acute Distress, Older Than Stated Age - Head Exam Head Exam: ATRAUMATIC, NORMAL INSPECTION, NORMOCEPHALIC - Eye Exam Eye Exam: EOMI, PERRL - ENT Exam ENT Exam: Mucous Membranes Moist - Neck Exam Neck Exam: Full ROM - Respiratory Exam Respiratory Exam: Decreased Breath Sounds. absent: Rales, Rhonchi, Wheezes - GI/Abdominal Exam GI & Abdominal Exam: Soft, Normal Bowel Sounds. 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 Plan: Shortness of breath 2/2 Pulm HTN - CHF vs COPD - Changed Lasix to 20 mg IV BID - Duonebs q4H PRN - Brovana 15 mcg Q12H - Pulmicort .5 mg BID - Sildenafil 20 mg PO TID - fluid restrict to 1.2 L daily - Pulmonary consulted, recommending continued therapy and emphasis on biPAP. - Repeat CXR ordered 03/13 showed mild pulmonary vascular congestion and enlargement of cardiomediastinal silhouette. Improved from prior Hemoptysis - resolved - Multiple episodes last week - Hgb has remained stable. Xarelto resumed. - Continue to monitor - Pulm consult - Dr. Clark - f/u recs - CT chest shows no pulm embolus but is + for pericardial effusion and small R pleural effusion - Repeat Echo shows trace pericardial effusion - Guaifenesin DM for cough, improved Bilateral leg pain - Echo 01/14 show RV is severely dilated, RV systolic function is severely r educed, RA is severely dilated, severe TR, severe pulm HTN - Dopplers negative for DVT - Lasix 20 mg IV BID - Gabapentin 300 TID RUE swelling - Afebrile, no leukocytosis - Dopplers neg for DVT - OOB to chair LAYO - BiPAP at night as tolerated PPX - Xarelto 20 mg PO daily, SCDs - Protonix 40 mg PO daily Dispo: PT: HWS with home PT. Patient was urged to follow up in [facility] upon discharge for her pulmonary hypertension. Patient seen, case reviewed and plan approved by Dr. Renato Begum PGY-1 <Placido Gross - Last Filed: 03/17/18 08:59> Objective - Vital Signs/Intake and Output Vital Signs (last 24 hours): Temp Pulse Resp BP Pulse Ox 97.8 F 80 19 106/60 92 L 03/17/18 06:00 03/17/18 06:00 03/17/18 06:00 03/17/18 06:00 03/17/18 06:00 Intake and Output: 03/17/18 03/17/18 06:59 18:59 Intake Total 180 Output Total 600 Balance -420 - Medications Medications: Current Medications Acetaminophen (Tylenol 325mg Tab) 650 mg PO Q6H PRN PRN Reason: Headache Last Admin: 03/05/18 21:07 Dose: 650 mg Albuterol/Ipratropium (Duoneb 3 Mg/0.5 Mg (3 Ml) Ud) 3 ml IH [id number] PRN PRN Reason: Shortness of Breath Last Admin: 03/16/18 13:11 Dose: 3 ml Arformoterol Tartrate (Brovana) 15 mcg IH [id number] [facility] Last Admin: 03/17/18 08:51 Dose: 15 mcg Budesonide (Pulmicort Respules) 0.5 mg IH [id number] [facility] Last Admin: 03/17/18 08:52 Dose: 0.5 mg Furosemide (Lasix) 40 mg IVP Q12 [facility] Last Admin: 03/16/18 21:26 Dose: 40 mg Gabapentin (Neurontin) 300 mg PO TID [facility]; Protocol Last Admin: 03/16/18 17:16 Dose: 300 mg Guaifenesin/Dextromethorphan (Robitussin Dm) 5 ml PO Q4H PRN PRN Reason: Cough Last Admin: 03/17/18 06:08 Dose: 5 ml Pantoprazole Sodium (Protonix Ec Tab) 40 mg PO 0600 [facility] Last Admin: 03/17/18 06:08 Dose: 40 mg Rivaroxaban (Xarelto) 20 mg PO DAILY [facility]; Protocol Last Admin: 03/16/18 10:10 Dose: 20 mg Sildenafil Citrate (Revatio) 20 mg PO TID [facility] Last Admin: 03/16/18 18:04 Dose: 20 mg - Labs Labs: 03/17/18 07:30 03/17/18 07:30 PT 35.6 SECONDS (9.4-12.5) H 03/01/18 18:48 INR 3.05 03/01/18 18:48 APTT 32.1 Seconds (25.1-36.5) 03/01/18 18:48 Attending/Attestation - Attestation I have personally seen and examined this patient.: Yes I have fully participated in the care of the patient.: Yes I have reviewed all pertinent clinical information, including history, physical exam and plan: Yes Notes (Text): 03/17/18 08:58 Medical record note made by the resident after discussion with my direction and input after the patient was personally seen and examined by me. I have reviewed the chart and agree that the record accurately reflects by personal performance of the history, physical exam, data review, and medical decision-making, in the course for the patient. I have also personally directed the plan of care. 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 Dyspnea is due to severe Pulmonary HTN, and acute on chronic diastolic CHF. Hypoxia is improving, however patient mobility is severely impaired due to worsening dyspnea. We will continue IV lasix, avoid hypotension, If hypoxia will keep improving, will change to oral lasix. Prognosis is guarded. Management plan was discussed in detail with patient. Education was provided.
[2018-03-15 07:16] LABS: BASO # 0.01 K/mm3 (0.0-2.0); BASO % 0.3 % (0.0-3.0); EOS # 0.2 (0.0-0.7); GRAN # 2.56 (1.4-6.5); GRAN % 63.9 % (50.0-68.0); HEMOGLOBIN 8.9 g/dL (12.0-16.0); LYMPH # 0.4 (1.2-3.4); LYMPH % 10.3 % (22.0-35.0); MEAN CORPUSCULAR HEMOGLOBIN 25.5 pg (25.0-35.0); MEAN CORPUSCULAR HGB CONC 30.4 g/dl (31.0-37.0); MEAN PLATELET VOLUME 9.7 fl (7.0-11.0); MONO # 0.8 (0.1-0.6); MONO % 20.5 % (1.0-6.0); PLATELET COUNT 201 10^3/uL (120.0-450.0); RBC 3.49 10^6/uL (3.5-6.1); RED CELL DISTRIBUTION WIDTH 19.3 % (11.5-14.5)
[2018-03-15 07:30] LABS: ALB/GLOB RATIO 1.2 (1.1-1.8); ALBUMIN 3.4 g/dL (3.0-4.8); ALT/SGPT 23 U/L (7-56); AST/SGOT 19 U/L (14-36); BLOOD UREA NITROGEN 15 mg/dL (7-21); CALCIUM 8.8 mg/dL (8.4-10.5); GFR NON-AFRICAN AMERICAN > 60
[2018-03-15] MEDS: Budesonide 0.5 mg/2 ml Inhal Susp UD IH SCH ×2 (07:46→20:01)
[2018-03-15] MEDS: Arformoterol 15 mcg/2 ml Inh Sol IH SCH ×2 (07:46→20:01)
[2018-03-15 08:30] LABS: ATYPICAL LYMPHOCYTE 1 % (0.0-0.0); EOSINOPHIL 6 % (0.0-3.0); LYMPHOCYTE 13 % (22.0-35.0); MONOCYTE 11 % (1.0-6.0); NEUTROPHIL 69 % (50.0-70.0)
[2018-03-15 08:31] LABS: LARGE PLATELETS PRESENT; PLATELET ESTIMATE NORMAL (NORMAL)
[2018-03-15] MEDS ORDERED: Potassium Chloride 20 mEq ER Tab PO STA (08:42)
[2018-03-15] MEDS: Sildenafil 20 MG TAB PO SCH ×3 (10:20→18:02)
[2018-03-15] MEDS: guaiFENesin DM 100 mg-10 mg/5 ml UD PO PRN ×2 (17:58→22:04)
[2018-03-15] MEDS ORDERED: Potassium Chloride 20 mEq ER Tab PO ONE (18:42)
[2018-03-15] MEDS: Albuterol-Ipratrop 3 mg / 0.5 (3 ml) UD IH PRN (20:01)
--- NOTE | 2018-03-16 06:55 | CP.PCM.PN ---
<ShyCydneytravis L - Last Filed: 03/16/18 16:21> Subjective - Date & Time of Evaluation Date of Evaluation: 03/16/18 Time of Evaluation: 06:54 - Subjective Subjective: Resident Progress Note for Hospitalist Service Patient examined at bedside. Patient was resting in bed with bipap mask on. Admits to occasional shortness of breath but states that bipap helps to relieve her symptoms. Denies fevers, chills, chest pain, abdominal pain, diarrhea. Objective - Vital Signs/Intake and Output Vital Signs (last 24 hours): Temp Pulse Resp BP Pulse Ox 97.9 F 88 18 115/70 96 03/15/18 06:00 03/15/18 23:19 03/15/18 06:00 03/15/18 21:12 03/15/18 06:00 Intake and Output: 03/15/18 03/16/18 18:59 06:59 Intake Total 1000 180 Output Total 450 600 Balance 550 -420 - Medications Medications: Current Medications Acetaminophen (Tylenol 325mg Tab) 650 mg PO Q6H PRN PRN Reason: Headache Last Admin: 03/05/18 21:07 Dose: 650 mg Albuterol/Ipratropium (Duoneb 3 Mg/0.5 Mg (3 Ml) Ud) 3 ml IH [id number] PRN PRN Reason: Shortness of Breath Last Admin: 03/15/18 20:01 Dose: 3 ml Arformoterol Tartrate (Brovana) 15 mcg IH [id number] [facility] Last Admin: 03/15/18 20:01 Dose: 15 mcg Budesonide (Pulmicort Respules) 0.5 mg IH [id number] [facility] Last Admin: 03/15/18 20:01 Dose: 0.5 mg Furosemide (Lasix) 20 mg IVP Q12 [facility] Last Admin: 03/15/18 21:12 Dose: 20 mg Gabapentin (Neurontin) 300 mg PO TID [facility]; Protocol Last Admin: 03/15/18 17:55 Dose: 300 mg Guaifenesin/Dextromethorphan (Robitussin Dm) 5 ml PO Q4H PRN PRN Reason: Cough Last Admin: 03/15/18 22:04 Dose: 5 ml Pantoprazole Sodium (Protonix Ec Tab) 40 mg PO 0600 [facility] Last Admin: 03/15/18 05:13 Dose: 40 mg Rivaroxaban (Xarelto) 20 mg PO DAILY [facility]; Protocol Last Admin: 03/15/18 10:20 Dose: 20 mg Sildenafil Citrate (Revatio) 20 mg PO TID [facility] Last Admin: 03/15/18 18:02 Dose: 20 mg - Labs Labs: 03/15/18 07:00 03/15/18 07:00 PT 35.6 SECONDS (9.4-12.5) H 03/01/18 18:48 INR 3.05 03/01/18 18:48 APTT 32.1 Seconds (25.1-36.5) 03/01/18 18:48 - Additional Findings Additional findings: - Constitutional Appears: No Acute Distress, Older Than Stated Age - Head Exam Head Exam: ATRAUMATIC, NORMAL INSPECTION, NORMOCEPHALIC - Eye Exam Eye Exam: EOMI, PERRL - ENT Exam ENT Exam: Mucous Membranes Moist - Neck Exam Neck Exam: Full ROM - Respiratory Exam Respiratory Exam: Decreased Breath Sounds. absent: Rales, Rhonchi, Wheezes - GI/Abdominal Exam GI & Abdominal Exam: Soft, Normal Bowel Sounds. 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 Plan: Shortness of breath 2/2 Pulm HTN - CHF vs COPD - Lasix 40 mg IV BID - Duonebs q4H PRN - Brovana 15 mcg Q12H - Pulmicort .5 mg BID - Sildenafil 20 mg PO TID - fluid restrict to 1.2 L daily - Pulmonary consulted, recommending continued therapy and emphasis on bipap - Repeat CXR today shows worsening pulmonary congestion - ABG today pH 7.49, pCO2 31, pO2 49, HCO3 23.6 - Given stat Lasix 20 mg IV x2 Hemoptysis - resolved - Multiple episodes last week - Hgb has remained stable. Xarelto resumed. - Continue to monitor - Pulm consult - Dr. Clark - f/u recs - CT chest shows no pulm embolus but is + for pericardial effusion and small R pleural effusion - Repeat Echo shows trace pericardial effusion - Guaifenesin DM for cough Bilateral leg pain - Echo 01/14 show RV is severely dilated, RV systolic function is severely reduced, RA is severely dilated, severe TR, severe pulm HTN - Dopplers negative for DVT - Lasix 20 mg IV BID - Gabapentin 300 TID RUE swelling - Afebrile, no leukocytosis - Dopplers neg for DVT - OOB to chair LAYO - BiPAP at night as tolerated PPX - Xarelto 20 mg PO daily, SCDs - Protonix 40 mg PO daily Dispo: PT: HWS with home PT. Patient was urged to follow up in [facility] upon discharge for her pulmonary hypertension. Patient seen, case reviewed and plan approved by Dr. Renato Begum PGY-1 <Placido Gross - Last Filed: 03/17/18 08:57> Objective - Vital Signs/Intake and Output Vital Signs (last 24 hours): Temp Pulse Resp BP Pulse Ox 97.8 F 80 19 106/60 92 L 03/17/18 06:00 03/17/18 06:00 03/17/18 06:00 03/17/18 06:00 03/17/18 06:00 Intake and Output: 03/17/18 03/17/18 06:59 18:59 Intake Total 180 Output Total 600 Balance -420 - Medications Medications: Current Medications Acetaminophen (Tylenol 325mg Tab) 650 mg PO Q6H PRN PRN Reason: Headache Last Admin: 03/05/18 21:07 Dose: 650 mg Albuterol/Ipratropium (Duoneb 3 Mg/0.5 Mg (3 Ml) Ud) 3 ml IH [id number] PRN PRN Reason: Shortness of Breath Last Admin: 03/16/18 13:11 Dose: 3 ml Arformoterol Tartrate (Brovana) 15 mcg IH [id number] [facility] Last Admin: 03/16/18 19:44 Dose: 15 mcg Budesonide (Pulmicort Respules) 0.5 mg IH [id number] [facility] Last Admin: 03/16/18 19:44 Dose: 0.5 mg Furosemide (Lasix) 40 mg IVP Q12 [facility] Last Admin: 03/16/18 21:26 Dose: 40 mg Gabapentin (Neurontin) 300 mg PO TID [facility]; Protocol Last Admin: 03/16/18 17:16 Dose: 300 mg Guaifenesin/Dextromethorphan (Robitussin Dm) 5 ml PO Q4H PRN PRN Reason: Cough Last Admin: 03/17/18 06:08 Dose: 5 ml Pantoprazole Sodium (Protonix Ec Tab) 40 mg PO 0600 [facility] Last Admin: 03/17/18 06:08 Dose: 40 mg Rivaroxaban (Xarelto) 20 mg PO DAILY [facility]; Protocol Last Admin: 03/16/18 10:10 Dose: 20 mg Sildenafil Citrate (Revatio) 20 mg PO TID [facility] Last Admin: 03/16/18 18:04 Dose: 20 mg - Labs Labs: 03/17/18 07:30 03/17/18 07:30 PT 35.6 SECONDS (9.4-12.5) H 03/01/18 18:48 INR 3.05 03/01/18 18:48 APTT 32.1 Seconds (25.1-36.5) 03/01/18 18:48 Attending/Attestation - Attestation I have personally seen and examined this patient.: Yes I have fully participated in the care of the patient.: Yes I have reviewed all pertinent clinical information, including history, physical exam and plan: Yes Notes (Text): 03/17/18 08:52 Medical record note made by the resident after discussion with my direction and input after the patient was personally seen and examined by me. I have reviewed the chart and agree that the record accurately reflects by personal performance of the history, physical exam, data review, and medical decision-making, in the course for the patient. I have also personally directed the plan of care. 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 Patient was on 4 L of oxygen yesterday but today hypoxia is worsening on BIPAP requiring 45% FIO to keep saturation around 88% Chest Xrays showed worsening congestion. Dyspnea is due to severe Pulmonary HTN, and acute on chronic diastolic CHF. We will give extra lasix , avoid hypotension as patient has severe Pulmonary HTN We will request Pulmonary evaluation. Prognosis is guarded. Management plan was discussed in detail with patient. Education was provided.
[2018-03-16] MEDS: Arformoterol 15 mcg/2 ml Inh Sol IH SCH ×2 (07:17→19:44)
[2018-03-16] MEDS: Budesonide 0.5 mg/2 ml Inhal Susp UD IH SCH ×2 (07:17→19:44)
[2018-03-16 07:30] LABS: BASO # 0.01 K/mm3 (0.0-2.0); BASO % 0.2 % (0.0-3.0); EOS # 0.2 (0.0-0.7); EOS % 4.6 % (1.5-5.0); GRAN # 2.78 (1.4-6.5); GRAN % 64.3 % (50.0-68.0); HEMOGLOBIN 9.2 g/dL (12.0-16.0); LYMPH # 0.6 (1.2-3.4); LYMPH % 14.3 % (22.0-35.0); MEAN CELL VOLUME 84.6 fl (80.0-105.0); MEAN CORPUSCULAR HEMOGLOBIN 25.7 pg (25.0-35.0); MEAN CORPUSCULAR HGB CONC 30.4 g/dl (31.0-37.0); MEAN PLATELET VOLUME 9.7 fl (7.0-11.0); MONO # 0.7 (0.1-0.6); MONO % 16.6 % (1.0-6.0); RBC 3.58 10^6/uL (3.5-6.1); RED CELL DISTRIBUTION WIDTH 19.4 % (11.5-14.5); WHITE BLOOD COUNT 4.3 10^3/uL (4.5-11.0)
[2018-03-16] MEDS: Pantoprazole 40 mg EC Tab PO SCH (08:20)
[2018-03-16 08:41] LABS: ALB/GLOB RATIO 1.2 (1.1-1.8); ALBUMIN 3.5 g/dL (3.0-4.8); ALT/SGPT 16 U/L (7-56); AST/SGOT 25 U/L (14-36); BLOOD UREA NITROGEN 15 mg/dL (7-21); GFR NON-AFRICAN AMERICAN > 60
[2018-03-16] MEDS: Sildenafil 20 MG TAB PO SCH ×3 (10:10→18:04)
[2018-03-16 12:04] LABS: ARTERIAL BLOOD GAS HCO3 23.6 mmol/L (21-28); ARTERIAL BLOOD GAS HEMOGLOBIN 8.9 g/dL (11.7-17.4); ARTERIAL BLOOD GAS O2 CAPACITY 12.1 mL/dl (16-24); ARTERIAL BLOOD GAS O2 CONTENT 10.9 ML/dl (15-23); ARTERIAL BLOOD GAS O2 SAT 89.8 % (95-98); ARTERIAL BLOOD GAS PCO2 31 mm/Hg (35-45); ARTERIAL BLOOD GAS PH 7.49 (7.35-7.45); ARTERIAL BLOOD GAS TCO2 24.6 mmol.L (22-28)
[2018-03-16] MEDS: guaiFENesin DM 100 mg-10 mg/5 ml UD PO PRN ×2 (12:51→18:49)
[2018-03-16] MEDS: Albuterol-Ipratrop 3 mg / 0.5 (3 ml) UD IH PRN (13:11)
--- NOTE | 2018-03-16 13:34 | RAD ---
Date of service: 03/16/2018 HISTORY: shortness of breath COMPARISON: 03/13/2018 FINDINGS: LUNGS: Minimal patchy infiltrate at the right lung base PLEURA: No significant pleural effusion identified, no pneumothorax apparent. CARDIOVASCULAR: No aortic atherosclerotic calcification present. Moderate cardiomegaly mild vascular congestion OSSEOUS STRUCTURES: No significant abnormalities. VISUALIZED UPPER ABDOMEN: Normal. OTHER FINDINGS: None. IMPRESSION: Mild vascular congestion. Minimal patchy infiltrate at the right lung base
--- NOTE | 2018-03-16 16:11 | CP.PCM.PN ---
Subjective - Date & Time of Evaluation Date of Evaluation: 03/16/18 Time of Evaluation: 14:00 - Subjective Subjective: Patient seen and examined, reports to be more SOB, refusing BIPAP. Given Lasix 20mg IV x 3. Objective - Vital Signs/Intake and Output Vital Signs (last 24 hours): Temp Pulse Resp BP Pulse Ox 97.4 F L 84 20 124/69 91 L 03/16/18 14:58 03/16/18 14:58 03/16/18 14:58 03/16/18 14:58 03/16/18 14:58 Intake and Output: 03/16/18 03/16/18 06:59 18:59 Intake Total 180 Output Total 600 Balance -420 - Medications Medications: Current Medications Acetaminophen (Tylenol 325mg Tab) 650 mg PO Q6H PRN PRN Reason: Headache Last Admin: 03/05/18 21:07 Dose: 650 mg Albuterol/Ipratropium (Duoneb 3 Mg/0.5 Mg (3 Ml) Ud) 3 ml IH [id number] PRN PRN Reason: Shortness of Breath Last Admin: 03/16/18 13:11 Dose: 3 ml Arformoterol Tartrate (Brovana) 15 mcg IH [id number] [facility] Last Admin: 03/16/18 07:17 Dose: 15 mcg Budesonide (Pulmicort Respules) 0.5 mg IH [id number] [facility] Last Admin: 03/16/18 07:17 Dose: 0.5 mg Furosemide (Lasix) 40 mg IVP Q12 [facility] Gabapentin (Neurontin) 300 mg PO TID [facility]; Protocol Last Admin: 03/16/18 13:23 Dose: 300 mg Guaifenesin/Dextromethorphan (Robitussin Dm) 5 ml PO Q4H PRN PRN Reason: Cough Last Admin: 03/16/18 12:51 Dose: 5 ml Pantoprazole Sodium (Protonix Ec Tab) 40 mg PO 0600 [facility] Last Admin: 03/16/18 08:20 Dose: 40 mg Rivaroxaban (Xarelto) 20 mg PO DAILY [facility]; Protocol Last Admin: 03/16/18 10:10 Dose: 20 mg Sildenafil Citrate (Revatio) 20 mg PO TID [facility] Last Admin: 03/16/18 13:23 Dose: 20 mg - Labs Labs: 03/16/18 07:00 03/16/18 08:00 PT 35.6 SECONDS (9.4-12.5) H 03/01/18 18:48 INR 3.05 03/01/18 18:48 APTT 32.1 Seconds (25.1-36.5) 03/01/18 18:48 - Constitutional Appears: Non-toxic, No Acute Distress - Eye Exam Eye Exam: Normal appearance - ENT Exam ENT Exam: Mucous Membranes Moist - Neck Exam Neck Exam: Full ROM - Respiratory Exam Respiratory Exam: Decreased Breath Sounds, NORMAL BREATHING PATTERN - Cardiovascular Exam Cardiovascular Exam: REGULAR RHYTHM, +S1, +S2 - GI/Abdominal Exam GI & Abdominal Exam: Soft, Normal Bowel Sounds - Extremities Exam Extremities Exam: Normal Inspection - Neurological Exam Neurological Exam: Alert, Awake, Oriented x3 - Psychiatric Exam Psychiatric exam: Normal Mood - Skin Skin Exam: Normal Color, Warm Assessment and Plan - Assessment and Plan (Free Text) Assessment: 42yo female with PMhx Pulm HTN, 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 - currently afbrile, BP stable, on 6LNC sat 89%, refusing BIPAP - Patient is difficult, refusing treatment, thorough conversation discussed risks and benefits explained - labs, imaging, chart reviewed - CXR with worsening pulm congestion/CHF today, given Lasix 60mg total - LE duplex neg for DVT, CT PE protocol neg for PE - cont with IV diuresis, Lasix 40mg IV BID - I/Os, daily weights - BIPAP - Revatio - Cont with Xarelto
[2018-03-17] MEDS ORDERED: Oxycodone/Acetaminophen 5/325 mg Tab PO ONE (04:17)
[2018-03-17] MEDS: Pantoprazole 40 mg EC Tab PO SCH (06:08)
[2018-03-17] MEDS: guaiFENesin DM 100 mg-10 mg/5 ml UD PO PRN ×3 (06:08→17:37)
[2018-03-17 07:59] LABS: BASO # 0.01 K/mm3 (0.0-2.0); BASO % 0.2 % (0.0-3.0); EOS # 0.2 (0.0-0.7); EOS % 3.2 % (1.5-5.0); GRAN # 3.71 (1.4-6.5); GRAN % 69.6 % (50.0-68.0); HEMOGLOBIN 8.8 g/dL (12.0-16.0); LYMPH # 0.6 (1.2-3.4); LYMPH % 10.5 % (22.0-35.0); MEAN CELL VOLUME 83.9 fl (80.0-105.0); MEAN CORPUSCULAR HEMOGLOBIN 25.4 pg (25.0-35.0); MEAN CORPUSCULAR HGB CONC 30.2 g/dl (31.0-37.0); MONO # 0.9 (0.1-0.6); MONO % 16.5 % (1.0-6.0); RBC 3.47 10^6/uL (3.5-6.1); WHITE BLOOD COUNT 5.3 10^3/uL (4.5-11.0)
[2018-03-17 08:35] LABS: ALB/GLOB RATIO 1.2 (1.1-1.8); ALBUMIN 3.5 g/dL (3.0-4.8); ALT/SGPT 21 U/L (7-56); AST/SGOT 17 U/L (14-36); BLOOD UREA NITROGEN 14 mg/dL (7-21); CALCIUM 8.7 mg/dL (8.4-10.5); GFR NON-AFRICAN AMERICAN > 60
[2018-03-17] MEDS: Arformoterol 15 mcg/2 ml Inh Sol IH SCH ×2 (08:51→21:05)
[2018-03-17] MEDS: Budesonide 0.5 mg/2 ml Inhal Susp UD IH SCH ×2 (08:52→21:06)
[2018-03-17] MEDS: Sildenafil 20 MG TAB PO SCH ×3 (10:29→17:37)
--- NOTE | 2018-03-17 12:46 | CP.PCM.PN ---
<Dickson Farrar - Last Filed: 03/17/18 12:47> Subjective - Date & Time of Evaluation Date of Evaluation: 03/17/18 Time of Evaluation: 06:00 - Subjective Subjective: Patient examined at bedside in AM. Patient was resting in bed with nasul canula. Patient states she gets shortness of breath but states that bipap helps. Denies fevers, chills, chest pain, abdominal pain, diarrhea, N, V, or any other complaints at this time. Objective - Vital Signs/Intake and Output Vital Signs (last 24 hours): Temp Pulse Resp BP Pulse Ox 97.8 F 80 19 106/60 92 L 03/17/18 06:00 03/17/18 06:00 03/17/18 06:00 03/17/18 10:29 03/17/18 06:00 Intake and Output: 03/17/18 03/17/18 06:59 18:59 Intake Total 180 Output Total 600 Balance -420 - Medications Medications: Current Medications Acetaminophen (Tylenol 325mg Tab) 650 mg PO Q6H PRN PRN Reason: Headache Last Admin: 03/05/18 21:07 Dose: 650 mg Albuterol/Ipratropium (Duoneb 3 Mg/0.5 Mg (3 Ml) Ud) 3 ml IH [id number] PRN PRN Reason: Shortness of Breath Last Admin: 03/16/18 13:11 Dose: 3 ml Arformoterol Tartrate (Brovana) 15 mcg IH [id number] [facility] Last Admin: 03/17/18 08:51 Dose: 15 mcg Budesonide (Pulmicort Respules) 0.5 mg IH [id number] [facility] Last Admin: 03/17/18 08:52 Dose: 0.5 mg Furosemide (Lasix) 40 mg IVP Q12 [facility] Last Admin: 03/17/18 10:29 Dose: 40 mg Gabapentin (Neurontin) 300 mg PO TID [facility]; Protocol Last Admin: 03/17/18 10:29 Dose: 300 mg Guaifenesin/Dextromethorphan (Robitussin Dm) 5 ml PO Q4H PRN PRN Reason: Cough Last Admin: 03/17/18 10:29 Dose: 5 ml Pantoprazole Sodium (Protonix Ec Tab) 40 mg PO 0600 [facility] Last Admin: 03/17/18 06:08 Dose: 40 mg Rivaroxaban (Xarelto) 20 mg PO DAILY [facility]; Protocol Last Admin: 03/17/18 10:29 Dose: 20 mg Sildenafil Citrate (Revatio) 20 mg PO TID [facility] Last Admin: 03/17/18 10:29 Dose: 20 mg - Labs Labs: 03/17/18 07:30 03/17/18 07:30 PT 35.6 SECONDS (9.4-12.5) H 03/01/18 18:48 INR 3.05 03/01/18 18:48 APTT 32.1 Seconds (25.1-36.5) 03/01/18 18:48 - Constitutional Appears: Non-toxic, No Acute Distress - Head Exam Head Exam: ATRAUMATIC, NORMAL INSPECTION, NORMOCEPHALIC - Eye Exam Eye Exam: EOMI, Normal appearance - ENT Exam ENT Exam: Mucous Membranes Moist - Respiratory Exam Respiratory Exam: Decreased Breath Sounds. 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 Plan: Shortness of breath 2/2 Pulm HTN - Lasix 40 mg IV BID - Duonebs q4H PRN - Brovana 15 mcg Q12H - Pulmicort .5 mg BID - Sildenafil 20 mg PO TID - fluid restrict to 1.2 L daily - Pulmonary consulted, recommending continued therapy and emphasis on bipap - will contact [facility] for possible transfer Hemoptysis - resolved - Multiple episodes last week - Hgb has remained stable. Xarelto resumed. - Continue to monitor - Pulm consult - Dr. Clark - f/u recs - CT chest shows no pulm embolus but is + for pericardial effusion and small R pleural effusion - Repeat Echo shows trace pericardial effusion - Guaifenesin DM for cough Bilateral leg pain-resolved - Echo 01/14 show RV is severely dilated, RV systolic function is severely reduced, RA is severely dilated, severe TR, severe pulm HTN - Dopplers negative for DVT - Lasix 20 mg IV BID - Gabapentin 300 TID RUE swelling - Afebrile, no leukocytosis - Dopplers neg for DVT - OOB to chair LAYO - BiPAP at night as tolerated PPX - Xarelto 20 mg PO daily, SCDs - Protonix 40 mg PO daily Dispo: will contact [facility] for possible transfer and more information on patients pulmonary hypertension <Placido Gross - Last Filed: 03/18/18 15:19> Objective - Vital Signs/Intake and Output Vital Signs (last 24 hours): Temp Pulse Resp BP Pulse Ox 98.3 F 76 21 103/66 94 L 03/18/18 06:00 03/18/18 06:00 03/18/18 06:00 03/18/18 10:38 03/18/18 06:00 Intake and Output: 03/18/18 03/18/18 06:59 18:59 Intake Total 120 Output Total 500 Balance -380 - Medications Medications: Current Medications Acetaminophen (Tylenol 325mg Tab) 650 mg PO Q6H PRN PRN Reason: Headache Last Admin: 03/05/18 21:07 Dose: 650 mg Albuterol/Ipratropium (Duoneb 3 Mg/0.5 Mg (3 Ml) Ud) 3 ml IH [id number] PRN PRN Reason: Shortness of Breath Last Admin: 03/17/18 21:06 Dose: 3 ml Arformoterol Tartrate (Brovana) 15 mcg IH [id number] [facility] Last Admin: 03/18/18 08:04 Dose: 15 mcg Budesonide (Pulmicort Respules) 0.5 mg IH [id number] [facility] Last Admin: 03/18/18 08:04 Dose: 0.5 mg Furosemide (Lasix) 40 mg IVP Q12 [facility] Last Admin: 03/18/18 10:38 Dose: 40 mg Gabapentin (Neurontin) 300 mg PO TID [facility]; Protocol Last Admin: 03/18/18 10:39 Dose: 300 mg Guaifenesin/Dextromethorphan (Robitussin Dm) 5 ml PO Q4H PRN PRN Reason: Cough Last Admin: 03/18/18 10:38 Dose: 5 ml Pantoprazole Sodium (Protonix Ec Tab) 40 mg PO 0600 [facility] Last Admin: 03/18/18 07:21 Dose: 40 mg Rivaroxaban (Xarelto) 20 mg PO DAILY [facility]; Protocol Last Admin: 03/18/18 10:38 Dose: 20 mg Sildenafil Citrate (Revatio) 20 mg PO TID [facility] Last Admin: 03/18/18 13:26 Dose: Not Given - Labs Labs: 03/18/18 07:30 03/18/18 07:30 PT 35.6 SECONDS (9.4-12.5) H 03/01/18 18:48 INR 3.05 03/01/18 18:48 APTT 32.1 Seconds (25.1-36.5) 03/01/18 18:48 Attending/Attestation - Attestation I have personally seen and examined this patient.: Yes I have fully participated in the care of the patient.: Yes I have reviewed all pertinent clinical information, including history, physical exam and plan: Yes Notes (Text): 03/18/18 15:14 Medical record note made by the resident after discussion with my direction and input after the patient was personally seen and examined by me. I have reviewed the chart and agree that the record accurately reflects by personal performance of the history, physical exam, data review, and medical decision-making, in the course for the patient. I have also personally directed the plan of care. 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 Patient hypoxia is better today on 4 L via nasal cannula We will continue IV Diuresis. Dyspnea is due to severe Pulmonary HTN, and acute on chronic diastolic CHF.Patient recently had Pulmonary HTN work up done at [facility].We will try to get patient medical record . Depending on patient medical record , the decision will be made to transfer patient to tertiary care center as patient is still getting hypoxic on minimal exertion. Issue of compliance with BIPAP and oXYGEN WAS DISCUSSED IN DETAIL. Case was discussed with Pulmonary. Prognosis is guarded. Management plan was discussed in detail with patient. Education was provided.
[2018-03-17] MEDS: Albuterol-Ipratrop 3 mg / 0.5 (3 ml) UD IH PRN (21:06)
--- NOTE | 2018-03-18 07:10 | CP.PCM.PN ---
<Lisa Begum L - Last Filed: 03/18/18 18:28> Subjective - Date & Time of Evaluation Date of Evaluation: 03/18/18 Time of Evaluation: 07:10 - Subjective Subjective: Resident Progress Note for Hospitalist Service Patient examined at bedside. Overnight patient was desaturating into 70s and was placed on bipap. This morning patient was resting comfortably in bed in no acute respiratory distress. However, she refused bipap and nasal cannula. Patient was educated on risks of not using oxygen support. Patient expressed understanding and agreed to use nasal cannula. Denies fevers, chills, chest pain, shortness of breath, abdominal pain, diarrhea, dysuria. Objective - Vital Signs/Intake and Output Vital Signs (last 24 hours): Temp Pulse Resp BP Pulse Ox 97.3 F L 88 20 99/64 L 93 L 03/17/18 22:00 03/18/18 02:15 03/17/18 22:00 03/17/18 22:00 03/18/18 05:00 Intake and Output: 03/18/18 03/18/18 06:59 18:59 Intake Total 120 Output Total 500 Balance -380 - Medications Medications: Current Medications Acetaminophen (Tylenol 325mg Tab) 650 mg PO Q6H PRN PRN Reason: Headache Last Admin: 03/05/18 21:07 Dose: 650 mg Albuterol/Ipratropium (Duoneb 3 Mg/0.5 Mg (3 Ml) Ud) 3 ml IH [id number] PRN PRN Reason: Shortness of Breath Last Admin: 03/17/18 21:06 Dose: 3 ml Arformoterol Tartrate (Brovana) 15 mcg IH [id number] [facility] Last Admin: 03/17/18 21:05 Dose: 15 mcg Budesonide (Pulmicort Respules) 0.5 mg IH [id number] [facility] Last Admin: 03/17/18 21:06 Dose: 0.5 mg Furosemide (Lasix) 40 mg IVP Q12 [facility] Last Admin: 03/17/18 21:28 Dose: 40 mg Gabapentin (Neurontin) 300 mg PO TID [facility]; Protocol Last Admin: 03/17/18 17:37 Dose: 300 mg Guaifenesin/Dextromethorphan (Robitussin Dm) 5 ml PO Q4H PRN PRN Reason: Cough Last Admin: 03/17/18 17:37 Dose: 5 ml Pantoprazole Sodium (Protonix Ec Tab) 40 mg PO 0600 [facility] Last Admin: 03/17/18 06:08 Dose: 40 mg Rivaroxaban (Xarelto) 20 mg PO DAILY [facility]; Protocol Last Admin: 03/17/18 10:29 Dose: 20 mg Sildenafil Citrate (Revatio) 20 mg PO TID [facility] Last Admin: 03/17/18 17:37 Dose: 20 mg - Labs Labs: 03/17/18 07:30 03/17/18 07:30 PT 35.6 SECONDS (9.4-12.5) H 03/01/18 18:48 INR 3.05 03/01/18 18:48 APTT 32.1 Seconds (25.1-36.5) 03/01/18 18:48 - Additional Findings Additional findings: - Constitutional Appears: No Acute Distress, Older Than Stated Age - Head Exam Head Exam: ATRAUMATIC, NORMAL INSPECTION, NORMOCEPHALIC - Eye Exam Eye Exam: EOMI - ENT Exam ENT Exam: Mucous Membranes Moist - Neck Exam Neck Exam: Full ROM - Respiratory Exam Respiratory Exam: Decreased Breath Sounds. absent: Rales, Rhonchi, Wheezes - GI/Abdominal Exam GI & Abdominal Exam: Soft, Normal Bowel Sounds. 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 Plan: Shortness of breath 2/2 pulm HTN - Lasix 40 mg IV BID - Duonebs q4H PRN - Brovana 15 mcg Q12H - Pulmicort .5 mg BID - Sildenafil 20 mg PO TID - fluid restrict to 1.2 L daily - Pulmonary consulted, recommending continued therapy and emphasis on bipap - Records obtained from [facility] show patient had cardiac cath in 12/2017 which showed mean PCWP 80 mm Hg, severe pulmonary hypertension with elevated pulmonary arteriolar resistance, likely multifactorial due to chronic thromboembolic pulmonary disease as well as sleep apnea. Marked elevated RV end- diastolic pressure consistent with right ventricular diastolic dysfunction, low cardiac index with CVP to wedge ratio of more than 1 consistent with cardiogenic shock physiology. V/Q scan showed high probability of PE. Recs were to continue anticoagulation with O2 and sildenafil. Hemoptysis - resolved - Hgb has remained stable. Xarelto resumed. - Continue to monitor - Pulm consult - Dr. Clark - CT chest shows no pulm embolus but is + for pericardial effusion and small R pleural effusion - Repeat Echo shows trace pericardial effusion - Guaifenesin DM for cough Bilateral leg pain-resolved - Echo 01/14 show RV is severely dilated, RV systolic function is severely reduced, RA is severely dilated, severe TR, severe pulm HTN - Dopplers negative for DVT - Lasix 20 mg IV BID - Gabapentin 300 TID RUE swelling - Afebrile, no leukocytosis - Dopplers neg for DVT - OOB to chair LAYO - BiPAP at night as tolerated PPX - Xarelto 20 mg PO daily, SCDs - Protonix 40 mg PO daily Case discussed with Dr. Renato Begum PGY-1 <Placido Gross - Last Filed: 03/24/18 15:11> Objective - Vital Signs/Intake and Output Vital Signs (last 24 hours): Temp Pulse Resp BP Pulse Ox 97.4 F L 78 18 120/68 95 03/24/18 12:00 03/24/18 12:00 03/24/18 12:00 03/24/18 12:33 03/24/18 06:00 Intake and Output: 03/24/18 03/24/18 06:59 18:59 Intake Total 660 Output Total 1000 Balance -340 - Medications Medications: Current Medications Acetaminophen (Tylenol 325mg Tab) 650 mg PO Q6H PRN PRN Reason: Headache Last Admin: 03/05/18 21:07 Dose: 650 mg Albuterol/Ipratropium (Duoneb 3 Mg/0.5 Mg (3 Ml) Ud) 3 ml IH [id number] PRN PRN Reason: Shortness of Breath Last Admin: 03/24/18 00:55 Dose: 3 ml Arformoterol Tartrate (Brovana) 15 mcg IH [id number] [facility] Last Admin: 03/24/18 07:24 Dose: 15 mcg Budesonide (Pulmicort Respules) 0.5 mg IH [id number] [facility] Last Admin: 03/24/18 07:24 Dose: 0.5 mg Furosemide (Lasix) 40 mg IVP Q12 [facility] Last Admin: 03/24/18 12:33 Dose: 40 mg Gabapentin (Neurontin) 300 mg PO TID [facility]; Protocol Last Admin: 03/24/18 14:59 Dose: 300 mg Guaifenesin (Robitussin) 100 mg PO Q4H PRN PRN Reason: Cough Last Admin: 03/23/18 22:06 Dose: 100 mg Mupirocin (Bactroban Ointment) 1 gm TOP BID [facility] Last Admin: 03/24/18 12:36 Dose: 1 applic Pantoprazole Sodium (Protonix Ec Tab) 40 mg PO 0600 [facility] Last Admin: 03/24/18 05:38 Dose: 40 mg Rivaroxaban (Xarelto) 20 mg PO DAILY [facility]; Protocol Last Admin: 03/24/18 12:35 Dose: 20 mg Sildenafil Citrate (Revatio) 20 mg PO TID [facility] Last Admin: 03/24/18 14:59 Dose: 20 mg - Labs Labs: 03/24/18 08:00 03/24/18 08:00 PT 35.6 SECONDS (9.4-12.5) H 03/01/18 18:48 INR 3.05 03/01/18 18:48 APTT 32.1 Seconds (25.1-36.5) 03/01/18 18:48 Attending/Attestation - Attestation I have personally seen and examined this patient.: Yes I have fully participated in the care of the patient.: Yes I have reviewed all pertinent clinical information, including history, physical exam and plan: Yes Notes (Text): 03/24/18 15:08 Medical record note made by the resident after discussion with my direction and input after the patient was personally seen and examined by me. I have reviewed the chart and agree that the record accurately reflects by personal performance of the history, physical exam, data review, and medical decision-making, in the course for the patient. I have also personally directed the plan of care. 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 Patient is on 4 L nasal cannula at base line and CPAP at night time. Patient medical record was reviewed.She has right heart cath done at , that showed elevated pulmonary wedge pressure 80, V/Q scan over there was high probability.Pulmonary HTN is multifactorial due to diastolic CHF, chronic thrombo embolism and sleep apnea.Patient is non compliance with oxygen and CPAP.She has responded well to diuresis and is base line in the morning but later on was found to have acute on chronic hypoxic Resp Failure and was transferred to ICU. Case was discussed with Pulmonary. Prognosis is guarded.
[2018-03-18] MEDS: Pantoprazole 40 mg EC Tab PO SCH (07:21)
[2018-03-18 08:04] LABS: BASO # 0.01 K/mm3 (0.0-2.0); BASO % 0.2 % (0.0-3.0); EOS # 0.2 (0.0-0.7); EOS % 4.1 % (1.5-5.0); GRAN # 2.66 (1.4-6.5); GRAN % 63.8 % (50.0-68.0); HEMOGLOBIN 9.2 g/dL (12.0-16.0); LYMPH # 0.5 (1.2-3.4); LYMPH % 12.7 % (22.0-35.0); MEAN CELL VOLUME 83.8 fl (80.0-105.0); MEAN CORPUSCULAR HEMOGLOBIN 25.2 pg (25.0-35.0); MEAN CORPUSCULAR HGB CONC 30.1 g/dl (31.0-37.0); MONO # 0.8 (0.1-0.6); MONO % 19.2 % (1.0-6.0); RBC 3.65 10^6/uL (3.5-6.1); RED CELL DISTRIBUTION WIDTH 18.9 % (11.5-14.5); WHITE BLOOD COUNT 4.2 10^3/uL (4.5-11.0)
[2018-03-18] MEDS: Budesonide 0.5 mg/2 ml Inhal Susp UD IH SCH ×2 (08:04→20:36)
[2018-03-18] MEDS: Arformoterol 15 mcg/2 ml Inh Sol IH SCH ×2 (08:04→20:33)
[2018-03-18 08:20] LABS: ALB/GLOB RATIO 1.2 (1.1-1.8); ALBUMIN 3.5 g/dL (3.0-4.8); ALT/SGPT 22 U/L (7-56); AST/SGOT 20 U/L (14-36); BLOOD UREA NITROGEN 14 mg/dL (7-21); CALCIUM 8.8 mg/dL (8.4-10.5); GFR NON-AFRICAN AMERICAN > 60
[2018-03-18] MEDS: guaiFENesin DM 100 mg-10 mg/5 ml UD PO PRN ×2 (10:38→22:33)
[2018-03-18] MEDS: Sildenafil 20 MG TAB PO SCH ×3 (10:39→18:21)
[2018-03-18] MEDS ORDERED: DOBUTamine 500mg/250ml D5W 500 MG/250 ML BAG IV PRN (15:51)
[2018-03-18 16:06] LABS: ARTERIAL BLOOD GAS HCO3 23.8 mmol/L (21-28); ARTERIAL BLOOD GAS HEMOGLOBIN 9.7 g/dL (11.7-17.4); ARTERIAL BLOOD GAS O2 CAPACITY 13.3 mL/dl (16-24); ARTERIAL BLOOD GAS O2 CONTENT 10.1 ML/dl (15-23); ARTERIAL BLOOD GAS O2 SAT 75.7 % (95-98); ARTERIAL BLOOD GAS PCO2 35 mm/Hg (35-45); ARTERIAL BLOOD GAS PH 7.44 (7.35-7.45); ARTERIAL BLOOD GAS TCO2 24.9 mmol.L (22-28)
[2018-03-18] MEDS: DOBUTamine 500mg/250ml D5W 500 MG/250 ML BAG IV PRN (18:22)
--- NOTE | 2018-03-18 19:51 | PN ---
DATE: 03/18/2018 SUBJECTIVE: The patient is seen and examined at bedside. She is hypotensive and hypoxemic requiring BiPAP. OBJECTIVE: VITAL SIGNS: BP 85/60; temperature 98.3; oxygen saturation 85% on nasal cannula, however, 94% on BiPAP with FIO2 50%; heart rate 76. ENT: Head and neck atraumatic. LUNGS: Clear to auscultation bilaterally. HEART: Regular rate and rhythm. S1, S2 normal. ABDOMEN: Soft, nontender, nondistended, obese. MUSCULOSKELETAL: The patient has 2+ pedal and ankle edema in the right lower extremity, status post BKA on the left side. NEUROLOGIC: The patient moves all extremities spontaneously. SKIN: Moist. PSYCHIATRIC: The patient is tired, however, alert and awake and oriented. LABORATORY DATA: WBC 4.2, hemoglobin 9.2, platelet count 296. Sodium 135, potassium 3.7, chloride 101, carbon dioxide 24, BUN 14, creatinine 0.8, glucose 74. Total bilirubin 1.9, AST 20, ALT 22, alkaline phosphatase 153. ProBNP 3350. Albumin 3.5.. MEDICATIONS: Tylenol p.r.n., DuoNeb p.r.n., Brovana b.i.d., Pulmicort b.i.d., Lasix 40 mg IV every 12 hours, Neurontin 300 mg p.o. t.i.d., Protonix, Xarelto 20 mg p.o. daily, Revatio 20 mg p.o. t.i.d. BiPAP settings 16/6 with FiO2 50%. Chest x-ray: Bilateral pulmonary congestion. Echocardiogram performed on 03/04/2018 showed ejection fraction 65%. Left ventricle is normal size, borderline to mild concentric left ventricular hypertrophy. The left ventricular function is normal. There is a flattened septum consistent with right ventricle volume and pressure overload. Transmitral Doppler flow pattern is grade 3 reversible restrictive diastolic dysfunction. No left ventricular thrombus noted on the study. There is no ventricular septal defect visualized. There is no mass noted in the left ventricle. The right ventricle is severely dilated. The right ventricle is mildly hypertrophied. The right ventricle septal motion is flattened. Systolic function of the right ventricle is severely reduced. The left atrium size is normal. The right atrium is severely dilated. The interatrial septum is intact with no evidence for an atrial septal defect. RVSP is [address] performed on 03/02/2018 revealed no evidence of central or proximal pulmonary embolus, however, pericardial effusion present. Small right-sided pleural effusion, severe cardiomegaly. Of note, I spoke with Dr. Benita Rodriguez from [facility] where the patient received initial workup for chronic thromboembolic pulmonary hypertension where she was found to have high probability V/Q scan and thus her diagnoses. ASSESSMENT AND PLAN: This is a 43-year-old lady with right ventricular failure secondary to chronic thromboembolic pulmonary hypertension. The records from [facility] shows cardiac index 1.7, mean right atrial pressure 22 mmHg, transpulmonary diastolic gradient (peak diastolic pressure minus mean pulmonary capillary wedge pressure is 12), PVR 8.6 Wood unit. Conclusion of the right heart catheterization reported as severe pulmonary hypertension with elevated pulmonary arterial resistance which is likely multifactorial due to chronic thromboembolic pulmonary disease as well as sleep apnea. Markedly elevated right ventricular end-diastolic pressure consistent with right ventricular diastolic dysfunction, low cardiac index with CVP to wedge ratio of more than 1 consistent with cardiogenic shock physiology due to right-sided dysfunction. I spoke with Dr. Rodriguez about workup and plan that was put forth while she was in [facility] in 12/2017. The patient received contact information of [facility] and [place] for further workup and evaluation for consideration of pulmonary artery endarterectomy. She was also offered riociguat medication, however, wanted all her pulmonary hypertension care be in [facility] and thus decision was made to postpone that so that she would have that from [facility]. It is unclear, however, if she had a chance to be evaluated in either those [facility]. At the present time, I will take the patient to ICU. I will start her on norepinephrine to maintain systolic mean arterial pressure more than 65. I will start her on dobutamine or milrinone and will continue with Revatio, diuresis and therapeutic anticoagulation. Meanwhile, I will try to touch base with [place] to see if they would be interested in transfer of this patient under their care. I would like to avoid endotracheal intubation as much as possible as providing positive pressure ventilation may further impede her right ventricular function and elevate pulmonary arterial pressure. We will continue target euvolemia, euglycemia, normothermia and oxygen saturation more than 90%. Her renal function remains stable. Her LFTs are stable and bilirubin goes down. Her ProBNP is highly elevated most likely due to right ventricular failure. ccm time 40 min Mp Hurst MD MELISSA
[2018-03-18] MEDS: Albuterol-Ipratrop 3 mg / 0.5 (3 ml) UD IH PRN (20:36)
[2018-03-19] MEDS: DOBUTamine 500mg/250ml D5W 500 MG/250 ML BAG IV PRN ×2 (05:29→21:03)
[2018-03-19] MEDS: Pantoprazole 40 mg EC Tab PO SCH (05:29)
--- NOTE | 2018-03-19 06:58 | CP.PCM.PN ---
<Lisa Begum L - Last Filed: 03/19/18 13:44> Subjective - Date & Time of Evaluation Date of Evaluation: 03/19/18 Time of Evaluation: 06:58 - Subjective Subjective: Resident Progress Note for Hospitalist Service Patient examined at bedside. No acute events overnight. Patient expresses understanding of the importance of using bipap and states she has been compliant. Denies fevers, chills, chest pain, shortness of breath, abdominal pain, diarrhea. Objective - Vital Signs/Intake and Output Vital Signs (last 24 hours): Temp Pulse Resp BP Pulse Ox 97.6 F 79 29 H 120/65 97 03/19/18 00:00 03/19/18 05:44 03/18/18 20:50 03/19/18 05:29 03/18/18 20:50 Intake and Output: 03/18/18 12 18:59 06:59 Intake Total 275 324 Output Total 150 1150 Balance 125 -826 - Medications Medications: Current Medications Acetaminophen (Tylenol 325mg Tab) 650 mg PO Q6H PRN PRN Reason: Headache Last Admin: 03/05/18 21:07 Dose: 650 mg Albuterol/Ipratropium (Duoneb 3 Mg/0.5 Mg (3 Ml) Ud) 3 ml IH [id number] PRN PRN Reason: Shortness of Breath Last Admin: 03/18/18 20:36 Dose: 3 ml Arformoterol Tartrate (Brovana) 15 mcg IH [id number] DUNIA Last Admin: 03/18/18 20:33 Dose: 15 mcg Budesonide (Pulmicort Respules) 0.5 mg IH [id number] DUNIA Last Admin: 03/18/18 20:36 Dose: 0.5 mg Furosemide (Lasix) 40 mg IVP Q12 DUNIA Last Admin: 03/18/18 21:59 Dose: 40 mg Gabapentin (Neurontin) 300 mg PO TID DUNIA; Protocol Last Admin: 03/18/18 18:22 Dose: 300 mg Guaifenesin/Dextromethorphan (Robitussin Dm) 5 ml PO Q4H PRN PRN Reason: Cough Last Admin: 03/18/18 22:33 Dose: 5 ml Dobutamine HCl/Dextrose (Dobutamine/Dextrose 5% 500mg/250ml) 500 mg in 250 mls @ 21.636 mls/hr IV .[id number] PRN; Protocol PRN Reason: TITRATE PER PROTOCOL Last Admin: 03/19/18 05:29 Dose: 5 mcg/kg/min, 21.636 mls/hr Pantoprazole Sodium (Protonix Ec Tab) 40 mg PO 0600 [facility] Last Admin: 03/19/18 05:29 Dose: 40 mg Rivaroxaban (Xarelto) 20 mg PO DAILY [facility]; Protocol Last Admin: 03/18/18 10:38 Dose: 20 mg Sildenafil Citrate (Revatio) 20 mg PO TID [facility] Last Admin: 03/18/18 18:21 Dose: 20 mg - Labs Labs: 03/18/18 07:30 03/18/18 07:30 PT 35.6 SECONDS (9.4-12.5) H 03/01/18 18:48 INR 3.05 03/01/18 18:48 APTT 32.1 Seconds (25.1-36.5) 03/01/18 18:48 - Additional Findings Additional findings: - Constitutional Appears: No Acute Distress - Head Exam Head Exam: ATRAUMATIC, NORMOCEPHALIC - Eye Exam Eye Exam: EOMI - ENT Exam ENT Exam: Mucous Membranes Moist - Neck Exam Neck Exam: Full ROM - Respiratory Exam Respiratory Exam: Decreased Breath Sounds. absent: Rales, Rhonchi, Wheezes - GI/Abdominal Exam GI & Abdominal Exam: Soft, Normal Bowel Sounds. 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 Plan: Shortness of breath 2/2 pulm HTN - dobutamine drip - Lasix 40 mg IV BID - Duonebs q4H PRN - Brovana 15 mcg Q12H - Pulmicort .5 mg BID - Sildenafil 20 mg PO TID - fluid restrict to 1.2 L daily - Pulmonary consulted, recommending continued therapy and emphasis on bipap - Records obtained from [facility] show patient had cardiac cath in which showed mean PCWP 80 mm Hg, severe pulmonary hypertension with elevated pulmonary arteriolar resistance, likely multifactorial due to chronic thromboembolic pulmonary disease as well as sleep apnea. Marked elevated RV end- diastolic pressure consistent with right ventricular diastolic dysfunction, low cardiac index with CVP to wedge ratio of more than 1 consistent with cardiogenic shock physiology. V/Q scan showed high probability of PE. Recs were to continue anticoagulation with O2 and sildenafil. Hemoptysis - resolved - Hgb has remained stable. Xarelto resumed. - Continue to monitor - Pulm consult - Dr. Clark - CT chest shows no pulm embolus but is + for pericardial effusion and small R pleural effusion - Repeat Echo shows trace pericardial effusion - Guaifenesin DM for cough Bilateral leg pain-resolved - Echo 01/14 show RV is severely dilated, RV systolic function is severely reduced, RA is severely dilated, severe TR, severe pulm HTN - Dopplers negative for DVT - Lasix 20 mg IV BID - Gabapentin 300 TID RUE swelling - Afebrile, no leukocytosis - Dopplers neg for DVT - OOB to chair LAYO - BiPAP at night as tolerated PPX - Xarelto 20 mg PO daily, SCDs - Protonix 40 mg PO daily Dispo: Awaiting potential transfer to [facility] for evaluation for pulmonary artery endarterectomy Case discussed with Dr. Zeb Begum PGY-1 <Jenn Carrington - Last Filed: 03/19/18 15:18> Objective - Vital Signs/Intake and Output Vital Signs (last 24 hours): Temp Pulse Resp BP Pulse Ox 97.6 F 79 29 H 108/69 97 03/19/18 00:00 03/19/18 05:44 03/18/18 20:50 03/19/18 09:14 03/18/18 20:50 Intake and Output: 03/19/18 03/19/18 06:59 18:59 Intake Total 324 Output Total 1150 Balance -826 - Medications Medications: Current Medications Acetaminophen (Tylenol 325mg Tab) 650 mg PO Q6H PRN PRN Reason: Headache Last Admin: 03/05/18 21:07 Dose: 650 mg Albuterol/Ipratropium (Duoneb 3 Mg/0.5 Mg (3 Ml) Ud) 3 ml IH [id number] PRN PRN Reason: Shortness of Breath Last Admin: 03/18/18 20:36 Dose: 3 ml Arformoterol Tartrate (Brovana) 15 mcg IH [id number] [facility] Last Admin: 03/19/18 08:17 Dose: Not Given Budesonide (Pulmicort Respules) 0.5 mg IH [id number] [facility] Last Admin: 03/19/18 08:17 Dose: Not Given Furosemide (Lasix) 40 mg IVP Q12 [facility] Last Admin: 03/19/18 09:14 Dose: 40 mg Gabapentin (Neurontin) 300 mg PO TID [facility]; Protocol Last Admin: 03/19/18 14:47 Dose: 300 mg Guaifenesin/Dextromethorphan (Robitussin Dm) 5 ml PO Q4H PRN PRN Reason: Cough Last Admin: 03/19/18 10:23 Dose: 5 ml Dobutamine HCl/Dextrose (Dobutamine/Dextrose 5% 500mg/250ml) 500 mg in 250 mls @ 21.636 mls/hr IV .[id number] PRN; Protocol PRN Reason: TITRATE PER PROTOCOL Last Admin: 03/19/18 05:29 Dose: 5 mcg/kg/min, 21.636 mls/hr Pantoprazole Sodium (Protonix Ec Tab) 40 mg PO 0600 [facility] Last Admin: 03/19/18 05:29 Dose: 40 mg Rivaroxaban (Xarelto) 20 mg PO DAILY [facility]; Protocol Last Admin: 03/19/18 09:14 Dose: 20 mg Sildenafil Citrate (Revatio) 20 mg PO TID [facility] Last Admin: 03/19/18 14:47 Dose: 20 mg - Labs Labs: 03/19/18 06:00 03/19/18 06:00 PT 35.6 SECONDS (9.4-12.5) H 03/01/18 18:48 INR 3.05 03/01/18 18:48 APTT 32.1 Seconds (25.1-36.5) 03/01/18 18:48 Attending/Attestation - Attestation I have personally seen and examined this patient.: Yes I have fully participated in the care of the patient.: Yes I have reviewed all pertinent clinical information, including history, physical exam and plan: Yes Notes (Text): 03/19/18 15:11 43 year old female with past medical history of severe pulmonary hypertension, DVT/PE on xarelto, COPD, LAYO, CHF and history of left leg amputation who presented with leg pain/swelling and shortness of breath. She was treated for COPD/CHF exacerbation. Hospital course was complicated with acute on chronic hypoxia with minimal exertion. Currently she is on iv lasix, duonebs, brovana, pulmicort, xarelto and revatio. She is on dobutamine. Issue of O2 and BiPAP compliance was discussed with patient is detail. Currently she is in the ICU; plan is for possible transfer to [facility]. Will replete and repeat potassium. Overall prognosis is guarded. Jenn Carrington MD Hospitalist.
[2018-03-19 07:07] LABS: BASO # 0.01 K/mm3 (0.0-2.0); BASO % 0.3 % (0.0-3.0); EOS # 0.1 (0.0-0.7); EOS % 2.6 % (1.5-5.0); GRAN # 2.34 (1.4-6.5); GRAN % 60.6 % (50.0-68.0); HEMOGLOBIN 8.8 g/dL (12.0-16.0); LYMPH % 25.6 % (22.0-35.0); MEAN CORPUSCULAR HEMOGLOBIN 25.1 pg (25.0-35.0); MEAN CORPUSCULAR HGB CONC 29.9 g/dl (31.0-37.0); MEAN PLATELET VOLUME 9.8 fl (7.0-11.0); MONO # 0.4 (0.1-0.6); MONO % 10.9 % (1.0-6.0); RBC 3.5 10^6/uL (3.5-6.1); RED CELL DISTRIBUTION WIDTH 18.6 % (11.5-14.5); WHITE BLOOD COUNT 3.9 10^3/uL (4.5-11.0)
[2018-03-19 07:44] LABS: ALB/GLOB RATIO 1.1 (1.1-1.8); ALBUMIN 3.3 g/dL (3.0-4.8); ALT/SGPT 21 U/L (7-56); AST/SGOT 19 U/L (14-36); BLOOD UREA NITROGEN 13 mg/dL (7-21); CALCIUM 8.3 mg/dL (8.4-10.5); GFR NON-AFRICAN AMERICAN > 60
[2018-03-19 08:06] LABS: ARTERIAL BLOOD GAS HCO3 24.5 mmol/L (21-28); ARTERIAL BLOOD GAS HEMOGLOBIN 8.4 g/dL (11.7-17.4); ARTERIAL BLOOD GAS O2 CAPACITY 11.5 mL/dl (16-24); ARTERIAL BLOOD GAS O2 CONTENT 10.9 ML/dl (15-23); ARTERIAL BLOOD GAS O2 SAT 94.5 % (95-98); ARTERIAL BLOOD GAS PCO2 36 mm/Hg (35-45); ARTERIAL BLOOD GAS PH 7.44 (7.35-7.45); ARTERIAL BLOOD GAS TCO2 25.6 mmol.L (22-28)
[2018-03-19] MEDS: Budesonide 0.5 mg/2 ml Inhal Susp UD IH SCH ×2 (08:17→19:48)
[2018-03-19] MEDS: Arformoterol 15 mcg/2 ml Inh Sol IH SCH ×2 (08:17→19:48)
[2018-03-19] MEDS ORDERED: Potassium Chloride 20 mEq ER Tab PO STA (08:22)
--- NOTE | 2018-03-19 08:56 | CP.CCUPN ---
<Wilmer Santo - Last Filed: 03/19/18 12:08> CCU Subjective - Physician Review Subjective (Free Text): Wilmer Santo PGY-1 Progress Note for the ICU Patient seen and evaluated at bedside. No acute complaints overnight. Currently on NC and dobutamine drip. Reports worsening edema in legs and mild cough but denies shortness of breath, chest pain, palpitations, abdominal pain, dysuria, dizziness, headaches and blurry vision. CCU Objective - Vital Signs / Intake & Output Vital Signs (Last 4 hours): Vital Signs Pulse BP 03/19/18 05:44 79 03/19/18 05:29 74 120/65 Intake and Output (Last 8hrs): Intake & Output 03/18/18 03/19/18 03/19/18 22:59 06:59 14:59 Intake Total 275 324 Output Total 150 1150 Balance 125 -826 Weight 144.242 kg Intake: IV 35 264 Left Antecubital 25 Left Hand 10 264 Oral 240 60 Output: Urine 150 1150 Urine, Voided 150 1150 Stool 0 Emesis 0 Other: # Bowel Movements 0 0 - Physical Exam Head: Positive for: Atraumatic, Normocephalic Pupils: Positive for: PERRL Extroacular Muscles: Positive for: EOMI Conjunctiva: Positive for: Normal Ears: Positive for: NORMAL TM Mouth: Positive for: Moist Mucous Membranes Pharnyx: Positive for: Normal. Negative for: ERYTHEMA, EXUDATE Nose (External): Positive for: Atraumatic Nose (Internal): Positive for: Normal Inspection Neck: Positive for: Normal Range of Motion. Negative for: Meningeal Signs, MIDLINE TENDERNESS, Paraspinal Tenderness Respiratory/Chest: Positive for: Decreased Breath Sounds (bilaterally), Rales (bilateral lung bases). Negative for: Respiratory Distress, Accessory Muscle Use, Retracting, Tender to Palpation Cardiovascular: Positive for: Regular Rate and Rhythm, Normal S1, S2. Negative for: Murmurs Abdomen: Positive for: Normal Bowel Sounds. Negative for: Tenderness, Distention, Peritoneal Signs, Rebound, Guarding Back: Positive for: Normal Inspection. Negative for: CVA Tenderness, Midline Tenderness, Paraspinal Tenderness Upper Extremity: Positive for: Normal Inspection, Normal ROM, NORMAL PULSES, Neurovascularly Intact, Capillary Refill < 2s. Negative for: Cyanosis, Edema, Tenderness, Deformity Lower Extremity: Positive for: Normal Inspection, Edema (pitting edema to right foot, ankle), Normal ROM, Tenderness (right calf), Capillary Refill < 2 s. Negative for: NORMAL PULSES (unable to palpate right pedal pulse secondary to habitus and edema) Neurological: Positive for: GCS=15, CN II-XII Intact, Speech Normal, Motor Func Grossly Intact, Normal Sensory Function, Memory Normal. Negative for: Gait Normal (unable to assess) Skin: Positive for: Warm, Dry, Normal Color. Negative for: Rashes, Pale Lymphatic: Negative for: Cervical Adenopathy Psychiatric: Positive for: Alert, Oriented x 3, Normal Insight, Normal Concentration, Normal Affect, Normal Mood - Medications Active Medications: Active Medications Generic Name Dose Route Start Last Admin Trade Name Freq PRN Reason Stop Dose Admin Acetaminophen 650 mg 03/04/18 10:57 03/05/18 21:07 Tylenol 325mg Tab PO 650 mg Q6H PRN Administration Headache Albuterol/Ipratropium 3 ml 02/24/18 01:20 03/18/18 20:36 Duoneb 3 Mg/0.5 Mg (3 Ml) Ud IH 3 ml [id number] PRN Administration Shortness of Breath Arformoterol Tartrate 15 mcg 02/24/18 08:00 03/19/18 08:17 Brovana IH Not Given [id number] DUNIA Budesonide 0.5 mg 02/24/18 08:00 03/19/18 08:17 Pulmicort Respules IH Not Given [id number] DUNIA Furosemide 40 mg 03/16/18 12:40 03/18/18 21:59 Lasix IVP 40 mg Q12 DUNIA Administration Gabapentin 300 mg 02/24/18 10:00 03/18/18 18:22 Neurontin PO 300 mg TID DUNIA Administration Protocol Guaifenesin/Dextromethorphan 5 ml 03/07/18 14:30 03/18/18 22:33 Robitussin Dm PO 5 ml Q4H PRN Administration Cough Dobutamine HCl/Dextrose 500 mg in 250 mls @ 21.636 mls/hr 03/18/18 17:23 03/19/18 05:29 Dobutamine/Dextrose 5% 500mg/250ml IV 5 mcg/kg/min .[id number] PRN 21.636 mls/hr TITRATE PER PROTOCOL Administration Protocol 5 MCG/KG/MIN Pantoprazole Sodium 40 mg 02/24/18 06:00 03/19/18 05:29 Protonix Ec Tab PO 40 mg 0600 DUNIA Administration Rivaroxaban 20 mg 02/24/18 10:00 03/18/18 10:38 Xarelto PO 20 mg DAILY DUNIA Administration Protocol Sildenafil Citrate 20 mg 02/24/18 10:00 03/18/18 18:21 Revatio PO 20 mg TID DUNIA Administration - Patient Studies Lab Studies: Lab Studies 03/19/18 03/19/18 03/19/18 Range/Units 07:55 06:00 06:00 WBC 3.9 L (4.5-11.0) 10^3/uL RBC 3.50 (3.5-6.1) 10^6/uL Hgb 8.8 L (12.0-16.0) g/dL Hct 29.4 L (36.0-48.0) % MCV 84.0 (80.0-105.0) fl MCH 25.1 (25.0-35.0) pg MCHC 29.9 L (31.0-37.0) g/dl RDW 18.6 H (11.5-14.5) % Plt Count 270 (120.0-450.0) 10^3/uL MPV 9.8 (7.0-11.0) fl Gran % 60.6 (50.0-68.0) % Lymph % (Auto) 25.6 (22.0-35.0) % [place] % (Auto) 10.9 H (1.0-6.0) % Eos % (Auto) 2.6 (1.5-5.0) % Baso % (Auto) 0.3 (0.0-3.0) % Gran # 2.34 (1.4-6.5) Lymph # (Auto) 1.0 L (1.2-3.4) [place] # (Auto) 0.4 (0.1-0.6) Eos # (Auto) 0.1 (0.0-0.7) Baso # (Auto) 0.01 (0.0-2.0) K/mm3 pCO2 36 (35-45) mm/Hg pO2 60.0 L (80-100) mm/Hg HCO3 24.5 (21-28) mmol/L ABG pH 7.44 (7.35-7.45) ABG Total CO2 25.6 (22-28) mmol.L ABG O2 Saturation 94.5 L (95-98) % ABG O2 Content 10.9 L (15-23) ML/dl ABG Base Excess 0.4 (-2.0-3.0) mmol/L ABG Hemoglobin 8.4 L (11.7-17.4) g/dL ABG Carboxyhemoglobin 2.0 H (0.5-1.5) % POC ABG HHb (Measured) 5.3 H (0-5) % ABG Methemoglobin 1.1 (0.0-3.0) % ABG O2 Capacity 11.5 L (16-24) mL/dl Hgb O2 Saturation 91.6 L (95.0-98.0) % FiO2 60.0 % Sodium 134 (132-148) mmol/L Potassium 3.4 L (3.6-5.0) mmol/L Chloride 101 (98-107) mmol/L Carbon Dioxide 27 (21-33) mmol/L Anion Gap 10 (10-20) BUN 13 (7-21) mg/dL Creatinine 0.8 (0.7-1.2) mg/dl Est GFR ( Amer) > 60 Est GFR (Non-Af Amer) > 60 Random Glucose 73 (70-110) mg/dL Calcium 8.3 L (8.4-10.5) mg/dL Phosphorus 3.4 (2.5-4.5) mg/dL Magnesium 2.0 (1.7-2.2) mg/dL Total Bilirubin 1.8 H (0.2-1.3) mg/dL AST 19 (14-36) U/L ALT 21 (7-56) U/L Alkaline Phosphatase 146 H (38-126) U/L Total Protein 6.2 (5.8-8.3) g/dL Albumin 3.3 (3.0-4.8) g/dL Globulin 2.9 gm/dL Albumin/Globulin Ratio 1.1 (1.1-1.8) 03/18/18 Range/Units 16:00 WBC (4.5-11.0) 10^3/uL RBC (3.5-6.1) 10^6/uL Hgb (12.0-16.0) g/dL Hct (36.0-48.0) % MCV (80.0-105.0) fl MCH (25.0-35.0) pg MCHC (31.0-37.0) g/dl RDW (11.5-14.5) % Plt Count (120.0-450.0) 10^3/uL MPV (7.0-11.0) fl Gran % (50.0-68.0) % Lymph % (Auto) (22.0-35.0) % [place] % (Auto) (1.0-6.0) % Eos % (Auto) (1.5-5.0) % Baso % (Auto) (0.0-3.0) % Gran # (1.4-6.5) Lymph # (Auto) (1.2-3.4) [place] # (Auto) (0.1-0.6) Eos # (Auto) (0.0-0.7) Baso # (Auto) (0.0-2.0) K/mm3 pCO2 35 (35-45) mm/Hg pO2 40.0 L* (80-100) mm/Hg HCO3 23.8 (21-28) mmol/L ABG pH 7.44 (7.35-7.45) ABG Total CO2 24.9 (22-28) mmol.L ABG O2 Saturation 75.7 L (95-98) % ABG O2 Content 10.1 L (15-23) ML/dl ABG Base Excess -0.1 (-2.0-3.0) mmol/L ABG Hemoglobin 9.7 L (11.7-17.4) g/dL ABG Carboxyhemoglobin 2.1 H (0.5-1.5) % POC ABG HHb (Measured) 23.7 H (0-5) % ABG Methemoglobin 0.4 (0.0-3.0) % ABG O2 Capacity 13.3 L (16-24) mL/dl Hgb O2 Saturation 73.8 L (95.0-98.0) % FiO2 60.0 % Sodium (132-148) mmol/L Potassium (3.6-5.0) mmol/L Chloride (98-107) mmol/L Carbon Dioxide (21-33) mmol/L Anion Gap (10-20) BUN (7-21) mg/dL Creatinine (0.7-1.2) mg/dl Est GFR ( Amer) Est GFR (Non-Af Amer) Random Glucose (70-110) mg/dL Calcium (8.4-10.5) mg/dL Phosphorus (2.5-4.5) mg/dL Magnesium (1.7-2.2) mg/dL Total Bilirubin (0.2-1.3) mg/dL AST (14-36) U/L ALT (7-56) U/L Alkaline Phosphatase (38-126) U/L Total Protein (5.8-8.3) g/dL Albumin (3.0-4.8) g/dL Globulin gm/dL Albumin/Globulin Ratio (1.1-1.8) Laboratory Results - last 24 hr 03/18/18 03/19/18 03/19/18 16:00 06:00 06:00 WBC 3.9 L RBC 3.50 Hgb 8.8 L Hct 29.4 L MCV 84.0 MCH 25.1 MCHC 29.9 L RDW 18.6 H Plt Count 270 MPV 9.8 Gran % 60.6 Lymph % (Auto) 25.6 [place] % (Auto) 10.9 H Eos % (Auto) 2.6 Baso % (Auto) 0.3 Gran # 2.34 Lymph # (Auto) 1.0 L [place] # (Auto) 0.4 Eos # (Auto) 0.1 Baso # (Auto) 0.01 pCO2 35 pO2 40.0 L* HCO3 23.8 ABG pH 7.44 ABG Total CO2 24.9 ABG O2 Saturation 75.7 L ABG O2 Content 10.1 L ABG Base Excess -0.1 ABG Hemoglobin 9.7 L ABG Carboxyhemoglobin 2.1 H POC ABG HHb (Measured) 23.7 H ABG Methemoglobin 0.4 ABG O2 Capacity 13.3 L Hgb O2 Saturation 73.8 L FiO2 60.0 Sodium 134 Potassium 3.4 L Chloride 101 Carbon Dioxide 27 Anion Gap 10 BUN 13 Creatinine 0.8 Est GFR ( Amer) > 60 Est GFR (Non-Af Amer) > 60 Random Glucose 73 Calcium 8.3 L Phosphorus 3.4 Magnesium 2.0 Total Bilirubin 1.8 H AST 19 ALT 21 Alkaline Phosphatase 146 H Total Protein 6.2 Albumin 3.3 Globulin 2.9 Albumin/Globulin Ratio 1.1 03/19/18 07:55 WBC RBC Hgb Hct MCV MCH MCHC RDW Plt Count MPV Gran % Lymph % (Auto) [place] % (Auto) Eos % (Auto) Baso % (Auto) Gran # Lymph # (Auto) [place] # (Auto) Eos # (Auto) Baso # (Auto) pCO2 36 pO2 60.0 L HCO3 24.5 ABG pH 7.44 ABG Total CO2 25.6 ABG O2 Saturation 94.5 L ABG O2 Content 10.9 L ABG Base Excess 0.4 ABG Hemoglobin 8.4 L ABG Carboxyhemoglobin 2.0 H POC ABG HHb (Measured) 5.3 H ABG Methemoglobin 1.1 ABG O2 Capacity 11.5 L Hgb O2 Saturation 91.6 L FiO2 60.0 Sodium Potassium Chloride Carbon Dioxide Anion Gap BUN Creatinine Est GFR ( Amer) Est GFR (Non-Af Amer) Random Glucose Calcium Phosphorus Magnesium Total Bilirubin AST ALT Alkaline Phosphatase Total Protein Albumin Globulin Albumin/Globulin Ratio Review of Systems - Review of Systems Review of Systems: 12 point ROS completed and negative except as described in HPI. Critical Care Progress Note - Nutrition Nutrition: Nutrition Category Date Time Status Heart Healthy Diet [DIET] Diets 02/24/18 Breakfast Active Assessment/Plan - Assessment and Plan (Free Text) Assessment: 43 year old female with PMHx of Pulm HTN, PE/DVT on xarelto s/p L leg amputation, COPD on 4L home O2, LAYO w/ CPAP, HFpEF who was admitted for management of b/l leg pain and type 4 pulmonary hypertension. Neuro: AAOx3 Continue to monitor Pulmonary: - Shortness of breath 2/2 pulm HTN - ABG 03/19 pH 7.44 pO2 60 pCO2 36 HCO3 24.5 - CXR 03/19 shows moderate cardiomegaly, mild vascular congestion, improved infiltrate on R lung base as compared to previous - for LAYO, BiPAP at night - Lasix 40 mg IV BID - Duonebs q4H PRN - Brovana 15 mcg Q12H - Pulmicort .5 mg BID - Sildenafil 20 mg PO TID - Guaifenesin DM for cough - fluid restrict to 1.2 L daily, -700 mL overnight - Pulmonary consulted, recommending continued therapy and emphasis on bipap - Records obtained from [facility]: Cardiac cath in 12/2017 which showed mean PCWP 80 mm Hg, severe pulmonary hypertension with elevated pulmonary arteriolar resistance, likely multifactorial due to chronic thromboembolic pulmonary disease as well as sleep apnea. Marked elevated RV end-diastolic pressure consistent with right ventricular diastolic dysfunction, low cardiac index with CVP to wedge ratio of more than 1 consistent with cardiogenic shock physiology. V/Q scan showed high probability of PE. Recs were to continue anticoagulation, O2 and sildenafil. Possible transfer to [place] or [place] for outpatient endarterectomy when stabilized. Heme: - Hgb has remained stable after episodes of hemoptysis. Xarelto resumed. - CT chest (03/02) shows no pulm embolus but is + for pericardial effusion and small R pleural effusion - Repeat Echo (03/04) shows trace pericardial effusion Cardiovascular: - On dobutamine 5 mcg/kg/min for inotropic support in setting of type 4 pulm HTN - Echo 01/14 show RV is severely dilated, RV systolic function is severely reduced, RA is severely dilated, severe TR, severe pulm HTN - Repeat Echo (03/04) shows trace pericardial effusion - Dopplers negative for DVT - Lasix 40 mg IV BID - Gabapentin 300 TID - Dopplers neg for DVT - OOB to chair Psych: - Dr. Salamanca consulted for suicidal ideations- recs appreciated Physical Therapy - Reconsulted 03/19. Appreciate recommendations PPX - Xarelto 20 mg PO daily, SCDs - Protonix 40 mg PO daily Patient seen, case reviewed and plan approved by Dr. Clark. Wilmer Santo, PGY-1 <Low Clark - Last Filed: 03/19/18 14:24> CCU Objective - Vital Signs / Intake & Output Intake and Output (Last 8hrs): Intake & Output 03/18/18 03/19/18 03/19/18 22:59 06:59 14:59 Intake Total 275 324 Output Total 150 1150 Balance 125 -826 Weight 318 lb Intake: IV 35 264 Left Antecubital 25 Left Hand 10 264 Oral 240 60 Output: Urine 150 1150 Urine, Voided 150 1150 Stool 0 Emesis 0 Other: # Bowel Movements 0 0 - Medications Active Medications: Active Medications Generic Name Dose Route Start Last Admin Trade Name Freq PRN Reason Stop Dose Admin Acetaminophen 650 mg 03/04/18 10:57 03/05/18 21:07 Tylenol 325mg Tab PO 650 mg Q6H PRN Administration Headache Albuterol/Ipratropium 3 ml 02/24/18 01:20 03/18/18 20:36 Duoneb 3 Mg/0.5 Mg (3 Ml) Ud IH 3 ml [id number] PRN Administration Shortness of Breath Arformoterol Tartrate 15 mcg 02/24/18 08:00 03/19/18 08:17 Brovana IH Not Given [id number] DUNIA Budesonide 0.5 mg 02/24/18 08:00 03/19/18 08:17 Pulmicort Respules IH Not Given [id number] DUNIA Furosemide 40 mg 03/16/18 12:40 03/19/18 09:14 Lasix IVP 40 mg Q12 DUNIA Administration Gabapentin 300 mg 02/24/18 10:00 03/19/18 09:14 Neurontin PO 300 mg TID [facility] Administration Protocol Guaifenesin/Dextromethorphan 5 ml 03/07/18 14:30 03/19/18 10:23 Robitussin Dm PO 5 ml Q4H PRN Administration Cough Dobutamine HCl/Dextrose 500 mg in 250 mls @ 21.636 mls/hr 03/18/18 17:23 03/19/18 05:29 Dobutamine/Dextrose 5% 500mg/250ml IV 5 mcg/kg/min .[id number] PRN 21.636 mls/hr TITRATE PER PROTOCOL Administration Protocol 5 MCG/KG/MIN Pantoprazole Sodium 40 mg 02/24/18 06:00 03/19/18 05:29 Protonix Ec Tab PO 40 mg 0600 DUNIA Administration Rivaroxaban 20 mg 02/24/18 10:00 03/19/18 09:14 Xarelto PO 20 mg DAILY DUNIA Administration Protocol Sildenafil Citrate 20 mg 02/24/18 10:00 03/19/18 09:14 Revatio PO 20 mg TID [facility] Administration - Patient Studies Lab Studies: Lab Studies 03/19/18 03/19/18 03/19/18 Range/Units 07:55 06:00 06:00 WBC 3.9 L (4.5-11.0) 10^3/uL RBC 3.50 (3.5-6.1) 10^6/uL Hgb 8.8 L (12.0-16.0) g/dL Hct 29.4 L (36.0-48.0) % MCV 84.0 (80.0-105.0) fl MCH 25.1 (25.0-35.0) pg MCHC 29.9 L (31.0-37.0) g/dl RDW 18.6 H (11.5-14.5) % Plt Count 270 (120.0-450.0) 10^3/uL MPV 9.8 (7.0-11.0) fl Gran % 60.6 (50.0-68.0) % Lymph % (Auto) 25.6 (22.0-35.0) % [place] % (Auto) 10.9 H (1.0-6.0) % Eos % (Auto) 2.6 (1.5-5.0) % Baso % (Auto) 0.3 (0.0-3.0) % Gran # 2.34 (1.4-6.5) Lymph # (Auto) 1.0 L (1.2-3.4) [place] # (Auto) 0.4 (0.1-0.6) Eos # (Auto) 0.1 (0.0-0.7) Baso # (Auto) 0.01 (0.0-2.0) K/mm3 pCO2 36 (35-45) mm/Hg pO2 60.0 L (80-100) mm/Hg HCO3 24.5 (21-28) mmol/L ABG pH 7.44 (7.35-7.45) ABG Total CO2 25.6 (22-28) mmol.L ABG O2 Saturation 94.5 L (95-98) % ABG O2 Content 10.9 L (15-23) ML/dl ABG Base Excess 0.4 (-2.0-3.0) mmol/L ABG Hemoglobin 8.4 L (11.7-17.4) g/dL ABG Carboxyhemoglobin 2.0 H (0.5-1.5) % POC ABG HHb (Measured) 5.3 H (0-5) % ABG Methemoglobin 1.1 (0.0-3.0) % ABG O2 Capacity 11.5 L (16-24) mL/dl Hgb O2 Saturation 91.6 L (95.0-98.0) % FiO2 60.0 % Sodium 134 (132-148) mmol/L Potassium 3.4 L (3.6-5.0) mmol/L Chloride 101 (98-107) mmol/L Carbon Dioxide 27 (21-33) mmol/L Anion Gap 10 (10-20) BUN 13 (7-21) mg/dL Creatinine 0.8 (0.7-1.2) mg/dl Est GFR ( Amer) > 60 Est GFR (Non-Af Amer) > 60 Random Glucose 73 (70-110) mg/dL Calcium 8.3 L (8.4-10.5) mg/dL Phosphorus 3.4 (2.5-4.5) mg/dL Magnesium 2.0 (1.7-2.2) mg/dL Total Bilirubin 1.8 H (0.2-1.3) mg/dL AST 19 (14-36) U/L ALT 21 (7-56) U/L Alkaline Phosphatase 146 H (38-126) U/L Total Protein 6.2 (5.8-8.3) g/dL Albumin 3.3 (3.0-4.8) g/dL Globulin 2.9 gm/dL Albumin/Globulin Ratio 1.1 (1.1-1.8) 03/18/18 Range/Units 16:00 WBC (4.5-11.0) 10^3/uL RBC (3.5-6.1) 10^6/uL Hgb (12.0-16.0) g/dL Hct (36.0-48.0) % MCV (80.0-105.0) fl MCH (25.0-35.0) pg MCHC (31.0-37.0) g/dl RDW (11.5-14.5) % Plt Count (120.0-450.0) 10^3/uL MPV (7.0-11.0) fl Gran % (50.0-68.0) % Lymph % (Auto) (22.0-35.0) % [place] % (Auto) (1.0-6.0) % Eos % (Auto) (1.5-5.0) % Baso % (Auto) (0.0-3.0) % Gran # (1.4-6.5) Lymph # (Auto) (1.2-3.4) [place] # (Auto) (0.1-0.6) Eos # (Auto) (0.0-0.7) Baso # (Auto) (0.0-2.0) K/mm3 pCO2 35 (35-45) mm/Hg pO2 40.0 L* (80-100) mm/Hg HCO3 23.8 (21-28) mmol/L ABG pH 7.44 (7.35-7.45) ABG Total CO2 24.9 (22-28) mmol.L ABG O2 Saturation 75.7 L (95-98) % ABG O2 Content 10.1 L (15-23) ML/dl ABG Base Excess -0.1 (-2.0-3.0) mmol/L ABG Hemoglobin 9.7 L (11.7-17.4) g/dL ABG Carboxyhemoglobin 2.1 H (0.5-1.5) % POC ABG HHb (Measured) 23.7 H (0-5) % ABG Methemoglobin 0.4 (0.0-3.0) % ABG O2 Capacity 13.3 L (16-24) mL/dl Hgb O2 Saturation 73.8 L (95.0-98.0) % FiO2 60.0 % Sodium (132-148) mmol/L Potassium (3.6-5.0) mmol/L Chloride (98-107) mmol/L Carbon Dioxide (21-33) mmol/L Anion Gap (10-20) BUN (7-21) mg/dL Creatinine (0.7-1.2) mg/dl Est GFR ( Amer) Est GFR (Non-Af Amer) Random Glucose (70-110) mg/dL Calcium (8.4-10.5) mg/dL Phosphorus (2.5-4.5) mg/dL Magnesium (1.7-2.2) mg/dL Total Bilirubin (0.2-1.3) mg/dL AST (14-36) U/L ALT (7-56) U/L Alkaline Phosphatase (38-126) U/L Total Protein (5.8-8.3) g/dL Albumin (3.0-4.8) g/dL Globulin gm/dL Albumin/Globulin Ratio (1.1-1.8) Laboratory Results - last 24 hr 03/18/18 03/19/18 03/19/18 16:00 06:00 06:00 WBC 3.9 L RBC 3.50 Hgb 8.8 L Hct 29.4 L MCV 84.0 MCH 25.1 MCHC 29.9 L RDW 18.6 H Plt Count 270 MPV 9.8 Gran % 60.6 Lymph % (Auto) 25.6 [place] % (Auto) 10.9 H Eos % (Auto) 2.6 Baso % (Auto) 0.3 Gran # 2.34 Lymph # (Auto) 1.0 L [place] # (Auto) 0.4 Eos # (Auto) 0.1 Baso # (Auto) 0.01 pCO2 35 pO2 40.0 L* HCO3 23.8 ABG pH 7.44 ABG Total CO2 24.9 ABG O2 Saturation 75.7 L ABG O2 Content 10.1 L ABG Base Excess -0.1 ABG Hemoglobin 9.7 L ABG Carboxyhemoglobin 2.1 H POC ABG HHb (Measured) 23.7 H ABG Methemoglobin 0.4 ABG O2 Capacity 13.3 L Hgb O2 Saturation 73.8 L FiO2 60.0 Sodium 134 Potassium 3.4 L Chloride 101 Carbon Dioxide 27 Anion Gap 10 BUN 13 Creatinine 0.8 Est GFR ( Amer) > 60 Est GFR (Non-Af Amer) > 60 Random Glucose 73 Calcium 8.3 L Phosphorus 3.4 Magnesium 2.0 Total Bilirubin 1.8 H AST 19 ALT 21 Alkaline Phosphatase 146 H Total Protein 6.2 Albumin 3.3 Globulin 2.9 Albumin/Globulin Ratio 1.1 03/19/18 07:55 WBC RBC Hgb Hct MCV MCH MCHC RDW Plt Count MPV Gran % Lymph % (Auto) [place] % (Auto) Eos % (Auto) Baso % (Auto) Gran # Lymph # (Auto) [place] # (Auto) Eos # (Auto) Baso # (Auto) pCO2 36 pO2 60.0 L HCO3 24.5 ABG pH 7.44 ABG Total CO2 25.6 ABG O2 Saturation 94.5 L ABG O2 Content 10.9 L ABG Base Excess 0.4 ABG Hemoglobin 8.4 L ABG Carboxyhemoglobin 2.0 H POC ABG HHb (Measured) 5.3 H ABG Methemoglobin 1.1 ABG O2 Capacity 11.5 L Hgb O2 Saturation 91.6 L FiO2 60.0 Sodium Potassium Chloride Carbon Dioxide Anion Gap BUN Creatinine Est GFR ( Amer) Est GFR (Non-Af Amer) Random Glucose Calcium Phosphorus Magnesium Total Bilirubin AST ALT Alkaline Phosphatase Total Protein Albumin Globulin Albumin/Globulin Ratio Radiology Impressions: Radiology Impressions Chest X-Ray 03/19/18 07:42 IMPRESSION: Moderate cardiomegaly and mild vascular and interstitial congestion Critical Care Progress Note - Nutrition Nutrition: Nutrition Category Date Time Status Heart Healthy Diet [DIET] Diets 02/24/18 Breakfast Active Assessment/Plan - Assessment and Plan (Free Text) Plan: Patient seen and examined on rounds, with resident, agree with note with following additions/exceptions Patient is 43 year old female with PMHx of Pulm HTN, PE/DVT on xarelto s/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 leg amputation, COPD on 4L home O2, LAYO w/ CPAP, HFpEF transferred to MICU for hypotension, worsening right sided heart failure, Pulmonary HTN Currently afebrile, BP stable, comfortable in NAD, doing well, OFF biPAP, Sat 89-92%, on 4LNC On Dobutamine drip Pt has history of non compliance, was supposed to follow up at [facility] for CTEPH treatment May need possible transfer to [facility] Pulm HTN 2/2 CTEPH and LAYO Pulm HTN CTEPH Right sided CHF SOB Hypoxia LAYO Recommend: - supp o2 as neeed, BIPAP At night, duonebs PRN - NO ID issues - BP control - DObutamine gtt - low salt diet - cont with Xarelto - cont with Revatio - Lasix 40mg IV BID - I/Os - will discuss with [facility] for possible transfer - GI ppx - DVT PPx, Xarelto - Monitor in MICU Critical care time 30 minutes
[2018-03-19] MEDS: Sildenafil 20 MG TAB PO SCH ×3 (09:14→18:58)
--- NOTE | 2018-03-19 09:22 | RAD ---
Date of service: 03/19/2018 HISTORY: SOB COMPARISON: 03/16/2018 FINDINGS: LUNGS: No active pulmonary disease. PLEURA: No significant pleural effusion identified, no pneumothorax apparent. CARDIOVASCULAR: No aortic atherosclerotic calcification present. Moderate cardiomegaly mild vascular and interstitial congestion OSSEOUS STRUCTURES: No significant abnormalities. VISUALIZED UPPER ABDOMEN: Normal. OTHER FINDINGS: None. IMPRESSION: Moderate cardiomegaly and mild vascular and interstitial congestion
[2018-03-19] MEDS: guaiFENesin DM 100 mg-10 mg/5 ml UD PO PRN ×2 (10:23→18:58)
[2018-03-19] MEDS ORDERED: Oxycodone/Acetaminophen 10/325 mg Tab PO STA (20:12)
--- NOTE | 2018-03-19 20:51 | CON ---
DATE: 03/19/2018 HISTORY OF PRESENT ILLNESS: In short, the patient is a 43-year-old female with not known previous psychiatric history, multiple medical issues including pulmonary hypertension, pulmonary embolism, DVT, status post left leg amputation, COPD on 4 liters of oxygen with CPAP machine. The patient was transferred to MICU for hypotension, worsening of right-sided heart failure, and pulmonary hypertension. The patient was seen at [facility]. A consult was called because the patient appeared to be depressed as well as having suicidal ideation, but no intent or plan. The patient was seen and examined today, discussed with nursing staff. The patient presented physically sick. The patient is on BiPAP machine, is very short of breath. The patient has reasonable depressive symptoms describing as feeling hopelessness and helplessness. The patient reported that her medical issues are making her feel very depressed, and the patient was making statement, "I'm still very young, I shouldn't be in ICU. Emotional support and empathic listening provided. At this point, the patient does not want to be on any medications. The patient does not want to . The patient wants to start feeling better. The patient denied previous history of depression. The patient started to feel depressed right after amputation of left leg in January. The patient denied hearing voices, denied seeing things. Denied paranoid ideations. Vital signs reviewed. Medications reviewed. Labs reviewed. Microbiology reviewed. MENTAL STATUS EXAMINATION: The patient appears to be alert, physically sick, young lady, on BiPAP machine. Speech was under productive because of the medical issues and COPD. Mood described as depressed. Affect was tearful. Thought process, coherent and goal directed. Thought content, the patient denied visual, auditory, or tactile hallucinations. Denied paranoid ideations. The patient reported feeling of hopelessness, but adamantly denied any intent or plan to kill herself. Insight and judgment seemed to the fair. Impulses are well controlled. 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 PLAN: The patient does not want to be on any medications. On top of that this pattern chart writer will not prescribe any medication for anxiety because it could suppress breathing center. Emotional support and empathic listening provided. We will be very cautious about medications and sedatives for this patient. Dr. Carrero will follow up on this patient and advise accordingly. Thank you very much for letting me participate in care of your patient. Should you have any questions give me a call back. Ann Diehl MD
[2018-03-20] MEDS: Pantoprazole 40 mg EC Tab PO SCH (06:23)
[2018-03-20 06:28] LABS: BASO # 0.02 K/mm3 (0.0-2.0); BASO % 0.4 % (0.0-3.0); EOS # 0.1 (0.0-0.7); EOS % 3.1 % (1.5-5.0); GRAN # 2.84 (1.4-6.5); GRAN % 62.3 % (50.0-68.0); LYMPH # 0.5 (1.2-3.4); LYMPH % 11.2 % (22.0-35.0); MEAN CELL VOLUME 83.6 fl (80.0-105.0); MEAN CORPUSCULAR HGB CONC 29.9 g/dl (31.0-37.0); MEAN PLATELET VOLUME 9.6 fl (7.0-11.0); MONO # 1.1 (0.1-0.6); PLATELET COUNT 286 10^3/uL (120.0-450.0); RED CELL DISTRIBUTION WIDTH 18.3 % (11.5-14.5); WHITE BLOOD COUNT 4.6 10^3/uL (4.5-11.0)
[2018-03-20 06:38] LABS: ALB/GLOB RATIO 1.2 (1.1-1.8); ALBUMIN 3.6 g/dL (3.0-4.8); ALT/SGPT 20 U/L (7-56); AST/SGOT 23 U/L (14-36); BLOOD UREA NITROGEN 13 mg/dL (7-21); CALCIUM 8.7 mg/dL (8.4-10.5); GFR NON-AFRICAN AMERICAN > 60
[2018-03-20] MEDS: Arformoterol 15 mcg/2 ml Inh Sol IH SCH ×2 (07:00→19:50)
[2018-03-20] MEDS: Budesonide 0.5 mg/2 ml Inhal Susp UD IH SCH ×2 (07:00→19:50)
--- NOTE | 2018-03-20 07:04 | CP.PCM.PN ---
<BegumLisa L - Last Filed: 03/20/18 13:08> Subjective - Date & Time of Evaluation Date of Evaluation: 03/20/18 Time of Evaluation: 07:04 - Subjective Subjective: Resident Progress Note for Hospitalist Service Patient examined at bedside. No acute events overnight. This morning patient refused to wear bipap and stated she will only wear nasal cannula. Denies fevers, chills, chest pain, shortness of breath, abdominal pain, diarrhea, dysuria. Objective - Vital Signs/Intake and Output Vital Signs (last 24 hours): Temp Pulse Resp BP Pulse Ox 98.1 F 83 35 H 113/62 80 L 03/20/18 00:00 03/20/18 06:59 03/19/18 18:00 03/19/18 21:03 03/19/18 18:00 Intake and Output: 03/20/18 03/20/18 06:59 18:59 Intake Total 492 Output Total 350 Balance 142 - Medications Medications: Current Medications Acetaminophen (Tylenol 325mg Tab) 650 mg PO Q6H PRN PRN Reason: Headache Last Admin: 03/05/18 21:07 Dose: 650 mg Albuterol/Ipratropium (Duoneb 3 Mg/0.5 Mg (3 Ml) Ud) 3 ml IH [id number] PRN PRN Reason: Shortness of Breath Last Admin: 03/18/18 20:36 Dose: 3 ml Arformoterol Tartrate (Brovana) 15 mcg IH [id number] DUNIA Last Admin: 03/20/18 07:00 Dose: 15 mcg Budesonide (Pulmicort Respules) 0.5 mg IH [id number] DUNIA Last Admin: 03/20/18 07:00 Dose: 0.5 mg Furosemide (Lasix) 40 mg IVP Q12 DUNIA Last Admin: 03/19/18 21:01 Dose: 40 mg Gabapentin (Neurontin) 300 mg PO TID DUNIA; Protocol Last Admin: 03/19/18 18:58 Dose: 300 mg Guaifenesin/Dextromethorphan (Robitussin Dm) 5 ml PO Q4H PRN PRN Reason: Cough Last Admin: 03/19/18 18:58 Dose: 5 ml Dobutamine HCl/Dextrose (Dobutamine/Dextrose 5% 500mg/250ml) 500 mg in 250 mls @ 21.636 mls/hr IV .[id number] PRN; Protocol PRN Reason: TITRATE PER PROTOCOL Last Admin: 03/19/18 21:03 Dose: 5 mcg/kg/min, 21.636 mls/hr Mupirocin (Bactroban Ointment) 1 gm TOP BID [facility] Pantoprazole Sodium (Protonix Ec Tab) 40 mg PO 0600 [facility] Last Admin: 03/20/18 06:23 Dose: 40 mg Rivaroxaban (Xarelto) 20 mg PO DAILY [facility]; Protocol Last Admin: 03/19/18 09:14 Dose: 20 mg Sildenafil Citrate (Revatio) 20 mg PO TID [facility] Last Admin: 03/19/18 18:58 Dose: 20 mg - Labs Labs: 03/20/18 05:30 03/20/18 05:30 PT 35.6 SECONDS (9.4-12.5) H 03/01/18 18:48 INR 3.05 03/01/18 18:48 APTT 32.1 Seconds (25.1-36.5) 03/01/18 18:48 - Additional Findings Additional findings: - Constitutional Appears: No Acute Distress - Head Exam Head Exam: ATRAUMATIC, NORMOCEPHALIC - Eye Exam Eye Exam: EOMI - ENT Exam ENT Exam: Mucous Membranes Moist - Neck Exam Neck Exam: Full ROM - Respiratory Exam Respiratory Exam: Decreased Breath Sounds (on the right). absent: Rales, Rhonchi, Wheezes, Respiratory Distress - GI/Abdominal Exam GI & Abdominal Exam: Soft, Normal Bowel Sounds. 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 Plan: Shortness of breath 2/2 pulm HTN - dobutamine drip - Lasix 40 mg IV BID - Duonebs q4H PRN - Brovana 15 mcg Q12H - Pulmicort .5 mg BID - Sildenafil 20 mg PO TID - fluid restrict to 1.2 L daily - Pulmonary consulted, recommending continued therapy and emphasis on bipap - Records obtained from [facility] show patient had cardiac cath in 12/2017 which showed mean PCWP 80 mm Hg, severe pulmonary hypertension with elevated pulmonary arteriolar resistance, likely multifactorial due to chronic thromboembolic pulmonary disease as well as sleep apnea. Marked elevated RV end- diastolic pressure consistent with right ventricular diastolic dysfunction, low cardiac index with CVP to wedge ratio of more than 1 consistent with cardiogenic shock physiology. V/Q scan showed high probability of PE. Recs were to continue anticoagulation with O2 and sildenafil. Hemoptysis - resolved - Hgb has remained stable. Xarelto resumed. - Continue to monitor - Pulm consult - Dr. Clark - CT chest shows no pulm embolus but is + for pericardial effusion and small R pleural effusion - Repeat Echo shows trace pericardial effusion - Guaifenesin DM for cough Bilateral leg pain-resolved - Echo 01/14 show RV is severely dilated, RV systolic function is severely reduced, RA is severely dilated, severe TR, severe pulm HTN - Dopplers negative for DVT - Lasix 20 mg IV BID - Gabapentin 300 TID RUE swelling - Afebrile, no leukocytosis - Dopplers neg for DVT - OOB to chair LAYO - BiPAP at night as tolerated PPX - Xarelto 20 mg PO daily, SCDs - Protonix 40 mg PO daily Dispo: Awaiting potential transfer to [facility] for evaluation for pulmonary artery endarterectomy Case discussed with Dr. Zeb Begum PGY-1 <Jenn Carrington - Last Filed: 03/20/18 18:52> Objective - Vital Signs/Intake and Output Vital Signs (last 24 hours): Temp Pulse Resp BP Pulse Ox 97.7 F 102 H 33 H 136/77 79 L 03/20/18 16:00 03/20/18 18:00 03/20/18 18:00 03/20/18 11:26 03/20/18 18:00 Intake and Output: 03/20/18 03/20/18 06:59 18:59 Intake Total 492 250 Output Total 350 Balance 142 250 - Medications Medications: Current Medications Acetaminophen (Tylenol 325mg Tab) 650 mg PO Q6H PRN PRN Reason: Headache Last Admin: 03/05/18 21:07 Dose: 650 mg Albuterol/Ipratropium (Duoneb 3 Mg/0.5 Mg (3 Ml) Ud) 3 ml IH [id number] PRN PRN Reason: Shortness of Breath Last Admin: 03/18/18 20:36 Dose: 3 ml Arformoterol Tartrate (Brovana) 15 mcg IH [id number] DUNIA Last Admin: 03/20/18 07:00 Dose: 15 mcg Budesonide (Pulmicort Respules) 0.5 mg IH [id number] [facility] Last Admin: 03/20/18 07:00 Dose: 0.5 mg Furosemide (Lasix) 40 mg IVP Q12 DUNIA Last Admin: 03/20/18 10:12 Dose: 40 mg Gabapentin (Neurontin) 300 mg PO TID [facility]; Protocol Last Admin: 03/20/18 18:03 Dose: 300 mg Guaifenesin/Dextromethorphan (Robitussin Dm) 5 ml PO Q4H PRN PRN Reason: Cough Last Admin: 03/20/18 12:55 Dose: 5 ml Dobutamine HCl/Dextrose (Dobutamine/Dextrose 5% 500mg/250ml) 500 mg in 250 mls @ 21.636 mls/hr IV .[id number] PRN; Protocol PRN Reason: TITRATE PER PROTOCOL Last Admin: 03/20/18 10:26 Dose: 5 mcg/kg/min, 21.636 mls/hr Mupirocin (Bactroban Ointment) 1 gm TOP BID [facility] Last Admin: 03/20/18 18:05 Dose: 1 applic Pantoprazole Sodium (Protonix Ec Tab) 40 mg PO 0600 [facility] Last Admin: 03/20/18 06:23 Dose: 40 mg Rivaroxaban (Xarelto) 20 mg PO DAILY [facility]; Protocol Last Admin: 03/20/18 10:11 Dose: 20 mg Sildenafil Citrate (Revatio) 20 mg PO TID [facility] Last Admin: 03/20/18 18:03 Dose: 20 mg - Labs Labs: 03/20/18 05:30 03/20/18 05:30 PT 35.6 SECONDS (9.4-12.5) H 03/01/18 18:48 INR 3.05 03/01/18 18:48 APTT 32.1 Seconds (25.1-36.5) 03/01/18 18:48 Attending/Attestation - Attestation I have personally seen and examined this patient.: Yes I have fully participated in the care of the patient.: Yes I have reviewed all pertinent clinical information, including history, physical exam and plan: Yes Notes (Text): 03/20/18 18:51 43 year old female with past medical history of severe pulmonary hypertension, DVT/PE on xarelto, COPD, LAYO, CHF and history of left leg amputation who presented with leg pain/swelling and shortness of breath. She was treated for COPD/CHF exacerbation. Hospital course was complicated with acute on chronic hypoxia with minimal exertion. Currently she is on iv lasix, duonebs, brovana, pulmicort, xarelto and revatio. She is on dobutamine. Issue of O2 and BiPAP compliance was discussed again with patient in detail today. Currently she is in the ICU; plan is for possible transfer to [facility]. Pulmonary is following. Overall prognosis is guarded. Jenn Carrington MD Hospitalist.
[2018-03-20 08:07] LABS: ATYPICAL LYMPHOCYTE 1 % (0.0-0.0); EOSINOPHIL 2 % (0.0-3.0); LYMPHOCYTE 9 % (22.0-35.0); MONOCYTE 20 % (1.0-6.0); NEUTROPHIL 68 % (50.0-70.0)
[2018-03-20] MEDS: Sildenafil 20 MG TAB PO SCH ×3 (10:12→18:03)
[2018-03-20] MEDS: Mupirocin 2% Ointment 15 GM TUBE TOP SCH ×2 (10:13→18:05)
[2018-03-20] MEDS ORDERED: Oxycodone/Acetaminophen 5/325 mg Tab PO PRN (10:17)
[2018-03-20] MEDS: DOBUTamine 500mg/250ml D5W 500 MG/250 ML BAG IV PRN ×2 (10:26→23:18)
[2018-03-20] MEDS: guaiFENesin DM 100 mg-10 mg/5 ml UD PO PRN ×2 (12:55→22:24)
[2018-03-20] MEDS ORDERED: Oxycodone/Acetaminophen 5/325 mg Tab PO ONE (13:32)
--- NOTE | 2018-03-20 15:35 | PN ---
DATE: 03/20/2018 SUBJECTIVE: The patient is resting in bed, awake and alert, tolerating the CPAP for respiratory support. No complaints of chest pain or increased wheezing. Does complain of phantom lower extremity pain where she had a left-sided amputation. PHYSICAL EXAMINATION: VITAL SIGNS: Her temperature is 98.1, her pulse is 99, respirations are 21, and her BP is 131/62. SKIN: Warm and dry. HEENT: Head atraumatic, normocephalic. Eyes reactive to light. Ears, nose and throat seemed to be within normal limits. NECK: Supple. No JVD. No thyroid enlargement or lymph nodes. HEART: Regular rate and rhythm. Normal S1, S2, but mildly tachycardic. LUNGS: Reveal decreased breath sounds bilaterally with occasional rhonchi. ABDOMEN: Soft, but obese. Decreased bowel sounds. GENITALIA AND RECTAL: Deferred. MUSCULOSKELETAL: No joint deformities. Extremities reveal left sided amputation with positive lower extremity swelling. NEUROLOGIC: She seemed to be grossly intact. LABORATORY DATA: Her white count is 4.6, hemoglobin of 9.0 and her hematocrit 30.1 with platelets of 286,000. The patient's sodium is 134, potassium 3.7, chloride 99, CO2 of 26 with a BUN of 13, creatinine of 0.9 and a glucose of 74. IMPRESSION: This patient is continuing with congestive heart failure exacerbation, chronic obstructive pulmonary disease as well as generalized edema. She has a history of pulmonary hypertension as well as respiratory failure. The patient has history of pulmonary embolus as well as deep venous thrombosis and has left lower extremity amputation. She has chronic obstructive pulmonary disease, obstructive sleep apnea, morbid obesity, congestive heart failure and anemia. PLAN: We will continue with bilevel positive airway pressure and oxygen support and follow with aggressive pulmonary toilet. The patient is on dobutamine as well as Brovana and is getting DuoNeb as well. The patient is on Lasix as well as Neurontin and Protonix, Pulmicort, Revatio and cough meds. She is also on Xarelto. We will continue to treat aggressively along with the other consultants and the primary care doctor. Pierre Moore MD [facility] # [id number]
[2018-03-20] MEDS: Oxycodone/Acetaminophen 5/325 mg Tab PO PRN (23:17)
[2018-03-21 06:13] LABS: BASO # 0.01 K/mm3 (0.0-2.0); BASO % 0.2 % (0.0-3.0); EOS # 0.1 (0.0-0.7); EOS % 2.7 % (1.5-5.0); GRAN # 3.09 (1.4-6.5); GRAN % 60.3 % (50.0-68.0); HEMOGLOBIN 9.1 g/dL (12.0-16.0); LYMPH # 0.7 (1.2-3.4); LYMPH % 13.6 % (22.0-35.0); MEAN CELL VOLUME 83.7 fl (80.0-105.0); MEAN CORPUSCULAR HEMOGLOBIN 25.6 pg (25.0-35.0); MEAN CORPUSCULAR HGB CONC 30.5 g/dl (31.0-37.0); MEAN PLATELET VOLUME 9.5 fl (7.0-11.0); MONO # 1.2 (0.1-0.6); MONO % 23.2 % (1.0-6.0); RBC 3.56 10^6/uL (3.5-6.1); RED CELL DISTRIBUTION WIDTH 18.3 % (11.5-14.5); WHITE BLOOD COUNT 5.1 10^3/uL (4.5-11.0)
[2018-03-21] MEDS: Pantoprazole 40 mg EC Tab PO SCH ×2 (06:15→06:17)
[2018-03-21 06:19] LABS: ALB/GLOB RATIO 1.2 (1.1-1.8); ALBUMIN 3.6 g/dL (3.0-4.8); ALT/SGPT 23 U/L (7-56); AST/SGOT 26 U/L (14-36); BLOOD UREA NITROGEN 13 mg/dL (7-21); CALCIUM 8.5 mg/dL (8.4-10.5); GFR NON-AFRICAN AMERICAN > 60
[2018-03-21] MEDS: Arformoterol 15 mcg/2 ml Inh Sol IH SCH ×2 (07:12→19:30)
[2018-03-21] MEDS: Budesonide 0.5 mg/2 ml Inhal Susp UD IH SCH ×2 (07:12→19:31)
[2018-03-21] MEDS: Sildenafil 20 MG TAB PO SCH ×3 (09:50→18:05)
[2018-03-21] MEDS: Mupirocin 2% Ointment 15 GM TUBE TOP SCH ×2 (09:55→18:53)
[2018-03-21] MEDS: guaiFENesin DM 100 mg-10 mg/5 ml UD PO PRN ×3 (10:04→21:48)
[2018-03-21] MEDS: Oxycodone/Acetaminophen 5/325 mg Tab PO PRN ×2 (10:04→21:48)
--- NOTE | 2018-03-21 10:05 | CP.PCM.PN ---
<Lisa Begum L - Last Filed: 03/21/18 12:43> Subjective - Date & Time of Evaluation Date of Evaluation: 03/21/18 Time of Evaluation: 08:00 - Subjective Subjective: Resident Progress Note for Hospitalist Service Patient examined at bedside. No acute events overnight. Patient is resting comfortably in no respiratory distress with nasal cannula. Denies fevers, chills, chest pain, shortness of breath. Dobutamine drip discontinued. Objective - Vital Signs/Intake and Output Vital Signs (last 24 hours): Temp Pulse Resp BP Pulse Ox 98.1 F 78 24 128/65 98 03/21/18 06:00 03/21/18 07:27 03/21/18 06:00 03/21/18 09:50 03/21/18 06:00 Intake and Output: 03/21/18 03/21/18 06:59 18:59 Intake Total 1862 Output Total 1000 Balance 862 - Medications Medications: Current Medications Acetaminophen (Tylenol 325mg Tab) 650 mg PO Q6H PRN PRN Reason: Headache Last Admin: 03/05/18 21:07 Dose: 650 mg Albuterol/Ipratropium (Duoneb 3 Mg/0.5 Mg (3 Ml) Ud) 3 ml IH [id number] PRN PRN Reason: Shortness of Breath Last Admin: 03/18/18 20:36 Dose: 3 ml Arformoterol Tartrate (Brovana) 15 mcg IH [id number] DUNIA Last Admin: 03/21/18 07:12 Dose: 15 mcg Budesonide (Pulmicort Respules) 0.5 mg IH [id number] DUNIA Last Admin: 03/21/18 07:12 Dose: 0.5 mg Furosemide (Lasix) 40 mg IVP Q12 DUNIA Last Admin: 03/21/18 09:50 Dose: 40 mg Gabapentin (Neurontin) 300 mg PO TID [facility]; Protocol Last Admin: 03/21/18 09:50 Dose: 300 mg Guaifenesin/Dextromethorphan (Robitussin Dm) 5 ml PO Q4H PRN PRN Reason: Cough Last Admin: 03/20/18 22:24 Dose: 5 ml Dobutamine HCl/Dextrose (Dobutamine/Dextrose 5% 500mg/250ml) 500 mg in 250 mls @ 21.636 mls/hr IV .[id number] PRN; Protocol PRN Reason: TITRATE PER PROTOCOL Last Admin: 03/20/18 23:18 Dose: 5 mcg/kg/min, 21.636 mls/hr Mupirocin (Bactroban Ointment) 1 gm TOP BID [facility] Last Admin: 03/21/18 09:55 Dose: 1 applic Oxycodone/Acetaminophen (Percocet 5/325 Mg Tab) 1 tab PO Q4H PRN PRN Reason: Pain, severe (8-10) Stop: 03/23/18 22:35 Last Admin: 03/20/18 23:17 Dose: 1 tab Pantoprazole Sodium (Protonix Ec Tab) 40 mg PO 0600 [facility] Last Admin: 03/21/18 06:17 Dose: 40 mg Rivaroxaban (Xarelto) 20 mg PO DAILY [facility]; Protocol Last Admin: 03/21/18 09:50 Dose: 20 mg Sildenafil Citrate (Revatio) 20 mg PO TID [facility] Last Admin: 03/21/18 09:50 Dose: 20 mg - Labs Labs: 03/21/18 05:30 03/21/18 05:30 PT 35.6 SECONDS (9.4-12.5) H 03/01/18 18:48 INR 3.05 03/01/18 18:48 APTT 32.1 Seconds (25.1-36.5) 03/01/18 18:48 - Additional Findings Additional findings: - Constitutional Appears: No Acute Distress - Head Exam Head Exam: ATRAUMATIC, NORMOCEPHALIC - Eye Exam Eye Exam: EOMI - ENT Exam ENT Exam: Mucous Membranes Moist - Neck Exam Neck Exam: Full ROM - Respiratory Exam Respiratory Exam: Decreased Breath Sounds (on the right). absent: Rales, Rhonchi, Wheezes, Respiratory Distress - GI/Abdominal Exam GI & Abdominal Exam: Soft, Normal Bowel Sounds. 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 Plan: Shortness of breath 2/2 pulm HTN - Lasix 40 mg IV BID - Duonebs q4H PRN - Brovana 15 mcg Q12H - Pulmicort .5 mg BID - Sildenafil 20 mg PO TID - fluid restrict to 1.2 L daily - Pulmonary consulted, recommending continued therapy and emphasis on bipap - Records obtained from [facility] patient had cardiac cath in 12/2017 which showed mean PCWP 80 mm Hg, severe pulmonary hypertension with elevated pulmonary arteriolar resistance, likely multifactorial due to chronic thromboembolic pulmonary disease as well as sleep apnea. Marked elevated RV end- diastolic pressure consistent with right ventricular diastolic dysfunction, low cardiac index with CVP to wedge ratio of more than 1 consistent with cardiogenic shock physiology. V/Q scan showed high probability of PE. Recs were to continue anticoagulation with O2 and sildenafil. - patient appears comfortable at O2 saturation in high 80s, likely adapted to hypercapnea and hypoxemia Hemoptysis - resolved - Hgb has remained stable. Xarelto resumed - Pulm consult - Dr. Clark - CT chest shows no pulm embolus but is + for pericardial effusion and small R pleural effusion - Repeat Echo shows trace pericardial effusion - Guaifenesin DM for cough Bilateral leg pain - Echo 01/14 show RV is severely dilated, RV systolic function is severely reduced, RA is severely dilated, severe TR, severe pulm HTN - Dopplers negative for DVT - Lasix 20 mg IV BID - Gabapentin 300 TID RUE swelling - Afebrile, no leukocytosis - Dopplers neg for DVT - OOB to chair LAYO - BiPAP at night as tolerated PPX - Xarelto 20 mg PO daily, SCDs - Protonix 40 mg PO daily Dispo: Awaiting potential transfer to [facility] for further workup and evaluation for pulmonary artery endarterectomy Case discussed with Dr. Zeb Begum PGY-1 <Jenn Carrington - Last Filed: 03/21/18 15:52> Objective - Vital Signs/Intake and Output Vital Signs (last 24 hours): Temp Pulse Resp BP Pulse Ox 97 F L 81 17 103/56 L 88 L 03/21/18 12:00 03/21/18 14:00 03/21/18 11:16 03/21/18 10:52 03/21/18 11:16 Intake and Output: 03/21/18 03/21/18 06:59 18:59 Intake Total 1862 Output Total 1000 Balance 862 - Medications Medications: Current Medications Acetaminophen (Tylenol 325mg Tab) 650 mg PO Q6H PRN PRN Reason: Headache Last Admin: 03/05/18 21:07 Dose: 650 mg Albuterol/Ipratropium (Duoneb 3 Mg/0.5 Mg (3 Ml) Ud) 3 ml IH [id number] PRN PRN Reason: Shortness of Breath Last Admin: 03/18/18 20:36 Dose: 3 ml Arformoterol Tartrate (Brovana) 15 mcg IH [id number] DUNIA Last Admin: 03/21/18 07:12 Dose: 15 mcg Budesonide (Pulmicort Respules) 0.5 mg IH [id number] [facility] Last Admin: 03/21/18 07:12 Dose: 0.5 mg Furosemide (Lasix) 40 mg IVP Q12 DUNIA Last Admin: 03/21/18 09:50 Dose: 40 mg Gabapentin (Neurontin) 300 mg PO TID [facility]; Protocol Last Admin: 03/21/18 13:31 Dose: 300 mg Guaifenesin/Dextromethorphan (Robitussin Dm) 5 ml PO Q4H PRN PRN Reason: Cough Last Admin: 03/21/18 14:39 Dose: 5 ml Mupirocin (Bactroban Ointment) 1 gm TOP BID [facility] Last Admin: 03/21/18 09:55 Dose: 1 applic Oxycodone/Acetaminophen (Percocet 5/325 Mg Tab) 1 tab PO Q4H PRN PRN Reason: Pain, severe (8-10) Stop: 03/23/18 22:35 Last Admin: 03/21/18 10:04 Dose: 1 tab Pantoprazole Sodium (Protonix Ec Tab) 40 mg PO 0600 [facility] Last Admin: 03/21/18 06:17 Dose: 40 mg Rivaroxaban (Xarelto) 20 mg PO DAILY [facility]; Protocol Last Admin: 03/21/18 09:50 Dose: 20 mg Sildenafil Citrate (Revatio) 20 mg PO TID [facility] Last Admin: 03/21/18 13:31 Dose: 20 mg - Labs Labs: 03/21/18 05:30 03/21/18 05:30 PT 35.6 SECONDS (9.4-12.5) H 03/01/18 18:48 INR 3.05 03/01/18 18:48 APTT 32.1 Seconds (25.1-36.5) 03/01/18 18:48 Attending/Attestation - Attestation I have personally seen and examined this patient.: Yes I have fully participated in the care of the patient.: Yes I have reviewed all pertinent clinical information, including history, physical exam and plan: Yes Notes (Text): 03/21/18 15:51 43 year old female with past medical history of severe pulmonary hypertension, DVT/PE on xarelto, COPD, LAYO, CHF and history of left leg amputation who presented with leg pain/swelling and shortness of breath. She was treated for COPD/CHF exacerbation. Hospital course was complicated with acute on chronic hypoxia with minimal exertion. Currently she is on iv lasix, duonebs, brovana, pulmicort, xarelto and revatio. She was on dobutamine. Issue of O2 and BiPAP compliance was discussed again with patient in detail today. Currently she is in the ICU; discussion was done with pulmonary regarding possible transfer to [facility]. Will follow up with recommendations. Overall prognosis is guarded. Jenn Carrington MD Hospitalist.
--- NOTE | 2018-03-21 14:12 | CON ---
DATE: 03/21/2018 HISTORY OF PRESENT ILLNESS: The patient is a 43-year-old female with no known prior psychiatric history with Psychiatry is following up while the patient is being stabilized in the ICU with working diagnosis of mood disorder due to general medical condition, rule out adjustment disorder, rule out major depressive disorder. I reviewed Dr. Diehl's consultation dated 03/19/2018. This consultation indicated that the patient does have a significant medical history including pulmonary hypertension, embolism, DVT, COPD requiring 4 L of oxygen with CPAP, and the patient is also status post left leg amputation. The patient readily indicated that she was depressed and feeling hopeless and helpless due to her medical conditions. At that time, she was not suicidal or psychotic, and demonstrating an appropriate response due to her current stressors. She had deferred on any medication management during the course of Dr. Diehl's interview. I met with her at bedside and she continues to report depression and feeling overwhelmed by her medical issues; however, in general, reports feeling a little bit better since Dr. Diehl's visit 2 days ago. Her thought process is coherent and she continues to deny having any perceptual disturbance, delusions not elicited. She spontaneously denies having any suicidal thoughts she says typically "I am not going to kill myself ." Her focus is fair, but it does not appear to be entirely engaged with my interview. So it is difficult for her to speak because of BiPAP machine as well as shortness of breath. The patient continues to defer on any medication management; however, she is open to therapy once she is medically cleared and discharged. Labs and vitals reviewed. IMPRESSION: I agree with Dr. Diehl. The patient has mood disorder due to general medical condition, likely adjustment disorder with depression and anxiety and rule out major depressive disorder. RECOMMENDATIONS: The patient continues to defer on starting any medications for her symptoms. However, she is open to therapy referrals which medical team should and social work should followup on when she is medically cleared. Psychiatry will continue to followup with the patient p.r.n. to offer emotional support and empathetic listening. Again, Psychiatry as usual will be cautious about medications and sedatives if necessary and advice medical team. Next followup will be by Dr. Diehl on 03/23/2018. Edwina Carrero MD [facility] # [id number]
--- NOTE | 2018-03-21 15:19 | PN ---
DATE: 03/21/2018 SUBJECTIVE: The patient is resting in bed using her BiPAP, the settings are 16/6 with 60% FiO2. Also she continues to require the dobutamine. No complaints of increased shortness of breath. No major events overnight. PHYSICAL EXAMINATION: VITAL SIGNS: Reveals a temperature of 98.1, pulse of 78, respirations of 24 and her BP is 128/65. SKIN: Warm and dry. HEENT: Head atraumatic, normocephalic. Eyes reactive to light. Ear nose and throat seem to be within normal limits. NECK: Her neck is supple. No JVD. No thyroid enlargement or lymph nodes. HEART: Has regular rate and rhythm. Normal S1, S2. LUNGS: Reveal decreased breath sounds at the bases. ABDOMEN: Soft, but obese. Decreased bowel sounds. GENITALIA: Deferred. RECTAL: Deferred. MUSCULOSKELETAL: No joint swelling, but she does have a lower extremity amputation. NEUROLOGIC: Neurologically, she seemed to be grossly intact. LABORATORY DATA: As far as her laboratories are concerned, her white count is 5.1, hemoglobin is 9.1, hematocrit 29.8 with platelets of 2,96,000. The patient's sodium is 133, potassium 3.8, chloride 99, CO2 of 25 with a BUN of 13, creatinine of 1 and a glucose of 80. IMPRESSION: As far as my impression, this patient has congestive heart failure as well as chronic obstructive pulmonary disease and generalized edema. She has pulmonary hypertension as well as respiratory failure. The patient has a history of pulmonary embolus and deep vein thrombosis and left lower extremity amputation. She has chronic obstructive pulmonary disease, obstructive sleep apnea, morbid obesity, congestive heart failure and anemia. PLAN: As far as our plan, we will continue with the BiPAP support as well as the oxygen. The patient is getting aggressive pulmonary toilet. She is on dobutamine as well as Brovana, DuoNeb, Lasix, Neurontin, Protonix, Pulmicort, Revatio, and Xarelto. We will continue to treat aggressively along with the other consultants and the primary care doctor. Pierre Moore MD [facility] # [id number]
[2018-03-22] MEDS: Oxycodone/Acetaminophen 5/325 mg Tab PO PRN ×3 (03:41→23:32)
[2018-03-22] MEDS: Pantoprazole 40 mg EC Tab PO SCH (05:23)
--- NOTE | 2018-03-22 06:48 | CP.PCM.PN ---
<Lisa Begum L - Last Filed: 03/22/18 15:51> Subjective - Date & Time of Evaluation Date of Evaluation: 03/22/18 Time of Evaluation: 06:47 - Subjective Subjective: Resident Progress Note for Hospitalist Service Patient examined at bedside. Patient saturated at 95% on bipap overnight. Patient presents to be irritable and states that she is uncomfortable with bipap mask on. Patient's prognosis was discussed with patient and family members present at bedside. Importance of bipap use was reinforced and all questions were answered. Patient admits to dizziness with shortness of breath when not using bipap. Patient denies fevers, chills, chest pain, shortness of breath, abdominal pain, diarrhea, dysuria. Per PT recs patient is not safe to go home at this time. Objective - Vital Signs/Intake and Output Vital Signs (last 24 hours): Temp Pulse Resp BP Pulse Ox 98.5 F 83 20 106/64 91 L 03/22/18 05:52 03/22/18 05:52 03/22/18 00:01 03/22/18 05:52 03/22/18 05:52 Intake and Output: 03/21/18 03/22/18 18:59 06:59 Intake Total 720 Output Total 400 Balance 320 - Medications Medications: Current Medications Acetaminophen (Tylenol 325mg Tab) 650 mg PO Q6H PRN PRN Reason: Headache Last Admin: 03/05/18 21:07 Dose: 650 mg Albuterol/Ipratropium (Duoneb 3 Mg/0.5 Mg (3 Ml) Ud) 3 ml IH [id number] PRN PRN Reason: Shortness of Breath Last Admin: 03/18/18 20:36 Dose: 3 ml Arformoterol Tartrate (Brovana) 15 mcg IH [id number] [facility] Last Admin: 03/21/18 19:30 Dose: 15 mcg Budesonide (Pulmicort Respules) 0.5 mg IH [id number] [facility] Last Admin: 03/21/18 19:31 Dose: 0.5 mg Furosemide (Lasix) 40 mg IVP Q12 [facility] Last Admin: 03/21/18 21:48 Dose: 40 mg Gabapentin (Neurontin) 300 mg PO TID [facility]; Protocol Last Admin: 03/21/18 18:05 Dose: 300 mg Guaifenesin/Dextromethorphan (Robitussin Dm) 5 ml PO Q4H PRN PRN Reason: Cough Last Admin: 03/21/18 21:48 Dose: 5 ml Mupirocin (Bactroban Ointment) 1 gm TOP BID [facility] Last Admin: 03/21/18 18:53 Dose: 1 applic Oxycodone/Acetaminophen (Percocet 5/325 Mg Tab) 1 tab PO Q4H PRN PRN Reason: Pain, severe (8-10) Stop: 03/23/18 22:35 Last Admin: 03/22/18 03:41 Dose: 1 tab Pantoprazole Sodium (Protonix Ec Tab) 40 mg PO 0600 [facility] Last Admin: 03/22/18 05:23 Dose: 40 mg Rivaroxaban (Xarelto) 20 mg PO DAILY [facility]; Protocol Last Admin: 03/21/18 09:50 Dose: 20 mg Sildenafil Citrate (Revatio) 20 mg PO TID [facility] Last Admin: 03/21/18 18:05 Dose: 20 mg - Labs Labs: 03/21/18 05:30 03/21/18 05:30 PT 35.6 SECONDS (9.4-12.5) H 03/01/18 18:48 INR 3.05 03/01/18 18:48 APTT 32.1 Seconds (25.1-36.5) 03/01/18 18:48 - Additional Findings Additional findings: - Constitutional Appears: No Acute Distress - Head Exam Head Exam: ATRAUMATIC, NORMOCEPHALIC - Eye Exam Eye Exam: EOMI - ENT Exam ENT Exam: Mucous Membranes Moist - Neck Exam Neck Exam: Full ROM - Respiratory Exam Respiratory Exam: Decreased Breath Sounds (on the right). absent: Rales, Rhonchi, Wheezes, Respiratory Distress - GI/Abdominal Exam GI & Abdominal Exam: Soft, Normal Bowel Sounds. 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 Plan: Shortness of breath 2/2 pulm HTN - Lasix 40 mg IV BID - Duonebs q4H PRN - Brovana 15 mcg Q12H - Pulmicort .5 mg BID - Sildenafil 20 mg PO TID - fluid restrict to 1.2 L daily - Pulmonary consulted, recommending continued therapy and emphasis on bipap - Records obtained from [facility] patient had cardiac cath in 12/2017 which showed mean PCWP 80 mm Hg, severe pulmonary hypertension with elevated pulmonary arteriolar resistance, likely multifactorial due to chronic thromboembolic pulmonary disease as well as sleep apnea. Marked elevated RV end- diastolic pressure consistent with right ventricular diastolic dysfunction, low cardiac index with CVP to wedge ratio of more than 1 consistent with cardiogenic shock physiology. V/Q scan showed high probability of PE. Recs were to continue anticoagulation with O2 and sildenafil. - patient appears comfortable at O2 saturation in high 80s, likely adapted to hypercapnea and hypoxemia - continue PT Hemoptysis - resolved - Hgb has remained stable - Xarelto 20 mg PO daily - Pulm consult - Dr. Clark - CT chest shows no pulm embolus but is + for pericardial effusion and small R pleural effusion - Repeat Echo shows trace pericardial effusion - Guaifenesin DM for cough Bilateral leg pain - Echo 01/14 show RV is severely dilated, RV systolic function is severely reduced, RA is severely dilated, severe TR, severe pulm HTN - Dopplers negative for DVT - Lasix 20 mg IV BID - Gabapentin 300 TID RUE swelling - Afebrile, no leukocytosis - Dopplers neg for DVT - OOB to chair LAYO - BiPAP at night as tolerated PPX - Xarelto 20 mg PO daily, SCDs - Protonix 40 mg PO daily Case discussed with Dr. Zeb Begum PGY-1 <Jenn Carrington - Last Filed: 03/22/18 16:14> Objective - Vital Signs/Intake and Output Vital Signs (last 24 hours): Temp Pulse Resp BP Pulse Ox 97 F L 75 18 106/62 91 L 03/22/18 12:00 03/22/18 07:21 03/22/18 12:00 03/22/18 12:00 03/22/18 05:52 Intake and Output: 03/22/18 03/22/18 06:59 18:59 Intake Total 720 Output Total 400 Balance 320 - Medications Medications: Current Medications Acetaminophen (Tylenol 325mg Tab) 650 mg PO Q6H PRN PRN Reason: Headache Last Admin: 03/05/18 21:07 Dose: 650 mg Albuterol/Ipratropium (Duoneb 3 Mg/0.5 Mg (3 Ml) Ud) 3 ml IH [id number] PRN PRN Reason: Shortness of Breath Last Admin: 03/22/18 14:54 Dose: 3 ml Arformoterol Tartrate (Brovana) 15 mcg IH [id number] [facility] Last Admin: 03/22/18 07:18 Dose: 15 mcg Budesonide (Pulmicort Respules) 0.5 mg IH [id number] [facility]IA Last Admin: 03/22/18 07:18 Dose: 0.5 mg Furosemide (Lasix) 40 mg IVP Q12 [facility] Last Admin: 03/22/18 10:29 Dose: 40 mg Gabapentin (Neurontin) 300 mg PO TID [facility]; Protocol Last Admin: 03/22/18 14:04 Dose: 300 mg Mupirocin (Bactroban Ointment) 1 gm TOP BID [facility] Last Admin: 03/22/18 10:29 Dose: 1 applic Oxycodone/Acetaminophen (Percocet 5/325 Mg Tab) 1 tab PO Q4H PRN PRN Reason: Pain, severe (8-10) Stop: 03/23/18 22:35 Last Admin: 03/22/18 14:04 Dose: 1 tab Pantoprazole Sodium (Protonix Ec Tab) 40 mg PO 0600 [facility] Last Admin: 03/22/18 05:23 Dose: 40 mg Rivaroxaban (Xarelto) 20 mg PO DAILY [facility]; Protocol Last Admin: 03/22/18 10:29 Dose: 20 mg Sildenafil Citrate (Revatio) 20 mg PO TID [facility] Last Admin: 03/22/18 14:07 Dose: 20 mg - Labs Labs: 03/22/18 08:30 03/22/18 08:30 PT 35.6 SECONDS (9.4-12.5) H 03/01/18 18:48 INR 3.05 03/01/18 18:48 APTT 32.1 Seconds (25.1-36.5) 03/01/18 18:48 Attending/Attestation - Attestation I have personally seen and examined this patient.: Yes I have fully participated in the care of the patient.: Yes I have reviewed all pertinent clinical information, including history, physical exam and plan: Yes Notes (Text): 03/22/18 16:13 43 year old female with past medical history of severe pulmonary hypertension, DVT/PE on xarelto, COPD, LAYO, CHF and history of left leg amputation who presented with leg pain/swelling and shortness of breath. She was treated for COPD/CHF exacerbation. Hospital course was complicated with acute on chronic hypoxia with minimal exertion. Currently she is on iv lasix, duonebs, brovana, pulmicort, xarelto and revatio. She was on dobutamine. Issue of O2 and BiPAP compliance was discussed again with patient in detail today. PT follow up today was appreciated; she continues to have hypoxia with exertion. Will discuss with pulmonary for further recommendations. Overall prognosis is guarded. Jenn Carrington MD Hospitalist.
[2018-03-22] MEDS: Budesonide 0.5 mg/2 ml Inhal Susp UD IH SCH ×2 (07:18→21:20)
[2018-03-22] MEDS: Arformoterol 15 mcg/2 ml Inh Sol IH SCH ×2 (07:18→21:15)
[2018-03-22 08:56] LABS: BASO # 0.02 K/mm3 (0.0-2.0); BASO % 0.5 % (0.0-3.0); EOS # 0.1 (0.0-0.7); EOS % 2.3 % (1.5-5.0); GRAN # 2.63 (1.4-6.5); GRAN % 61.2 % (50.0-68.0); HEMOGLOBIN 9.3 g/dL (12.0-16.0); LYMPH # 0.9 (1.2-3.4); LYMPH % 20.9 % (22.0-35.0); MEAN CELL VOLUME 82.8 fl (80.0-105.0); MEAN CORPUSCULAR HEMOGLOBIN 24.6 pg (25.0-35.0); MEAN CORPUSCULAR HGB CONC 29.7 g/dl (31.0-37.0); MEAN PLATELET VOLUME 9.9 fl (7.0-11.0); MONO # 0.7 (0.1-0.6); MONO % 15.1 % (1.0-6.0); RBC 3.78 10^6/uL (3.5-6.1); RED CELL DISTRIBUTION WIDTH 17.8 % (11.5-14.5); WHITE BLOOD COUNT 4.3 10^3/uL (4.5-11.0)
[2018-03-22 09:13] LABS: ALB/GLOB RATIO 1.2 (1.1-1.8); ALBUMIN 3.7 g/dL (3.0-4.8); ALT/SGPT 19 U/L (7-56); AST/SGOT 21 U/L (14-36); BLOOD UREA NITROGEN 13 mg/dL (7-21); CALCIUM 8.9 mg/dL (8.4-10.5); GFR NON-AFRICAN AMERICAN 55
[2018-03-22] MEDS: Sildenafil 20 MG TAB PO SCH ×3 (10:28→19:17)
[2018-03-22] MEDS: Mupirocin 2% Ointment 15 GM TUBE TOP SCH ×2 (10:29→19:17)
[2018-03-22] MEDS: Albuterol-Ipratrop 3 mg / 0.5 (3 ml) UD IH PRN (14:54)
[2018-03-22] MEDS ORDERED: Albuterol-Ipratrop 3 mg / 0.5 (3 ml) UD IH STA (18:18)
[2018-03-23] MEDS: Pantoprazole 40 mg EC Tab PO SCH (06:23)
[2018-03-23] MEDS: Arformoterol 15 mcg/2 ml Inh Sol IH SCH ×2 (07:19→19:20)
[2018-03-23] MEDS: Budesonide 0.5 mg/2 ml Inhal Susp UD IH SCH ×2 (07:19→19:20)
[2018-03-23 08:24] LABS: ALB/GLOB RATIO 1.2 (1.1-1.8); ALBUMIN 3.6 g/dL (3.0-4.8); ALT/SGPT 25 U/L (7-56); AST/SGOT 22 U/L (14-36); BLOOD UREA NITROGEN 13 mg/dL (7-21); CALCIUM 8.7 mg/dL (8.4-10.5); GFR NON-AFRICAN AMERICAN > 60
[2018-03-23 08:34] LABS: BASO # 0.02 K/mm3 (0.0-2.0); BASO % 0.5 % (0.0-3.0); EOS # 0.1 (0.0-0.7); EOS % 2.3 % (1.5-5.0); GRAN # 2.21 (1.4-6.5); LYMPH # 0.8 (1.2-3.4); LYMPH % 20.1 % (22.0-35.0); MEAN CELL VOLUME 82.6 fl (80.0-105.0); MEAN CORPUSCULAR HEMOGLOBIN 24.5 pg (25.0-35.0); MEAN CORPUSCULAR HGB CONC 29.6 g/dl (31.0-37.0); MEAN PLATELET VOLUME 9.6 fl (7.0-11.0); MONO # 0.8 (0.1-0.6); MONO % 20.1 % (1.0-6.0); PLATELET COUNT 331 10^3/uL (120.0-450.0); RBC 3.68 10^6/uL (3.5-6.1); RED CELL DISTRIBUTION WIDTH 17.9 % (11.5-14.5); WHITE BLOOD COUNT 3.9 10^3/uL (4.5-11.0)
[2018-03-23 09:16] LABS: EOSINOPHIL 1 % (0.0-3.0); LYMPHOCYTE 23 % (22.0-35.0); MONOCYTE 22 % (1.0-6.0); NEUTROPHIL 54 % (50.0-70.0)
[2018-03-23 09:17] LABS: HYPOCHROMIA SLIGHT; PLATELET ESTIMATE NORMAL (NORMAL)
[2018-03-23 09:18] LABS: LARGE PLATELETS PRESENT
[2018-03-23] MEDS: Mupirocin 2% Ointment 15 GM TUBE TOP SCH ×2 (10:36→18:05)
[2018-03-23] MEDS: Oxycodone/Acetaminophen 5/325 mg Tab PO PRN ×2 (10:37→22:04)
[2018-03-23] MEDS: Sildenafil 20 MG TAB PO SCH ×3 (10:39→18:05)
--- NOTE | 2018-03-23 11:18 | CP.PCM.PN ---
<Faheem Cunningham - Last Filed: 03/23/18 12:40> Subjective - Date & Time of Evaluation Date of Evaluation: 03/23/18 Time of Evaluation: 08:00 - Subjective Subjective: Patient seen and examined at bedside. Patient states she had trouble breathing overnight. She states she could not tolerate the BiPAP, it made her breathing worse. Denies chest pain, nausea, vomiting, diarrhea, fever, chills. Objective - Vital Signs/Intake and Output Vital Signs (last 24 hours): Temp Pulse Resp BP Pulse Ox 97 F L 71 18 130/74 91 L 03/22/18 17:25 03/23/18 06:55 03/22/18 17:25 03/23/18 10:36 03/22/18 05:52 Intake and Output: 03/23/18 03/23/18 06:59 18:59 Intake Total 720 Output Total 600 Balance 120 - Medications Medications: Current Medications Acetaminophen (Tylenol 325mg Tab) 650 mg PO Q6H PRN PRN Reason: Headache Last Admin: 03/05/18 21:07 Dose: 650 mg Albuterol/Ipratropium (Duoneb 3 Mg/0.5 Mg (3 Ml) Ud) 3 ml IH [id number] PRN PRN Reason: Shortness of Breath Last Admin: 03/22/18 14:54 Dose: 3 ml Arformoterol Tartrate (Brovana) 15 mcg IH [id number] [facility] Last Admin: 03/23/18 07:19 Dose: 15 mcg Budesonide (Pulmicort Respules) 0.5 mg IH [id number] [facility] Last Admin: 03/23/18 07:19 Dose: 0.5 mg Furosemide (Lasix) 40 mg IVP Q12 [facility] Last Admin: 03/23/18 10:36 Dose: 40 mg Gabapentin (Neurontin) 300 mg PO TID [facility]; Protocol Last Admin: 03/23/18 10:37 Dose: 300 mg Mupirocin (Bactroban Ointment) 1 gm TOP BID [facility] Last Admin: 03/23/18 10:36 Dose: 1 applic Oxycodone/Acetaminophen (Percocet 5/325 Mg Tab) 1 tab PO Q4H PRN PRN Reason: Pain, severe (8-10) Stop: 03/23/18 22:35 Last Admin: 03/23/18 10:37 Dose: 1 tab Pantoprazole Sodium (Protonix Ec Tab) 40 mg PO 0600 [facility] Last Admin: 03/23/18 06:23 Dose: 40 mg Rivaroxaban (Xarelto) 20 mg PO DAILY [facility]; Protocol Last Admin: 03/23/18 10:39 Dose: 20 mg Sildenafil Citrate (Revatio) 20 mg PO TID [facility] Last Admin: 03/23/18 10:39 Dose: 20 mg - Labs Labs: 03/23/18 08:00 03/23/18 08:00 PT 35.6 SECONDS (9.4-12.5) H 03/01/18 18:48 INR 3.05 03/01/18 18:48 APTT 32.1 Seconds (25.1-36.5) 03/01/18 18:48 - Constitutional Appears: Non-toxic, No Acute Distress - Head Exam Head Exam: ATRAUMATIC, NORMAL INSPECTION, NORMOCEPHALIC - ENT Exam ENT Exam: Mucous Membranes Moist - Respiratory Exam Respiratory Exam: Decreased Breath Sounds, NORMAL BREATHING PATTERN. absent: Rales, Rhonchi, Wheezes - Cardiovascular Exam Cardiovascular Exam: RRR, +S1, +S2 - GI/Abdominal Exam GI & Abdominal Exam: Soft, Normal Bowel Sounds. absent: Tenderness - Extremities Exam Extremities Exam: Pedal Edema (+2 on right). 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 Patient requiring further help from physical therapy. Shortness of breath secondary to pulm HTN - Continue Lasix 40 mg IV BID - Continue Duonebs q4H PRN - Continue Brovana 15 mcg Q12H - Continue Pulmicort .5 mg BID - Continue Sildenafil 20 mg PO TID - Continue fluid restrict to 1.2 L daily - Pulmonary consulted, recommending continued therapy and emphasis on bipap. No further recommendations at this time - Continue PT Bilateral leg pain - Echo 01/14 show RV is severely dilated, RV systolic function is severely reduced, RA is severely dilated, severe TR, severe pulm HTN - Lower extremity Dopplers negative for DVT - Lasix 40 mg IV BID - Gabapentin 300 TID Hemoptysis - resolved - Hgb stable - Xarelto 20 mg PO daily - Guaifenesin DM for cough LAYO - BiPAP at night, patient noncomplaint PPX - Xarelto 20 mg PO daily, SCDs - Protonix 40 mg PO daily DAVID CunninghamY-3 <Jenn Carrington - Last Filed: 03/23/18 12:44> Objective - Vital Signs/Intake and Output Vital Signs (last 24 hours): Temp Pulse Resp BP Pulse Ox 97.7 F 77 20 112/66 91 L 03/23/18 12:00 03/23/18 12:00 03/23/18 12:00 03/23/18 12:00 03/22/18 05:52 Intake and Output: 03/23/18 03/23/18 06:59 18:59 Intake Total 720 Output Total 600 Balance 120 - Medications Medications: Current Medications Acetaminophen (Tylenol 325mg Tab) 650 mg PO Q6H PRN PRN Reason: Headache Last Admin: 03/05/18 21:07 Dose: 650 mg Albuterol/Ipratropium (Duoneb 3 Mg/0.5 Mg (3 Ml) Ud) 3 ml IH [id number] PRN PRN Reason: Shortness of Breath Last Admin: 03/22/18 14:54 Dose: 3 ml Arformoterol Tartrate (Brovana) 15 mcg IH [id number] [facility] Last Admin: 03/23/18 07:19 Dose: 15 mcg Budesonide (Pulmicort Respules) 0.5 mg IH [id number] [facility] Last Admin: 03/23/18 07:19 Dose: 0.5 mg Furosemide (Lasix) 40 mg IVP Q12 [facility] Last Admin: 03/23/18 10:36 Dose: 40 mg Gabapentin (Neurontin) 300 mg PO TID [facility]; Protocol Last Admin: 03/23/18 10:37 Dose: 300 mg Guaifenesin (Robitussin) 100 mg PO Q4H PRN PRN Reason: Cough Mupirocin (Bactroban Ointment) 1 gm TOP BID [facility] Last Admin: 03/23/18 10:36 Dose: 1 applic Oxycodone/Acetaminophen (Percocet 5/325 Mg Tab) 1 tab PO Q4H PRN PRN Reason: Pain, severe (8-10) Stop: 03/23/18 22:35 Last Admin: 03/23/18 10:37 Dose: 1 tab Pantoprazole Sodium (Protonix Ec Tab) 40 mg PO 0600 [facility] Last Admin: 03/23/18 06:23 Dose: 40 mg Rivaroxaban (Xarelto) 20 mg PO DAILY [facility]; Protocol Last Admin: 03/23/18 10:39 Dose: 20 mg Sildenafil Citrate (Revatio) 20 mg PO TID [facility] Last Admin: 03/23/18 10:39 Dose: 20 mg - Labs Labs: 03/23/18 08:00 03/23/18 08:00 PT 35.6 SECONDS (9.4-12.5) H 03/01/18 18:48 INR 3.05 03/01/18 18:48 APTT 32.1 Seconds (25.1-36.5) 03/01/18 18:48 Attending/Attestation - Attestation I have personally seen and examined this patient.: Yes I have fully participated in the care of the patient.: Yes I have reviewed all pertinent clinical information, including history, physical exam and plan: Yes Notes (Text): 03/23/18 12:43 43 year old female with past medical history of severe pulmonary hypertension, DVT/PE on xarelto, COPD, LAYO, CHF and history of left leg amputation who presented with leg pain/swelling and shortness of breath. She was treated for COPD/CHF exacerbation. Hospital course was complicated with acute on chronic hypoxia with minimal exertion. Currently she is on iv lasix, duonebs, brovana, pulmicort, xarelto and revatio. Issue of O2 and BiPAP compliance was discussed again with patient in detail today. Pulmonary and PT are following. Currently she still has significant dyspnea and hypoxia even with minimal exertion. Overall prognosis is guarded. Jenn Carrington MD Hospitalist.
--- NOTE | 2018-03-23 12:57 | PN ---
DATE: 03/23/2018 SUBJECTIVE: The patient was seen and examined today. The patient was downgraded to the medical site. The patient had trouble breathing overnight and the patient is on BiPAP. Briefly, the patient was in ICU. This screenplay writer was involved into the patient's care because the patient presented to be depressed, which is expected. The patient is status post left leg amputation and the patient had severe COPD. Please see initial consultation note for more detailed information. The patient was seen today. The patient presented with some improvement of her depressive symptoms, but still the patient appears to be annoyed and irritable with questions. The patient physically looked better to compare with ICU. The patient was able to hold conversation. The patient said that her family is coming and visiting her. The patient reported that she has three brothers who are planning to come and visit her. The patient reported that her mood is a little bit better. The patient denied any thoughts of harming herself or others. The patient reported that she would never kill herself because it is a sin. The patient is not psychotic. Denied feeling anxious. PHYSICAL EXAMINATION: VITAL SIGNS: Seems to be stable. Temperature 97, pulse 71, blood pressure 130/74, respirations 18. The patient is on BiPAP machine. MEDICATIONS: Reviewed. Tylenol, DuoNeb, Brovana, Pulmicort, Lasix, Neurontin, Bactroban, Percocet, Protonix, Xarelto, and Revatio. LABORATORY DATA: Labs reviewed. Most recent was from today. WBC 3.9, hemoglobin and hematocrit 9 and 30.4. Coagulation reviewed. Chemistry reviewed. Urinalysis reviewed. Leukocyte esterase trace. MENTAL STATUS EXAM: The patient appears to be alert, somewhat annoyed, intermittent eye contact. The patient does not want to have conversation, was disengaged, preferred to watch TV or playing on her cell phone. Mood described as better. Affect was constricted. Thought process seems to be coherent, goal directed. Thought content, the patient denied visual, auditory or tactile hallucinations. Denied paranoid ideation. The patient denied thoughts of harming herself or others because "it is a sin." The patient does not present to be psychotic. Insight and judgment seems to be improving. Impulses are well controlled. IMPRESSION: Rule out adjustment disorder, rule out mood disorder due to general medical condition. PLAN: Continue current management. Continue current medication. The patient denied being suicidal. The patient denied feeling anxious. Emotional support and empathic listening provided. The patient pose no imminent danger to self or others. This screenplay writer will sign off. Should you have any questions, give me a call back. Ann Diehl MD
[2018-03-23] MEDS: guaiFENesin 100 mg/5 ml Syrup UD PO PRN ×2 (13:28→22:06)
[2018-03-24] MEDS: Albuterol-Ipratrop 3 mg / 0.5 (3 ml) UD IH PRN (00:55)
[2018-03-24] MEDS: Pantoprazole 40 mg EC Tab PO SCH (05:38)
[2018-03-24] MEDS: Budesonide 0.5 mg/2 ml Inhal Susp UD IH SCH ×2 (07:24→19:14)
[2018-03-24] MEDS: Arformoterol 15 mcg/2 ml Inh Sol IH SCH ×2 (07:24→19:14)
--- NOTE | 2018-03-24 07:24 | CP.PCM.PN ---
<Adali Short - Last Filed: 03/24/18 11:28> Subjective - Date & Time of Evaluation Date of Evaluation: 03/24/18 Time of Evaluation: 07:21 - Subjective Subjective: Adali Short DO, PGY-2: Hospitalist Progress Note Patient was seen and examined at bedside. She was resting comfortably on BIPAP. Patient reports she came to the hospital not for oxygen issues, but for inability to ambulate with left leg and walker. Informed patient that physical therapy will be coming to see her today. Otherwise, chart review indicates no adverse events overnight. On subsequent visit in the morning, patient complained of left arm being swollen. She scaled it as a 8/10 in severity. Venous US ordered to rule out DVT. Objective - Vital Signs/Intake and Output Vital Signs (last 24 hours): Temp Pulse Resp BP Pulse Ox 97.8 F 74 18 99/61 L 95 03/24/18 06:00 03/24/18 06:00 03/24/18 06:00 03/24/18 06:00 03/24/18 06:00 Intake and Output: 03/24/18 03/24/18 06:59 18:59 Intake Total 660 Output Total 1000 Balance -340 - Medications Medications: Current Medications Acetaminophen (Tylenol 325mg Tab) 650 mg PO Q6H PRN PRN Reason: Headache Last Admin: 03/05/18 21:07 Dose: 650 mg Albuterol/Ipratropium (Duoneb 3 Mg/0.5 Mg (3 Ml) Ud) 3 ml IH [id number] PRN PRN Reason: Shortness of Breath Last Admin: 03/24/18 00:55 Dose: 3 ml Arformoterol Tartrate (Brovana) 15 mcg IH [id number] [facility] Last Admin: 03/23/18 19:20 Dose: 15 mcg Budesonide (Pulmicort Respules) 0.5 mg IH [id number] [facility] Last Admin: 03/23/18 19:20 Dose: 0.5 mg Furosemide (Lasix) 40 mg IVP Q12 [facility] Last Admin: 03/23/18 22:05 Dose: 40 mg Gabapentin (Neurontin) 300 mg PO TID [facility]; Protocol Last Admin: 03/23/18 18:05 Dose: 300 mg Guaifenesin (Robitussin) 100 mg PO Q4H PRN PRN Reason: Cough Last Admin: 03/23/18 22:06 Dose: 100 mg Mupirocin (Bactroban Ointment) 1 gm TOP BID [facility] Last Admin: 03/23/18 18:05 Dose: 1 applic Pantoprazole Sodium (Protonix Ec Tab) 40 mg PO 0600 [facility] Last Admin: 03/24/18 05:38 Dose: 40 mg Rivaroxaban (Xarelto) 20 mg PO DAILY [facility]; Protocol Last Admin: 03/23/18 10:39 Dose: 20 mg Sildenafil Citrate (Revatio) 20 mg PO TID [facility] Last Admin: 03/23/18 18:05 Dose: 20 mg - Labs Labs: 03/23/18 08:00 03/23/18 08:00 PT 35.6 SECONDS (9.4-12.5) H 03/01/18 18:48 INR 3.05 03/01/18 18:48 APTT 32.1 Seconds (25.1-36.5) 03/01/18 18:48 - Constitutional Appears: Non-toxic - Head Exam Head Exam: ATRAUMATIC, NORMOCEPHALIC - Eye Exam Eye Exam: EOMI, Normal appearance - ENT Exam ENT Exam: Mucous Membranes Moist - Neck Exam Neck Exam: Normal Inspection - Respiratory Exam Respiratory Exam: Decreased Breath Sounds (in bilateral lung base) - Cardiovascular Exam Cardiovascular Exam: RRR, +S1, +S2 - GI/Abdominal Exam GI & Abdominal Exam: Soft. 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 Patient requiring further help from physical therapy. Shortness of breath secondary to pulm HTN - Continue Lasix 40 mg IV BID - Continue Duonebs q4H PRN - Continue Brovana 15 mcg Q12H - Continue Pulmicort .5 mg BID - Continue Sildenafil 20 mg PO TID - Continue fluid restrict to 1.2 L daily - Pulmonary consulted, recommending continued therapy and emphasis on bipap. No further recommendations at this time - Continue PT Bilateral leg pain - Echo 01/14 show RV is severely dilated, RV systolic function is severely reduced, RA is severely dilated, severe TR, severe pulm HTN - Lower extremity Dopplers negative for DVT - Lasix 40 mg IV BID - Gabapentin 300 TID Hemoptysis - resolved - Hgb stable - Xarelto 20 mg PO daily - Guaifenesin DM for cough LAYO - BiPAP at night, patient noncomplaint Right arm swelling - Doppler venous US to rule out DVT performed, interpretation pending - Raise affected extremity above heart level PPX - Xarelto 20 mg PO daily, SCDs - Protonix 40 mg PO daily Case reviewed and discussed with attending physician, Dr. Gross <Placido Gross - Last Filed: 03/26/18 15:01> Objective - Vital Signs/Intake and Output Vital Signs (last 24 hours): Temp Pulse Resp BP Pulse Ox 98.1 F 88 20 128/64 99 03/26/18 12:00 03/26/18 12:00 03/26/18 12:00 03/26/18 12:00 03/26/18 06:00 Intake and Output: 03/26/18 03/26/18 06:59 18:59 Intake Total 1500 Output Total 900 Balance 600 - Medications Medications: Current Medications Acetaminophen (Tylenol 325mg Tab) 650 mg PO Q6H PRN PRN Reason: Headache Last Admin: 03/05/18 21:07 Dose: 650 mg Albuterol/Ipratropium (Duoneb 3 Mg/0.5 Mg (3 Ml) Ud) 3 ml IH [id number] PRN PRN Reason: Shortness of Breath Last Admin: 03/26/18 04:15 Dose: 3 ml Arformoterol Tartrate (Brovana) 15 mcg IH [id number] [facility] Last Admin: 03/26/18 07:25 Dose: 15 mcg Budesonide (Pulmicort Respules) 0.5 mg IH [id number] [facility] Last Admin: 03/26/18 07:25 Dose: 0.5 mg Furosemide (Lasix) 40 mg IVP Q12 [facility] Last Admin: 03/26/18 09:47 Dose: 40 mg Gabapentin (Neurontin) 300 mg PO TID [facility]; Protocol Last Admin: 03/26/18 13:05 Dose: 300 mg Guaifenesin (Robitussin) 100 mg PO Q4H PRN PRN Reason: Cough Last Admin: 03/26/18 09:51 Dose: 100 mg Mupirocin (Bactroban Ointment) 1 gm TOP BID [facility] Last Admin: 03/26/18 09:59 Dose: 1 applic Pantoprazole Sodium (Protonix Ec Tab) 40 mg PO 0600 [facility] Last Admin: 03/26/18 05:29 Dose: 40 mg Rivaroxaban (Xarelto) 20 mg PO DAILY [facility]; Protocol Last Admin: 03/26/18 09:47 Dose: 20 mg Sildenafil Citrate (Revatio) 20 mg PO TID [facility] Last Admin: 03/26/18 13:05 Dose: 20 mg Tramadol HCl (Ultram) 50 mg PO TID PRN PRN Reason: Pain, severe (8-10) Last Admin: 03/26/18 09:51 Dose: 50 mg - Labs Labs: 03/26/18 06:00 03/26/18 06:00 PT 35.6 SECONDS (9.4-12.5) H 03/01/18 18:48 INR 3.05 03/01/18 18:48 APTT 32.1 Seconds (25.1-36.5) 03/01/18 18:48 Attending/Attestation - Attestation I have personally seen and examined this patient.: Yes I have fully participated in the care of the patient.: Yes I have reviewed all pertinent clinical information, including history, physical exam and plan: Yes Notes (Text): 03/26/18 15:01 Medical record note made by the resident after discussion with my direction and input after the patient was personally seen and examined by me. I have reviewed the chart and agree that the record accurately reflects by personal performance of the history, physical exam, data review, and medical decision-making, in the course for the patient. I have also personally directed the plan of care.
[2018-03-24 08:23] LABS: BASO # 0.01 K/mm3 (0.0-2.0); BASO % 0.2 % (0.0-3.0); EOS # 0.1 (0.0-0.7); EOS % 1.3 % (1.5-5.0); GRAN # 2.88 (1.4-6.5); GRAN % 60.6 % (50.0-68.0); HEMOGLOBIN 9.3 g/dL (12.0-16.0); LYMPH # 1.3 (1.2-3.4); LYMPH % 26.3 % (22.0-35.0); MEAN CELL VOLUME 82.1 fl (80.0-105.0); MEAN CORPUSCULAR HEMOGLOBIN 25.2 pg (25.0-35.0); MEAN CORPUSCULAR HGB CONC 30.7 g/dl (31.0-37.0); MEAN PLATELET VOLUME 9.4 fl (7.0-11.0); MONO # 0.6 (0.1-0.6); MONO % 11.6 % (1.0-6.0); RBC 3.69 10^6/uL (3.5-6.1); RED CELL DISTRIBUTION WIDTH 17.8 % (11.5-14.5); WHITE BLOOD COUNT 4.8 10^3/uL (4.5-11.0)
[2018-03-24 08:43] LABS: ALB/GLOB RATIO 1.3 (1.1-1.8); ALBUMIN 3.7 g/dL (3.0-4.8); ALT/SGPT 17 U/L (7-56); AST/SGOT 22 U/L (14-36); BLOOD UREA NITROGEN 14 mg/dL (7-21); GFR NON-AFRICAN AMERICAN > 60
[2018-03-24] MEDS: Sildenafil 20 MG TAB PO SCH ×3 (12:35→17:58)
[2018-03-24] MEDS: Mupirocin 2% Ointment 15 GM TUBE TOP SCH ×2 (12:36→17:58)
[2018-03-24] MEDS: guaiFENesin 100 mg/5 ml Syrup UD PO PRN (21:35)
--- NOTE | 2018-03-24 22:09 | US ---
PROCEDURE: Right upper extremity venous US CLINICAL HISTORY: Arm pain and swelling Evaluate for deep venous thrombosis. PHYSICIAN(S): Farshad Garcia M.D FINDINGS: The exam is limited by body habitus and the patient's inability to cooperate The visualized rightinternal jugular vein is sonographically normal and compressible. No evidence of obstruction or thrombus is seen. The visualized segments of the right subclavian vein are patent with normal waveforms. No sonographic evidence of obstruction or thrombosis is seen. The visualized deep venous system of the proximal right upper extremity is sonographically normal and compressible. IMPRESSION: 1. No sonographic evidence for deep venous thrombosis in the visualized segments of the right upper extremity. 2. Limited study
[2018-03-25] MEDS: Pantoprazole 40 mg EC Tab PO SCH (05:13)
[2018-03-25 05:58] LABS: BASO # 0.02 K/mm3 (0.0-2.0); BASO % 0.4 % (0.0-3.0); EOS # 0.1 (0.0-0.7); EOS % 1.1 % (1.5-5.0); GRAN # 2.69 (1.4-6.5); GRAN % 60.2 % (50.0-68.0); HEMOGLOBIN 8.9 g/dL (12.0-16.0); LYMPH # 1.2 (1.2-3.4); LYMPH % 27.1 % (22.0-35.0); MEAN CELL VOLUME 81.8 fl (80.0-105.0); MEAN CORPUSCULAR HEMOGLOBIN 24.6 pg (25.0-35.0); MEAN CORPUSCULAR HGB CONC 30.1 g/dl (31.0-37.0); MEAN PLATELET VOLUME 9.7 fl (7.0-11.0); MONO # 0.5 (0.1-0.6); MONO % 11.2 % (1.0-6.0); RBC 3.62 10^6/uL (3.5-6.1); RED CELL DISTRIBUTION WIDTH 17.8 % (11.5-14.5); WHITE BLOOD COUNT 4.5 10^3/uL (4.5-11.0)
--- NOTE | 2018-03-25 06:45 | CP.PCM.PN ---
<Lisa Begum L - Last Filed: 03/25/18 12:14> Subjective - Date & Time of Evaluation Date of Evaluation: 03/25/18 Time of Evaluation: 06:45 - Subjective Subjective: Resident Progress Note for Hospitalist Service Patient examined at bedside. No acute events overnight. Patient was resting comfortably in bed with bipap mask on. Patient states she does not want endarterectomy even if this were an option. Patient was counseled on importance of using bipap. Denies fevers, chills, chest pain, shortness of breath, abdominal pain, dysuria. Objective - Vital Signs/Intake and Output Vital Signs (last 24 hours): Temp Pulse Resp BP Pulse Ox 98.3 F 75 20 123/76 96 03/25/18 00:01 03/25/18 02:00 03/25/18 00:01 03/25/18 00:01 03/25/18 00:01 Intake and Output: 03/24/18 03/25/18 18:59 06:59 Intake Total 1660 Output Total 500 1650 Balance -500 10 - Medications Medications: Current Medications Acetaminophen (Tylenol 325mg Tab) 650 mg PO Q6H PRN PRN Reason: Headache Last Admin: 03/05/18 21:07 Dose: 650 mg Albuterol/Ipratropium (Duoneb 3 Mg/0.5 Mg (3 Ml) Ud) 3 ml IH [id number] PRN PRN Reason: Shortness of Breath Last Admin: 03/24/18 00:55 Dose: 3 ml Arformoterol Tartrate (Brovana) 15 mcg IH [id number] [facility] Last Admin: 03/24/18 19:14 Dose: 15 mcg Budesonide (Pulmicort Respules) 0.5 mg IH [id number] [facility] Last Admin: 03/24/18 19:14 Dose: 0.5 mg Furosemide (Lasix) 40 mg IVP Q12 [facility] Last Admin: 03/24/18 21:35 Dose: 40 mg Gabapentin (Neurontin) 300 mg PO TID [facility]; Protocol Last Admin: 03/24/18 17:58 Dose: 300 mg Guaifenesin (Robitussin) 100 mg PO Q4H PRN PRN Reason: Cough Last Admin: 03/24/18 21:35 Dose: 100 mg Mupirocin (Bactroban Ointment) 1 gm TOP BID [facility] Last Admin: 03/24/18 17:58 Dose: 1 applic Pantoprazole Sodium (Protonix Ec Tab) 40 mg PO 0600 [facility] Last Admin: 03/25/18 05:13 Dose: 40 mg Rivaroxaban (Xarelto) 20 mg PO DAILY [facility]; Protocol Last Admin: 03/24/18 12:35 Dose: 20 mg Sildenafil Citrate (Revatio) 20 mg PO TID [facility] Last Admin: 03/24/18 17:58 Dose: 20 mg Tramadol HCl (Ultram) 50 mg PO TID PRN PRN Reason: Pain, severe (8-10) Last Admin: 03/24/18 17:58 Dose: 50 mg - Labs Labs: 03/25/18 05:30 03/24/18 08:00 PT 35.6 SECONDS (9.4-12.5) H 03/01/18 18:48 INR 3.05 03/01/18 18:48 APTT 32.1 Seconds (25.1-36.5) 03/01/18 18:48 - Additional Findings Additional findings: - Constitutional Appears: No Acute Distress - Head Exam Head Exam: ATRAUMATIC, NORMOCEPHALIC - Eye Exam Eye Exam: EOMI - ENT Exam ENT Exam: Mucous Membranes Moist - Neck Exam Neck Exam: Full ROM - Respiratory Exam Respiratory Exam: Decreased Breath Sounds (on the right). absent: Rales, Rhonchi, Wheezes, Respiratory Distress - GI/Abdominal Exam GI & Abdominal Exam: Soft, Normal Bowel Sounds. 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 Patient requiring further help from physical therapy. Plan: Shortness of breath - Lasix 40 mg IV BID - Duonebs q4H PRN - Brovana 15 mcg Q12H - Pulmicort .5 mg BID - Sildenafil 20 mg PO TID - Continue fluid restrict to 1.2 L daily - Pulmonary consulted, recommending continued therapy and emphasis on bipap. No further recommendations at this time - Continue PT Bilateral leg pain - Echo 01/14 show RV is severely dilated, RV systolic function is severely reduced, RA is severely dilated, severe TR, severe pulm HTN - Lower extremity Dopplers negative for DVT - Lasix 40 mg IV BID - Gabapentin 300 TID Hemoptysis - resolved - Hgb stable - Xarelto 20 mg PO daily - Guaifenesin DM for cough LAYO - BiPAP at night, patient noncomplaint Right arm swelling - Doppler venous US negative for DVT - Raise affected extremity above heart level PPX - Xarelto 20 mg PO daily, SCDs - Protonix 40 mg PO daily Case discussed with Dr. Renato Begum PGY-1 <Placido Gross - Last Filed: 03/25/18 16:28> Objective - Vital Signs/Intake and Output Vital Signs (last 24 hours): Temp Pulse Resp BP Pulse Ox 97.6 F 75 20 135/72 93 L 03/25/18 06:00 03/25/18 07:24 03/25/18 06:00 03/25/18 12:25 03/25/18 06:00 Intake and Output: 03/25/18 03/25/18 06:59 18:59 Intake Total 1660 Output Total 1650 Balance 10 - Medications Medications: Current Medications Acetaminophen (Tylenol 325mg Tab) 650 mg PO Q6H PRN PRN Reason: Headache Last Admin: 03/05/18 21:07 Dose: 650 mg Albuterol/Ipratropium (Duoneb 3 Mg/0.5 Mg (3 Ml) Ud) 3 ml IH [id number] PRN PRN Reason: Shortness of Breath Last Admin: 03/24/18 00:55 Dose: 3 ml Arformoterol Tartrate (Brovana) 15 mcg IH [id number] [facility] Last Admin: 03/25/18 07:21 Dose: 15 mcg Budesonide (Pulmicort Respules) 0.5 mg IH [id number] [facility] Last Admin: 03/25/18 07:21 Dose: 0.5 mg Furosemide (Lasix) 40 mg IVP Q12 [facility] Last Admin: 03/25/18 12:25 Dose: 40 mg Gabapentin (Neurontin) 300 mg PO TID [facility]; Protocol Last Admin: 03/25/18 16:03 Dose: Not Given Guaifenesin (Robitussin) 100 mg PO Q4H PRN PRN Reason: Cough Last Admin: 03/25/18 15:02 Dose: 100 mg Mupirocin (Bactroban Ointment) 1 gm TOP BID [facility] Last Admin: 03/25/18 12:31 Dose: 1 applic Pantoprazole Sodium (Protonix Ec Tab) 40 mg PO 0600 [facility] Last Admin: 03/25/18 05:13 Dose: 40 mg Rivaroxaban (Xarelto) 20 mg PO DAILY [facility]; Protocol Last Admin: 03/25/18 12:30 Dose: 20 mg Sildenafil Citrate (Revatio) 20 mg PO TID [facility] Last Admin: 03/25/18 16:02 Dose: Not Given Tramadol HCl (Ultram) 50 mg PO TID PRN PRN Reason: Pain, severe (8-10) Last Admin: 03/25/18 12:30 Dose: 50 mg - Labs Labs: 03/25/18 05:30 03/25/18 05:15 PT 35.6 SECONDS (9.4-12.5) H 03/01/18 18:48 INR 3.05 03/01/18 18:48 APTT 32.1 Seconds (25.1-36.5) 03/01/18 18:48 Attending/Attestation - Attestation I have personally seen and examined this patient.: Yes I have fully participated in the care of the patient.: Yes I have reviewed all pertinent clinical information, including history, physical exam and plan: Yes Notes (Text): 03/25/18 16:20 Medical record note made by the resident after discussion with my direction and input after the patient was personally seen and examined by me. I have reviewed the chart and agree that the record accurately reflects by personal performance of the history, physical exam, data review, and medical decision-making, in the course for the patient. I have also personally directed the plan of care. 42 yrs female with PMH of severe Pulm HTN, diastolic CHF, PE/DVT on xarelto, , COPD on 4L home O2, LAYO w/ CPAP, was admitted with worsening dyspnea (acute on chronic hypoxic Resp Failure). [facility] and worsening of hypoxic Resp Failure which is multifactorial due to severe Pulmonary HTN and diastolic CHF.(Pulmonary HTN is multifactorial due to diastolic CHF, chronic thrombo embolism and sleep apnea.She has right heart cath done at , that showed elevated pulmonary wedge pressure 80, V/Q scan over there was high probability.) Currently patient is on IV lasix, still has leg edema but lung sounds are clear, will avoid overdiuresis as blood pressure is soft and hypotension will be catastrophic in this patient with severe Pulmonary HTN. Patient has refused thrombectomy again as it was offered to her previously by Pulmonary HTN clinic Patient is on 5 L nasal cannula and CPAP at night time. Prognosis is guarded.
[2018-03-25 07:17] LABS: ALB/GLOB RATIO 1.2 (1.1-1.8); ALBUMIN 3.6 g/dL (3.0-4.8); ALT/SGPT 20 U/L (7-56); AST/SGOT 23 U/L (14-36); BLOOD UREA NITROGEN 15 mg/dL (7-21); CALCIUM 8.9 mg/dL (8.4-10.5); GFR NON-AFRICAN AMERICAN > 60
[2018-03-25] MEDS: Budesonide 0.5 mg/2 ml Inhal Susp UD IH SCH ×2 (07:21→20:19)
[2018-03-25] MEDS: Arformoterol 15 mcg/2 ml Inh Sol IH SCH ×2 (07:21→20:19)
[2018-03-25] MEDS: Sildenafil 20 MG TAB PO SCH ×3 (12:30→18:26)
[2018-03-25] MEDS: Mupirocin 2% Ointment 15 GM TUBE TOP SCH ×2 (12:31→18:30)
[2018-03-25] MEDS: guaiFENesin 100 mg/5 ml Syrup UD PO PRN (15:02)
[2018-03-26] MEDS: guaiFENesin 100 mg/5 ml Syrup UD PO PRN ×3 (03:39→15:36)
[2018-03-26] MEDS: Albuterol-Ipratrop 3 mg / 0.5 (3 ml) UD IH PRN (04:15)
[2018-03-26] MEDS: Pantoprazole 40 mg EC Tab PO SCH (05:29)
[2018-03-26 06:30] LABS: BASO # 0.03 K/mm3 (0.0-2.0); BASO % 0.5 % (0.0-3.0); EOS # 0.1 (0.0-0.7); EOS % 1.1 % (1.5-5.0); GRAN # 3.44 (1.4-6.5); GRAN % 62.6 % (50.0-68.0); HEMOGLOBIN 9.1 g/dL (12.0-16.0); LYMPH # 0.6 (1.2-3.4); LYMPH % 11.6 % (22.0-35.0); MEAN CELL VOLUME 81.4 fl (80.0-105.0); MEAN CORPUSCULAR HEMOGLOBIN 24.9 pg (25.0-35.0); MEAN CORPUSCULAR HGB CONC 30.5 g/dl (31.0-37.0); MEAN PLATELET VOLUME 9.8 fl (7.0-11.0); MONO # 1.3 (0.1-0.6); MONO % 24.2 % (1.0-6.0); RBC 3.66 10^6/uL (3.5-6.1); RED CELL DISTRIBUTION WIDTH 17.6 % (11.5-14.5); WHITE BLOOD COUNT 5.5 10^3/uL (4.5-11.0)
--- NOTE | 2018-03-26 07:05 | CP.PCM.PN ---
<Lisa Begum L - Last Filed: 03/26/18 13:06> Subjective - Date & Time of Evaluation Date of Evaluation: 03/26/18 Time of Evaluation: 07:04 - Subjective Subjective: Resident Progress Note for Hospitalist Service Patient examined at bedside. No acute events overnight. Patient admits to intermittent headache and dizziness. She is noncompliant with bipap and nasal cannula use. Patient was counseled on importance of using oxygen support. Patient refuses placement in termite helper care facility. Objective - Vital Signs/Intake and Output Vital Signs (last 24 hours): Temp Pulse Resp BP Pulse Ox 98.2 F 93 H 21 105/63 99 03/26/18 06:00 03/26/18 06:00 03/26/18 06:00 03/26/18 06:00 03/26/18 06:00 Intake and Output: 03/26/18 03/26/18 06:59 18:59 Intake Total 1500 Output Total 900 Balance 600 - Medications Medications: Current Medications Acetaminophen (Tylenol 325mg Tab) 650 mg PO Q6H PRN PRN Reason: Headache Last Admin: 03/05/18 21:07 Dose: 650 mg Albuterol/Ipratropium (Duoneb 3 Mg/0.5 Mg (3 Ml) Ud) 3 ml IH [id number] PRN PRN Reason: Shortness of Breath Last Admin: 03/26/18 04:15 Dose: 3 ml Arformoterol Tartrate (Brovana) 15 mcg IH [id number] [facility] Last Admin: 03/25/18 20:19 Dose: 15 mcg Budesonide (Pulmicort Respules) 0.5 mg IH [id number] [facility] Last Admin: 03/25/18 20:19 Dose: 0.5 mg Furosemide (Lasix) 40 mg IVP Q12 [facility] Last Admin: 03/25/18 21:47 Dose: 40 mg Gabapentin (Neurontin) 300 mg PO TID [facility]; Protocol Last Admin: 03/25/18 18:26 Dose: 300 mg Guaifenesin (Robitussin) 100 mg PO Q4H PRN PRN Reason: Cough Last Admin: 03/26/18 03:39 Dose: 100 mg Mupirocin (Bactroban Ointment) 1 gm TOP BID [facility] Last Admin: 03/25/18 18:30 Dose: 1 applic Pantoprazole Sodium (Protonix Ec Tab) 40 mg PO 0600 [facility] Last Admin: 03/26/18 05:29 Dose: 40 mg Rivaroxaban (Xarelto) 20 mg PO DAILY [facility]; Protocol Last Admin: 03/25/18 12:30 Dose: 20 mg Sildenafil Citrate (Revatio) 20 mg PO TID [facility] Last Admin: 03/25/18 18:26 Dose: 20 mg Tramadol HCl (Ultram) 50 mg PO TID PRN PRN Reason: Pain, severe (8-10) Last Admin: 03/25/18 18:29 Dose: 50 mg - Labs Labs: 03/26/18 06:00 03/25/18 05:15 PT 35.6 SECONDS (9.4-12.5) H 03/01/18 18:48 INR 3.05 03/01/18 18:48 APTT 32.1 Seconds (25.1-36.5) 03/01/18 18:48 - Additional Findings Additional findings: - Constitutional Appears: No Acute Distress - Head Exam Head Exam: ATRAUMATIC, NORMOCEPHALIC - Eye Exam Eye Exam: EOMI - ENT Exam ENT Exam: Mucous Membranes Moist - Neck Exam Neck Exam: Full ROM - Respiratory Exam Respiratory Exam: Decreased Breath Sounds (on the right). absent: Rales, Rhonchi, Wheezes, Respiratory Distress - GI/Abdominal Exam GI & Abdominal Exam: Soft, Normal Bowel Sounds. 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 Plan: Shortness of breath - Lasix 40 mg IV BID - Duonebs q4H PRN - Brovana 15 mcg Q12H - Pulmicort .5 mg BID - Sildenafil 20 mg PO TID - Continue fluid restrict to 1.2 L daily - Pulmonary consulted, recommending continued therapy and emphasis on bipap. No further recommendations at this time - Continue PT Bilateral leg pain - Echo 01/14 show RV is severely dilated, RV systolic function is severely reduced, RA is severely dilated, severe TR, severe pulm HTN - Lower extremity Dopplers negative for DVT - Lasix 40 mg IV BID - Gabapentin 300 mg TID - Tramadol 50 mg PO TID PRN Hemoptysis - resolved - Hgb stable - Xarelto 20 mg PO daily - Guaifenesin DM for cough LAYO - BiPAP at night, patient noncomplaint Right arm swelling - Doppler venous US negative for DVT - Raise affected extremity above heart level PPX - Xarelto 20 mg PO daily, SCDs - Protonix 40 mg PO daily Dispo: awaiting approval of home oxygen Case discussed with Dr. Renato Begum PGY-1 <Placido Gross - Last Filed: 03/26/18 15:01> Objective - Vital Signs/Intake and Output Vital Signs (last 24 hours): Temp Pulse Resp BP Pulse Ox 98.1 F 88 20 128/64 99 03/26/18 12:00 03/26/18 12:00 03/26/18 12:00 03/26/18 12:00 03/26/18 06:00 Intake and Output: 03/26/18 03/26/18 06:59 18:59 Intake Total 1500 Output Total 900 Balance 600 - Medications Medications: Current Medications Acetaminophen (Tylenol 325mg Tab) 650 mg PO Q6H PRN PRN Reason: Headache Last Admin: 03/05/18 21:07 Dose: 650 mg Albuterol/Ipratropium (Duoneb 3 Mg/0.5 Mg (3 Ml) Ud) 3 ml IH [id number] PRN PRN Reason: Shortness of Breath Last Admin: 03/26/18 04:15 Dose: 3 ml Arformoterol Tartrate (Brovana) 15 mcg IH [id number] [facility] Last Admin: 03/26/18 07:25 Dose: 15 mcg Budesonide (Pulmicort Respules) 0.5 mg IH [id number] [facility] Last Admin: 03/26/18 07:25 Dose: 0.5 mg Furosemide (Lasix) 40 mg IVP Q12 [facility] Last Admin: 03/26/18 09:47 Dose: 40 mg Gabapentin (Neurontin) 300 mg PO TID [facility]; Protocol Last Admin: 03/26/18 13:05 Dose: 300 mg Guaifenesin (Robitussin) 100 mg PO Q4H PRN PRN Reason: Cough Last Admin: 03/26/18 09:51 Dose: 100 mg Mupirocin (Bactroban Ointment) 1 gm TOP BID [facility] Last Admin: 03/26/18 09:59 Dose: 1 applic Pantoprazole Sodium (Protonix Ec Tab) 40 mg PO 0600 [facility] Last Admin: 03/26/18 05:29 Dose: 40 mg Rivaroxaban (Xarelto) 20 mg PO DAILY [facility]; Protocol Last Admin: 03/26/18 09:47 Dose: 20 mg Sildenafil Citrate (Revatio) 20 mg PO TID [facility] Last Admin: 03/26/18 13:05 Dose: 20 mg Tramadol HCl (Ultram) 50 mg PO TID PRN PRN Reason: Pain, severe (8-10) Last Admin: 03/26/18 09:51 Dose: 50 mg - Labs Labs: 03/26/18 06:00 03/26/18 06:00 PT 35.6 SECONDS (9.4-12.5) H 03/01/18 18:48 INR 3.05 03/01/18 18:48 APTT 32.1 Seconds (25.1-36.5) 03/01/18 18:48 Attending/Attestation - Attestation I have personally seen and examined this patient.: Yes I have fully participated in the care of the patient.: Yes I have reviewed all pertinent clinical information, including history, physical exam and plan: Yes Notes (Text): 03/26/18 14:55 Medical record note made by the resident after discussion with my direction and input after the patient was personally seen and examined by me. I have reviewed the chart and agree that the record accurately reflects by personal performance of the history, physical exam, data review, and medical decision-making, in the course for the patient. I have also personally directed the plan of care. 42 yrs female with PMH of severe Pulm HTN, diastolic CHF, PE/DVT on xarelto, , COPD on 4L home O2, LAYO w/ CPAP, was admitted with worsening dyspnea (acute on chronic hypoxic Resp Failure). Patient had prolong stay in the [facility] due to offf and worsening of hypoxic Resp Failure which is multifactorial due to severe Pulmonary HTN and diastolic CHF.(Pulmonary HTN is multifactorial due to diastolic CHF, chronic thrombo embolism and sleep apnea.She has right heart cath done at , that showed elevated pulmonary wedge pressure 80, V/Q scan over t here was high probability.) Currently patient is on IV lasix, still has leg edema but lung sounds are clear,Patient is at her base line, will change lasix to 60 mg PO BID at the time of discharge. Patient has refused thrombectomy again as it was offered to her previously by Pulmonary HTN clinic Patient is on 5 L nasal cannula and BIPAP at night time. Patient has refused termite helper NH placement, insurance has denied multiple time JESUS , patient is also very non compliance.Case management is working on disposition as patient does not has oxygen delivery at home.If patient remain stable and oxygen is arrranged, she can be discharged home, will need follow up with Pulmonary HTN clinic. Prognosis is guarded.
[2018-03-26 07:11] LABS: ALB/GLOB RATIO 1.3 (1.1-1.8); ALBUMIN 3.6 g/dL (3.0-4.8); ALT/SGPT 16 U/L (7-56); AST/SGOT 20 U/L (14-36); BLOOD UREA NITROGEN 15 mg/dL (7-21); CALCIUM 9.1 mg/dL (8.4-10.5); GFR NON-AFRICAN AMERICAN > 60
[2018-03-26] MEDS: Budesonide 0.5 mg/2 ml Inhal Susp UD IH SCH ×2 (07:25→19:20)
[2018-03-26] MEDS: Arformoterol 15 mcg/2 ml Inh Sol IH SCH ×2 (07:25→19:20)
[2018-03-26] MEDS: Sildenafil 20 MG TAB PO SCH ×3 (09:47→17:21)
[2018-03-26] MEDS: Mupirocin 2% Ointment 15 GM TUBE TOP SCH ×2 (09:59→17:23)
[2018-03-26] MEDS ORDERED: Oxycodone/Acetaminophen 2.5/325 mg Tab PO ONE (12:25)
[2018-03-27] MEDS: Albuterol-Ipratrop 3 mg / 0.5 (3 ml) UD IH PRN (03:53)
[2018-03-27] MEDS: Pantoprazole 40 mg EC Tab PO SCH (06:21)
[2018-03-27 07:19] LABS: BASO # 0.02 K/mm3 (0.0-2.0); BASO % 0.4 % (0.0-3.0); EOS % 0.7 % (1.5-5.0); GRAN # 3.73 (1.4-6.5); GRAN % 66.6 % (50.0-68.0); LYMPH # 1.1 (1.2-3.4); LYMPH % 19.1 % (22.0-35.0); MEAN CELL VOLUME 80.7 fl (80.0-105.0); MEAN CORPUSCULAR HEMOGLOBIN 24.5 pg (25.0-35.0); MEAN CORPUSCULAR HGB CONC 30.4 g/dl (31.0-37.0); MEAN PLATELET VOLUME 9.7 fl (7.0-11.0); MONO # 0.7 (0.1-0.6); MONO % 13.2 % (1.0-6.0); RBC 3.67 10^6/uL (3.5-6.1); RED CELL DISTRIBUTION WIDTH 17.3 % (11.5-14.5); WHITE BLOOD COUNT 5.6 10^3/uL (4.5-11.0)
[2018-03-27 07:33] LABS: ALB/GLOB RATIO 1.2 (1.1-1.8); ALBUMIN 3.5 g/dL (3.0-4.8); ALT/SGPT 17 U/L (7-56); AST/SGOT 20 U/L (14-36); BLOOD UREA NITROGEN 14 mg/dL (7-21); GFR NON-AFRICAN AMERICAN > 60
[2018-03-27] MEDS: Sildenafil 20 MG TAB PO SCH ×3 (10:05→17:50)
[2018-03-27] MEDS: Mupirocin 2% Ointment 15 GM TUBE TOP SCH ×2 (10:06→17:49)
[2018-03-27] MEDS: Arformoterol 15 mcg/2 ml Inh Sol IH SCH ×2 (11:34→19:22)
[2018-03-27] MEDS: Budesonide 0.5 mg/2 ml Inhal Susp UD IH SCH ×2 (11:35→19:22)
--- NOTE | 2018-03-27 13:09 | CP.PCM.PN ---
<Dave Spain - Last Filed: 03/27/18 13:01> Subjective - Date & Time of Evaluation Date of Evaluation: 03/27/18 Time of Evaluation: 08:33 - Subjective Subjective: Dave Spain [facility] Hospital Progress Note Patient seen and examined at bedside this morning. No acute events reported overnight. Awaiting approval for home oxygen. Offers no new complaints today. Objective - Vital Signs/Intake and Output Vital Signs (last 24 hours): Temp Pulse Resp BP Pulse Ox 97 F L 78 19 124/58 L 96 03/27/18 12:00 03/27/18 12:00 03/27/18 12:00 03/27/18 12:00 03/27/18 05:54 Intake and Output: 03/27/18 03/27/18 06:59 18:59 Intake Total 240 Output Total 800 Balance -560 - Medications Medications: Current Medications Acetaminophen (Tylenol 325mg Tab) 650 mg PO Q6H PRN PRN Reason: Headache Last Admin: 03/05/18 21:07 Dose: 650 mg Albuterol/Ipratropium (Duoneb 3 Mg/0.5 Mg (3 Ml) Ud) 3 ml IH [id number] PRN PRN Reason: Shortness of Breath Last Admin: 03/27/18 03:53 Dose: 3 ml Arformoterol Tartrate (Brovana) 15 mcg IH [id number] [facility] Last Admin: 03/27/18 11:34 Dose: 15 mcg Budesonide (Pulmicort Respules) 0.5 mg IH [id number] [facility] Last Admin: 03/27/18 11:35 Dose: 0.5 mg Furosemide (Lasix) 40 mg IVP Q12 [facility] Last Admin: 03/27/18 10:05 Dose: 40 mg Gabapentin (Neurontin) 300 mg PO TID [facility]; Protocol Last Admin: 03/27/18 10:05 Dose: 300 mg Guaifenesin (Robitussin) 100 mg PO Q4H PRN PRN Reason: Cough Last Admin: 03/26/18 15:36 Dose: 100 mg Mupirocin (Bactroban Ointment) 1 gm TOP BID [facility] Last Admin: 03/27/18 10:06 Dose: 1 applic Pantoprazole Sodium (Protonix Ec Tab) 40 mg PO 0600 [facility] Last Admin: 03/27/18 06:21 Dose: 40 mg Rivaroxaban (Xarelto) 20 mg PO DAILY [facility]; Protocol Last Admin: 03/27/18 10:05 Dose: 20 mg Sildenafil Citrate (Revatio) 20 mg PO TID [facility] Last Admin: 03/27/18 10:05 Dose: 20 mg Tramadol HCl (Ultram) 50 mg PO TID PRN PRN Reason: Pain, severe (8-10) Last Admin: 03/26/18 17:52 Dose: 50 mg - Labs Labs: 03/27/18 06:30 03/27/18 06:30 PT 35.6 SECONDS (9.4-12.5) H 03/01/18 18:48 INR 3.05 03/01/18 18:48 APTT 32.1 Seconds (25.1-36.5) 03/01/18 18:48 - Additional Findings Additional findings: - Constitutional Appears: No Acute Distress - Head Exam Head Exam: ATRAUMATIC, NORMOCEPHALIC - Eye Exam Eye Exam: EOMI - ENT Exam ENT Exam: Mucous Membranes Moist - Neck Exam Neck Exam: Full ROM - Respiratory Exam Respiratory Exam: Decreased Breath Sounds (on the right). absent: Rales, Rhonchi, Wheezes, Respiratory Distress - GI/Abdominal Exam GI & Abdominal Exam: Soft, Normal Bowel Sounds. 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 Plan: Shortness of breath -2/2 severe pulm HTN, CHF, LAYO -currently awaiting approval for home oxygen -lasix 40 mg IV BID -duonebs prn, brovana -pulmicort -Sildenafil for pulm HTN -fluid restrict to 1.2 L daily -Pulmonary consulted, recommending continued therapy and emphasis on bipap. No further recommendations at this time -Continue PT Mild hyponatremia -Na is 131 from 132 -will monitor for changes Bilateral leg pain -03/24 lower extremity Dopplers negative for DVT -Echo 01/14 show RV is severely dilated, RV systolic function is severely reduced, RA is severely dilated, severe TR, severe pulm HTN -Lasix 40 mg IV BID -Gabapentin 300 mg TID -Tramadol prn Hemoptysis - resolved -Hgb stable at 9 today from 9.1 yesterday -Xarelto 20 mg PO daily -Guaifenesin DM for cough LAYO -BiPAP at night, patient has been noncomplaint in past Right arm swelling -Doppler venous US negative for DVT -Raise affected extremity above heart level PPX/Diet -xarelto, scd, protonix -HHD Patient seen and examined with attending, Dr. Carrington <Jenn Carrington - Last Filed: 03/27/18 13:28> Objective - Vital Signs/Intake and Output Vital Signs (last 24 hours): Temp Pulse Resp BP Pulse Ox 97 F L 78 19 124/58 L 96 03/27/18 12:00 03/27/18 12:00 03/27/18 12:00 03/27/18 12:00 03/27/18 05:54 Intake and Output: 03/27/18 03/27/18 06:59 18:59 Intake Total 240 Output Total 800 Balance -560 - Medications Medications: Current Medications Acetaminophen (Tylenol 325mg Tab) 650 mg PO Q6H PRN PRN Reason: Headache Last Admin: 03/05/18 21:07 Dose: 650 mg Albuterol/Ipratropium (Duoneb 3 Mg/0.5 Mg (3 Ml) Ud) 3 ml IH [id number] PRN PRN Reason: Shortness of Breath Last Admin: 03/27/18 03:53 Dose: 3 ml Arformoterol Tartrate (Brovana) 15 mcg IH [id number] [facility] Last Admin: 03/27/18 11:34 Dose: 15 mcg Budesonide (Pulmicort Respules) 0.5 mg IH [id number] [facility] Last Admin: 03/27/18 11:35 Dose: 0.5 mg Furosemide (Lasix) 40 mg IVP Q12 [facility] Last Admin: 03/27/18 10:05 Dose: 40 mg Gabapentin (Neurontin) 300 mg PO TID [facility]; Protocol Last Admin: 03/27/18 10:05 Dose: 300 mg Guaifenesin (Robitussin) 100 mg PO Q4H PRN PRN Reason: Cough Last Admin: 03/26/18 15:36 Dose: 100 mg Mupirocin (Bactroban Ointment) 1 gm TOP BID [facility] Last Admin: 03/27/18 10:06 Dose: 1 applic Pantoprazole Sodium (Protonix Ec Tab) 40 mg PO 0600 [facility] Last Admin: 03/27/18 06:21 Dose: 40 mg Rivaroxaban (Xarelto) 20 mg PO DAILY [facility]; Protocol Last Admin: 03/27/18 10:05 Dose: 20 mg Sildenafil Citrate (Revatio) 20 mg PO TID [facility] Last Admin: 03/27/18 10:05 Dose: 20 mg Tramadol HCl (Ultram) 50 mg PO TID PRN PRN Reason: Pain, severe (8-10) Last Admin: 03/26/18 17:52 Dose: 50 mg - Labs Labs: 03/27/18 06:30 03/27/18 06:30 PT 35.6 SECONDS (9.4-12.5) H 03/01/18 18:48 INR 3.05 03/01/18 18:48 APTT 32.1 Seconds (25.1-36.5) 03/01/18 18:48 Attending/Attestation - Attestation I have personally seen and examined this patient.: Yes I have fully participated in the care of the patient.: Yes I have reviewed all pertinent clinical information, including history, physical exam and plan: Yes Notes (Text): 03/27/18 13:16 42 year old female with past medical history of pulmonary hypertension, CHF, DVT/PE on xarelto, COPD on home O2, LAYO on CPAP and history of noncompliance who presented with worsening dyspnea with acute on chronic hypoxic respiratory failure. Etiology is multifactorial secondary to severe pulmonary hypertension, diastolic CHF, sleep apnea, chronic thromboembolism and noncompliance. She is currently on iv lasix. She is on 5L O2 NC and BIPAP at night time. Issue of compliance was again discussed at length with the patient. Patient refused thrombectomy as it was offered previously by her pulmonary hypertension clinic. Currently awaiting home O2 arrangement for d/c planning. She refused detention NH placement. She was denied JESUS by insurance. Overall prognosis is poor. Jenn Carrington MD Hospitalist.
[2018-03-27] MEDS: guaiFENesin 100 mg/5 ml Syrup UD PO PRN ×3 (13:49→23:05)
[2018-03-28] MEDS: Pantoprazole 40 mg EC Tab PO SCH (06:27)
[2018-03-28] MEDS: guaiFENesin 100 mg/5 ml Syrup UD PO PRN ×3 (06:27→22:07)
--- NOTE | 2018-03-28 07:20 | CP.PCM.PN ---
<Dewayne Agosto - Last Filed: 03/28/18 10:13> Subjective - Date & Time of Evaluation Date of Evaluation: 03/28/18 Time of Evaluation: 10:00 - Subjective Subjective: Dewayne Agosto Internal Medicine Resident- Progress Note on Behalf of Hospitalist Team Subjective Patient seen and examined at bedside. No acute overnight events. Offers no new complaints at this time. Denies fever, chills, chest pain, nausea, vomiting. 12 point ROS negative except as indicated in HPI Physical Examination: - Constitutional Appears: No Acute Distress - Head Exam Head Exam: ATRAUMATIC, NORMOCEPHALIC - Eye Exam Eye Exam: EOMI - ENT Exam ENT Exam: Mucous Membranes Moist - Neck Exam Neck Exam: Full ROM - Respiratory Exam Respiratory Exam: Decreased Breath Sounds (on the right). absent: Rales, Rhonchi, Wheezes, Respiratory Distress - GI/Abdominal Exam GI & Abdominal Exam: Soft, Normal Bowel Sounds. 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 Shortness of Breath - 2/2 severe pulm HTN, CHF, LAYO - currently awaiting approval for home oxygen - continue lasix 40 mg IV BID - continue duonebs q4h prn - continue brovana [id number] - pulmicort 0.5 IH q12 - Sildenafil 20mg PO TID for pulm HTN - fluid restrict to 1.2 L daily - Pulmonary consulted, recommending continued therapy and emphasis on bipap. No further recommendations at this time - Continue PT Mild hyponatremia - Na is 131 from 132 - will monitor for changes Bilateral leg pain - 03/24 lower extremity Dopplers negative for DVT - Echo 01/14 show RV is severely dilated, RV systolic function is severely reduced, RA is severely dilated, severe TR, severe pulm HTN - Lasix 40 mg IV BID - Gabapentin 300 mg PO TID - Tramadol 50mg TID prn pain Hemoptysis - resolved - Hgb stable at 9.0 - Xarelto 20 mg PO daily - Guaifenesin DM for cough LAYO - continue BiPAP at night Right arm swelling - Doppler venous US negative for DVT - Raise affected extremity above heart level PPX/Diet - DVT ppx- xarelto, scd, protonix - GI ppx- protonix 40mg PO daily Patient case discussed with and plan approved by attending physician, Dr. Carrington. Objective - Vital Signs/Intake and Output Vital Signs (last 24 hours): Temp Pulse Resp BP Pulse Ox 97.5 F L 68 20 103/62 92 L 03/28/18 06:00 03/28/18 06:00 03/28/18 06:00 03/28/18 06:00 03/28/18 06:00 Intake and Output: 03/28/18 03/28/18 06:59 18:59 Intake Total 360 Output Total 900 Balance -540 - Medications Medications: Current Medications Acetaminophen (Tylenol 325mg Tab) 650 mg PO Q6H PRN PRN Reason: Headache Last Admin: 03/05/18 21:07 Dose: 650 mg Albuterol/Ipratropium (Duoneb 3 Mg/0.5 Mg (3 Ml) Ud) 3 ml IH [id number] PRN PRN Reason: Shortness of Breath Last Admin: 03/27/18 03:53 Dose: 3 ml Arformoterol Tartrate (Brovana) 15 mcg IH [id number] [facility] Last Admin: 03/27/18 19:22 Dose: 15 mcg Budesonide (Pulmicort Respules) 0.5 mg IH [id number] [facility] Last Admin: 03/27/18 19:22 Dose: 0.5 mg Furosemide (Lasix) 40 mg IVP Q12 [facility] Last Admin: 03/27/18 23:01 Dose: 40 mg Gabapentin (Neurontin) 300 mg PO TID [facility]; Protocol Last Admin: 03/27/18 17:50 Dose: 300 mg Guaifenesin (Robitussin) 100 mg PO Q4H PRN PRN Reason: Cough Last Admin: 03/28/18 06:27 Dose: 100 mg Mupirocin (Bactroban Ointment) 1 gm TOP BID [facility] Last Admin: 03/27/18 17:49 Dose: 1 applic Pantoprazole Sodium (Protonix Ec Tab) 40 mg PO 0600 [facility] Last Admin: 03/28/18 06:27 Dose: 40 mg Rivaroxaban (Xarelto) 20 mg PO DAILY [facility]; Protocol Last Admin: 03/27/18 10:05 Dose: 20 mg Sildenafil Citrate (Revatio) 20 mg PO TID [facility] Last Admin: 03/27/18 17:50 Dose: 20 mg Tramadol HCl (Ultram) 50 mg PO TID PRN PRN Reason: Pain, severe (8-10) Last Admin: 03/27/18 18:18 Dose: 50 mg - Labs Labs: 03/27/18 06:30 03/27/18 06:30 PT 35.6 SECONDS (9.4-12.5) H 03/01/18 18:48 INR 3.05 03/01/18 18:48 APTT 32.1 Seconds (25.1-36.5) 03/01/18 18:48 <Jenn Carrington - Last Filed: 03/28/18 11:24> Objective - Vital Signs/Intake and Output Vital Signs (last 24 hours): Temp Pulse Resp BP Pulse Ox 97.5 F L 68 20 122/75 92 L 03/28/18 06:00 03/28/18 07:28 03/28/18 06:00 03/28/18 10:48 03/28/18 06:00 Intake and Output: 03/28/18 03/28/18 06:59 18:59 Intake Total 360 Output Total 900 Balance -540 - Medications Medications: Current Medications Acetaminophen (Tylenol 325mg Tab) 650 mg PO Q6H PRN PRN Reason: Headache Last Admin: 03/05/18 21:07 Dose: 650 mg Albuterol/Ipratropium (Duoneb 3 Mg/0.5 Mg (3 Ml) Ud) 3 ml IH [id number] PRN PRN Reason: Shortness of Breath Last Admin: 03/27/18 03:53 Dose: 3 ml Arformoterol Tartrate (Brovana) 15 mcg IH [id number] [facility] Last Admin: 03/28/18 07:26 Dose: 15 mcg Budesonide (Pulmicort Respules) 0.5 mg IH [id number] [facility] Last Admin: 03/28/18 07:26 Dose: 0.5 mg Furosemide (Lasix) 40 mg IVP Q12 [facility] Last Admin: 03/28/18 10:48 Dose: 40 mg Gabapentin (Neurontin) 300 mg PO TID [facility]; Protocol Last Admin: 03/28/18 10:49 Dose: 300 mg Guaifenesin (Robitussin) 100 mg PO Q4H PRN PRN Reason: Cough Last Admin: 03/28/18 06:27 Dose: 100 mg Mupirocin (Bactroban Ointment) 1 gm TOP BID [facility] Last Admin: 03/28/18 10:51 Dose: 1 applic Pantoprazole Sodium (Protonix Ec Tab) 40 mg PO 0600 [facility] Last Admin: 03/28/18 06:27 Dose: 40 mg Rivaroxaban (Xarelto) 20 mg PO DAILY [facility]; Protocol Last Admin: 03/28/18 10:50 Dose: 20 mg Sildenafil Citrate (Revatio) 20 mg PO TID [facility] Last Admin: 03/28/18 10:50 Dose: 20 mg Tramadol HCl (Ultram) 50 mg PO TID PRN PRN Reason: Pain, severe (8-10) Last Admin: 03/28/18 10:49 Dose: 50 mg - Labs Labs: 03/27/18 06:30 03/27/18 06:30 PT 35.6 SECONDS (9.4-12.5) H 03/01/18 18:48 INR 3.05 03/01/18 18:48 APTT 32.1 Seconds (25.1-36.5) 03/01/18 18:48 Attending/Attestation - Attestation I have personally seen and examined this patient.: Yes I have fully participated in the care of the patient.: Yes I have reviewed all pertinent clinical information, including history, physical exam and plan: Yes Notes (Text): 03/28/18 11:23 42 year old female with past medical history of pulmonary hypertension, CHF, DVT/PE on xarelto, COPD on home O2, LAYO on CPAP and history of noncompliance who presented with worsening dyspnea with acute on chronic hypoxic respiratory failure. Etiology is multifactorial secondary to severe pulmonary hypertension, diastolic CHF, sleep apnea, chronic thromboembolism and noncompliance. She is currently on iv lasix for diuresis. Can switch to po upon discharge. She is on 5L O2 NC and BIPAP at night time. Issue of compliance was again discussed at length with the patient. Patient refused thrombectomy as it was offered previously by her pulmonary hypertension clinic. Currently awaiting home O2 arrangement for d/c planning. She refused assisted NH placement. She was denied JESUS by insurance. Overall prognosis is poor. Jenn Carrington MD Hospitalist.
[2018-03-28] MEDS: Budesonide 0.5 mg/2 ml Inhal Susp UD IH SCH ×2 (07:26→19:24)
[2018-03-28] MEDS: Arformoterol 15 mcg/2 ml Inh Sol IH SCH ×2 (07:26→19:24)
[2018-03-28] MEDS: Sildenafil 20 MG TAB PO SCH ×3 (10:50→17:47)
[2018-03-28] MEDS: Mupirocin 2% Ointment 15 GM TUBE TOP SCH ×2 (10:51→17:48)
[2018-03-29] MEDS: Pantoprazole 40 mg EC Tab PO SCH (05:22)
[2018-03-29] MEDS: guaiFENesin 100 mg/5 ml Syrup UD PO PRN ×3 (05:23→23:56)
--- NOTE | 2018-03-29 06:51 | CP.PCM.PN ---
<Lisa Begum L - Last Filed: 03/29/18 15:50> Subjective - Date & Time of Evaluation Date of Evaluation: 03/29/18 Time of Evaluation: 06:50 - Subjective Subjective: Resident Progress Note for Hospitalist Service Patient examined at bedside. No acute events overnight. Patient states that she feels too weak whenever she attempts to ambulate and becomes lightheaded. Patient has received approval for home oxygen. Denies fevers, chills, chest pain, shortness of breath, diarrhea, dysuria. Objective - Vital Signs/Intake and Output Vital Signs (last 24 hours): Temp Pulse Resp BP Pulse Ox 97.9 F 72 20 108/69 93 L 03/29/18 05:53 03/29/18 05:53 03/29/18 05:53 03/29/18 05:53 03/29/18 05:53 Intake and Output: 03/28/18 03/29/18 18:59 06:59 Intake Total 720 360 Output Total 600 1100 Balance 120 -740 - Medications Medications: Current Medications Acetaminophen (Tylenol 325mg Tab) 650 mg PO Q6H PRN PRN Reason: Headache Last Admin: 03/05/18 21:07 Dose: 650 mg Albuterol/Ipratropium (Duoneb 3 Mg/0.5 Mg (3 Ml) Ud) 3 ml IH [id number] PRN PRN Reason: Shortness of Breath Last Admin: 03/27/18 03:53 Dose: 3 ml Arformoterol Tartrate (Brovana) 15 mcg IH [id number] [facility] Last Admin: 03/28/18 19:24 Dose: 15 mcg Budesonide (Pulmicort Respules) 0.5 mg IH [id number] [facility] Last Admin: 03/28/18 19:24 Dose: 0.5 mg Furosemide (Lasix) 40 mg IVP Q12 [facility] Last Admin: 03/28/18 22:07 Dose: 40 mg Gabapentin (Neurontin) 300 mg PO TID [facility]; Protocol Last Admin: 03/28/18 17:47 Dose: 300 mg Guaifenesin (Robitussin) 100 mg PO Q4H PRN PRN Reason: Cough Last Admin: 03/29/18 05:23 Dose: 100 mg Mupirocin (Bactroban Ointment) 1 gm TOP BID [facility] Last Admin: 03/28/18 17:48 Dose: 1 applic Pantoprazole Sodium (Protonix Ec Tab) 40 mg PO 0600 [facility] Last Admin: 03/29/18 05:22 Dose: 40 mg Rivaroxaban (Xarelto) 20 mg PO DAILY [facility]; Protocol Last Admin: 03/28/18 10:50 Dose: 20 mg Sildenafil Citrate (Revatio) 20 mg PO TID [facility] Last Admin: 03/28/18 17:47 Dose: 20 mg Tramadol HCl (Ultram) 50 mg PO TID PRN PRN Reason: Pain, severe (8-10) Last Admin: 03/28/18 17:54 Dose: 50 mg - Labs Labs: 03/27/18 06:30 03/27/18 06:30 PT 35.6 SECONDS (9.4-12.5) H 03/01/18 18:48 INR 3.05 03/01/18 18:48 APTT 32.1 Seconds (25.1-36.5) 03/01/18 18:48 - Additional Findings Additional findings: - Constitutional Appears: No Acute Distress - Head Exam Head Exam: ATRAUMATIC, NORMOCEPHALIC - Eye Exam Eye Exam: EOMI - ENT Exam ENT Exam: Mucous Membranes Moist - Neck Exam Neck Exam: Full ROM - Respiratory Exam Respiratory Exam: Decreased Breath Sounds (on the right). absent: Rales, Rhonchi, Wheezes, Respiratory Distress - GI/Abdominal Exam GI & Abdominal Exam: Soft, Normal Bowel Sounds. 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 Plan: Shortness of breath -2/2 severe pulm HTN, CHF, LAYO -lasix 40 mg IV BID -duonebs prn, brovana -pulmicort -Sildenafil for pulm HTN -fluid restrict to 1.2 L daily -Pulmonary consulted, recommending continued therapy and emphasis on bipap. No further recommendations at this time -CXR from this AM shows mild vascular congestion -Continue PT Bilateral leg pain -03/24 lower extremity Dopplers negative for DVT -Echo 01/14 show RV is severely dilated, RV systolic function is severely reduced, RA is severely dilated, severe TR, severe pulm HTN -Lasix 40 mg IV BID -Gabapentin 300 mg TID -Tramadol prn Hemoptysis - resolved -Hgb stable -Xarelto 20 mg PO daily -Guaifenesin DM for cough LAYO -BiPAP at night, patient has been noncomplaint in past Right arm swelling -Doppler venous US negative for DVT -Raise affected extremity above heart level PPX/Diet -xarelto, scd, protonix -HHD Case discussed with Dr. Zeb Begum PGY-1 <Jenn Carrington - Last Filed: 03/29/18 16:14> Objective - Vital Signs/Intake and Output Vital Signs (last 24 hours): Temp Pulse Resp BP Pulse Ox 97.7 F 79 20 117/73 93 L 03/29/18 12:00 03/29/18 12:00 03/29/18 12:00 03/29/18 12:00 03/29/18 05:53 Intake and Output: 03/29/18 03/29/18 06:59 18:59 Intake Total 360 Output Total 1100 Balance -740 - Medications Medications: Current Medications Acetaminophen (Tylenol 325mg Tab) 650 mg PO Q6H PRN PRN Reason: Headache Last Admin: 03/05/18 21:07 Dose: 650 mg Albuterol/Ipratropium (Duoneb 3 Mg/0.5 Mg (3 Ml) Ud) 3 ml IH [id number] PRN PRN Reason: Shortness of Breath Last Admin: 03/27/18 03:53 Dose: 3 ml Arformoterol Tartrate (Brovana) 15 mcg IH [id number] [facility] Last Admin: 03/29/18 07:17 Dose: 15 mcg Budesonide (Pulmicort Respules) 0.5 mg IH [id number] [facility] Last Admin: 03/29/18 07:17 Dose: 0.5 mg Furosemide (Lasix) 40 mg IVP Q12 [facility] Last Admin: 03/29/18 10:58 Dose: 40 mg Gabapentin (Neurontin) 300 mg PO TID [facility]; Protocol Last Admin: 03/29/18 13:50 Dose: 300 mg Guaifenesin (Robitussin) 100 mg PO Q4H PRN PRN Reason: Cough Last Admin: 03/29/18 15:30 Dose: 100 mg Mupirocin (Bactroban Ointment) 1 gm TOP BID [facility] Last Admin: 03/29/18 11:01 Dose: 1 applic Pantoprazole Sodium (Protonix Ec Tab) 40 mg PO 0600 [facility] Last Admin: 03/29/18 05:22 Dose: 40 mg Rivaroxaban (Xarelto) 20 mg PO DAILY [facility]; Protocol Last Admin: 03/29/18 11:00 Dose: 20 mg Sildenafil Citrate (Revatio) 20 mg PO TID [facility] Last Admin: 03/29/18 13:52 Dose: 20 mg Tramadol HCl (Ultram) 50 mg PO TID PRN PRN Reason: Pain, severe (8-10) Last Admin: 03/29/18 10:59 Dose: 50 mg - Labs Labs: 03/29/18 06:30 03/29/18 06:30 PT 35.6 SECONDS (9.4-12.5) H 03/01/18 18:48 INR 3.05 03/01/18 18:48 APTT 32.1 Seconds (25.1-36.5) 03/01/18 18:48 Attending/Attestation - Attestation I have personally seen and examined this patient.: Yes I have fully participated in the care of the patient.: Yes I have reviewed all pertinent clinical information, including history, physical exam and plan: Yes Notes (Text): 03/29/18 15:56 42 year old female with past medical history of pulmonary hypertension, CHF, DVT/PE on xarelto, COPD on home O2, LAYO on CPAP and history of noncompliance who presented with worsening dyspnea with acute on chronic hypoxic respiratory failure. Etiology is multifactorial secondary to severe pulmonary hypertension, diastolic CHF, sleep apnea, chronic thromboembolism and noncompliance. She is currently on iv lasix for diuresis. Can switch to po upon discharge. She is on 5-6L O2 NC and BIPAP at night time. Spoke with employment case manager; home O2 is arranged today. However patient feels uncomfortable going home today; complains of weakness and lightheadedness with minimal activity. Pulmonary and PT follow up is requested. Question of compliance of bipap and oxygen use at home. Issue of compliance was again discussed at length with the patient. Patient refused thrombectomy as it was offered previously by her pulmonary hypertension clinic. She refused assisted NH placement. She was denied JESUS by insurance. Will follow up with PT follow up recommendations and discuss with employment case manager d/c planning accordingly. Overall prognosis is poor. Jenn Carrington MD Hospitalist.
[2018-03-29 07:13] LABS: BASO # 0.03 K/mm3 (0.0-2.0); BASO % 0.6 % (0.0-3.0); EOS # 0.1 (0.0-0.7); EOS % 1.3 % (1.5-5.0); GRAN # 3.47 (1.4-6.5); HEMOGLOBIN 9.1 g/dL (12.0-16.0); LYMPH # 1.2 (1.2-3.4); LYMPH % 22.8 % (22.0-35.0); MEAN CELL VOLUME 80.8 fl (80.0-105.0); MEAN CORPUSCULAR HEMOGLOBIN 24.7 pg (25.0-35.0); MEAN CORPUSCULAR HGB CONC 30.5 g/dl (31.0-37.0); MEAN PLATELET VOLUME 9.6 fl (7.0-11.0); MONO # 0.6 (0.1-0.6); MONO % 10.3 % (1.0-6.0); RBC 3.69 10^6/uL (3.5-6.1); RED CELL DISTRIBUTION WIDTH 17.3 % (11.5-14.5); WHITE BLOOD COUNT 5.3 10^3/uL (4.5-11.0)
[2018-03-29] MEDS: Arformoterol 15 mcg/2 ml Inh Sol IH SCH ×2 (07:17→19:11)
[2018-03-29] MEDS: Budesonide 0.5 mg/2 ml Inhal Susp UD IH SCH ×2 (07:17→19:11)
[2018-03-29 07:29] LABS: ALB/GLOB RATIO 1.2 (1.1-1.8); ALBUMIN 3.5 g/dL (3.0-4.8); ALT/SGPT 20 U/L (7-56); AST/SGOT 20 U/L (14-36); BLOOD UREA NITROGEN 13 mg/dL (7-21); GFR NON-AFRICAN AMERICAN > 60
[2018-03-29] MEDS: Sildenafil 20 MG TAB PO SCH ×3 (11:00→17:40)
[2018-03-29] MEDS: Mupirocin 2% Ointment 15 GM TUBE TOP SCH ×2 (11:01→17:45)
--- NOTE | 2018-03-29 12:57 | RAD ---
Date of service: 03/29/2018 HISTORY: resp failure COMPARISON: 03/19/2018 FINDINGS: LUNGS: No active pulmonary disease. PLEURA: No significant pleural effusion identified, no pneumothorax apparent. CARDIOVASCULAR: No aortic atherosclerotic calcification present. Moderate cardiomegaly mild vascular congestion OSSEOUS STRUCTURES: No significant abnormalities. VISUALIZED UPPER ABDOMEN: Normal. OTHER FINDINGS: None. IMPRESSION: Moderate cardiomegaly and mild vascular congestion
--- NOTE | 2018-03-29 13:39 | CP.PCM.PN ---
Subjective - Date & Time of Evaluation Date of Evaluation: 03/29/18 Time of Evaluation: 13:23 - Subjective Subjective: Patient seen and examined on, reports SOB is improved. On 5LNC, sat 94%, resting comfortably in bed. Objective - Vital Signs/Intake and Output Vital Signs (last 24 hours): Temp Pulse Resp BP Pulse Ox 97.9 F 86 20 123/72 93 L 03/29/18 05:53 03/29/18 10:00 03/29/18 05:53 03/29/18 10:58 03/29/18 05:53 Intake and Output: 03/29/18 03/29/18 06:59 18:59 Intake Total 360 Output Total 1100 Balance -740 - Medications Medications: Current Medications Acetaminophen (Tylenol 325mg Tab) 650 mg PO Q6H PRN PRN Reason: Headache Last Admin: 03/05/18 21:07 Dose: 650 mg Albuterol/Ipratropium (Duoneb 3 Mg/0.5 Mg (3 Ml) Ud) 3 ml IH [id number] PRN PRN Reason: Shortness of Breath Last Admin: 03/27/18 03:53 Dose: 3 ml Arformoterol Tartrate (Brovana) 15 mcg IH [id number] [facility] Last Admin: 03/29/18 07:17 Dose: 15 mcg Budesonide (Pulmicort Respules) 0.5 mg IH [id number] [facility] Last Admin: 03/29/18 07:17 Dose: 0.5 mg Furosemide (Lasix) 40 mg IVP Q12 [facility] Last Admin: 03/29/18 10:58 Dose: 40 mg Gabapentin (Neurontin) 300 mg PO TID [facility]; Protocol Last Admin: 03/29/18 11:00 Dose: 300 mg Guaifenesin (Robitussin) 100 mg PO Q4H PRN PRN Reason: Cough Last Admin: 03/29/18 05:23 Dose: 100 mg Mupirocin (Bactroban Ointment) 1 gm TOP BID [facility] Last Admin: 03/29/18 11:01 Dose: 1 applic Pantoprazole Sodium (Protonix Ec Tab) 40 mg PO 0600 [facility] Last Admin: 03/29/18 05:22 Dose: 40 mg Rivaroxaban (Xarelto) 20 mg PO DAILY [facility]; Protocol Last Admin: 03/29/18 11:00 Dose: 20 mg Sildenafil Citrate (Revatio) 20 mg PO TID [facility] Last Admin: 03/29/18 11:00 Dose: 20 mg Tramadol HCl (Ultram) 50 mg PO TID PRN PRN Reason: Pain, severe (8-10) Last Admin: 03/29/18 10:59 Dose: 50 mg - Labs Labs: 03/29/18 06:30 03/29/18 06:30 PT 35.6 SECONDS (9.4-12.5) H 03/01/18 18:48 INR 3.05 03/01/18 18:48 APTT 32.1 Seconds (25.1-36.5) 03/01/18 18:48 - Constitutional Appears: Non-toxic, No Acute Distress - Eye Exam Eye Exam: Normal appearance - ENT Exam ENT Exam: Mucous Membranes Moist - Respiratory Exam Respiratory Exam: Decreased Breath Sounds, NORMAL BREATHING PATTERN - Cardiovascular Exam Cardiovascular Exam: REGULAR RHYTHM, +S1, +S2 - GI/Abdominal Exam GI & Abdominal Exam: Soft, Normal Bowel Sounds - Neurological Exam Neurological Exam: Alert, Awake, Oriented x3 Assessment and Plan - Assessment and Plan (Free Text) Assessment: 42yo female with PMhx Pulm HTN, 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 - currently afbrile, BP stable, on 5LNC 94% - Pulmonary team spoke to Dr Rodriguez, Supervisor Cl[facility] from [facility], and she informed us that the patient had LHC, and RHC last month at [facility], results noted in the cart, and was instructed and given follow up instructions for the pulmonary HTN clinic at [facility], as well as [facility] for possible pulmonary endarterectomy. Pt did not follow up with either. Pt is non compliant with prescribed treatment, uses BIPAP at home intermittently, does not take Lasix, does not use home oxygen, and has poor follow up with outpatient. All risks and benefits described and discussed with the patient. - CXR with unchanged pulm vasc congestion today - cont Lasix 40mg IV BID - I/Os, daily weights - BIPAP at night - Revatio - Cont with Xarelto - PT/OT
[2018-03-30] MEDS: Pantoprazole 40 mg EC Tab PO SCH (05:58)
--- NOTE | 2018-03-30 07:01 | CP.PCM.PN ---
<Lsia Begum L - Last Filed: 03/30/18 15:02> Subjective - Date & Time of Evaluation Date of Evaluation: 03/30/18 Time of Evaluation: 07:01 - Subjective Subjective: Resident Progress Note for Hospitalist Service Patient examined at bedside. No acute events overnight. Patient's condition and prognosis were discussed. 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 Offers no other complaints at this time. Objective - Vital Signs/Intake and Output Vital Signs (last 24 hours): Temp Pulse Resp BP Pulse Ox 97.8 F 76 19 109/69 93 L 03/30/18 06:00 03/30/18 06:00 03/30/18 06:00 03/30/18 06:00 03/30/18 06:00 Intake and Output: 03/30/18 03/30/18 06:59 18:59 Intake Total 1980 Output Total 1550 Balance 430 - Medications Medications: Current Medications Acetaminophen (Tylenol 325mg Tab) 650 mg PO Q6H PRN PRN Reason: Headache Last Admin: 03/05/18 21:07 Dose: 650 mg Albuterol/Ipratropium (Duoneb 3 Mg/0.5 Mg (3 Ml) Ud) 3 ml IH [id number] PRN PRN Reason: Shortness of Breath Last Admin: 03/27/18 03:53 Dose: 3 ml Arformoterol Tartrate (Brovana) 15 mcg IH [id number] [facility] Last Admin: 03/29/18 19:11 Dose: 15 mcg Budesonide (Pulmicort Respules) 0.5 mg IH [id number] [facility] Last Admin: 03/29/18 19:11 Dose: 0.5 mg Furosemide (Lasix) 40 mg IVP Q12 [facility] Last Admin: 03/29/18 22:30 Dose: Not Given Gabapentin (Neurontin) 300 mg PO TID [facility]; Protocol Last Admin: 03/29/18 17:40 Dose: 300 mg Guaifenesin (Robitussin) 100 mg PO Q4H PRN PRN Reason: Cough Last Admin: 03/29/18 23:56 Dose: 100 mg Mupirocin (Bactroban Ointment) 1 gm TOP BID [facility] Last Admin: 03/29/18 17:45 Dose: 1 applic Pantoprazole Sodium (Protonix Ec Tab) 40 mg PO 0600 [facility] Last Admin: 03/30/18 05:58 Dose: 40 mg Rivaroxaban (Xarelto) 20 mg PO DAILY [facility]; Protocol Last Admin: 03/29/18 11:00 Dose: 20 mg Sildenafil Citrate (Revatio) 20 mg PO TID [facility] Last Admin: 03/29/18 17:40 Dose: 20 mg Tramadol HCl (Ultram) 50 mg PO TID PRN PRN Reason: Pain, severe (8-10) Last Admin: 03/29/18 17:44 Dose: 50 mg - Labs Labs: 03/29/18 06:30 03/29/18 06:30 PT 35.6 SECONDS (9.4-12.5) H 03/01/18 18:48 INR 3.05 03/01/18 18:48 APTT 32.1 Seconds (25.1-36.5) 03/01/18 18:48 - Additional Findings Additional findings: - Constitutional Appears: No Acute Distress - Head Exam Head Exam: ATRAUMATIC, NORMOCEPHALIC - Eye Exam Eye Exam: EOMI - ENT Exam ENT Exam: Mucous Membranes Moist - Neck Exam Neck Exam: Full ROM - Respiratory Exam Respiratory Exam: Decreased Breath Sounds. absent: Rales, Rhonchi, Wheezes, Respiratory Distress - GI/Abdominal Exam GI & Abdominal Exam: Soft, Normal Bowel Sounds. 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 Plan: Shortness of breath -2/2 severe pulm HTN, CHF, LAYO -lasix 40 mg IV BID -duonebs prn, brovana -pulmicort -Sildenafil for pulm HTN -fluid restrict to 1.2 L daily -Pulmonary consulted, recommending continued therapy and emphasis on bipap. No further recommendations at this time -CXR from this AM shows mild vascular congestion -Continue PT Bilateral leg pain -03/24 lower extremity Dopplers negative for DVT -Echo 01/14 show RV is severely dilated, RV systolic function is severely reduced, RA is severely dilated, severe TR, severe pulm HTN -Lasix 40 mg IV BID -Gabapentin 300 mg TID -Tramadol prn Hemoptysis - resolved -Hgb stable -Xarelto 20 mg PO daily -Guaifenesin DM for cough LAYO -BiPAP at night, patient has history of noncompliance Right arm swelling -Doppler venous US negative for DVT -Raise affected extremity above heart level PPX -xarelto, protonix Case discussed with Dr. Zeb Begum PGY-1 <Jenn Carrington - Last Filed: 03/30/18 15:12> Objective - Vital Signs/Intake and Output Vital Signs (last 24 hours): Temp Pulse Resp BP Pulse Ox 97.1 F L 76 19 95/53 L 93 L 03/30/18 12:00 03/30/18 12:00 03/30/18 12:00 03/30/18 12:00 03/30/18 06:00 Intake and Output: 03/30/18 03/30/18 06:59 18:59 Intake Total 1980 Output Total 1550 Balance 430 - Medications Medications: Current Medications Acetaminophen (Tylenol 325mg Tab) 650 mg PO Q6H PRN PRN Reason: Headache Last Admin: 03/05/18 21:07 Dose: 650 mg Albuterol/Ipratropium (Duoneb 3 Mg/0.5 Mg (3 Ml) Ud) 3 ml IH [id number] PRN PRN Reason: Shortness of Breath Last Admin: 03/27/18 03:53 Dose: 3 ml Arformoterol Tartrate (Brovana) 15 mcg IH [id number] [facility] Last Admin: 03/30/18 07:09 Dose: 15 mcg Budesonide (Pulmicort Respules) 0.5 mg IH [id number] [facility] Last Admin: 03/30/18 07:09 Dose: 0.5 mg Furosemide (Lasix) 40 mg IVP Q12 [facility] Last Admin: 03/30/18 09:58 Dose: 40 mg Gabapentin (Neurontin) 300 mg PO TID [facility]; Protocol Last Admin: 03/30/18 14:42 Dose: 300 mg Guaifenesin (Robitussin) 100 mg PO Q4H PRN PRN Reason: Cough Last Admin: 03/30/18 14:48 Dose: 100 mg Mupirocin (Bactroban Ointment) 1 gm TOP BID [facility] Last Admin: 03/30/18 09:59 Dose: 1 applic Pantoprazole Sodium (Protonix Ec Tab) 40 mg PO 0600 [facility] Last Admin: 03/30/18 05:58 Dose: 40 mg Rivaroxaban (Xarelto) 20 mg PO DAILY [facility]; Protocol Last Admin: 03/30/18 09:59 Dose: 20 mg Sildenafil Citrate (Revatio) 20 mg PO TID [facility] Last Admin: 03/30/18 14:42 Dose: 20 mg Tramadol HCl (Ultram) 50 mg PO TID PRN PRN Reason: Pain, severe (8-10) Last Admin: 03/29/18 17:44 Dose: 50 mg - Labs Labs: 03/29/18 06:30 03/29/18 06:30 PT 35.6 SECONDS (9.4-12.5) H 03/01/18 18:48 INR 3.05 03/01/18 18:48 APTT 32.1 Seconds (25.1-36.5) 03/01/18 18:48 Attending/Attestation - Attestation I have personally seen and examined this patient.: Yes I have fully participated in the care of the patient.: Yes I have reviewed all pertinent clinical information, including history, physical exam and plan: Yes Notes (Text): 03/30/18 15:09 42 year old female with past medical history of pulmonary hypertension, CHF, DVT/PE on xarelto, COPD on home O2, LAYO on CPAP and history of noncompliance who presented with worsening dyspnea with acute on chronic hypoxic respiratory failure. Etiology is multifactorial secondary to severe pulmonary hypertension, diastolic CHF, sleep apnea, chronic thromboembolism and noncompliance. She is currently on iv lasix for diuresis. Can switch to po upon discharge. She is on 5-6L O2 NC and BIPAP at night time. Question of compliance of bipap and oxygen use at home. Issue of compliance was again discussed at length with the patient. Patient still complains of weakness and lightheadedness with minimal activity. 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 PT follow up is requested to reassess; if patient is still deconditioned/hypoxic consider [facility] or NH. Will discuss with CMx/Sw d/c planning based upon PT recommendations. Patient refused thrombectomy as it was offered previously by her pulmonary hypertension clinic. Overall prognosis is poor. Jenn Carrington MD Hospitalist.
[2018-03-30] MEDS: Arformoterol 15 mcg/2 ml Inh Sol IH SCH ×2 (07:09→19:20)
[2018-03-30] MEDS: Budesonide 0.5 mg/2 ml Inhal Susp UD IH SCH ×2 (07:09→19:20)
[2018-03-30] MEDS: Mupirocin 2% Ointment 15 GM TUBE TOP SCH ×2 (09:59→18:06)
[2018-03-30] MEDS: Sildenafil 20 MG TAB PO SCH ×3 (09:59→18:14)
[2018-03-30] MEDS: guaiFENesin 100 mg/5 ml Syrup UD PO PRN (14:48)
[2018-03-30] MEDS: Albuterol-Ipratrop 3 mg / 0.5 (3 ml) UD IH PRN ×2 (20:06→23:58)
[2018-03-31] MEDS: Pantoprazole 40 mg EC Tab PO SCH (05:44)
[2018-03-31] MEDS: Arformoterol 15 mcg/2 ml Inh Sol IH SCH ×2 (07:01→20:53)
[2018-03-31] MEDS: Budesonide 0.5 mg/2 ml Inhal Susp UD IH SCH ×2 (07:01→20:53)
[2018-03-31 09:44] LABS: BASO # 0.03 K/mm3 (0.0-2.0); BASO % 0.5 % (0.0-3.0); EOS # 0.1 (0.0-0.7); EOS % 0.8 % (1.5-5.0); GRAN # 4.16 (1.4-6.5); GRAN % 70.5 % (50.0-68.0); HEMOGLOBIN 9.3 g/dL (12.0-16.0); LYMPH # 1.2 (1.2-3.4); LYMPH % 20.1 % (22.0-35.0); MEAN CELL VOLUME 80.7 fl (80.0-105.0); MEAN CORPUSCULAR HEMOGLOBIN 24.2 pg (25.0-35.0); MEAN PLATELET VOLUME 9.6 fl (7.0-11.0); MONO # 0.5 (0.1-0.6); MONO % 8.1 % (1.0-6.0); RBC 3.84 10^6/uL (3.5-6.1); RED CELL DISTRIBUTION WIDTH 17.4 % (11.5-14.5); WHITE BLOOD COUNT 5.9 10^3/uL (4.5-11.0)
[2018-03-31 09:48] LABS: ALB/GLOB RATIO 1.2 (1.1-1.8); ALBUMIN 3.7 g/dL (3.0-4.8); ALT/SGPT 18 U/L (7-56); AST/SGOT 22 U/L (14-36); BLOOD UREA NITROGEN 11 mg/dL (7-21); CALCIUM 9.3 mg/dL (8.4-10.5); GFR NON-AFRICAN AMERICAN > 60
[2018-03-31] MEDS: Mupirocin 2% Ointment 15 GM TUBE TOP SCH ×2 (11:25→18:14)
[2018-03-31] MEDS: Sildenafil 20 MG TAB PO SCH ×3 (11:25→18:14)
--- NOTE | 2018-03-31 14:04 | CP.PCM.PN ---
<Oanh Mcclellan - Last Filed: 03/31/18 15:42> Subjective - Date & Time of Evaluation Date of Evaluation: 03/31/18 Time of Evaluation: 07:00 - Subjective Subjective: PGY-3 Progress Note for Hospitalist Service Patient seen and examined at bedside. No acute events overnight. Patient was on bipap over night. Patient's condition and prognosis were discussed. She denies sob, CP, abd pain, n/v. No other complaints at this time. Objective - Vital Signs/Intake and Output Vital Signs (last 24 hours): Temp Pulse Resp BP Pulse Ox 97.8 F 78 18 109/61 93 L 03/31/18 12:00 03/31/18 12:00 03/31/18 12:00 03/31/18 12:00 03/30/18 06:00 Intake and Output: 03/31/18 03/31/18 06:59 18:59 Intake Total 120 Output Total 1000 Balance -880 - Medications Medications: Current Medications Acetaminophen (Tylenol 325mg Tab) 650 mg PO Q6H PRN PRN Reason: Headache Last Admin: 03/05/18 21:07 Dose: 650 mg Albuterol/Ipratropium (Duoneb 3 Mg/0.5 Mg (3 Ml) Ud) 3 ml IH [id number] PRN PRN Reason: Shortness of Breath Last Admin: 03/30/18 23:58 Dose: 3 ml Arformoterol Tartrate (Brovana) 15 mcg IH [id number] [facility] Last Admin: 03/31/18 07:01 Dose: 15 mcg Budesonide (Pulmicort Respules) 0.5 mg IH [id number] [facility] Last Admin: 03/31/18 07:01 Dose: 0.5 mg Furosemide (Lasix) 40 mg IVP Q12 [facility] Last Admin: 03/30/18 21:27 Dose: 40 mg Gabapentin (Neurontin) 300 mg PO TID [facility]; Protocol Last Admin: 03/30/18 18:14 Dose: 300 mg Guaifenesin (Robitussin) 100 mg PO Q4H PRN PRN Reason: Cough Last Admin: 03/30/18 14:48 Dose: 100 mg Mupirocin (Bactroban Ointment) 1 gm TOP BID [facility] Last Admin: 03/30/18 18:06 Dose: 1 applic Pantoprazole Sodium (Protonix Ec Tab) 40 mg PO 0600 [facility] Last Admin: 03/31/18 05:44 Dose: 40 mg Rivaroxaban (Xarelto) 20 mg PO DAILY [facility]; Protocol Last Admin: 03/30/18 09:59 Dose: 20 mg Sildenafil Citrate (Revatio) 20 mg PO TID [facility] Last Admin: 03/30/18 18:14 Dose: 20 mg Tramadol HCl (Ultram) 50 mg PO TID PRN PRN Reason: Pain, severe (8-10) Last Admin: 03/29/18 17:44 Dose: 50 mg - Labs Labs: 03/31/18 09:20 03/31/18 09:20 PT 35.6 SECONDS (9.4-12.5) H 03/01/18 18:48 INR 3.05 03/01/18 18:48 APTT 32.1 Seconds (25.1-36.5) 03/01/18 18:48 - Constitutional Appears: No Acute Distress, Chronically Ill - Head Exam Head Exam: ATRAUMATIC, NORMAL INSPECTION, NORMOCEPHALIC - Eye Exam Eye Exam: Normal appearance - Respiratory Exam Respiratory Exam: Decreased Breath Sounds, NORMAL BREATHING PATTERN. absent: Rales, Rhonchi, Wheezes, Respiratory Distress Additional comments: on 6L nc - Cardiovascular Exam Cardiovascular Exam: REGULAR RHYTHM, +S1, +S2. absent: Bradycardia, Tachycardia, Murmur - GI/Abdominal Exam GI & Abdominal Exam: Soft, Normal Bowel Sounds. 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 Plan: Shortness of breath -2/2 severe pulm HTN, CHF, LAYO - continue lasix 40 mg IV BID - continue duonebs prn, brovana, pulmicort - continue Sildenafil for pulm HTN -fluid restrict to 1.2 L daily - Pulmonary consulted, recommended continued therapy and emphasis on bipap. No further recommendations at this time -Continue PT, recommended [facility] however per case mangers denied by insurance Bilateral leg pain -lower extremity Dopplers on 03/24 negative for DVT -Echo on 01/14 show RV is severely dilated, RV systolic function is severely reduced, RA is severely dilated, severe TR, severe pulm HTN - coneinue Lasix 40 mg IV BID -Gabapentin 300 mg TID -Tramadol prn - continue working with PT LAYO -BiPAP at night, patient has history of noncompliance PPX -xarelto, protonix Case discussed with attending Dr. Hong <Gary Hong - Last Filed: 04/05/18 14:08> Objective - Vital Signs/Intake and Output Vital Signs (last 24 hours): Temp Pulse Resp BP Pulse Ox 97.8 F 78 20 115/65 92 L 04/05/18 06:00 04/05/18 06:00 04/05/18 06:00 04/05/18 11:29 04/05/18 06:00 Intake and Output: 04/05/18 04/05/18 06:59 18:59 Intake Total 120 Output Total 2100 Balance -1979 - Medications Medications: Current Medications Albuterol/Ipratropium (Duoneb 3 Mg/0.5 Mg (3 Ml) Ud) 3 ml IH [id number] PRN PRN Reason: Shortness of Breath Last Admin: 03/30/18 23:58 Dose: 3 ml Arformoterol Tartrate (Brovana) 15 mcg IH [id number] [facility] Last Admin: 04/05/18 08:03 Dose: 15 mcg Budesonide (Pulmicort Respules) 0.5 mg IH [id number] [facility] Last Admin: 04/05/18 08:03 Dose: 0.5 mg Furosemide (Lasix) 40 mg IVP Q12 [facility] Last Admin: 04/05/18 11:29 Dose: 40 mg Gabapentin (Neurontin) 300 mg PO TID [facility]; Protocol Last Admin: 04/05/18 11:22 Dose: 300 mg Guaifenesin (Robitussin) 100 mg PO Q4H PRN PRN Reason: Cough Last Admin: 04/04/18 20:22 Dose: 100 mg Pantoprazole Sodium (Protonix Ec Tab) 40 mg PO 0600 [facility] Last Admin: 04/03/18 06:52 Dose: 40 mg Rivaroxaban (Xarelto) 20 mg PO DAILY [facility]; Protocol Last Admin: 04/05/18 11:22 Dose: 20 mg Sildenafil Citrate (Revatio) 20 mg PO TID [facility] Last Admin: 04/05/18 11:22 Dose: 20 mg Spironolactone (Aldactone) 25 mg PO DAILY [facility] Tramadol HCl (Ultram) 50 mg PO TID PRN PRN Reason: Pain, severe (8-10) Last Admin: 04/03/18 23:01 Dose: 50 mg - Labs Labs: 03/31/18 09:20 03/31/18 09:20 PT 35.6 SECONDS (9.4-12.5) H 03/01/18 18:48 INR 3.05 03/01/18 18:48 APTT 32.1 Seconds (25.1-36.5) 03/01/18 18:48 Attending/Attestation - Attestation I have personally seen and examined this patient.: Yes I have fully participated in the care of the patient.: Yes I have reviewed all pertinent clinical information, including history, physical exam and plan: Yes Notes (Text): Acute on chronic hypoxic respiratory failure Diastolic HF LAYO DVT/PE c/w bipap QHS and as needed c/w lasix, duo nebs, pulmicort and brovana c/w xarelto awaiting placement
--- NOTE | 2018-04-01 07:15 | CP.PCM.PN ---
<ShyCydneytravis L - Last Filed: 04/01/18 14:00> Subjective - Date & Time of Evaluation Date of Evaluation: 04/01/18 Time of Evaluation: 07:15 - Subjective Subjective: Resident Progress Note for Hospitalist Service Patient examined at bedside. No acute events overnight. Patient is better tolerating physical therapy, however remains non compliant with bipap. Denies fevers, chills, chest pain, shortness of breath, abdominal pain, diarrhea. Objective - Vital Signs/Intake and Output Vital Signs (last 24 hours): Temp Pulse Resp BP Pulse Ox 98.2 F 74 18 106/62 88 L 03/31/18 23:14 04/01/18 02:00 03/31/18 23:14 03/31/18 23:14 03/31/18 23:14 Intake and Output: 04/01/18 04/01/18 06:59 18:59 Intake Total 480 Output Total 700 Balance -220 - Medications Medications: Current Medications Acetaminophen (Tylenol 325mg Tab) 650 mg PO Q6H PRN PRN Reason: Headache Last Admin: 03/05/18 21:07 Dose: 650 mg Albuterol/Ipratropium (Duoneb 3 Mg/0.5 Mg (3 Ml) Ud) 3 ml IH [id number] PRN PRN Reason: Shortness of Breath Last Admin: 03/30/18 23:58 Dose: 3 ml Arformoterol Tartrate (Brovana) 15 mcg IH [id number] [facility] Last Admin: 03/31/18 20:53 Dose: 15 mcg Budesonide (Pulmicort Respules) 0.5 mg IH [id number] [facility] Last Admin: 03/31/18 20:53 Dose: 0.5 mg Furosemide (Lasix) 40 mg IVP Q12 [facility] Last Admin: 03/31/18 11:25 Dose: 40 mg Gabapentin (Neurontin) 300 mg PO TID [facility]; Protocol Last Admin: 03/31/18 18:13 Dose: 300 mg Guaifenesin (Robitussin) 100 mg PO Q4H PRN PRN Reason: Cough Last Admin: 03/30/18 14:48 Dose: 100 mg Mupirocin (Bactroban Ointment) 1 gm TOP BID [facility] Last Admin: 03/31/18 18:14 Dose: 1 applic Pantoprazole Sodium (Protonix Ec Tab) 40 mg PO 0600 [facility] Last Admin: 03/31/18 05:44 Dose: 40 mg Rivaroxaban (Xarelto) 20 mg PO DAILY [facility]; Protocol Last Admin: 03/31/18 11:25 Dose: 20 mg Sildenafil Citrate (Revatio) 20 mg PO TID [facility] Last Admin: 03/31/18 18:14 Dose: 20 mg Tramadol HCl (Ultram) 50 mg PO TID PRN PRN Reason: Pain, severe (8-10) Last Admin: 03/31/18 15:34 Dose: 50 mg - Labs Labs: 03/31/18 09:20 03/31/18 09:20 PT 35.6 SECONDS (9.4-12.5) H 03/01/18 18:48 INR 3.05 03/01/18 18:48 APTT 32.1 Seconds (25.1-36.5) 03/01/18 18:48 - Additional Findings Additional findings: - Constitutional Appears: No Acute Distress, Chronically Ill - Head Exam Head Exam: ATRAUMATIC, NORMAL INSPECTION, NORMOCEPHALIC - Eye Exam Eye Exam: Normal appearance - Respiratory Exam Respiratory Exam: Decreased Breath Sounds, NORMAL BREATHING PATTERN. absent: Rales, Rhonchi, Wheezes, Respiratory Distress - Cardiovascular Exam Cardiovascular Exam: REGULAR RHYTHM, +S1, +S2. absent: Bradycardia, Tachycardia, Murmur - GI/Abdominal Exam GI & Abdominal Exam: Soft, Normal Bowel Sounds. 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 Plan: Shortness of breath - 2/2 severe pulm HTN, CHF, LAYO - continue lasix 40 mg IV BID - continue duonebs prn, brovana, pulmicort - continue Sildenafil for pulm HTN - fluid restrict to 1.2 L daily - Pulmonary consulted, recommended continued therapy and emphasis on bipap. No further recommendations at this time - Continue PT, recommended JESUS however per case mangers denied by insurance Bilateral leg pain - lower extremity dopplers on 03/24 negative for DVT - Echo on 01/14 show RV is severely dilated, RV systolic function is severely reduced, RA is severely dilated, severe TR, severe pulm HTN - continue Lasix 40 mg IV BID - Gabapentin 300 mg TID - Tramadol prn - continue PT LAYO - bipap at night, patient has history of noncompliance PPX - xarelto, protonix Case discussed with Dr. Nohemi Begum PGY-1 <Jayson Song - Last Filed: 04/01/18 14:39> Objective - Vital Signs/Intake and Output Vital Signs (last 24 hours): Temp Pulse Resp BP Pulse Ox 98 F 70 18 99/60 L 96 04/01/18 06:00 04/01/18 06:00 04/01/18 06:00 04/01/18 09:43 04/01/18 06:00 Intake and Output: 04/01/18 04/01/18 06:59 18:59 Intake Total 480 Output Total 700 Balance -220 - Medications Medications: Current Medications Acetaminophen (Tylenol 325mg Tab) 650 mg PO Q6H PRN PRN Reason: Headache Last Admin: 03/05/18 21:07 Dose: 650 mg Albuterol/Ipratropium (Duoneb 3 Mg/0.5 Mg (3 Ml) Ud) 3 ml IH [id number] PRN PRN Reason: Shortness of Breath Last Admin: 03/30/18 23:58 Dose: 3 ml Arformoterol Tartrate (Brovana) 15 mcg IH [id number] [facility] Last Admin: 04/01/18 07:49 Dose: 15 mcg Budesonide (Pulmicort Respules) 0.5 mg IH [id number] [facility] Last Admin: 04/01/18 07:49 Dose: 0.5 mg Furosemide (Lasix) 40 mg IVP Q12 [facility] Last Admin: 04/01/18 09:43 Dose: 40 mg Gabapentin (Neurontin) 300 mg PO TID [facility]; Protocol Last Admin: 04/01/18 13:52 Dose: 300 mg Guaifenesin (Robitussin) 100 mg PO Q4H PRN PRN Reason: Cough Last Admin: 04/01/18 09:43 Dose: 100 mg Mupirocin (Bactroban Ointment) 1 gm TOP BID [facility] Last Admin: 04/01/18 09:44 Dose: Not Given Pantoprazole Sodium (Protonix Ec Tab) 40 mg PO 0600 [facility] Last Admin: 04/01/18 08:26 Dose: 40 mg Rivaroxaban (Xarelto) 20 mg PO DAILY [facility]; Protocol Last Admin: 04/01/18 09:39 Dose: 20 mg Sildenafil Citrate (Revatio) 20 mg PO TID [facility] Last Admin: 04/01/18 13:52 Dose: 20 mg Tramadol HCl (Ultram) 50 mg PO TID PRN PRN Reason: Pain, severe (8-10) Last Admin: 04/01/18 10:10 Dose: 50 mg - Labs Labs: 03/31/18 09:20 03/31/18 09:20 PT 35.6 SECONDS (9.4-12.5) H 03/01/18 18:48 INR 3.05 03/01/18 18:48 APTT 32.1 Seconds (25.1-36.5) 03/01/18 18:48 Attending/Attestation - Attestation I have personally seen and examined this patient.: Yes I have fully participated in the care of the patient.: Yes I have reviewed all pertinent clinical information, including history, physical exam and plan: Yes
[2018-04-01] MEDS: Budesonide 0.5 mg/2 ml Inhal Susp UD IH SCH ×2 (07:49→20:16)
[2018-04-01] MEDS: Arformoterol 15 mcg/2 ml Inh Sol IH SCH ×2 (07:49→20:16)
[2018-04-01] MEDS: Pantoprazole 40 mg EC Tab PO SCH (08:26)
[2018-04-01] MEDS: Sildenafil 20 MG TAB PO SCH ×3 (09:39→17:29)
[2018-04-01] MEDS: guaiFENesin 100 mg/5 ml Syrup UD PO PRN ×2 (09:43→21:13)
[2018-04-01] MEDS: Mupirocin 2% Ointment 15 GM TUBE TOP SCH ×2 (09:44→17:29)
--- NOTE | 2018-04-01 19:06 | US ---
Date of service: 04/01/2018 HISTORY: Left breast swelling. TECHNIQUE: Grayscale imaging of the entire breasts was performed with real-time linear scanner. FINDINGS: LEFT BREAST: There is diffuse subcutaneous edema. There is also edema in the breast parenchyma. No solid or cystic masses identified. There are mildly enlarged axillary lymph nodes, the largest measures 1.6 cm. IMPRESSION: No sonographic evidence of malignancy. Diffuse subcutaneous and parenchymal edema. Left axillary lymphadenopathy which may be reactive, infectious or inflammatory in etiology. Clinical follow-up is advised. BIRADS: BIRADS 2 Benign finding Recommendation: Continue annual screening mammography, as per ACR guidelines.
[2018-04-02] MEDS: Pantoprazole 40 mg EC Tab PO SCH (06:19)
--- NOTE | 2018-04-02 07:41 | CP.PCM.PN ---
<BegumLisa L - Last Filed: 04/02/18 18:54> Subjective - Date & Time of Evaluation Date of Evaluation: 04/02/18 Time of Evaluation: 07:41 - Subjective Subjective: Resident Progress Note for Hospitalist Service Patient examined at bedside. Per nursing patient was noncompliant with bipap overnight. Patient offers no complaints at this time. Denies fevers, chills, chest pain, abdominal pain, diarrhea, dysuria. Objective - Vital Signs/Intake and Output Vital Signs (last 24 hours): Temp Pulse Resp BP Pulse Ox 98.5 F 80 20 100/57 L 95 04/01/18 22:30 04/02/18 01:18 04/01/18 22:30 04/01/18 22:30 04/01/18 22:30 Intake and Output: 04/02/18 04/02/18 06:59 18:59 Intake Total 360 Balance 360 - Medications Medications: Current Medications Acetaminophen (Tylenol 325mg Tab) 650 mg PO Q6H PRN PRN Reason: Headache Last Admin: 03/05/18 21:07 Dose: 650 mg Albuterol/Ipratropium (Duoneb 3 Mg/0.5 Mg (3 Ml) Ud) 3 ml IH [id number] PRN PRN Reason: Shortness of Breath Last Admin: 03/30/18 23:58 Dose: 3 ml Arformoterol Tartrate (Brovana) 15 mcg IH [id number] [facility] Last Admin: 04/01/18 20:16 Dose: 15 mcg Budesonide (Pulmicort Respules) 0.5 mg IH [id number] [facility] Last Admin: 04/01/18 20:16 Dose: 0.5 mg Furosemide (Lasix) 40 mg IVP Q12 [facility] Last Admin: 04/01/18 21:13 Dose: 40 mg Gabapentin (Neurontin) 300 mg PO TID [facility]; Protocol Last Admin: 04/01/18 17:29 Dose: 300 mg Guaifenesin (Robitussin) 100 mg PO Q4H PRN PRN Reason: Cough Last Admin: 04/01/18 21:13 Dose: 100 mg Mupirocin (Bactroban Ointment) 1 gm TOP BID [facility] Last Admin: 04/01/18 17:29 Dose: Not Given Pantoprazole Sodium (Protonix Ec Tab) 40 mg PO 0600 [facility] Last Admin: 04/02/18 06:19 Dose: 40 mg Rivaroxaban (Xarelto) 20 mg PO DAILY [facility]; Protocol Last Admin: 04/01/18 09:39 Dose: 20 mg Sildenafil Citrate (Revatio) 20 mg PO TID [facility] Last Admin: 04/01/18 17:29 Dose: 20 mg Tramadol HCl (Ultram) 50 mg PO TID PRN PRN Reason: Pain, severe (8-10) Last Admin: 04/01/18 21:14 Dose: 50 mg - Labs Labs: 03/31/18 09:20 03/31/18 09:20 PT 35.6 SECONDS (9.4-12.5) H 03/01/18 18:48 INR 3.05 03/01/18 18:48 APTT 32.1 Seconds (25.1-36.5) 03/01/18 18:48 - Additional Findings Additional findings: - Constitutional Appears: No Acute Distress, Chronically Ill - Head Exam Head Exam: ATRAUMATIC, NORMAL INSPECTION, NORMOCEPHALIC - Eye Exam Eye Exam: Normal appearance - Respiratory Exam Respiratory Exam: Decreased Breath Sounds, NORMAL BREATHING PATTERN. absent: Rales, Rhonchi, Wheezes, Respiratory Distress - Cardiovascular Exam Cardiovascular Exam: REGULAR RHYTHM, +S1, +S2. absent: Bradycardia, Tachycardia, Murmur - GI/Abdominal Exam GI & Abdominal Exam: Soft, Normal Bowel Sounds. 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 Plan: Shortness of breath - 2/2 severe pulm HTN, CHF, LAYO - continue lasix 40 mg IV BID - continue duonebs prn, brovana, pulmicort - continue Sildenafil for pulm HTN - fluid restrict to 1.2 L daily - Pulmonary consulted, recommended continued therapy and emphasis on bipap. No further recommendations at this time - Continue PT, recommended JESUS however per case mangers denied by insurance Bilateral leg pain - lower extremity dopplers on 03/24 negative for DVT - Echo on 01/14 show RV is severely dilated, RV systolic function is severely re duced, RA is severely dilated, severe TR, severe pulm HTN - continue Lasix 40 mg IV BID - Gabapentin 300 mg TID - Tramadol prn - continue PT LAYO - bipap at night, patient has history of noncompliance PPX - xarelto, protonix Case discussed with Dr. Nohemi Begum PGY-1 <Jayson Song - Last Filed: 04/03/18 13:53> Objective - Vital Signs/Intake and Output Vital Signs (last 24 hours): Temp Pulse Resp BP Pulse Ox 98 F 75 20 111/65 95 04/03/18 06:00 04/03/18 06:00 04/03/18 06:00 04/03/18 13:22 04/03/18 06:00 Intake and Output: 04/03/18 04/03/18 06:59 18:59 Intake Total 360 Output Total 150 Balance 210 - Medications Medications: Current Medications Albuterol/Ipratropium (Duoneb 3 Mg/0.5 Mg (3 Ml) Ud) 3 ml IH [id number] PRN PRN Reason: Shortness of Breath Last Admin: 03/30/18 23:58 Dose: 3 ml Arformoterol Tartrate (Brovana) 15 mcg IH [id number] [facility] Last Admin: 04/03/18 09:04 Dose: 15 mcg Budesonide (Pulmicort Respules) 0.5 mg IH [id number] [facility] Last Admin: 04/03/18 09:04 Dose: 0.5 mg Furosemide (Lasix) 40 mg IVP Q12 [facility] Last Admin: 04/03/18 13:22 Dose: 40 mg Gabapentin (Neurontin) 300 mg PO TID [facility]; Protocol Last Admin: 04/03/18 13:21 Dose: 300 mg Guaifenesin (Robitussin) 100 mg PO Q4H PRN PRN Reason: Cough Last Admin: 04/02/18 14:19 Dose: 100 mg Mupirocin (Bactroban Ointment) 1 gm TOP BID [facility] Last Admin: 04/03/18 09:24 Dose: Not Given Pantoprazole Sodium (Protonix Ec Tab) 40 mg PO 0600 [facility] Last Admin: 04/03/18 06:52 Dose: 40 mg Sildenafil Citrate (Revatio) 20 mg PO TID [facility] Last Admin: 04/03/18 13:22 Dose: 20 mg Tramadol HCl (Ultram) 50 mg PO TID PRN PRN Reason: Pain, severe (8-10) Last Admin: 04/01/18 21:14 Dose: 50 mg - Labs Labs: 03/31/18 09:20 03/31/18 09:20 PT 35.6 SECONDS (9.4-12.5) H 03/01/18 18:48 INR 3.05 03/01/18 18:48 APTT 32.1 Seconds (25.1-36.5) 03/01/18 18:48 Attending/Attestation - Attestation I have personally seen and examined this patient.: Yes I have fully participated in the care of the patient.: Yes I have reviewed all pertinent clinical information, including history, physical exam and plan: Yes
[2018-04-02] MEDS: Budesonide 0.5 mg/2 ml Inhal Susp UD IH SCH ×2 (07:48→20:44)
[2018-04-02] MEDS: Arformoterol 15 mcg/2 ml Inh Sol IH SCH ×2 (07:48→20:43)
[2018-04-02] MEDS: Sildenafil 20 MG TAB PO SCH ×3 (10:10→17:30)
[2018-04-02] MEDS: guaiFENesin 100 mg/5 ml Syrup UD PO PRN (14:19)
[2018-04-02] MEDS: Mupirocin 2% Ointment 15 GM TUBE TOP SCH ×2 (16:57→17:30)
[2018-04-03] MEDS: Pantoprazole 40 mg EC Tab PO SCH (06:52)
--- NOTE | 2018-04-03 07:54 | CP.PCM.PN ---
<BegumCydneytravis L - Last Filed: 04/03/18 13:55> Subjective - Date & Time of Evaluation Date of Evaluation: 04/03/18 Time of Evaluation: 08:00 - Subjective Subjective: Resident Progress Note for Hospitalist Service Patient examined at bedside. No acute events overnight. Patient was on bipap overnight. As per PT patient is noncompliant with PT recommendations. Patient's oxygen saturation dropped to 69% on attempt to stand up on her own. Patient denies fever, chills, chest pain, abdominal pain, diarrhea, dysuria. Objective - Vital Signs/Intake and Output Vital Signs (last 24 hours): Temp Pulse Resp BP Pulse Ox 97.9 F 76 18 122/79 96 04/02/18 23:01 04/02/18 23:01 04/02/18 23:01 04/02/18 23:01 04/02/18 23:01 Intake and Output: 04/03/18 04/03/18 06:59 18:59 Intake Total 360 Output Total 150 Balance 210 - Medications Medications: Current Medications Albuterol/Ipratropium (Duoneb 3 Mg/0.5 Mg (3 Ml) Ud) 3 ml IH [id number] PRN PRN Reason: Shortness of Breath Last Admin: 03/30/18 23:58 Dose: 3 ml Arformoterol Tartrate (Brovana) 15 mcg IH [id number] [facility] Last Admin: 04/02/18 20:43 Dose: 15 mcg Budesonide (Pulmicort Respules) 0.5 mg IH [id number] [facility] Last Admin: 04/02/18 20:44 Dose: 0.5 mg Furosemide (Lasix) 40 mg IVP Q12 [facility] Last Admin: 04/02/18 22:38 Dose: 40 mg Gabapentin (Neurontin) 300 mg PO TID [facility]; Protocol Last Admin: 04/02/18 17:30 Dose: 300 mg Guaifenesin (Robitussin) 100 mg PO Q4H PRN PRN Reason: Cough Last Admin: 04/02/18 14:19 Dose: 100 mg Mupirocin (Bactroban Ointment) 1 gm TOP BID [facility] Last Admin: 04/02/18 17:30 Dose: Not Given Pantoprazole Sodium (Protonix Ec Tab) 40 mg PO 0600 [facility] Last Admin: 04/03/18 06:52 Dose: 40 mg Rivaroxaban (Xarelto) 20 mg PO DAILY [facility]; Protocol Last Admin: 04/02/18 10:10 Dose: 20 mg Sildenafil Citrate (Revatio) 20 mg PO TID [facility] Last Admin: 04/02/18 17:30 Dose: 20 mg Tramadol HCl (Ultram) 50 mg PO TID PRN PRN Reason: Pain, severe (8-10) Last Admin: 04/01/18 21:14 Dose: 50 mg - Labs Labs: 03/31/18 09:20 03/31/18 09:20 PT 35.6 SECONDS (9.4-12.5) H 03/01/18 18:48 INR 3.05 03/01/18 18:48 APTT 32.1 Seconds (25.1-36.5) 03/01/18 18:48 - Additional Findings Additional findings: - Constitutional Appears: No Acute Distress, Chronically Ill - Head Exam Head Exam: ATRAUMATIC, NORMAL INSPECTION, NORMOCEPHALIC - Eye Exam Eye Exam: Normal appearance - Respiratory Exam Respiratory Exam: Decreased Breath Sounds, NORMAL BREATHING PATTERN. absent: Rales, Rhonchi, Wheezes, Respiratory Distress - Cardiovascular Exam Cardiovascular Exam: REGULAR RHYTHM, +S1, +S2. absent: Bradycardia, Tachycardia, Murmur - GI/Abdominal Exam GI & Abdominal Exam: Soft, Normal Bowel Sounds. 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 Plan: Shortness of breath - 2/2 severe pulm HTN, CHF, LAYO - continue lasix 40 mg IV BID - continue duonebs prn, brovana, pulmicort - continue Sildenafil for pulm HTN - fluid restrict to 1.2 L daily - Pulmonary consulted, recommended continued therapy and emphasis on bipap. No further recommendations at this time - Continue PT, recommended JESUS however per case mangers denied by insurance Bilateral leg pain - lower extremity dopplers on 03/24 negative for DVT - Echo on 01/14 show RV is severely dilated, RV systolic function is severely reduced, RA is severely dilated, severe TR, severe pulm HTN - continue Lasix 40 mg IV BID - Gabapentin 300 mg TID - Tramadol prn - continue PT LAYO - bipap at night, patient has history of noncompliance Edema - increased edema noted in breast tissue bilaterally - U/S shows diffuse edema, BIRADS 2 benign finding - continue annual screening mammography as per ACR guidelines PPX - xarelto, protonix Case discussed with Dr. Nohemi Begum PGY-1 <Jayson Song - Last Filed: 04/03/18 14:32> Objective - Vital Signs/Intake and Output Vital Signs (last 24 hours): Temp Pulse Resp BP Pulse Ox 98 F 84 20 111/65 98 04/03/18 14:00 04/03/18 14:00 04/03/18 14:00 04/03/18 14:00 04/03/18 14:00 Intake and Output: 04/03/18 04/03/18 06:59 18:59 Intake Total 360 Output Total 150 Balance 210 - Medications Medications: Current Medications Albuterol/Ipratropium (Duoneb 3 Mg/0.5 Mg (3 Ml) Ud) 3 ml IH [id number] PRN PRN Reason: Shortness of Breath Last Admin: 03/30/18 23:58 Dose: 3 ml Arformoterol Tartrate (Brovana) 15 mcg IH [id number] [facility] Last Admin: 04/03/18 09:04 Dose: 15 mcg Budesonide (Pulmicort Respules) 0.5 mg IH [id number] [facility] Last Admin: 04/03/18 09:04 Dose: 0.5 mg Furosemide (Lasix) 40 mg IVP Q12 [facility] Last Admin: 04/03/18 13:22 Dose: 40 mg Gabapentin (Neurontin) 300 mg PO TID [facility]; Protocol Last Admin: 04/03/18 13:21 Dose: 300 mg Guaifenesin (Robitussin) 100 mg PO Q4H PRN PRN Reason: Cough Last Admin: 04/02/18 14:19 Dose: 100 mg Mupirocin (Bactroban Ointment) 1 gm TOP BID [facility] Last Admin: 04/03/18 09:24 Dose: Not Given Pantoprazole Sodium (Protonix Ec Tab) 40 mg PO 0600 [facility] Last Admin: 04/03/18 06:52 Dose: 40 mg Sildenafil Citrate (Revatio) 20 mg PO TID [facility] Last Admin: 04/03/18 13:22 Dose: 20 mg Tramadol HCl (Ultram) 50 mg PO TID PRN PRN Reason: Pain, severe (8-10) Last Admin: 04/01/18 21:14 Dose: 50 mg - Labs Labs: 03/31/18 09:20 03/31/18 09:20 PT 35.6 SECONDS (9.4-12.5) H 03/01/18 18:48 INR 3.05 03/01/18 18:48 APTT 32.1 Seconds (25.1-36.5) 03/01/18 18:48 Attending/Attestation - Attestation I have personally seen and examined this patient.: Yes I have fully participated in the care of the patient.: Yes I have reviewed all pertinent clinical information, including history, physical exam and plan: Yes
[2018-04-03] MEDS: Budesonide 0.5 mg/2 ml Inhal Susp UD IH SCH ×2 (09:04→21:06)
[2018-04-03] MEDS: Arformoterol 15 mcg/2 ml Inh Sol IH SCH ×2 (09:04→21:06)
[2018-04-03] MEDS: Sildenafil 20 MG TAB PO SCH ×3 (09:22→17:52)
[2018-04-03] MEDS: Mupirocin 2% Ointment 15 GM TUBE TOP SCH ×2 (09:24→18:05)
[2018-04-03] MEDS: guaiFENesin 100 mg/5 ml Syrup UD PO PRN (19:57)
[2018-04-04] MEDS: guaiFENesin 100 mg/5 ml Syrup UD PO PRN ×3 (00:16→20:22)
--- NOTE | 2018-04-04 07:08 | CP.PCM.PN ---
<BegumLisa L - Last Filed: 04/04/18 13:48> Subjective - Date & Time of Evaluation Date of Evaluation: 04/04/18 Time of Evaluation: 07:08 - Subjective Subjective: Resident Progress Note for Hospitalist Service Patient examined at bedside. No acute events overnight. Patient expresses understanding regarding her weakness and is agreeable to evaluation for custodial placement. Denies fevers, chills, nausea, vomiting, chest pain, abdominal pain. Objective - Vital Signs/Intake and Output Vital Signs (last 24 hours): Temp Pulse Resp BP Pulse Ox 98.2 F 84 20 116/71 98 04/03/18 22:00 04/04/18 03:00 04/03/18 22:00 04/03/18 22:57 04/03/18 22:00 Intake and Output: 04/04/18 04/04/18 06:59 18:59 Intake Total 600 Output Total 500 Balance 100 - Medications Medications: Current Medications Albuterol/Ipratropium (Duoneb 3 Mg/0.5 Mg (3 Ml) Ud) 3 ml IH [id number] PRN PRN Reason: Shortness of Breath Last Admin: 03/30/18 23:58 Dose: 3 ml Arformoterol Tartrate (Brovana) 15 mcg [facility] [id number] [facility] Last Admin: 04/03/18 21:06 Dose: 15 mcg Budesonide (Pulmicort Respules) 0.5 mg IH [id number] [facility] Last Admin: 04/03/18 21:06 Dose: 0.5 mg Furosemide (Lasix) 40 mg IVP Q12 [facility] Last Admin: 04/03/18 22:57 Dose: 40 mg Gabapentin (Neurontin) 300 mg PO TID [facility]; Protocol Last Admin: 04/03/18 17:52 Dose: 300 mg Guaifenesin (Robitussin) 100 mg PO Q4H PRN PRN Reason: Cough Last Admin: 04/04/18 00:16 Dose: 100 mg Mupirocin (Bactroban Ointment) 1 gm TOP BID [facility] Last Admin: 04/03/18 18:05 Dose: Not Given Pantoprazole Sodium (Protonix Ec Tab) 40 mg PO 0600 [facility] Last Admin: 04/03/18 06:52 Dose: 40 mg Sildenafil Citrate (Revatio) 20 mg PO TID [facility] Last Admin: 04/03/18 17:52 Dose: 20 mg Tramadol HCl (Ultram) 50 mg PO TID PRN PRN Reason: Pain, severe (8-10) Last Admin: 04/03/18 23:01 Dose: 50 mg - Labs Labs: 03/31/18 09:20 03/31/18 09:20 PT 35.6 SECONDS (9.4-12.5) H 03/01/18 18:48 INR 3.05 03/01/18 18:48 APTT 32.1 Seconds (25.1-36.5) 03/01/18 18:48 - Additional Findings Additional findings: - Constitutional Appears: No Acute Distress, Chronically Ill - Head Exam Head Exam: ATRAUMATIC, NORMAL INSPECTION, NORMOCEPHALIC - Eye Exam Eye Exam: Normal appearance - Respiratory Exam Respiratory Exam: Decreased Breath Sounds, NORMAL BREATHING PATTERN. absent: Rales, Rhonchi, Wheezes, Respiratory Distress - Cardiovascular Exam Cardiovascular Exam: REGULAR RHYTHM, +S1, +S2. absent: Bradycardia, Tachycardia, Murmur - GI/Abdominal Exam GI & Abdominal Exam: Soft, Normal Bowel Sounds. 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 Plan: Shortness of breath - 2/2 severe pulm HTN, CHF, LAYO - continue lasix 40 mg IV BID - continue duonebs prn, brovana, pulmicort - continue Sildenafil for pulm HTN - fluid restrict to 1.2 L daily - Pulmonary consulted, recommended continued therapy and emphasis on bipap. No further recommendations at this time - Continue PT, recommended [facility] however per case mangers denied by insurance Bilateral leg pain - lower extremity dopplers on 03/24 negative for DVT - Echo on 01/14 show RV is severely dilated, RV systolic function is severely reduced, RA is severely dilated, severe TR, severe pulm HTN - continue Lasix 40 mg IV BID - Gabapentin 300 mg TID - Tramadol prn - continue PT LAYO - bipap at night, patient has history of noncompliance Edema - increased edema noted in breast tissue bilaterally - U/S shows diffuse edema, BIRADS 2 benign finding - continue annual screening mammography as per ACR guidelines PPX - xarelto, protonix Case discussed with Dr. Renato Begum PGY-1 <Placido Gross - Last Filed: 04/04/18 14:50> Objective - Vital Signs/Intake and Output Vital Signs (last 24 hours): Temp Pulse Resp BP Pulse Ox 97.8 F 69 20 102/62 88 L 04/04/18 06:00 04/04/18 06:00 04/04/18 06:00 04/04/18 10:22 04/04/18 06:00 Intake and Output: 04/04/18 04/04/18 06:59 18:59 Intake Total 600 Output Total 500 Balance 100 - Medications Medications: Current Medications Albuterol/Ipratropium (Duoneb 3 Mg/0.5 Mg (3 Ml) Ud) 3 ml IH [id number] PRN PRN Reason: Shortness of Breath Last Admin: 03/30/18 23:58 Dose: 3 ml Arformoterol Tartrate (Brovana) 15 mcg IH [id number] [facility] Last Admin: 04/04/18 07:41 Dose: 15 mcg Budesonide (Pulmicort Respules) 0.5 mg IH [id number] [facility] Last Admin: 04/04/18 07:41 Dose: 0.5 mg Furosemide (Lasix) 40 mg IVP Q12 [facility] Last Admin: 04/04/18 10:22 Dose: 40 mg Gabapentin (Neurontin) 300 mg PO TID [facility]; Protocol Last Admin: 04/04/18 14:32 Dose: 300 mg Guaifenesin (Robitussin) 100 mg PO Q4H PRN PRN Reason: Cough Last Admin: 04/04/18 14:32 Dose: 100 mg Pantoprazole Sodium (Protonix Ec Tab) 40 mg PO 0600 [facility] Last Admin: 04/03/18 06:52 Dose: 40 mg Rivaroxaban (Xarelto) 20 mg PO DAILY [facility]; Protocol Last Admin: 04/04/18 11:54 Dose: 20 mg Sildenafil Citrate (Revatio) 20 mg PO TID [facility] Last Admin: 04/04/18 14:32 Dose: 20 mg Tramadol HCl (Ultram) 50 mg PO TID PRN PRN Reason: Pain, severe (8-10) Last Admin: 04/03/18 23:01 Dose: 50 mg - Labs Labs: 03/31/18 09:20 03/31/18 09:20 PT 35.6 SECONDS (9.4-12.5) H 03/01/18 18:48 INR 3.05 03/01/18 18:48 APTT 32.1 Seconds (25.1-36.5) 03/01/18 18:48 Attending/Attestation - Attestation I have personally seen and examined this patient.: Yes I have fully participated in the care of the patient.: Yes I have reviewed all pertinent clinical information, including history, physical exam and plan: Yes Notes (Text): 04/04/18 14:46 Medical record note made by the resident after discussion with my direction and input after the patient was personally seen and examined by me. I have reviewed the chart and agree that the record accurately reflects by personal performance of the history, physical exam, data review, and medical decision-making, in the course for the patient. I have also personally directed the plan of care. 42 yrs female with PMH of severe Pulm HTN, diastolic CHF, PE/DVT on xarelto, , COPD on 4L home O2, LAYO w/ CPAP, was admitted with worsening dyspnea (acute on chronic hypoxic Resp Failure). Patient had prolong stay in the [facility] due to off and worsening of hypoxic Resp Failure which is multifactorial due to severe Pulmonary HTN and diastolic CHF.(Pulmonary HTN is multifactorial due to diastolic CHF, chronic thrombo embolism and sleep apnea.She has right heart cath done at January 2018, that showed elevated pulmonary wedge pressure 80, V/Q scan over there was high probability.) Currently patient is on IV lasix, leg edema is better.Dyspnea is slightly better, still has worsening hypoxia with minimal exertion. Patient is on 5 L nasal cannula and BIPAP at night time.Continue IV lasix. Patient has refused shelter NH placement, insurance has denied multiple time [facility] , patient is also very non compliance , will need follow up with Pulmonary HTN clinic after discharge. Prognosis is guarded.
[2018-04-04] MEDS: Arformoterol 15 mcg/2 ml Inh Sol IH SCH ×2 (07:41→20:09)
[2018-04-04] MEDS: Budesonide 0.5 mg/2 ml Inhal Susp UD IH SCH ×2 (07:41→20:09)
[2018-04-04] MEDS: Sildenafil 20 MG TAB PO SCH ×3 (10:22→17:43)
[2018-04-04] MEDS: Mupirocin 2% Ointment 15 GM TUBE TOP SCH (14:23)
--- NOTE | 2018-04-05 07:16 | CP.PCM.PN ---
<Lisa Begum L - Last Filed: 04/05/18 13:35> Subjective - Date & Time of Evaluation Date of Evaluation: 04/05/18 Time of Evaluation: 07:14 - Subjective Subjective: Resident Progress Note for Hospitalist Service Patient examined at bedside. No acute events overnight. Patient states she kept bipap on overnight. She is having good PO intake. Denies fevers, chills, nausea, vomiting, chest pain, abdominal pain. Objective - Vital Signs/Intake and Output Vital Signs (last 24 hours): Temp Pulse Resp BP Pulse Ox 98.3 F 83 18 109/61 88 L 04/04/18 22:00 04/04/18 22:00 04/04/18 22:00 04/04/18 22:00 04/04/18 14:00 Intake and Output: 04/05/18 04/05/18 06:59 18:59 Intake Total 120 Output Total 2100 Balance -1980 - Medications Medications: Current Medications Albuterol/Ipratropium (Duoneb 3 Mg/0.5 Mg (3 Ml) Ud) 3 ml IH [id number] PRN PRN Reason: Shortness of Breath Last Admin: 03/30/18 23:58 Dose: 3 ml Arformoterol Tartrate (Brovana) 15 mcg IH [id number] [facility] Last Admin: 04/04/18 20:09 Dose: 15 mcg Budesonide (Pulmicort Respules) 0.5 mg IH [id number] [facility] Last Admin: 04/04/18 20:09 Dose: 0.5 mg Furosemide (Lasix) 40 mg IVP Q12 [facility] Last Admin: 04/04/18 21:12 Dose: 40 mg Gabapentin (Neurontin) 300 mg PO TID [facility]; Protocol Last Admin: 04/04/18 17:43 Dose: 300 mg Guaifenesin (Robitussin) 100 mg PO Q4H PRN PRN Reason: Cough Last Admin: 04/04/18 20:22 Dose: 100 mg Pantoprazole Sodium (Protonix Ec Tab) 40 mg PO 0600 [facility] Last Admin: 04/03/18 06:52 Dose: 40 mg Rivaroxaban (Xarelto) 20 mg PO DAILY [facility]; Protocol Last Admin: 04/04/18 11:54 Dose: 20 mg Sildenafil Citrate (Revatio) 20 mg PO TID [facility] Last Admin: 04/04/18 17:43 Dose: 20 mg Tramadol HCl (Ultram) 50 mg PO TID PRN PRN Reason: Pain, severe (8-10) Last Admin: 04/03/18 23:01 Dose: 50 mg - Labs Labs: 03/31/18 09:20 03/31/18 09:20 PT 35.6 SECONDS (9.4-12.5) H 03/01/18 18:48 INR 3.05 03/01/18 18:48 APTT 32.1 Seconds (25.1-36.5) 03/01/18 18:48 - Additional Findings Additional findings: - Constitutional Appears: No Acute Distress, Chronically Ill - Head Exam Head Exam: ATRAUMATIC, NORMAL INSPECTION, NORMOCEPHALIC - Eye Exam Eye Exam: Normal appearance - Respiratory Exam Respiratory Exam: Decreased Breath Sounds, NORMAL BREATHING PATTERN. absent: Rales, Rhonchi, Wheezes, Respiratory Distress - Cardiovascular Exam Cardiovascular Exam: REGULAR RHYTHM, +S1, +S2. absent: Bradycardia, Tachycardia, Murmur - GI/Abdominal Exam GI & Abdominal Exam: Soft, Normal Bowel Sounds. 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 Plan: Shortness of breath - 2/2 severe pulm HTN, CHF, LAYO - continue lasix 40 mg IV BID - continue duonebs prn, brovana, pulmicort - continue Sildenafil for pulm HTN - fluid restrict to 1.2 L daily - Pulmonary consulted, recommended continued therapy and emphasis on bipap. No further recommendations at this time - Continue PT as tolerated, recommended [facility] however per case mangers denied by insurance Bilateral leg pain - lower extremity dopplers on 03/24 negative for DVT - Echo on 01/14 show RV is severely dilated, RV systolic function is severely reduced, RA is severely dilated, severe TR, severe pulm HTN - continue Lasix 40 mg IV BID - Gabapentin 300 mg TID - Tramadol prn - Spironolactone 25 mg PO daily LAYO - bipap at night, patient has history of noncompliance Edema - increased edema noted in breast tissue bilaterally - U/S shows diffuse edema, BIRADS 2 benign finding - continue annual screening mammography as per ACR guidelines PPX - xarelto, protonix Case discussed with Dr. Renato Begum PGY-1 <Placido Gross - Last Filed: 04/07/18 15:46> Objective - Vital Signs/Intake and Output Vital Signs (last 24 hours): Temp Pulse Resp BP Pulse Ox 98 F 75 22 118/62 89 L 04/07/18 06:00 04/07/18 06:00 04/07/18 06:00 04/07/18 10:36 04/07/18 06:00 Intake and Output: 04/07/18 04/07/18 06:59 18:59 Intake Total 600 Output Total 1000 Balance -400 - Labs Labs: 03/31/18 09:20 03/31/18 09:20 PT 35.6 SECONDS (9.4-12.5) H 03/01/18 18:48 INR 3.05 03/01/18 18:48 APTT 32.1 Seconds (25.1-36.5) 03/01/18 18:48 Attending/Attestation - Attestation I have personally seen and examined this patient.: Yes I have fully participated in the care of the patient.: Yes I have reviewed all pertinent clinical information, including history, physical exam and plan: Yes Notes (Text): 04/07/18 15:46 Medical record note made by the resident after discussion with my direction and input after the patient was personally seen and examined by me. I have reviewed the chart and agree that the record accurately reflects by personal performance of the history, physical exam, data review, and medical decision-making, in the course for the patient. I have also personally directed the plan of care.
[2018-04-05] MEDS: Budesonide 0.5 mg/2 ml Inhal Susp UD IH SCH ×2 (08:03→19:35)
[2018-04-05] MEDS: Arformoterol 15 mcg/2 ml Inh Sol IH SCH ×2 (08:03→19:35)
[2018-04-05] MEDS: Sildenafil 20 MG TAB PO SCH ×3 (11:22→18:35)
[2018-04-05] MEDS: guaiFENesin 100 mg/5 ml Syrup UD PO PRN ×2 (18:35→23:26)
--- NOTE | 2018-04-06 07:13 | CP.PCM.PN ---
Subjective - Date & Time of Evaluation Date of Evaluation: 04/06/18 Time of Evaluation: 07:12 Objective - Vital Signs/Intake and Output Vital Signs (last 24 hours): Temp Pulse Resp BP Pulse Ox 97 F L 78 18 114/68 92 L 04/05/18 22:23 04/05/18 22:23 04/05/18 22:23 04/05/18 22:23 04/05/18 22:23 Intake and Output: 04/06/18 04/06/18 06:59 18:59 Intake Total 480 Output Total 500 Balance -20 - Medications Medications: Current Medications Albuterol/Ipratropium (Duoneb 3 Mg/0.5 Mg (3 Ml) Ud) 3 ml IH [id number] PRN PRN Reason: Shortness of Breath Last Admin: 03/30/18 23:58 Dose: 3 ml Arformoterol Tartrate (Brovana) 15 mcg IH [id number] [facility] Last Admin: 04/05/18 19:35 Dose: 15 mcg Budesonide (Pulmicort Respules) 0.5 mg IH [id number] [facility] Last Admin: 04/05/18 19:35 Dose: 0.5 mg Furosemide (Lasix) 40 mg IVP Q12 [facility] Last Admin: 04/05/18 21:25 Dose: 40 mg Gabapentin (Neurontin) 300 mg PO TID [facility]; Protocol Last Admin: 04/05/18 18:35 Dose: 300 mg Guaifenesin (Robitussin) 100 mg PO Q4H PRN PRN Reason: Cough Last Admin: 04/05/18 23:26 Dose: 100 mg Pantoprazole Sodium (Protonix Ec Tab) 40 mg PO 0600 [facility] Last Admin: 04/03/18 06:52 Dose: 40 mg Rivaroxaban (Xarelto) 20 mg PO DAILY [facility]; Protocol Last Admin: 04/05/18 11:22 Dose: 20 mg Sildenafil Citrate (Revatio) 20 mg PO TID [facility] Last Admin: 04/05/18 18:35 Dose: 20 mg Spironolactone (Aldactone) 25 mg PO DAILY [facility] Last Admin: 04/05/18 15:31 Dose: 25 mg Tramadol HCl (Ultram) 50 mg PO TID PRN PRN Reason: Pain, severe (8-10) Last Admin: 04/03/18 23:01 Dose: 50 mg - Labs Labs: 03/31/18 09:20 03/31/18 09:20 PT 35.6 SECONDS (9.4-12.5) H 03/01/18 18:48 INR 3.05 03/01/18 18:48 APTT 32.1 Seconds (25.1-36.5) 03/01/18 18:48
[2018-04-06] MEDS: Budesonide 0.5 mg/2 ml Inhal Susp UD IH SCH ×2 (08:20→19:25)
[2018-04-06] MEDS: Arformoterol 15 mcg/2 ml Inh Sol IH SCH ×2 (08:20→19:25)
[2018-04-06] MEDS: Sildenafil 20 MG TAB PO SCH ×3 (10:50→19:44)
[2018-04-06] MEDS: Pantoprazole 40 mg EC Tab PO SCH (10:52)
[2018-04-06 16:38] VITALS: RESP 22
--- NOTE | 2018-04-06 17:58 | CP.PCM.DIS ---
Provider - Provider Date of Admission: 02/24/18 00:17 Attending physician: Placido Gross MD Primary care physician: Dr. Little Consults: 04/04/18 11:42 [place] [employer] [Case Management Referral] Routine Comment: Physician Instructions: Reason For Exam: eval for [facility] Reason for Referral: Discharge Planning 02/27/18 19:29 Nursing Referral for Wound Care Routine Comment: Physician Instructions: Reason For Exam: right buttock abrasion/stage I 03/02/18 07:23 Pulmonology Consult Routine Comment: Consulting Provider: Low Clark Consulting Physician: Low Clark Reason for Consult: hemoptysis - coag 03/06/18 12:00 Pulmonology Consult Routine Comment: Consulting Provider: Pierre Moore Consulting Physician: Pierre Moore Reason for Consult: hypoxia 03/08/18 16:15 Consult [Physician Consult] Routine Comment: Consulting Provider: Farshad Landers Consulting Physician: Farshad Landers Reason for Consult: 43F with PMH of Pulmonary HTN,Diastolic CHF with CHF exacerbation 03/18/18 11:03 Physician Consult Routine Comment: Consulting Provider: Ann Diehl Consulting Physician: Ann Diehl Reason for Consult: suicidal ideation 03/29/18 11:47 Consult [Physician Consult] Routine Comment: Consulting Provider: Low Clark Consulting Physician: Low Clark Reason for Consult: worsening hypoxic respiratory failure Time Spent in preparation of Discharge (in minutes): 35 Diagnosis - Discharge Diagnosis (1) Pulmonary hypertension Status: Chronic (2) Chronic obstructive pulmonary disease Status: Chronic (3) Congestive heart failure Status: Chronic (4) Hypoxia Status: Chronic Hospital Course - Lab Results Lab Results: Micro Results 03/29/18 11:15 Naris MRSA Culture (Admit) - Final MRSA NOT DETECTED 03/18/18 18:00 Naris MRSA Culture (Admit) - Final MRSA DETECTED 02/24/18 12:30 Urine Urine Culture - Final 10-50,000 CFU/ML. MULTIPLE SPECIES. PROBABLE CONTAMINATION. Most Recent Lab Values WBC 5.9 10^3/uL (4.5-11.0) 03/31/18 09:20 RBC 3.84 10^6/uL (3.5-6.1) 03/31/18 09:20 Hgb 9.3 g/dL (12.0-16.0) L 03/31/18 09:20 Hct 31.0 % (36.0-48.0) L 03/31/18 09:20 MCV 80.7 fl (80.0-105.0) 03/31/18 09:20 MCH 24.2 pg (25.0-35.0) L 03/31/18 09:20 MCHC 30.0 g/dl (31.0-37.0) L 03/31/18 09:20 RDW 17.4 % (11.5-14.5) H 03/31/18 09:20 Plt Count 310 10^3/uL (120.0-450.0) 03/31/18 09:20 MPV 9.6 fl (7.0-11.0) 03/31/18 09:20 Gran % 70.5 % (50.0-68.0) H 03/31/18 09:20 Lymph % (Auto) 20.1 % (22.0-35.0) L 03/31/18 09:20 [place] % (Auto) 8.1 % (1.0-6.0) H 03/31/18 09:20 Eos % (Auto) 0.8 % (1.5-5.0) L 03/31/18 09:20 Baso % (Auto) 0.5 % (0.0-3.0) 03/31/18 09:20 Gran # 4.16 (1.4-6.5) 03/31/18 09:20 Lymph # (Auto) 1.2 (1.2-3.4) 03/31/18 09:20 [place] # (Auto) 0.5 (0.1-0.6) 03/31/18 09:20 Eos # (Auto) 0.1 (0.0-0.7) 03/31/18 09:20 Baso # (Auto) 0.03 K/mm3 (0.0-2.0) 03/31/18 09:20 Neutrophils % (Manual) 54 % (50.0-70.0) 03/23/18 08:00 Lymphocytes % (Manual) 23 % (22.0-35.0) 03/23/18 08:00 Atypical Lymphs % 1 % (0.0-0.0) H 03/20/18 05:30 Monocytes % (Manual) 22 % (1.0-6.0) H 03/23/18 08:00 Eosinophils % (Manual) 1 % (0.0-3.0) 03/23/18 08:00 Myelocytes % 1 % 02/27/18 06:30 Platelet Evaluation Normal (NORMAL) 03/23/18 08:00 Large Platelets Present 03/23/18 08:00 Hypochromasia Slight 03/23/18 08:00 Poikilocytosis (manual 1+ 02/23/18 20:40 Anisocytosis (manual) Slight 02/23/18 20:40 Ovalocytes Slight 02/23/18 20:40 Schistocytes Slight 02/23/18 20:40 PT 35.6 SECONDS (9.4-12.5) H 03/01/18 18:48 INR 3.05 03/01/18 18:48 APTT 32.1 Seconds (25.1-36.5) 03/01/18 18:48 pCO2 36 mm/Hg (35-45) 03/19/18 07:55 pO2 60.0 mm/Hg (80-100) L 03/19/18 07:55 HCO3 24.5 mmol/L (21-28) 03/19/18 07:55 ABG pH 7.44 (7.35-7.45) 03/19/18 07:55 ABG Total CO2 25.6 mmol.L (22-28) 03/19/18 07:55 ABG O2 Saturation 94.5 % (95-98) L 03/19/18 07:55 ABG O2 Content 10.9 ML/dl (15-23) L 03/19/18 07:55 ABG Base Excess 0.4 mmol/L (-2.0-3.0) 03/19/18 07:55 ABG Hemoglobin 8.4 g/dL (11.7-17.4) L 03/19/18 07:55 ABG Carboxyhemoglobin 2.0 % (0.5-1.5) H 03/19/18 07:55 POC ABG HHb (Measured) 5.3 % (0-5) H 03/19/18 07:55 ABG Methemoglobin 1.1 % (0.0-3.0) 03/19/18 07:55 ABG O2 Capacity 11.5 mL/dl (16-24) L 03/19/18 07:55 Hgb O2 Saturation 91.6 % (95.0-98.0) L 03/19/18 07:55 FiO2 60.0 % 03/19/18 07:55 Sodium 134 mmol/L (132-148) 03/31/18 09:20 Potassium 3.8 mmol/L (3.6-5.0) 03/31/18 09:20 Chloride 98 mmol/L (98-107) 03/31/18 09:20 Carbon Dioxide 29 mmol/L (21-33) 03/31/18 09:20 Anion Gap 11 (10-20) 03/31/18 09:20 BUN 11 mg/dL (7-21) 03/31/18 09:20 Creatinine 0.9 mg/dl (0.7-1.2) 03/31/18 09:20 Est GFR ( Amer) > 60 03/31/18 09:20 Est GFR (Non-Af Amer) > 60 03/31/18 09:20 Random Glucose 87 mg/dL (70-110) 03/31/18 09:20 Calcium 9.3 mg/dL (8.4-10.5) 03/31/18 09:20 Phosphorus 3.7 mg/dL (2.5-4.5) 03/31/18 09:20 Magnesium 2.0 mg/dL (1.7-2.2) 03/31/18 09:20 Total Bilirubin 1.8 mg/dL (0.2-1.3) H 03/31/18 09:20 AST 22 U/L (14-36) 03/31/18 09:20 ALT 18 U/L (7-56) 03/31/18 09:20 Alkaline Phosphatase 144 U/L (38-126) H 03/31/18 09:20 Troponin I 0.03 ng/mL D 02/23/18 20:40 NT-Pro-B Natriuret Pep 3350 pg/mL (0-450) H 02/23/18 20:40 Total Protein 6.7 g/dL (5.8-8.3) 03/31/18 09:20 Albumin 3.7 g/dL (3.0-4.8) 03/31/18 09:20 Globulin 3.0 gm/dL 03/31/18 09:20 Albumin/Globulin Ratio 1.2 (1.1-1.8) 03/31/18 09:20 Urine Color Light yellow (YELLOW) 02/24/18 12:30 Urine Appearance Clear (CLEAR) 02/24/18 12:30 Urine pH 6.0 (4.7-8.0) 02/24/18 12:30 Ur Specific Ada <= 1.005 (1.005-1.035) 02/24/18 12:30 Urine Protein Negative mg/dL (<30 mg/dL) 02/24/18 12:30 Urine Glucose (UA) Negative mg/dL (NEGATIVE) 02/24/18 12:30 Urine Ketones Negative mg/dL (NEGATIVE) 02/24/18 12:30 Urine Blood Large (NEGATIVE) H 02/24/18 12:30 Urine Nitrate Negative (NEGATIVE) 02/24/18 12:30 Urine Bilirubin Negative (NEGATIVE) 02/24/18 12:30 Urine Urobilinogen 0.2 E.U./dL (<1 E.U./dL) 02/24/18 12:30 Ur Leukocyte Esterase Trace Thelma/uL (NEGATIVE) H 02/24/18 12:30 Urine RBC 0 - 2 /hpf (0-2) 02/24/18 12:30 Urine WBC 0 - 2 /hpf (0-6) 02/24/18 12:30 Ur Epithelial Cells 1 - 3 /hpf (0-5) 02/24/18 12:30 Urine Bacteria Mod (NEG) 02/24/18 12:30 Urine HCG, Qual Negative (NEGATIVE) 02/24/18 12:30 - Hospital Course Hospital Course: On admission: Pt is a 42 yo F with pmhx of Pulm HTN, 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 Pt states that she was discharged from [facility] [place] yesterday, where she was admitted for the same b/l leg pain and per pt, only gave her a water pill before d/cing her. Pt states that she is having the same pain as yesterday when she was d/sabi from [facility] [place]. She currently reports that the pain is present diffusely throughout both her legs more anteriorly than posteriorly and is rated at a 9/10. She denies having any increased swelling or heaviness to either leg b/l. She states that today she was having difficulty wa lking and was unable to get assistance to get to the bathroom from her family. She denies any new trauma to the area. She currently denies fevers, chills, headache, lightheadedness, dizziness, chest pain, palpitations, abd pain, n/v, c/d, dysuria, hematuria, numbness or tingling. She does admit to SOB, cough which is productive of hay colored sputum, Dyspnea on exertion, sleeps using 2 pillows due to orthopnea, but denies PND. During hospital stay: BNP on admission 3350. ECHO showed RV is severely dilated, RV systolic function is severely reduced, RA is severely dilated, severe TR, severe pulm HTN. Patient was put on Lasix, bipap, duonebs, steroids, pulmicort, home revatio, fluid restriction. Dopplers were negative for DVT. Patient was noted to be noncompliant with bipap. ICU was consulted. Recommended CT chest to rule out PE, continue Lasix and bipap. Chest CT showed severe cardiomegaly, pericardial effusion, no evidence of pulmonary embolus. Patient was noted to desaturate with minimal exertion. Records were obtained from [facility] which showed patient had cardiac cath in 12/2017 which showed mean PCWP 80 mm Hg, severe pulmonary hypertension with elevated pulmonary arteriolar resistance, likely multifactorial due to chronic thromboembolic pulmonary disease as well as sleep apnea. Marked elevated RV end-diastolic pressure consistent with right ventricular diastolic dysfunction, low cardiac index with CVP to wedge ratio of more than 1 consistent with cardiogenic shock physiology. V/Q scan showed high probability of PE. Recs were to continue anticoagulation with O2 and sildenafil. Patient was reevaluated by ICU team and was subsequently admitted to ICU and placed on dobutamine drip. Per sawmill production worker Dr. Hurst patient received contact information of [facility] and [facility] for evaluation for consideration of pulmonary artery endarterectomy. She was also offered riociguat however wanted all of her pulmonary hypertension care to be at [place] and thus decision was made to postpone the transfer. Patient was advised on transfer for evaluation of possible endarterectomy however she refused the evaluation. Patient was subsequently transferred out of ICU. Patient was continued on physical therapy however she had difficulty tolerating therapy due to oxygen desaturation. Patient was not accepted from subacute rehab due to insurance. Throughout her hospital course patient was noncompliant with bipap despite consistent counseling on importance of bipap. Patient was noted to have edema in her breast tissue and so ultrasound was done which showed diffuse edema, BIRADS 2 benign finding, continue annual screening mammography as per ACR guidelines. Patient was also started on spironolactone. Patient's lower extremity edema improved. Patient was instructed on importance of bipap use in addition to fluid restriction. Patient was optimized for discharge to [facility]. Please see EMR for full summary. - Date & Time of H&P Date of H&P: 02/24/18 Time of H&P: 02:49 Discharge Exam - Additional Findings Additional findings: - Constitutional Appears: No Acute Distress, Chronically Ill - Head Exam Head Exam: ATRAUMATIC, NORMAL INSPECTION, NORMOCEPHALIC - Eye Exam Eye Exam: Normal appearance - Respiratory Exam Respiratory Exam: Decreased Breath Sounds, NORMAL BREATHING PATTERN. on nasal cannula 6 L .absent: Rales, Rhonchi, Wheezes, Respiratory Distress - Cardiovascular Exam Cardiovascular Exam: REGULAR RHYTHM and rate, +S1, +S2. absent: Bradycardia, Tachycardia, Murmur - GI/Abdominal Exam GI & Abdominal Exam: Soft, Normal Bowel Sounds. absent: Distended, Tenderness - Extremities Exam Extremities Exam: absent: Tenderness Additional comments: left bka, trace pitting edema bilaterally - Neurological Exam Neurological Exam: Alert, Awake, Oriented x3 - Skin Skin Exam: Dry, Intact, Normal Color, Warm Discharge Plan - Discharge Medications Prescriptions: Albuterol HFA [Ventolin HFA 90 mcg/actuation (8 g)] 2 puff IH [id number] PRN 30 Days puff PRN Reason: Shortness Of Breath Albuterol/Ipratropium [Duoneb 3 mg/0.5 mg (3 ml) UD] 3 ml IH [id number] 30 Days neb Arformoterol [Brovana] 15 mcg IH [id number] 30 Days neb Benzonatate [Tessalon Perles] 100 mg PO TID 30 Days sgl Budesonide [Pulmicort Respules] 0.5 mg IH [id number] 30 Days neb Furosemide [Lasix] 80 mg PO BID 30 Days tab Levalbuterol [Xopenex] 0.63 mg IH Q2H PRN 30 Days neb PRN Reason: Shortness Of Breath Rivaroxaban [Xarelto] 20 mg PO DAILY 30 Days tab Spironolactone [Aldactone] 25 mg PO DAILY 30 Days tab - Follow Up Plan Condition: STABLE Disposition[facility] Patient education suggested?: Yes Instructions: Pulmonary Hypertension, Adult (DC), Flu Vaccine Additional Instructions: Please follow up in [facility] upon discharge for pulmonary hypertension. Call [phone] to make your appointment. Please follow up with your primary medical doctor within one week. Be sure to fluid restrict yourself to 1300 mL daily and use bipap at night time. Also be sure to measure daily weights. Take your medications as prescribed. will need repeat screening mammography annually Return to ED if symptoms return or worsen.
[2018-04-06] MEDS: guaiFENesin 100 mg/5 ml Syrup UD PO PRN (19:44)
[2018-04-07] MEDS: Pantoprazole 40 mg EC Tab PO SCH (06:58)
[2018-04-07] MEDS: Budesonide 0.5 mg/2 ml Inhal Susp UD IH SCH (07:57)
[2018-04-07] MEDS: Arformoterol 15 mcg/2 ml Inh Sol IH SCH (07:57)
[2018-04-07 08:31] VITALS: BP 118/62; PULSE 75; TEMP 98; O2SAT 89
[2018-04-07] MEDS: Sildenafil 20 MG TAB PO SCH ×2 (10:37→13:52)
--- NOTE | 2018-04-07 12:30 | CP.PCM.PN ---
<Oanh Mcclellan - Last Filed: 04/07/18 16:25> Subjective - Date & Time of Evaluation Date of Evaluation: 04/07/18 Time of Evaluation: 07:00 - Subjective Subjective: PGY-2 Medicine progress note for hospitalist service patient seen and examined at bedside, No acute distress. No reported events over night. Patient was accepted to [facility] facility yesterday however was not able to go at that time because facility did not have bipap available for patient. However today she will be able to be discharged. Patient denies increased SOB chest pain, abd pain, n/v. She is tolerating diet. Patient states that she wore bipap overnight. no complaints at this time. Objective - Vital Signs/Intake and Output Vital Signs (last 24 hours): Temp Pulse Resp BP Pulse Ox 98 F 75 22 118/62 89 L 04/07/18 06:00 04/07/18 06:00 04/07/18 06:00 04/07/18 10:36 04/07/18 06:00 Intake and Output: 04/07/18 04/07/18 06:59 18:59 Intake Total 600 Output Total 1000 Balance -400 - Medications Medications: Current Medications Albuterol/Ipratropium (Duoneb 3 Mg/0.5 Mg (3 Ml) Ud) 3 ml IH [id number] PRN PRN Reason: Shortness of Breath Last Admin: 03/30/18 23:58 Dose: 3 ml Arformoterol Tartrate (Brovana) 15 mcg IH [id number] [facility] Last Admin: 04/07/18 07:57 Dose: 15 mcg Budesonide (Pulmicort Respules) 0.5 mg IH [id number] [facility] Last Admin: 04/07/18 07:57 Dose: 0.5 mg Furosemide (Lasix) 40 mg IVP Q12 [facility] Last Admin: 04/07/18 10:36 Dose: 40 mg Gabapentin (Neurontin) 300 mg PO TID [facility]; Protocol Last Admin: 04/07/18 10:37 Dose: 300 mg Guaifenesin (Robitussin) 100 mg PO Q4H PRN PRN Reason: Cough Last Admin: 04/06/18 19:44 Dose: 100 mg Pantoprazole Sodium (Protonix Ec Tab) 40 mg PO 0600 [facility] Last Admin: 04/07/18 06:58 Dose: 40 mg Rivaroxaban (Xarelto) 20 mg PO DAILY [facility]; Protocol Last Admin: 04/07/18 10:37 Dose: 20 mg Sildenafil Citrate (Revatio) 20 mg PO TID [facility] Last Admin: 04/07/18 10:37 Dose: 20 mg Spironolactone (Aldactone) 25 mg PO DAILY [facility] Last Admin: 04/07/18 10:37 Dose: 25 mg Tramadol HCl (Ultram) 50 mg PO TID PRN PRN Reason: Pain, severe (8-10) Last Admin: 04/03/18 23:01 Dose: 50 mg - Labs Labs: 03/31/18 09:20 03/31/18 09:20 PT 35.6 SECONDS (9.4-12.5) H 03/01/18 18:48 INR 3.05 03/01/18 18:48 APTT 32.1 Seconds (25.1-36.5) 03/01/18 18:48 - Additional Findings Additional findings: - Constitutional Appears: No Acute Distress, Chronically Ill - Head Exam Head Exam: ATRAUMATIC, NORMAL INSPECTION, NORMOCEPHALIC - Eye Exam Eye Exam: Normal appearance - Respiratory Exam Respiratory Exam: Decreased Breath Sounds, NORMAL BREATHING PATTERN. on nasal cannula 6 L .absent: Rales, Rhonchi, Wheezes, Respiratory Distress - Cardiovascular Exam Cardiovascular Exam: REGULAR RHYTHM and rate, +S1, +S2. absent: Bradycardia, Tachycardia, Murmur - GI/Abdominal Exam GI & Abdominal Exam: Soft, Normal Bowel Sounds. 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 Plan: Shortness of breath - secondary to severe pulm HTN, CHF, LAYO - continue bipap at night - continue lasix 40 mg IV BID - continue duonebs prn, brovana, pulmicort - continue Sildenafil for pulm HTN - fluid restrict to 1.3 L daily - Echo on 01/14 show RV is severely dilated, RV systolic function is severely reduced, RA is severely dilated, severe TR, severe pulm HTN - Pulmonary was consulted, recommended continued therapy and emphasis on bipap. No further recommendations at this time - Continue PT as tolerated, recommended [facility] however per case mangers denied by insurance Bilateral leg pain - lower extremity dopplers on 03/24 negative for DVT - continue Lasix 40 mg IV BID - Gabapentin 300 mg TID - Tramadol prn - Spironolactone 25 mg PO daily LAYO - bipap at night, patient has history of noncompliance however she is encourged to continue bipap at night Edema - increased edema noted in breast tissue bilaterally - U/S shows diffuse edema, BIRADS 2 benign finding - continue annual screening mammography as per ACR guidelines PPX - xarelto, protonix disposition Patient was accepted to [facility] yesterday however the facility did not have a bipap machine therefore patient was unable to leave yesterday. Today the facility has the appropriate accommodation. Patient will be discharged, please refer to discharge summary from yesterday. Case discussed with Dr. Gross <Placido Gross - Last Filed: 04/07/18 16:29> Objective - Vital Signs/Intake and Output Vital Signs (last 24 hours): Temp Pulse Resp BP Pulse Ox 98 F 75 22 118/62 89 L 04/07/18 06:00 04/07/18 06:00 04/07/18 06:00 04/07/18 10:36 04/07/18 06:00 Intake and Output: 04/07/18 04/07/18 06:59 18:59 Intake Total 600 Output Total 1000 Balance -400 - Labs Labs: 03/31/18 09:20 03/31/18 09:20 PT 35.6 SECONDS (9.4-12.5) H 03/01/18 18:48 INR 3.05 03/01/18 18:48 APTT 32.1 Seconds (25.1-36.5) 03/01/18 18:48 Attending/Attestation - Attestation I have personally seen and examined this patient.: Yes I have fully participated in the care of the patient.: Yes I have reviewed all pertinent clinical information, including history, physical exam and plan: Yes Notes (Text): 04/07/18 16:29 Medical record note made by the resident after discussion with my direction and input after the patient was personally seen and examined by me. I have reviewed the chart and agree that the record accurately reflects by personal performance of the history, physical exam, data review, and medical decision-making, in the course for the patient. I have also personally directed the plan of care.
== END 2018-04-07 14:23 | DRG 544 ==
LOC: ED 17:41 → ERH 02-24 00:17 → 2RNO 02-24 03:20 → 3RSO 02-28 23:54 → 2RSO 03-06 15:45 → 5RSO 03-10 22:30 → CCU 03-18 15:32 → 2RNO 03-21 17:32 → 5RSO 03-31 13:41
PROVIDERS: ADMIT Internal Medicine; ATTEND Internal Medicine
PROC: 5A09457 Assistance with Respiratory Ventilation, 24-96 Consecutive Hours, Continuous Positive Airway Pressure (ICD-10-PCS; principal; 2018-02-26)
DX: I50.33 Acute on chronic diastolic (congestive) heart failure (principal); J96.21 Acute and chronic respiratory failure with hypoxia; R57.0 Cardiogenic shock; J44.1 Chronic obstructive pulmonary disease with (acute) exacerbation; E87.1 Hypo-osmolality and hyponatremia; F06.30 Mood disorder due to known physiological condition, unspecified; R04.2 Hemoptysis; E87.6 Hypokalemia; D64.9 Anemia, unspecified; E66.01 Morbid (severe) obesity due to excess calories; F43.23 Adjustment disorder with mixed anxiety and depressed mood; G47.33 Obstructive sleep apnea (adult) (pediatric); I27.24 Chronic thromboembolic pulmonary hypertension; I31.3 Pericardial effusion (noninflammatory); I50.82 Biventricular heart failure; K21.9 Gastro-esophageal reflux disease without esophagitis; Z53.20 Procedure and treatment not carried out because of patient's decision for unspecified reasons; Z79.01 Long term (current) use of anticoagulants; Z79.899 Other long term (current) drug therapy; Z82.49 Family history of ischemic heart disease and other diseases of the circulatory system; Z83.2 Family history of diseases of the blood and blood-forming organs and certain disorders involving the immune mechanism; Z86.711 Personal history of pulmonary embolism; Z86.718 Personal history of other venous thrombosis and embolism; Z87.891 Personal history of nicotine dependence; Z89.512 Acquired absence of left leg below knee; Z91.14 Patient's other noncompliance with medication regimen; Z91.19 Patient's noncompliance with other medical treatment and regimen; Z99.81 Dependence on supplemental oxygen; R40.2412 Glasgow coma scale score 13-15, at arrival to emergency department; M79.604 Pain in right leg; M79.605 Pain in left leg; Z68.43 Body mass index [BMI] 50.0-59.9, adult; M79.89 Other specified soft tissue disorders